=== PATIENT | female | born 1990 | race Caucasian/White ===

== ENCOUNTER 2016-03-26 23:42 | Outpatient (CLI) | payer BC, OTHER ==
--- NOTE | 2016-03-27 02:27 | US ---
EXAMINATION TYPE: US OB >= 14 wk fetus DATE OF EXAM: 03/27/2016 2:04 AM COMPARISON: Multiple in PACS CLINICAL HISTORY: Pt state light bright red bleeding x few hours TECHNIQUE: Transabdominal (TA) GESTATIONAL AGE / DATING Physician Established: (28 weeks/6 days) EDC: 06/13/2016 Dates by First Scan: (28 weeks/4 days) EDC: 06/15/2016 Dates by Current Scan: (29 weeks/0 days) EDC: 06/12/2016 SURVEY IUP: Single PLACENTA: Fundal PREVIA: No Previa [place]: 12.9 cm Normal CERVICAL LENGTH (transabdominal: norm > 3.0cm): 4.5 cm BIOMETRY PRESENTATION: Vertex BPD: 7.6 cm 30 weeks / 5 days HC: 27.8 cm 30 weeks / 3 days AC: 24.1 cm 28 weeks / 3 days FL: 5.4 cm 28 weeks / 4 days ESTIMATED WEIGHT IN GRAMS: 1278 grams ESTIMATED WEIGHT IN LBS/OZS: 2 lbs. 13 oz. WEIGHT PERCENTAGE BASED ON ESTABLISHED DATES: 32.9% HC/AC: 1.15 Normal FL/AC: 22 Normal HEART RATE: 135 bpm RHYTHM: Normal TECHNOLOGIST IMPRESSION: Single, viable IUP/ No abnormality seen at this time to account for pt's sy mptoms/ Possible placental benavides visualized= 3.7 cm Results given to L&D at time of exam IMPRESSION: There is cephalic presentation. There is no evidence of placenta previa or placental abruption. An ex tra fluid is normal in volume.
== END 2016-03-27 02:11 | disposition home or self-care (01) ==
LOC: FBPOP 23:42
PROVIDERS: ATTEND Obstetrics & Gynecology
DX: O26.853 Spotting complicating pregnancy, third trimester (principal); Z3A.28 28 weeks gestation of pregnancy
CPT/HCPCS: 59025; 76805; G0463; 99213

== ENCOUNTER 2016-04-15 23:45 | Observation (INO) | payer BC, OTHER ==
--- NOTE | 2016-04-16 01:26 | US ---
EXAMINATION TYPE: US OB >= 14 wk fetus DATE OF EXAM: 04/16/2016 1:12 AM COMPARISON: 03/27/2016 CLINICAL HISTORY: vaginal bleedingBleeding x few hours, 5, para 2, miscarriage 2 TECHNIQUE: Transabdominal (TA) GESTATIONAL AGE / DATING Physician Established: (31 weeks/5 days) EDC: 06/13/2016 Dates by First Scan: (31 weeks/3 days) EDC: 06/15/2016 Dates by Current Scan: (32 weeks/0 days) EDC: 06/11/2016 SURVEY IUP: Single PLACENTA: Fundal PREVIA: No Previa [place]: 15.8 cm Normal CERVICAL LENGTH (transabdominal: norm > 3.0cm): 4.0 cm BIOMETRY PRESENTATION: Vertex BPD: 8.1 cm 32 weeks / 3 days HC: 29.5 cm 32 weeks / 5 days AC: 28.1 cm 32 weeks / 1 days FL: 6.2 cm 32 weeks / 0 days ESTIMATED WEIGHT IN GRAMS: 1919 grams ESTIMATED WEIGHT IN LBS/OZS: 4 lbs. 4 oz. WEIGHT PERCENTAGE BASED ON ESTABLISHED DATES: 54% HC/AC: 1.05 Normal FL/AC: 22.00 Normal HEART RATE: 146 bpm RHYTHM: Normal TECHNOLOGIST IMPRESSION: Viable single IUP measuring 32 weeks 0 days with a heart rate of 146bpm and an estimated delivery date of 06/11/2016, 4.2cm hypoechoic area within placenta seen on previous ult rasound - possible placental benavides IMPRESSION: 1. Single live intrauterine with heart rate of 1 46 bpm with current ultrasound age of 32 w eeks and 0 days and CHRIS of 06/11/2016. 2. Hypoechoic area measuring approximately 4.2 cm is again noted in the placenta most likely represen ting benign placental benavides. No definite placental abruption is suggested.
[2016-04-16] MEDS ORDERED: LACTATED RINGERS 1,000 ML IV SCH (03:00)
[2016-04-16] MEDS ORDERED: BETAMET ACET-BETAMETH SOD PHOS 6 MG/ML VIAL IM SCH (03:00)
[2016-04-16 03:50] VITALS: BP 114/56; PULSE 80; RESP 16; TEMP 97.9; BMI 36.3
--- NOTE | 2016-04-16 08:11 | P.HPOB ---
History of Present Illness H&P Date: 04/16/16 Chief Complaint: IUP 31 weeks vaginal bleeding Elena is a 25-year-old 5 para 2 at 31 weeks gestation who arrives complaining of vaginal bleeding. She notes that vaginal bleeding began earlier this evening she states she was really not do anything but got use the restroom noticed blood in the stool as well as a few small clots. She medially came to labor and delivery. She denies sexual intercourse. It is noted that she previously had an abruption with her last that ended with a miscarriage at 20 weeks. It is something that we have been following closely with [facility] due to her history. She voices no other problems or complaints she denies contractions. She denies initially leaking of fluid although after admission she does report that she may have had a leak of fluid about 10 AM yesterday but we did do an ultrasound and her [place] was normal at 15.8 her cervical length was 4.0 heart rate was 146 on ultrasound there was no proteinuria with a fundal placenta. There was also a 4.2 cm placental late but that is something that is been there previously. She had a similar episode of bleeding about 2 weeks ago but that remained stable, bleeding subsided, and she was therefore discharged home following a thorough evaluation. On physical exam today her vital signs are currently stable and she is afebrile. Her heart is regular and her lungs are clear. Abdomen is soft there traction as noted and no palpable tenderness. A speculum exam is done with thin bloody fluid in the cul-de-sac does not appear to be amniotic fluid and amnisure was obtained and was positive but unfortunately there was greater than 50% blood in the sample limiting its effectiveness. We've admitted her for observational care at this time and to evaluate and see the stability of her bleeding. My goal is to verify stability tonight and speak with the high risk physicians in the morning and see whether or not they would like for her to be transferred there for further evaluation and repeat ultrasound to rule out other changes or whether to continue monitoring her here and potentially have her see them at the beginning of the week. Either way at this time due to the bleeding we are going to have her under close observational care. heart tones are in the 140s and have been reactive again there are no contractions noted on the monitor. Assessment interim at 31 weeks with vaginal bleeding. History of vaginal bleeding during this as well as an abruption with demise at 20 weeks with her last Plan close observational care and discuss with maternal medicine later today. Past Medical History Past Medical History: Asthma Additional Past Medical History / Comment(s): glasses, hx of kidney and bladder infectins, permanent upper retainer present History of Any Multi-Drug Resistant Organisms: None Reported Past Surgical History: Appendectomy, Orthopedic Surgery Additional Past Surgical History / Comment(s): eye surgery x 5, right knee ( foreign body removal) Past Anesthesia/Blood Transfusion Reactions: No Reported Reaction Past Psychological History: Depression Smoking Status: Never smoker Past Alcohol Use History: None Reported Past Drug Use History: None Reported - Past Family History Father Family Medical History: Hypertension Additional Family Medical History / Comment(s): anxiety Mother Family Medical History: Hypertension Medications and Allergies Home Medications Medication Instructions Recorded Confirmed Type Multivitamin [Multivitamins Adult 2 tab PO DAILY 11/16/15 04/16/16 History Gummies] Citalopram Hydrobromide [CeleXA] 40 mg PO DAILY 01/29/16 04/16/16 History Albuterol Inhaler [Ventolin Hfa 2 puff INHALATION RT-Q6H PRN 03/10/16 04/16/16 History Inhaler] Allergies Allergy/AdvReac Type Severity Reaction Status Date / Time diphenhydramine HCl Allergy Itching Verified 04/03/16 18:01 [From Benadryl] latex Allergy Rash/Hives Verified 04/03/16 18:01 hydrocodone bitartrate AdvReac MIGRAINE Verified 04/03/16 18:01 [From Vicodin] Exam Osteopathic Statement: *. No significant issues noted on an osteopathic structural exam other than those noted in the History and Physical/Consult. - Vital Signs Vital signs: Vital Signs Temp Pulse Resp BP Pulse Ox 04/16/16 02:43 97.9 F 80 16 114/56 98 Intake and Output 04/15/16 04/16/16 04/16/16 22:59 06:59 14:59 Other: # Voids 1 Weight 96.162 kg
--- NOTE | 2016-04-16 09:16 | P.DS ---
Providers Date of admission: 04/16/16 02:39 Expected date of discharge: 04/16/16 Attending physician: Earl Madrigal Primary care physician: Earl Madrigal [facility] Course: Elena is seen and evaluated again this morning. She continues to have light bleeding and some discharge. I did speak with the maternal- medicine specialist to [facility]' Dr. Tyler and she agrees that more monitoring will be needed and her recommendation is that we transfer her to there so they can do monitoring for both rupture of membranes as well as potential abruption due to her history. Risks and benefits of transfer discussed with the patient and her and all questions are answered for her prior to her being discharged she is stable for transfer at this time heart tones are in the 140s to 150s and have been reactive. She is not ajit and she is stabilized to the best of my ability at this time. Patient Condition at Discharge: Good Plan - Discharge Summary Discharge Medication List Multivitamin [Multivitamins Adult Gummies] 2 tab PO DAILY 11/16/15 [History] Citalopram Hydrobromide [CeleXA] 40 mg PO DAILY 01/29/16 [History] Albuterol Inhaler [Ventolin Hfa Inhaler] 2 puff INHALATION RT-Q6H PRN 03/10/16 [ History]
== END 2016-04-16 09:35 | disposition short-term general hospital (02) ==
LOC: FBPOP 23:45 → 4FBP 04-16 02:39
PROVIDERS: ADMIT Obstetrics & Gynecology; ATTEND Obstetrics & Gynecology
DX: O46.93 Antepartum hemorrhage, unspecified, third trimester (principal); O99.513 Diseases of the respiratory system complicating pregnancy, third trimester; O99.343 Other mental disorders complicating pregnancy, third trimester; O09.293 Supervision of pregnancy with other poor reproductive or obstetric history, third trimester; F32.9 Major depressive disorder, single episode, unspecified; Z3A.31 31 weeks gestation of pregnancy; J45.909 Unspecified asthma, uncomplicated; Z88.5 Allergy status to narcotic agent; Z88.8 Allergy status to other drugs, medicaments and biological substances; Z91.040 Latex allergy status; Z79.899 Other long term (current) drug therapy
CPT/HCPCS: 59025; 84112; 76805; G0378; G0463; J0702; 96372; 99213

== ENCOUNTER 2016-05-09 10:41 | Outpatient (CLI) | payer BC, OTHER | END 2016-05-09 11:38 | disposition home or self-care (01) | LOC: FBPOP 10:41 | PROVIDERS: ATTEND Obstetrics & Gynecology | DX: O09.893 Supervision of other high risk pregnancies, third trimester (principal); R10.9 Unspecified abdominal pain; Z3A.35 35 weeks gestation of pregnancy; Z87.898 Personal history of other specified conditions | CPT/HCPCS: 59025; G0463; 99213 ==

== ENCOUNTER 2016-05-09 21:20 | Outpatient (CLI) | payer BC, OTHER | END 2016-05-09 22:05 | disposition home or self-care (01) | LOC: FBPOP 21:20 | PROVIDERS: ATTEND Obstetrics & Gynecology | DX: Z53.9 Procedure and treatment not carried out, unspecified reason (principal) | CPT/HCPCS: 59025; 99213 ==

== ENCOUNTER 2016-05-23 06:00 | Inpatient (IN) | payer BC, OTHER ==
[2016-05-23] MEDS ORDERED: METHYLERGONOVINE 0.2 MG/ML 1 ML AMP IM PRN (06:49)
[2016-05-23] MEDS ORDERED: TERBUTALINE 1 MG/ML VIAL SQ PRN (06:49)
[2016-05-23] MEDS ORDERED: CARBOPROST TROMETHAMINE 250 MCG/ML 1 ML AMP IM PRN (06:49)
[2016-05-23] MEDS ORDERED: OXYTOCIN 10 UNIT/ML 1 ML VIAL IM PRN (06:49)
[2016-05-23] MEDS ORDERED: LIDOCAINE 1% (PF) 10 MG/ML (30 ML SDV) SQ PRN (06:49)
[2016-05-23] MEDS: LACTATED RINGERS 1,000 ML IV SCH ×3 (06:55→14:27)
[2016-05-23] MEDS ORDERED: OXYTOCIN 30 UNITS/500 ML NS 30 UNIT in SALINE 1 500ML.BAG IV SCH ×2 (07:00→17:30)
[2016-05-23 07:08] LABS: Basophils % (A) 0 %; CH 30.4; CHCM 34.2; Eosinophils # (A) 0.1 k/uL (0-0.7); Eosinophils % (A) 1 %; HCT 36.5 % (34.0-46.0); HGB 11.9 gm/dL (11.4-16.0); Luc # (Auto) 0.37; Luc % (Auto) 4; Lymphocytes # (A) 2.6 k/uL (1.0-4.8); Lymphocytes % (A) 26 %; MCH 29.2 pg (25.0-35.0); MCHC 32.6 g/dL (31.0-37.0); MCV 89.5 fL (80.0-100.0); Mean Platelet Volume 8.8; Monocytes # (A) 0.5 k/uL (0-1.0); Monocytes % (A) 5 %; Neutrophils # (A) 6.4 k/uL (1.3-7.7); Neutrophils % (A) 65 %; RBC 4.08 m/uL (3.80-5.40); RDW 13.6 % (11.5-15.5); WBC 9.9 k/uL (3.8-10.6); WBC (Perox) 10.16
[2016-05-23] MEDS: BUTORPHANOL 1 MG/ML 1 ML VIAL IV PRN ×2 (09:54→12:17)
[2016-05-23] MEDS ORDERED: fentaNYL (PF) 50 MCG/ML 5 ML AMP ONE (13:51)
[2016-05-23] MEDS ORDERED: BUPIVACAINE (PF) 0.25% 30 ML VIAL ONE (13:51)
[2016-05-23] MEDS ORDERED: SODIUM CHLORIDE 0.9% 100 ML BAG ONE (13:51)
--- NOTE | 2016-05-23 17:13 | P.HPOB ---
History of Present Illness H&P Date: 05/23/16 Chief Complaint: IUP term: chronic abruption Case a 25-year-old at 37 weeks gestation arise for induction of labor due to chronic abruption. She has been seeing myself and high risk entirety of the . She's had a chronic abruption for which she has been on pelvic rest and bedrest over the last several months. The point where she is at term and due to rectum exudations from high risk we' ll plan to induce today. She has had no bleeding or last several days. course otherwise is noted to be unremarkable. She was admitted to high risk for approximately 2-3 days earlier in the as well. On physical exam vital signs are stable and afebrile. Heart regular, lungs clear, extremities without pain. Uterus is noted to be gravid. heart tones 130s 140s and are reactive area patient's pertinent labs include O+ blood type Rh antibody negative rubella not listed, hepatitis B surface antigen was negative, groupie strep was negative. She feels her 1 hour Glucola screen however she did pass her 3 hour Glucola screen. Past Medical History Past Medical History: Asthma Additional Past Medical History / Comment(s): glasses, hx of kidney and bladder infectins, permanent upper retainer present History of Any Multi-Drug Resistant Organisms: None Reported Past Surgical History: Appendectomy, Orthopedic Surgery Additional Past Surgical History / Comment(s): eye surgery x 5, right knee ( foreign body removal) Past Anesthesia/Blood Transfusion Reactions: No Reported Reaction Past Psychological History: Depression Additional Psychological History / Comment(s): stopped celexa 2-3 weeks ago Smoking Status: Former smoker Past Alcohol Use History: None Reported Past Drug Use History: None Reported - Past Family History Father Family Medical History: Hypertension Additional Family Medical History / Comment(s): anxiety Mother Family Medical History: Hypertension Medications and Allergies Home Medications Medication Instructions Recorded Confirmed Type Multivitamin [Multivitamins Adult 2 tab PO DAILY 11/16/15 05/23/16 History Gummies] Albuterol Inhaler [Ventolin Hfa 1 - 2 puff INHALATION Q6HR PRN 05/23/16 History Inhaler] Allergies Allergy/AdvReac Type Severity Reaction Status Date / Time diphenhydramine HCl Allergy Itching Verified 05/23/16 06:48 [From Benadryl] latex Allergy Rash/Hives Verified 05/23/16 06:48 hydrocodone bitartrate AdvReac MIGRAINE Verified 05/23/16 06:48 [From Vicodin] Exam Osteopathic Statement: *. No significant issues noted on an osteopathic structural exam other than those noted in the History and Physical/Consult. - Vital Signs Vital signs: Vital Signs Temp Pulse Resp BP 05/23/16 06:51 96.0 F L 97 16 131/72 Intake and Output 05/23/16 05/23/16 05/23/16 06:59 14:59 22:59 Other: # Voids 1 Weight 97.522 kg - OBG Physical Exam Breast: both: normal (no masses) Abdomen: bowel sounds normal, no diffuse tenderness, no bruit present, no guarding noted, no hepatomegaly, no splenomegaly, no mass Vulva: both: normal Vagina: normal moisture, no discharge Cervix: no lesion, no discharge Uterus: normal size, normal contour Adnexa: both: normal Anus/Rectum: normal perianal skin, no rectal mass, no hemorrhoids, heme negative Results Result Diagrams: 05/23/16 06:48
--- NOTE | 2016-05-23 17:14 | P.PROBDLV ---
Vaginal Delivery Note - . Vaginal Delivery Note: Elena progressed complete and pushing with spontaneous vaginal delivery of a viable male over an intact perineum. Falling deliver the head anterior and posterior shoulders were delivered with gentle downward upper traction. A nuchal cord 1 was noted but the baby was delivered through the nuchal cord. Once this was accomplished mouth nares were bulb suctioned and baby was placed on mother's belly where the umbilical cord was allowed to pulsate for 30 seconds prior to clamping and cutting. Once this was accomplished baby was given off to awaiting nursery personnel with spontaneous cry noted. Placenta was then delivered intact and Pitocin was added to the IV. scores were pending but weight was 6 lbs. 14 oz. Both mother and baby are currently stable following delivery.
[2016-05-23] MEDS ORDERED: ZOLPIDEM 5 MG TAB PO PRN (17:18)
[2016-05-23] MEDS ORDERED: diphenhydrAMINE 25 MG CAP PO PRN (17:18)
[2016-05-23] MEDS ORDERED: BENZOCAINE/MENTHOL SPRAY 1 GM/SPRAY AEROSOL TOPICAL PRN (17:18)
[2016-05-23] MEDS ORDERED: HYDROCORTISONE 2.5% RECTAL CREAM 30 GM TUBE RECTAL PRN (17:18)
[2016-05-23] MEDS ORDERED: diphenhydrAMINE 50 MG CAP PO PRN (17:18)
[2016-05-23] MEDS ORDERED: SIMETHICONE 80 MG CHEWABLE PO PRN (17:18)
[2016-05-23] MEDS ORDERED: WITCH HAZEL 1 EACH MED..PAD TOPICAL PRN (17:18)
[2016-05-23] MEDS ORDERED: LANOLIN CREAM 5 GM TUBE TOPICAL PRN (17:18)
[2016-05-23] MEDS ORDERED: Acetaminophen-Codeine 300-30mg TAB PO PRN (17:18)
[2016-05-23] MEDS ORDERED: diphenhydrAMINE 50 MG/ML 1 ML VIAL IVP PRN ×2 (17:18)
[2016-05-23] MEDS ORDERED: ACETAMINOPHEN TAB 325 MG TAB PO PRN (17:18)
[2016-05-23] MEDS ORDERED: MEASLES-MUMPS-RUBELLA VACC/PF 12,500 UNIT/0.5 ML VIAL SQ ONE (17:18)
[2016-05-23] MEDS: SENNOSIDES-DOCUSATE SODIUM 1 EACH TAB PO SCH (21:44)
[2016-05-23] MEDS: Acetaminophen-Codeine 300-30mg TAB PO PRN (22:09)
[2016-05-24] MEDS: IBUPROFEN 600 MG TAB PO PRN ×2 (02:06→14:53)
[2016-05-24] MEDS: Acetaminophen-Codeine 300-30mg TAB PO PRN ×2 (07:46→19:57)
[2016-05-24] MEDS: SENNOSIDES-DOCUSATE SODIUM 1 EACH TAB PO SCH ×2 (08:51→21:59)
--- NOTE | 2016-05-24 09:57 | P.PNOBGVD ---
Subjective - Subjective Principal diagnosis: day 1 Interval history: Overall doing very well. Involuting, voiding, and she is tolerating her diet. She voices no complaints. Vital signs are stable and afebrile. Patient reports: Reports appetite normal, Reports voiding normally, Reports pain well controlled, Reports ambulating normally Benoit: doing well Objective - Latest Vital Signs Latest vital signs: Vital Signs Temp Pulse Resp BP Pulse Ox 05/24/16 08:00 98.4 F 80 20 92/55 97 05/24/16 03:56 97 F L 84 16 125/66 05/24/16 00:00 97.5 F L 79 16 99/48 05/23/16 20:00 97.1 F L 95 16 112/64 05/23/16 19:00 98.1 F 97 16 113/56 05/23/16 18:25 93 115/63 05/23/16 17:55 98.1 F 90 16 121/64 05/23/16 17:25 98.1 F 86 16 108/58 05/23/16 17:10 89 16 115/65 05/23/16 16:55 98.2 F 94 132/66 05/23/16 16:40 86 106/64 05/23/16 16:25 98.1 F 78 18 102/55 Intake and Output 05/23/16 05/24/16 05/24/16 22:59 06:59 14:59 Intake Total 9.383 Output Total 200 Balance -190.617 Intake: Intake, IV Titration 9.383 Amount Oxytocin 30 Units/500 ml 9.383 Ns 30 unit In Saline 1 500ml.bag @ 1 MILLIUNIT/ MIN 1 mls/hr IV .Q24H AVI Rx#:[id number] Output: Estimated Blood Loss 200 Other: # Voids 1 1 - Exam Lungs: bilateral: normal Chest: Normal S1, Normal S2 Extremities: Present: normal Abdomen: Present: normal appearance, soft Uterus: Present: normal, firm
[2016-05-25] MEDS: IBUPROFEN 600 MG TAB PO PRN ×2 (04:48→12:20)
[2016-05-25 08:33] VITALS: BP 110/66; PULSE 68; RESP 18; TEMP 98.2
--- NOTE | 2016-05-25 08:40 | P.DS ---
Providers Date of admission: 05/23/16 06:32 Expected date of discharge: 05/25/16 Attending physician: Earl Madrigal Primary care physician: Stated None Hospital Course: Elena is doing very well day 2. She is ambulating, voiding, and she is tolerating her diet. She voices no complaints. Vital signs stable and afebrile. Heart regular, lungs clear, extremities without pain. Abdomen is soft uterus is firm below the umbilicus and lochia is reported light. Assessment day 2. Plan discharged home follow me in 6 weeks. Prescription for towel 3 and Motrin been provided discharge instructions thoroughly reviewed. All questions are answered for the patient prior discharge and she is again stable for discharge at this time. Patient Condition at Discharge: Good Plan - Discharge Summary New Discharge Prescriptions: Acetaminophen-Codeine 300-30mg [Tylenol #3] 1 tab PO Q4H PRN #30 tablet PRN Reason: Pain Ibuprofen [Motrin] 600 mg PO Q6HR PRN #30 tab PRN Reason: Pain Discharge Medication List Multivitamin [Multivitamins Adult Gummies] 2 tab PO DAILY 11/16/15 [History] Albuterol Inhaler [Ventolin Hfa Inhaler] 1 - 2 puff INHALATION Q6HR PRN [History] Acetaminophen-Codeine 300-30mg [Tylenol #3] 1 tab PO Q4H PRN #30 tablet [Rx] Ibuprofen [Motrin] 600 mg PO Q6HR PRN #30 tab 05/25/16 [Rx] Follow up Appointment(s)/Referral(s): Earl Madrigal DO [Doctor of Osteopathic Medicine] - 6 Weeks Activity/Diet/Wound Care/Special Instructions: Thorough status post vaginal delivery instructions reviewed Discharge Disposition: HOME SELF-CARE
[2016-05-25] MEDS: SENNOSIDES-DOCUSATE SODIUM 1 EACH TAB PO SCH (12:21)
== END 2016-05-25 14:17 | disposition home or self-care (01) | DRG 774 ==
LOC: 4FBP 06:32
PROVIDERS: ADMIT Obstetrics & Gynecology; ATTEND Obstetrics & Gynecology
PROC: 3E0R3CZ (ICD-10-PCS; principal; 2016-05-23)
PROC: 10E0XZZ Delivery of Products of Conception, External Approach (ICD-10-PCS; principal; 2016-05-23)
PROC: 3E033VJ Introduction of Other Hormone into Peripheral Vein, Percutaneous Approach (ICD-10-PCS; principal; 2016-05-23)
PROC: 00HU33Z Insertion of Infusion Device into Spinal Canal, Percutaneous Approach (ICD-10-PCS; principal; 2016-05-23)
PROC: 10907ZC Drainage of Amniotic Fluid, Therapeutic from Products of Conception, Via Natural or Artificial Opening (ICD-10-PCS; principal; 2016-05-23)
DX: O45.93 Premature separation of placenta, unspecified, third trimester (principal); J45.909 Unspecified asthma, uncomplicated; Z37.0 Single live birth; O69.81X0 Labor and delivery complicated by cord around neck, without compression, not applicable or unspecified; Z3A.37 37 weeks gestation of pregnancy; Z87.891 Personal history of nicotine dependence; O99.52 Diseases of the respiratory system complicating childbirth; Z91.040 Latex allergy status
CPT/HCPCS: 85025; 86762; 88307

== ENCOUNTER 2016-07-21 16:08 | Emergency (ER) | payer BC, OTHER ==
[2016-07-21 16:21] VITALS: BP 135/81; PULSE 83; RESP 20; TEMP 97.8
--- NOTE | 2016-07-21 16:44 | ED ---
General Adult HPI - General Chief complaint: Wound/Laceration Stated complaint: Hand Laceration Time Seen by Provider: 07/21/16 16:26 Source: patient, RN notes reviewed Mode of arrival: ambulatory Limitations: no limitations - History of Present Illness Initial comments: Patient 26-year-old female who presents emergency room today with chief complaint of a puncture wound in the webspace between the first and second digit of the left hand. She does not that she was trying to cut a piece of hard plastic with a paring knife when it slipped causing this puncture wound. Patient states her tetanus is up-to-date. She does admit that she did clean it up at home. She denies any other complaints or symptoms. States she has full range of motion of the left hand. Patient denies any recent fever, chills, shortness of breath, chest pain, back pain, abdominal pain, nausea or vomiting, numbness or tingling, dysuria or hematuria, constipation or diarrhea, headaches or visual changes, or any other complaints. - Related Data Home Medications Medication Instructions Recorded Confirmed Multivitamin [Multivitamins Adult 2 tab PO DAILY 11/16/15 05/23/16 Gummies] Albuterol Inhaler [Ventolin Hfa 1 - 2 puff INHALATION Q6HR PRN 05/23/16 05/23/16 Inhaler] Previous Rx's Medication Instructions Recorded Acetaminophen-Codeine 300-30mg 1 tab PO Q4H PRN #30 tablet 05/25/16 [Tylenol #3] Ibuprofen [Motrin] 600 mg PO Q6HR PRN #30 tab 05/25/16 Amoxicillin/Potassium Clav 1 each PO Q12HR #20 tab 07/21/16 [Augmentin 875-125 Tablet] Allergies Allergy/AdvReac Type Severity Reaction Status Date / Time diphenhydramine HCl Allergy Itching Verified 07/21/16 16:22 [From Benadryl] latex Allergy Rash/Hives Verified 07/21/16 16:22 hydrocodone bitartrate AdvReac MIGRAINE Verified 07/21/16 16:22 [From Vicodin] Review of Systems ROS Statement: Those systems with pertinent positive or pertinent negative responses have been documented in the HPI. ROS Other: All systems not noted in ROS Statement are negative. Past Medical History Past Medical History: Asthma Additional Past Medical History / Comment(s): glasses, hx of kidney and bladder infectins, permanent upper retainer present History of Any Multi-Drug Resistant Organisms: None Reported Past Surgical History: Appendectomy, Orthopedic Surgery Additional Past Surgical History / Comment(s): eye surgery x 5, right knee ( foreign body removal) Past Anesthesia/Blood Transfusion Reactions: No Reported Reaction Past Psychological History: Depression Additional Psychological History / Comment(s): stopped celexa 2-3 weeks ago Smoking Status: Former smoker Past Alcohol Use History: None Reported Past Drug Use History: None Reported - Past Family History Father Family Medical History: Hypertension Additional Family Medical History / Comment(s): anxiety Mother Family Medical History: Hypertension General Exam - General Exam Comments Initial Comments: General: The patient is awake and alert, in no distress, and does not appear acutely ill. Eye: Pupils are equal, round and reactive to light, extra-ocular movements are intact. No nystagmus. There is normal conjunctiva bilaterally. No signs of icterus. Neck: The neck is supple, there is no tenderness or JVD. Cardiovascular: There is a regular rate and rhythm. No murmur, rub or gallop is appreciated. Respiratory: Lungs are clear to auscultation, respirations are non-labored, breath sounds are equal. No wheezes, stridor, rales, or rhonchi. Musculoskeletal: Normal ROM, no tenderness. Strength 5/5. Sensation intact. Pulses equal bilaterally 2+. Neurological: A&O x 3. CN II-XII intact, There are no obvious motor or sensory deficits. Coordination appears grossly intact. Speech is normal. Skin: small puncture wound to the web spacing between the first and second digit of the left hand. No active bleeding. Measuring less than 0.5 cm. Psychiatric: Cooperative, appropriate mood & affect, normal judgment. Limitations: no limitations Course Vital Signs 07/21/16 16:20 Temperature 97.8 F Pulse Rate 83 Respiratory 20 Rate Blood Pressure 135/81 O2 Sat by Pulse 99 Oximetry Medical Decision Making - Medical Decision Making patient advised due to puncture wound that we should leave wound open and not try to close to allow for any drainage if there is bacteria in it. Advised patient that we should place her on antibiotic. Be started on Augmentin for puncture wound. Advised to watch for any signs of infection return for any other concerns. Patient states understanding. Disposition Clinical Impression: Puncture wound Disposition: HOME SELF-CARE Condition: Good Instructions: Puncture Wound (ED) Additional Instructions: Please use antibiotic as prescribed amoxicillin and watch for any signs infection which may include increased pain, swelling, redness, fever or chills. Please return to emergency room for any signs of infection or any other concerns. Prescriptions: Amoxicillin/Potassium Clav [Augmentin 875-125 Tablet] 1 each PO Q12HR #20 tab Time of Disposition: 16:39
== END 2016-07-21 16:50 | disposition home or self-care (01) ==
LOC: EC 16:08
DX: S61.432A Puncture wound without foreign body of left hand, initial encounter (principal); Z87.891 Personal history of nicotine dependence; Z79.899 Other long term (current) drug therapy; Z88.5 Allergy status to narcotic agent; Z88.8 Allergy status to other drugs, medicaments and biological substances; Z91.040 Latex allergy status; W26.0XXA Contact with knife, initial encounter
CPT/HCPCS: 99282

== ENCOUNTER → 2016-09-02 | Outpatient (CLI) | payer BC, OTHER ==
--- NOTE | 2016-09-02 16:22 | US ---
EXAMINATION TYPE: US extremity nonvasc mass LT DATE OF EXAM: 09/02/2016 COMPARISON: NONE CLINICAL HISTORY: R22.32 localized swelling, mass, and lump. Lump left wrist that is increasing in si ze Low-level internal echoes, well-circumscribed area left wrist within the area of patient's clinical a bnormality = 1.5 x 1.1 x 1.5cm. NO vascularity noted at this area IMPRESSION: Findings may be indicative of ganglion cyst but are indeterminate and nonspecific. Consi ronal MRI for better evaluation
--- NOTE | 2016-09-02 16:24 | CT ---
EXAMINATION TYPE: CT wrist LT wo con DATE OF EXAM: 09/02/2016 COMPARISON: Ultrasound same day HISTORY: Swelling at the base of the thumb that has grown in size over the past [address] DLP: 100.1 mGycm Automated exposure control for dose reduction was used. FINDINGS: At the level of the patient's symptomatology volar aspect of the wrist there is a isodense focus feliberto esponding to the ultrasound abnormality within the subcutaneous fat measuring approximately 16 mm x 2 cm x 10 mm. Bones show normal mineralization, alignment. IMPRESSION: BODIES COULD POSSIBLY REPRESENT A FIBROMA, GANGLION CYST, FOREIGN BODY GRANULOMA.
== END | disposition home or self-care (01) ==
LOC: RADUSWWP 14:45
PROVIDERS: ATTEND Orthopaedic Surgery
DX: M25.532 Pain in left wrist (principal)

== ENCOUNTER → 2016-09-02 | Outpatient (CLI) | payer BC, OTHER ==
--- NOTE | 2016-09-02 16:17 | US ---
EXAMINATION TYPE: US gallbladder DATE OF EXAM: 09/02/2016 COMPARISON: NONE CLINICAL HISTORY: R10.84 Generalized Abdominal Pain. RUQ pain, nausea EXAM MEASUREMENTS: Liver Length: 13.2 cm Gallbladder Wall: 0.2 cm CBD: 0.4 cm Right Kidney: 11.7 x 4.4 x 6.0 cm Pancreas: visualized portions appear wnl Liver: appears to show coarse echotexture Gallbladder: stone near neck = 0.6cm Evidence for sonographic Tyler's sign: Yes CBD: wnl Right Kidney: stone mid = 1.0 x 1.2cm , suggestion of some mild pelvic caliectasis There is no ascites. IMPRESSION: Nephrolithiasis on the right, there may be some mild caliectasis. Gallstone near the neck of the gallbladder. Correlate for possible fatty infiltration of the liver.
== END | disposition home or self-care (01) ==
LOC: RADUSWWP 14:43
PROVIDERS: ATTEND Internal Medicine
DX: N20.0 Calculus of kidney (principal); K80.20 Calculus of gallbladder without cholecystitis without obstruction
CPT/HCPCS: 76705

== ENCOUNTER → 2016-09-20 | Outpatient (CLI) | payer BC, OTHER ==
--- NOTE | 2016-09-20 15:25 | NM ---
EXAMINATION TYPE: NM hepatobiliary w EF DATE OF EXAM: 09/20/2016 COMPARISON: Ultrasound gallbladder 09/02/2016 HISTORY: Right upper quadrant pain, R10.11, abnormal gallbladder ultrasound, R 93.2 TECHNIQUE: After the intravenous administration of 5 mCi Tc 99m Mebrofenin hepatobiliary scintigraphy is performed. Immediate images post injection. FINDINGS: There is satisfactory initial accumulation of tracer by the liver. The gallbladder is visualized wit hin 44 minutes. The small bowel activity is noted within 8 minutes. At one hour 8 ounces of oral en sure plus is given to mimic CCK and gallbladder ejection fraction is calculated at 73 %, in the genet l range. Therefore there is no scintigraphic evidence of cystic or common bile duct obstruction to s uggest acute cholecystitis or gallbladder dyskinesia. IMPRESSION: Exam is within normal limits.
== END | disposition home or self-care (01) ==
LOC: RADNMMAIN 12:58
PROVIDERS: ATTEND Internal Medicine
DX: R10.11 Right upper quadrant pain (principal)
CPT/HCPCS: 78226; A9537

== ENCOUNTER 2016-09-29 21:54 | Emergency (ER) | payer BC, OTHER ==
[2016-09-29 22:02] VITALS: BP 113/60; PULSE 85; RESP 18; TEMP 98.3
--- NOTE | 2016-09-29 22:12 | ED ---
General Adult HPI - General Chief complaint: Extremity Injury, Lower Stated complaint: toe injury Time Seen by Provider: 09/29/16 22:00 Source: patient, RN notes reviewed Mode of arrival: ambulatory Limitations: no limitations - History of Present Illness Initial comments: This is a 26-year-old female presents emergency Department complaining of pain in her second and third right toe. Patient states she dropped a drill onto her toe. There is no cut or laceration there is no abrasion. Patient states his bleeding. Patient states it does not hurt at the nail it hurts at the PIP joint mostly. Patient denies any foot pain. Patient denies any other toe pain patient denies any other injury. - Related Data Home Medications Medication Instructions Recorded Confirmed Multivitamin [Multivitamins Adult 2 tab PO DAILY 11/16/15 05/23/16 Gummies] Albuterol Inhaler [Ventolin Hfa 1 - 2 puff INHALATION Q6HR PRN 05/23/16 05/23/16 Inhaler] Previous Rx's Medication Instructions Recorded Acetaminophen-Codeine 300-30mg 1 tab PO Q4H PRN #30 tablet 05/25/16 [Tylenol #3] Ibuprofen [Motrin] 600 mg PO Q6HR PRN #30 tab 05/25/16 Amoxicillin/Potassium Clav 1 each PO Q12HR #20 tab 07/21/16 [Augmentin 875-125 Tablet] Allergies Allergy/AdvReac Type Severity Reaction Status Date / Time diphenhydramine HCl Allergy Itching Verified 09/29/16 22:01 [From Benadryl] latex Allergy Rash/Hives Verified 09/29/16 22:01 hydrocodone bitartrate AdvReac MIGRAINE Verified 09/29/16 22:01 [From Vicodin] Review of Systems ROS Statement: Those systems with pertinent positive or pertinent negative responses have been documented in the HPI. ROS Other: All systems not noted in ROS Statement are negative. Past Medical History Past Medical History: Asthma Additional Past Medical History / Comment(s): glasses, hx of kidney and bladder infectins, permanent upper retainer present History of Any Multi-Drug Resistant Organisms: None Reported Past Surgical History: Appendectomy, Orthopedic Surgery Additional Past Surgical History / Comment(s): eye surgery x 5, right knee ( foreign body removal) Past Anesthesia/Blood Transfusion Reactions: No Reported Reaction Past Psychological History: Depression Smoking Status: Former smoker Past Alcohol Use History: None Reported Past Drug Use History: None Reported - Past Family History Father Family Medical History: Hypertension Additional Family Medical History / Comment(s): anxiety Mother Family Medical History: Hypertension General Exam - General Exam Comments Initial Comments: GENERAL Patient is well-developed and well-nourished. Patient is in mild distress. EYES Patient's pupils are equal and round. Extraocular motion is intact SKIN Unremarkable NEURO The patient is alert and oriented 3 PYSCH Patient has normal interpersonal interactions. MUSCULOSKELETAL Patient's second third or tender to touch at the PIP joint there is no swelling there is no redness is no deformity. Limitations: no limitations Course Vital Signs 09/29/16 21:59 Temperature 98.3 F Pulse Rate 85 Respiratory 18 Rate Blood Pressure 113/60 O2 Sat by Pulse 97 Oximetry Medical Decision Making - Medical Decision Making X-ray of the foot shows no fractures. Disposition Clinical Impression: Contusion, toes Disposition: HOME SELF-CARE Condition: Good Instructions: Contusion in Adults (ED) Referrals: Irma Mina MD [Primary Care Provider] - 1-2 days Time of Disposition: 22:29
--- NOTE | 2016-09-29 22:54 | XR ---
EXAM: XR Right Toe(s), 2 or More Views CLINICAL HISTORY: Reason: right 2nd and 3rd digit pain TECHNIQUE: Frontal, lateral and oblique views of toe(s) of the right foot. COMPARISON: None FINDINGS: Bones/joints: No acute fracture or dislocation identified. No bony lesion. No significant arthropathy. Soft tissues: Normal. IMPRESSION: No acute abnormality identified.
== END 2016-09-29 22:35 | disposition home or self-care (01) ==
LOC: EC 21:54
DX: S90.121A Contusion of right lesser toe(s) without damage to nail, initial encounter (principal); Z87.891 Personal history of nicotine dependence; Z79.899 Other long term (current) drug therapy; Z88.5 Allergy status to narcotic agent; Z88.8 Allergy status to other drugs, medicaments and biological substances; Z91.040 Latex allergy status; W31.1XXA Contact with metalworking machines, initial encounter
CPT/HCPCS: 99283

== ENCOUNTER 2016-10-21 03:07 | Emergency (ER) | payer BC, OTHER ==
[2016-10-21] MEDS ORDERED: ORPHENADRINE 30 MG/ML 2 ML VIAL IVP STA (03:13)
[2016-10-21] MEDS ORDERED: KETOROLAC 30 MG/ML 1 ML VIAL IVP STA (03:13)
[2016-10-21 03:15] VITALS: RESP 18
--- NOTE | 2016-10-21 03:16 | ED ---
General Adult HPI - General Stated complaint: back injury Time Seen by Provider: 10/21/16 03:09 Source: RN notes reviewed - History of Present Illness Initial comments: 26-year-old female presents to the emergency Department chief complaint of back pain. Patient states that she was moving a couch today and she felt a snap in her lower back. Patient states then tonight when she woke up she is just having terrible pain terrible tightness stabbing type pain across her lower back. Patient does admit to a history of back pain but states that this is worse. Patient states there is no falls. Patient states lifting the couch seems to be the injury. Patient denies any loss by bladder function or any saddle anesthesia. Patient denies any recent fever, chills, shortness of breath , chest pain, abdominal pain, nausea vomiting, numbness or tingling, dysuria or hematuria, constipation or diarrhea, headaches or visual changes, or any other current symptoms. - Related Data Home Medications Medication Instructions Recorded Confirmed Cholecalciferol [Vitamin D3] 400 unit PO HS 09/29/16 09/29/16 Citalopram Hydrobromide [CeleXA] 40 mg PO HS 09/29/16 09/29/16 Previous Rx's Medication Instructions Recorded Orphenadrine [Norflex] 100 mg PO Q12H #10 tablet.er 10/21/16 Allergies Allergy/AdvReac Type Severity Reaction Status Date / Time diphenhydramine HCl Allergy Itching Verified 09/29/16 22:30 [From Benadryl] latex Allergy Rash/Hives Verified 09/29/16 22:30 hydrocodone bitartrate AdvReac MIGRAINE Verified 09/29/16 22:30 [From Vicodin] Review of Systems ROS Statement: Those systems with pertinent positive or pertinent negative responses have been documented in the HPI. ROS Other: All systems not noted in ROS Statement are negative. Past Medical History Past Medical History: Asthma Additional Past Medical History / Comment(s): glasses, hx of kidney and bladder infectins, permanent upper retainer present History of Any Multi-Drug Resistant Organisms: None Reported Past Surgical History: Appendectomy, Orthopedic Surgery Additional Past Surgical History / Comment(s): eye surgery x 5, right knee ( foreign body removal) Past Anesthesia/Blood Transfusion Reactions: No Reported Reaction Past Psychological History: Depression Smoking Status: Former smoker Past Alcohol Use History: None Reported Past Drug Use History: None Reported - Past Family History Father Family Medical History: Hypertension Additional Family Medical History / Comment(s): anxiety Mother Family Medical History: Hypertension General Exam - General Exam Comments Initial Comments: General: The patient is awake and alert, in no distress, and does not appear acutely ill. Eye: Pupils are equal, round. Ears, nose, mouth and throat: There are moist mucous membranes. Neck: The neck is supple, there is no tenderness. Cardiovascular: There is a regular rate and rhythm. No murmur, rub or gallop is appreciated. Respiratory: Lungs are clear to auscultation, respirations are non-labored, breath sounds are equal. No wheezes, stridor, rales, or rhonchi. Gastrointestinal: Soft, non-distended, non-tender abdomen without masses or organomegaly noted. There is no rebound or guarding present. No CVA tenderness. Bowel sounds are unremarkable. Back: There is no tenderness to palpation in the midline. There is no obvious deformity. No rashes noted. Minimal tenderness across the lower back. Musculoskeletal: Normal ROM, no tenderness, There is no pedal edema. There is no calf tenderness or swelling. Sensation intact. Pulses equal bilaterally 2+. Neurological: CN II-XII intact, There are no obvious motor or sensory deficits. Coordination appears grossly intact. Speech is normal. Skin: Skin is warm and dry and no rashes or lesions are noted. Psychiatric: Cooperative, appropriate mood & affect, normal judgment. Course Vital Signs 10/21/16 10/21/16 03:11 04:29 Temperature 97.9 F 97.0 F L Pulse Rate 102 H 99 Respiratory 18 18 Rate Blood Pressure 128/68 130/88 O2 Sat by Pulse 99 98 Oximetry Medical Decision Making - Medical Decision Making 26-year-old female presents emergency Department chief complaint of low back pain after lifting a couch. This time patient's x-ray which is negative. We did give the patient muscle axes for home. We did give her Toradol and Norflex here. She is having some mild improvement. We discussed care of back pain. We discussed return parameters discussed follow-up and all her questions. She stated that she understood and she is here with plan. She will be discharged. - Radiology Data Radiology results: report reviewed, image reviewed Disposition Clinical Impression: Lumbar strain Disposition: HOME SELF-CARE Condition: Stable Instructions: Low Back Strain (ED), Lower Back Exercises (ED) Additional Instructions: Please use medication as discussed. Please follow up with family doctor if symptoms have not improved over the next two days. Please return to the emergency room if your symptoms increase or worsen or for any other concerns. Prescriptions: Orphenadrine [Norflex] 100 mg PO Q12H #10 tablet.er Referrals: Irma Mina MD [Primary Care Provider] - 1-2 days
--- NOTE | 2016-10-21 04:11 | XR ---
EXAM: XR Lumbar Spine, 2 or 3 Views CLINICAL HISTORY: Reason: Pain TECHNIQUE: Frontal and lateral views of the lumbar spine. COMPARISON: No relevant prior studies available. FINDINGS: Vertebrae: No acute fracture. No subluxation. Disc spaces: No acute findings. Soft tissues: Surgical clips are noted. A 13 mm ovoid opacity in the right upper quadrant. IMPRESSION: No acute fracture.
[2016-10-21 04:30] VITALS: BP 130/88; PULSE 99; TEMP 97
== END 2016-10-21 04:31 | disposition home or self-care (01) ==
LOC: EC 03:07
DX: S39.012A Strain of muscle, fascia and tendon of lower back, initial encounter (principal); F32.9 Major depressive disorder, single episode, unspecified; Z87.891 Personal history of nicotine dependence; Z88.8 Allergy status to other drugs, medicaments and biological substances; Z91.040 Latex allergy status; Z88.5 Allergy status to narcotic agent; Z79.899 Other long term (current) drug therapy; X50.0XXA Overexertion from strenuous movement or load, initial encounter; Y93.89 Activity, other specified
CPT/HCPCS: 72100; 99284; 96374; 96375; J2360; J1885

== ENCOUNTER 2016-11-21 20:21 | Emergency (ER) | payer BC ==
[2016-11-21] MEDS ORDERED: SODIUM CHLORIDE 0.9% 1,000 ML IV STA (21:35)
[2016-11-21] MEDS ORDERED: KETOROLAC 30 MG/ML 1 ML VIAL IVP STA (21:38)
[2016-11-21 21:56] LABS: Basophils # (A) 0.1 k/uL (0-0.2); Basophils % (A) 1 %; CH 30.1; CHCM 35.9; Eosinophils # (A) 0.3 k/uL (0-0.7); Eosinophils % (A) 2 %; HCT 39.4 % (34.0-46.0); HDW 2.82; HGB 13.9 gm/dL (11.4-16.0); Luc # (Auto) 0.25; Luc % (Auto) 2; Lymphocytes # (A) 3.2 k/uL (1.0-4.8); Lymphocytes % (A) 26 %; MCH 29.7 pg (25.0-35.0); MCHC 35.3 g/dL (31.0-37.0); MCV 84.1 fL (80.0-100.0); Mean Platelet Volume 8.2; Monocytes # (A) 0.6 k/uL (0-1.0); Monocytes % (A) 5 %; Neutrophils # (A) 7.8 k/uL (1.3-7.7); Neutrophils % (A) 65 %; RBC 4.68 m/uL (3.80-5.40); RDW 14.5 % (11.5-15.5); WBC 12.2 k/uL (3.8-10.6); WBC (Perox) 12.19
[2016-11-21 22:05] LABS: ALT 29 U/L (9-52); AST 19 U/L (14-36); Alkaline Phosphatase 127 U/L (38-126); Anion Gap 12 mmol/L; Blood Urea Nitrogen 18 mg/dL (7-17); Calcium 9.9 mg/dL (8.4-10.2); Carbon Dioxide 22 mmol/L (22-30); Chloride 106 mmol/L (98-107); Glucose 108 mg/dL (74-99); Magnesium 1.8 mg/dL (1.6-2.3); Non-African American GFR(MDRD) >60 (>60 ml/min/1.73 sqM); Potassium 3.9 mmol/L (3.5-5.1); Sodium 140 mmol/L (137-145); Total Bilirubin 0.3 mg/dL (0.2-1.3); Total Protein 7.6 g/dL (6.3-8.2)
--- NOTE | 2016-11-21 22:09 | ED ---
Extremity Problem HPI - General Chief complaint: Extremity Problem,Nontraumatic Stated complaint: neck arm snd back pain Time Seen by Provider: 11/21/16 21:29 Source: patient, RN notes reviewed, old records reviewed Mode of arrival: ambulatory Limitations: no limitations - History of Present Illness Initial comments: This is a 26-year-old female presents emergency Department chief complaint of 1 day of right-sided neck and back pain and increased pain whenever she takes a deep breath in her ribs and chest. Patient states the pain mainly stays on her right lower side. He states any swelling of her legs and shortness of breath. She states that she has no specific chest pain only the pain when taking a deep breath. She states the pain seems different than typical musculoskeletal. She reports that she can move her arms and neck without pain. Patient states that this occurred when she started this MORNING. Denies sleeping wrong. Denies any numbness or tingling in her arms. Patient reports she's had Motrin with little relief of the pain. Denies any previous episodes similar to this. Patient denies any cough, hemoptysis, nausea or vomiting or abdominal pain. Denies any headache or vision changes. - Related Data Home Medications Medication Instructions Recorded Confirmed Cholecalciferol [Vitamin D3] 400 unit PO HS 09/29/16 11/21/16 Citalopram Hydrobromide [CeleXA] 40 mg PO HS 09/29/16 11/21/16 Albuterol Inhaler [Ventolin Hfa 1 - 2 puff INHALATION RT-Q6H PRN 11/21/16 Inhaler] Dermazene Cream 1 applic TOPICAL DAILY 11/21/16 11/21/16 Hydrocortisone Oint 1 applic TOPICAL HS 11/21/16 11/21/16 [Hydrocortisone 2.5% Oint] Previous Rx's Medication Instructions Recorded Cyclobenzaprine [Flexeril] 10 mg PO TID #15 tab 11/21/16 Allergies Allergy/AdvReac Type Severity Reaction Status Date / Time diphenhydramine HCl Allergy Throat Verified 11/21/16 22:14 [From Benadryl] Itches (with name brand Benadryl only) latex Allergy Rash/Hives Verified 11/21/16 22:14 hydrocodone bitartrate AdvReac Migraine Verified 11/21/16 22:14 [From Vicodin] Review of Systems ROS Statement: Those systems with pertinent positive or pertinent negative responses have been documented in the HPI. ROS Other: All systems not noted in ROS Statement are negative. Past Medical History Past Medical History: Asthma Additional Past Medical History / Comment(s): glasses, hx of kidney and bladder infectins, permanent upper retainer present History of Any Multi-Drug Resistant Organisms: None Reported Past Surgical History: Appendectomy, Orthopedic Surgery Additional Past Surgical History / Comment(s): eye surgery x 5, right knee ( foreign body removal) Past Anesthesia/Blood Transfusion Reactions: No Reported Reaction Past Psychological History: Depression Smoking Status: Former smoker Past Alcohol Use History: None Reported Past Drug Use History: None Reported - Past Family History Father Family Medical History: Hypertension Additional Family Medical History / Comment(s): anxiety Mother Family Medical History: Hypertension General Exam - General Exam Comments Initial Comments: This is a 26-year-old female. Patient does not appear to be in any acute distress. Limitations: no limitations General appearance: alert, in no apparent distress Head exam: Present: atraumatic, normocephalic, normal inspection Eye exam: Present: normal appearance, PERRL, EOMI. Absent: scleral icterus, conjunctival injection, periorbital swelling ENT exam: Present: normal exam, normal oropharynx, mucous membranes moist Neck exam: Present: normal inspection, full ROM, other (No meningeal signs. Patient states that she is mildly tender over the sides of her neck, but does have full range of motion.). Absent: tenderness, meningismus, lymphadenopathy Respiratory exam: Present: normal lung sounds bilaterally, other (Patient reports pain on the right lower lips when she takes deep breath. It is nontender to palpation. Patient has full range of motion of her neck.). Absent : respiratory distress, wheezes, rales, rhonchi, stridor Cardiovascular Exam: Present: regular rate, normal rhythm, normal heart sounds. Absent: systolic murmur, diastolic murmur, rubs, gallop, clicks GI/Abdominal exam: Present: soft, normal bowel sounds. Absent: distended, tenderness, guarding, rebound, rigid Extremities exam: Present: normal inspection, full ROM, normal capillary refill. Absent: tenderness, pedal edema, joint swelling, calf tenderness Back exam: Present: normal inspection Neurological exam: Present: alert, oriented X3, CN II-XII intact Psychiatric exam: Present: normal affect, normal mood Skin exam: Present: warm, dry, intact, normal color. Absent: rash Course Vital Signs 11/21/16 11/21/16 11/21/16 20:36 21:08 22:17 Temperature 98.4 F 98.2 F Pulse Rate 89 82 Respiratory 16 18 20 Rate Blood Pressure 127/81 127/77 O2 Sat by Pulse 99 98 Oximetry Medical Decision Making - Medical Decision Making This is a 26-year-old female presents emergency Department chief complaint of 1 day of right-sided neck and back pain and increased pain whenever she takes a deep breath in her ribs and chest. Patient states the pain mainly stays on her right lower side. He states any swelling of her legs and shortness of breath. She states that she has no specific chest pain only the pain when taking a deep breath. She states the pain seems different than typical musculoskeletal. Patient's physical exam findings are benign. She is nontender to touch over her neck or back. She does contain a right-sided the number she takes a deep breath she spilled some discomfort in her right lower ribs. No leg swelling. Patient is given IV fluids, Toradol, and lab work obtained. EKG was within normal limits. Negative troponins. Negative d-dimer. Discussed that all the concerning findings have not shown anything abnormal in her lab work or EKGs or chest x-ray. Patient chest x-ray was within normal limits. Neck x-ray also showed no abnormalities. Patient will be discharged this time with close follow -up with her primary care provider. Discussed that I'll put the patient on some muscle relaxers and Z-Tod and help with her discomfort. Patient agrees. Plan will comply. Return parameters were discussed. - Lab Data Result diagrams: 11/21/16 21:47 11/21/16 21:47 Lab Results 11/21/16 11/21/16 11/21/16 Range/Units 21:47 21:47 21:47 WBC 12.2 H (3.8-10.6) k/uL RBC 4.68 (3.80-5.40) m/uL Hgb 13.9 (11.4-16.0) gm/dL Hct 39.4 (34.0-46.0) % MCV 84.1 (80.0-100.0) fL MCH 29.7 (25.0-35.0) pg MCHC 35.3 (31.0-37.0) g/dL RDW 14.5 (11.5-15.5) % Plt Count 281 (150-450) k/uL Neutrophils % 65 % Lymphocytes % 26 % Monocytes % 5 % Eosinophils % 2 % Basophils % 1 % Neutrophils # 7.8 H (1.3-7.7) k/uL Lymphocytes # 3.2 (1.0-4.8) k/uL Monocytes # 0.6 (0-1.0) k/uL Eosinophils # 0.3 (0-0.7) k/uL Basophils # 0.1 (0-0.2) k/uL PT (9.0-12.0) sec INR (<1.2) APTT (22.0-30.0) sec D-Dimer (<0.60) mg/L FEU Sodium 140 (137-145) mmol/L Potassium 3.9 (3.5-5.1) mmol/L Chloride 106 (98-107) mmol/L Carbon Dioxide 22 (22-30) mmol/L Anion Gap 12 mmol/L BUN 18 H (7-17) mg/dL Creatinine 0.59 (0.52-1.04) mg/dL Est GFR (MDRD) Af Amer >60 (>60 ml/min/1.73 sqM) Est GFR (MDRD) Non-Af >60 (>60 ml/min/1.73 sqM) Glucose 108 H (74-99) mg/dL Calcium 9.9 (8.4-10.2) mg/dL Magnesium 1.8 (1.6-2.3) mg/dL Total Bilirubin 0.3 (0.2-1.3) mg/dL AST 19 (14-36) U/L ALT 29 (9-52) U/L Alkaline Phosphatase 127 H (38-126) U/L Total Creatine Kinase 53 (30-135) U/L CK-MB (CK-2) <0.2 (0.0-2.4) ng/mL CK-MB (CK-2) Rel Index Troponin I <0.012 (0.000-0.034) ng/mL Total Protein 7.6 (6.3-8.2) g/dL Albumin 4.7 (3.5-5.0) g/dL 11/21/16 Range/Units 21:47 WBC (3.8-10.6) k/uL RBC (3.80-5.40) m/uL Hgb (11.4-16.0) gm/dL Hct (34.0-46.0) % MCV (80.0-100.0) fL MCH (25.0-35.0) pg MCHC (31.0-37.0) g/dL RDW (11.5-15.5) % Plt Count (150-450) k/uL Neutrophils % % Lymphocytes % % Monocytes % % Eosinophils % % Basophils % % Neutrophils # (1.3-7.7) k/uL Lymphocytes # (1.0-4.8) k/uL Monocytes # (0-1.0) k/uL Eosinophils # (0-0.7) k/uL Basophils # (0-0.2) k/uL PT 9.6 (9.0-12.0) sec INR 0.9 (<1.2) APTT 26.0 (22.0-30.0) sec D-Dimer 0.24 (<0.60) mg/L FEU Sodium (137-145) mmol/L Potassium (3.5-5.1) mmol/L Chloride (98-107) mmol/L Carbon Dioxide (22-30) mmol/L Anion Gap mmol/L BUN (7-17) mg/dL Creatinine (0.52-1.04) mg/dL Est GFR (MDRD) Af Amer (>60 ml/min/1.73 sqM) Est GFR (MDRD) Non-Af (>60 ml/min/1.73 sqM) Glucose (74-99) mg/dL Calcium (8.4-10.2) mg/dL Magnesium (1.6-2.3) mg/dL Total Bilirubin (0.2-1.3) mg/dL AST (14-36) U/L ALT (9-52) U/L Alkaline Phosphatase (38-126) U/L Total Creatine Kinase (30-135) U/L CK-MB (CK-2) (0.0-2.4) ng/mL CK-MB (CK-2) Rel Index Troponin I (0.000-0.034) ng/mL Total Protein (6.3-8.2) g/dL Albumin (3.5-5.0) g/dL 11/21/16 22:11 Normal sinus rhythm, T-wave abnormality noted, questionable anterolateral ischemia. Rate 84 bpm. Verbal 1:30 milliseconds. QRS ration 80 ms. QT QTc 350/4. No evidence of ST elevation. Disposition Clinical Impression: Neck pain, Chest wall pain Disposition: HOME SELF-CARE Condition: Good Instructions: Costochondritis (ED) Additional Instructions: Patient advised to use a antiinflammatory medication such as Motrin Tylenol. Patient can also use muscle relaxer prescription. He recommended close follow- up with her primary care provider. Return to emergency department if any alarming signs or symptoms occur. Prescriptions: Cyclobenzaprine [Flexeril] 10 mg PO TID #15 tab Referrals: Irma Mina MD [Primary Care Provider] - 1-2 days Time of Disposition: 23:04
[2016-11-21 22:11] LABS: INR 0.9 (<1.2); Prothrombin Time 9.6 sec (9.0-12.0)
[2016-11-21 22:18] VITALS: TEMP 98.2
--- NOTE | 2016-11-21 22:28 | XR ---
EXAM: XR Chest, 2 Views CLINICAL HISTORY: Reason: Chest Pain TECHNIQUE: Frontal and lateral views of the chest. COMPARISON: No relevant prior studies available. FINDINGS: Lungs: Lungs are clear Pleural space: No evidence of pleural effusion or pneumothorax Heart: Heart size is within normal limits. Mediastinum: Unremarkable. Bones/joints: Imaged bony thorax is unremarkable IMPRESSION: No evidence of active chest disease.
--- NOTE | 2016-11-21 22:31 | XR ---
EXAM: XR Soft Tissue Neck CLINICAL HISTORY: Reason: Pain TECHNIQUE: Frontal and lateral views of the soft tissues of the neck. COMPARISON: No relevant prior studies available. FINDINGS: Airway: Imaged airways appear patent. No definite epiglottic enlargement although epiglottis is obscured by base of tongue likely related to incomplete hypopharyngeal distention. Aryepiglottic folds appear unremarkable. Soft tissues: Small metallic density projects to region of left orbit. Prevertebral soft tissues are within normal limits. IMPRESSION: No prevertebral soft tissue thickening. Imaged airways appear patent. Left orbital metallic foreign body.
[2016-11-21 22:45] LABS: Creatine Kinase 53 U/L (30-135)
[2016-11-21 22:58] LABS: Creatine Kinase MB <0.2 ng/mL (0.0-2.4); Troponin I <0.012 ng/mL (0.000-0.034)
[2016-11-21] MEDS ORDERED: CYCLOBENZAPRINE 10MG STARTER 3 TAB BTL PO STA (23:06)
[2016-11-21 23:21] VITALS: BP 120/70; PULSE 80; RESP 16
== END 2016-11-21 23:21 | disposition home or self-care (01) ==
LOC: EC 20:21
DX: M54.2 Cervicalgia (principal); R07.89 Other chest pain; R07.81 Pleurodynia; R94.31 Abnormal electrocardiogram [ECG] [EKG]; M54.9 Dorsalgia, unspecified; F32.9 Major depressive disorder, single episode, unspecified; Z87.891 Personal history of nicotine dependence; Z79.52 Long term (current) use of systemic steroids; Z79.899 Other long term (current) drug therapy; Z88.5 Allergy status to narcotic agent; Z88.8 Allergy status to other drugs, medicaments and biological substances; Z91.040 Latex allergy status
CPT/HCPCS: 36415; 93005; 85379; 80053; 82550; 82553; 83735; 84484; 85025; 85610; 85730; 70360; 71020; 99284; 96374; 96361; J1885

== ENCOUNTER 2017-06-21 07:28 | Emergency (ER) | payer BC ==
[2017-06-21 07:36] VITALS: TEMP 102.2
[2017-06-21] MEDS ORDERED: ACETAMINOPHEN TAB 500 MG TAB PO STA (07:52)
[2017-06-21] MEDS ORDERED: SODIUM CHLORIDE 0.9% 1,000 ML IV STA (07:52)
[2017-06-21] MEDS ORDERED: IBUPROFEN 600 MG TAB PO STA (07:53)
--- NOTE | 2017-06-21 07:57 | ED ---
General Adult HPI - General Chief complaint: Abdominal Pain Stated complaint: flank pain Time Seen by Provider: 06/21/17 07:30 Source: patient, RN notes reviewed Mode of arrival: ambulatory Limitations: no limitations - History of Present Illness Initial comments: This is a 27-year-old female who presents to the emergency department right CVA tenderness and chest. Patient states her abdomen is a little bit sore in the right upper quadrant area and epigastric area. Patient states it feels like a urinary tract infection that she's had before. Patient denies having dysuria or urinary frequency however. Patient states she thinks she had a fever since chest. Patient denies any vomiting but states she is nauseated. Patient denies diarrhea. Patient denies any chest pain difficulty breathing shortness of breath. Patient denies headache patient denies numbness weakness. - Related Data Home Medications Medication Instructions Recorded Confirmed Citalopram Hydrobromide [CeleXA] 40 mg PO HS 09/29/16 06/21/17 Previous Rx's Medication Instructions Recorded Ciprofloxacin HCl [Cipro] 500 mg PO Q12HR #20 tablet 06/21/17 Allergies Allergy/AdvReac Type Severity Reaction Status Date / Time diphenhydramine HCl Allergy Throat Verified 06/21/17 08:41 [From Benadryl] Itches (with name brand Benadryl only) latex Allergy Rash/Hives Verified 06/21/17 08:41 hydrocodone bitartrate AdvReac Migraine Verified 06/21/17 08:41 [From Vicodin] Review of Systems ROS Statement: Those systems with pertinent positive or pertinent negative responses have been documented in the HPI. ROS Other: All systems not noted in ROS Statement are negative. Past Medical History Past Medical History: Asthma Additional Past Medical History / Comment(s): glasses, hx of kidney and bladder infections, permanent upper retainer present History of Any Multi-Drug Resistant Organisms: None Reported Past Surgical History: Appendectomy, Orthopedic Surgery Additional Past Surgical History / Comment(s): eye surgery x 5, right knee ( foreign body removal) Past Anesthesia/Blood Transfusion Reactions: No Reported Reaction Past Psychological History: Anxiety, Depression Smoking Status: Former smoker Past Alcohol Use History: None Reported Past Drug Use History: None Reported - Past Family History Father Family Medical History: Hypertension Additional Family Medical History / Comment(s): anxiety Mother Family Medical History: Hypertension General Exam - General Exam Comments Initial Comments: GENERAL: Patient is well-developed and well-nourished. Patient is nontoxic and well- hydrated and is in mild distress. ENT: Neck is soft and supple. No significant lymphadenopathy is noted. Oropharynx is clear. Moist mucous membranes. EYES: The sclera were anicteric and conjunctiva were pink and moist. Extraocular movements were intact and pupils were equal round and reactive to light. Eyelids were unremarkable. PULMONARY: Unlabored respirations. Good breath sounds bilaterally. No audible rales rhonchi or wheezing was noted. CARDIOVASCULAR: There is a regular rate and rhythm without any murmurs gallops or rubs. ABDOMEN: Patient has slight epigastric abdominal pain. SKIN: Skin is clear with no lesions or rashes and otherwise unremarkable. NEUROLOGIC: Patient is alert and oriented x3. Cranial nerves II through XII are grossly intact. Motor and sensory are also intact. Normal speech, volume and content. Symmetrical smile. MUSCULOSKELETAL: Normal extremities with adequate strength and full range of motion. Patient has some mild right CVA tenderness LYMPHATICS: No significant lymphadenopathy is noted PSYCHIATRIC: Normal psychiatric evaluation. Normal interpersonal interactions appears functionally intact in deals appropriately with others. No signs of depression. No signs of anxiety. Limitations: no limitations Course Vital Signs 06/21/17 07:33 Temperature 102.2 F H Pulse Rate 128 H Respiratory 18 Rate Blood Pressure 124/65 O2 Sat by Pulse 97 Oximetry Medical Decision Making - Medical Decision Making I went back into the room to reevaluate the patient she was sleeping when I woke her up she stated she felt considerably better - Lab Data Result diagrams: 06/21/17 07:54 06/21/17 07:54 Lab Results 06/21/17 06/21/17 06/21/17 Range/Units 07:54 07:54 07:54 WBC 13.8 H (3.8-10.6) k/uL RBC 4.49 (3.80-5.40) m/uL Hgb 13.4 (11.4-16.0) gm/dL Hct 37.9 (34.0-46.0) % MCV 84.5 (80.0-100.0) fL MCH 29.9 (25.0-35.0) pg MCHC 35.4 (31.0-37.0) g/dL RDW 12.5 (11.5-15.5) % Plt Count 221 (150-450) k/uL Neutrophils % 88 % Lymphocytes % 6 % Monocytes % 5 % Eosinophils % 1 % Basophils % 0 % Neutrophils # 12.1 H (1.3-7.7) k/uL Lymphocytes # 0.9 L (1.0-4.8) k/uL Monocytes # 0.6 (0-1.0) k/uL Eosinophils # 0.1 (0-0.7) k/uL Basophils # 0.0 (0-0.2) k/uL Sodium 139 (137-145) mmol/L Potassium 4.0 (3.5-5.1) mmol/L Chloride 105 (98-107) mmol/L Carbon Dioxide 19 L (22-30) mmol/L Anion Gap 15 mmol/L BUN 14 (7-17) mg/dL Creatinine 0.57 (0.52-1.04) mg/dL Est GFR (CKD-EPI)AfAm >90 (>60 ml/min/1.73 sqM) Est GFR (CKD-EPI)NonAf >90 (>60 ml/min/1.73 sqM) Glucose 124 H (74-99) mg/dL Plasma Lactic Acid Jemal 1.7 (0.7-2.0) mmol/L Calcium 9.3 (8.4-10.2) mg/dL Total Bilirubin 0.5 (0.2-1.3) mg/dL AST 20 (14-36) U/L ALT 26 (9-52) U/L Alkaline Phosphatase 134 H (38-126) U/L Total Protein 7.1 (6.3-8.2) g/dL Albumin 4.2 (3.5-5.0) g/dL Amylase 40 (30-110) U/L Lipase 55 (23-300) U/L Urine Color Urine Appearance (Clear) Urine pH (5.0-8.0) Ur Specific [place] (1.001-1.035) Urine Protein (Negative) Urine Glucose (UA) (Negative) Urine Ketones (Negative) Urine Blood (Negative) Urine Nitrite (Negative) Urine Bilirubin (Negative) Urine Urobilinogen (<2.0) mg/dL Ur Leukocyte Esterase (Negative) Urine RBC (0-5) /hpf Urine WBC (0-5) /hpf Ur Squamous Epith Cells (0-4) /hpf Urine Bacteria (None) /hpf Urine Mucus (None) /hpf Influenza Type A RNA (Not Detectd) Influenza Type B (PCR) (Not Detectd) 06/21/17 06/21/17 Range/Units 07:54 08:00 WBC (3.8-10.6) k/uL RBC (3.80-5.40) m/uL Hgb (11.4-16.0) gm/dL Hct (34.0-46.0) % MCV (80.0-100.0) fL MCH (25.0-35.0) pg MCHC (31.0-37.0) g/dL RDW (11.5-15.5) % Plt Count (150-450) k/uL Neutrophils % % Lymphocytes % % Monocytes % % Eosinophils % % Basophils % % Neutrophils # (1.3-7.7) k/uL Lymphocytes # (1.0-4.8) k/uL Monocytes # (0-1.0) k/uL Eosinophils # (0-0.7) k/uL Basophils # (0-0.2) k/uL Sodium (137-145) mmol/L Potassium (3.5-5.1) mmol/L Chloride (98-107) mmol/L Carbon Dioxide (22-30) mmol/L Anion Gap mmol/L BUN (7-17) mg/dL Creatinine (0.52-1.04) mg/dL Est GFR (CKD-EPI)AfAm (>60 ml/min/1.73 sqM) Est GFR (CKD-EPI)NonAf (>60 ml/min/1.73 sqM) Glucose (74-99) mg/dL Plasma Lactic Acid Jemal (0.7-2.0) mmol/L Calcium (8.4-10.2) mg/dL Total Bilirubin (0.2-1.3) mg/dL AST (14-36) U/L ALT (9-52) U/L Alkaline Phosphatase (38-126) U/L Total Protein (6.3-8.2) g/dL Albumin (3.5-5.0) g/dL Amylase (30-110) U/L Lipase (23-300) U/L Urine Color Yellow Urine Appearance Cloudy H (Clear) Urine pH 6.0 (5.0-8.0) Ur Specific [place] 1.020 (1.001-1.035) Urine Protein 1+ H (Negative) Urine Glucose (UA) Negative (Negative) Urine Ketones Negative (Negative) Urine Blood Moderate H (Negative) Urine Nitrite Negative (Negative) Urine Bilirubin Negative (Negative) Urine Urobilinogen <2.0 (<2.0) mg/dL Ur Leukocyte Esterase Large H (Negative) Urine RBC 93 H (0-5) /hpf Urine WBC 135 H (0-5) /hpf Ur Squamous Epith Cells 7 H (0-4) /hpf Urine Bacteria Occasional H (None) /hpf Urine Mucus Many H (None) /hpf Influenza Type A RNA Not Detected (Not Detectd) Influenza Type B (PCR) Not Detected (Not Detectd) Disposition Clinical Impression: Pyelonephritis Disposition: HOME SELF-CARE Condition: Good Instructions: Kidney Infection (ED) Additional Instructions: Patient should take Motrin and Tylenol for the fever patient to return if there is worsening symptoms or there are any new symptoms. Prescriptions: Ciprofloxacin HCl [Cipro] 500 mg PO Q12HR #20 tablet Referrals: Irma Mina MD [Primary Care Provider] - 1-2 days Time of Disposition: 11:14
[2017-06-21 08:13] LABS: Basophils % (A) 0 %; Eosinophils # (A) 0.1 k/uL (0-0.7); Eosinophils % (A) 1 %; HCT 37.9 % (34.0-46.0); HGB 13.4 gm/dL (11.4-16.0); Lymphocytes # (A) 0.9 k/uL (1.0-4.8); Lymphocytes % (A) 6 %; MCH 29.9 pg (25.0-35.0); MCHC 35.4 g/dL (31.0-37.0); MCV 84.5 fL (80.0-100.0); Mean Platelet Volume 7.9; Monocytes # (A) 0.6 k/uL (0-1.0); Monocytes % (A) 5 %; Neutrophils # (A) 12.1 k/uL (1.3-7.7); Neutrophils % (A) 88 %; Platelet Count 221 k/uL (150-450); RBC 4.49 m/uL (3.80-5.40); RDW 12.5 % (11.5-15.5); WBC 13.8 k/uL (3.8-10.6)
[2017-06-21 08:21] LABS: Appearance,Urine Cloudy (Clear); Bacteria,Urine Occasional /hpf; Bilirubin,Urine Negative (Negative); Blood,Urine Moderate (Negative); Color,Urine Yellow; Glucose,Urine (UA) Negative (Negative); Ketones,Urine Negative (Negative); Leukocyte Esterase,Urine Large (Negative); Mucus,Urine Many /hpf; Nitrite,Urine Negative (Negative); Protein,Urine 1+ (Negative); RBC,Urine 93 /hpf (0-5); Squamous Epithelial Cell,Urine 7 /hpf (0-4); Urobilinogen,Urine <2.0 mg/dL (<2.0); WBC,Urine 135 /hpf (0-5)
[2017-06-21 08:23] LABS: ALT 26 U/L (9-52); AST 20 U/L (14-36); Albumin 4.2 g/dL (3.5-5.0); Alkaline Phosphatase 134 U/L (38-126); Amylase 40 U/L (30-110); Anion Gap 15 mmol/L; Blood Urea Nitrogen 14 mg/dL (7-17); Calcium 9.3 mg/dL (8.4-10.2); Carbon Dioxide 19 mmol/L (22-30); Chloride 105 mmol/L (98-107); Glucose 124 mg/dL (74-99); Lipase 55 U/L (23-300); Sodium 139 mmol/L (137-145); Total Bilirubin 0.5 mg/dL (0.2-1.3); Total Protein 7.1 g/dL (6.3-8.2)
[2017-06-21] MEDS ORDERED: cefTRIAXone IN SWFI 2,000 MG/20 ML SYRINGE IVP SCH (10:00)
[2017-06-21 11:37] VITALS: BP 99/62; PULSE 95; RESP 16
== END 2017-06-21 11:39 | disposition home or self-care (01) ==
LOC: EC 07:28
DX: N12 Tubulo-interstitial nephritis, not specified as acute or chronic (principal); F32.9 Major depressive disorder, single episode, unspecified; F41.9 Anxiety disorder, unspecified; Z87.891 Personal history of nicotine dependence; Z79.899 Other long term (current) drug therapy; Z88.6 Allergy status to analgesic agent; Z88.8 Allergy status to other drugs, medicaments and biological substances; Z91.040 Latex allergy status; Z90.49 Acquired absence of other specified parts of digestive tract
CPT/HCPCS: 36415; 80053; 82150; 83605; 83690; 85025; 81001; 87040; 87502; 99284; 96374; 96361; J0696

== ENCOUNTER 2017-06-22 11:53 | Inpatient (IN) | payer BC ==
[2017-06-22] MEDS ORDERED: SODIUM CHLORIDE 0.9% 1,000 ML IV STA (12:16)
[2017-06-22] MEDS ORDERED: KETOROLAC 30 MG/ML 1 ML VIAL IVP STA (12:16)
[2017-06-22] MEDS ORDERED: ONDANSETRON 4 MG/2 ML VIAL IVP STA (12:16)
[2017-06-22] MEDS ORDERED: cefTRIAXone IN SWFI 1,000 MG/10 ML SYRINGE IVP STA (12:18)
[2017-06-22] MEDS: SODIUM CHLORIDE 0.9% 1,000 ML IV STA ×2 (12:27→15:02)
[2017-06-22 12:40] LABS: Basophils % (A) 0 %; Eosinophils % (A) 0 %; HCT 37.1 % (34.0-46.0); HGB 12.4 gm/dL (11.4-16.0); Lymphocytes # (A) 0.8 k/uL (1.0-4.8); Lymphocytes % (A) 9 %; MCH 28.8 pg (25.0-35.0); MCHC 33.3 g/dL (31.0-37.0); MCV 86.6 fL (80.0-100.0); Mean Platelet Volume 8.5; Monocytes # (A) 0.3 k/uL (0-1.0); Monocytes % (A) 3 %; Neutrophils % (A) 87 %; Platelet Count 163 k/uL (150-450); RBC 4.28 m/uL (3.80-5.40); RDW 12.9 % (11.5-15.5); WBC 9.3 k/uL (3.8-10.6)
[2017-06-22 12:44] LABS: Appearance,Urine Cloudy (Clear); Bacteria,Urine Rare /hpf; Bilirubin,Urine 1+ (Negative); Blood,Urine Moderate (Negative); Color,Urine Dark Brown; Glucose,Urine (UA) Negative (Negative); Ketones,Urine 2+ (Negative); Leukocyte Esterase,Urine Small (Negative); Mucus,Urine Many /hpf; Nitrite,Urine Negative (Negative); PH, Urine 6.5 (5.0-8.0); Protein,Urine 3+ (Negative); RBC,Urine >182 /hpf (0-5); Squamous Epithelial Cell,Urine 23 /hpf (0-4); WBC,Urine 41 /hpf (0-5)
[2017-06-22 12:52] LABS: ALT 26 U/L (9-52); AST 19 U/L (14-36); Albumin 3.5 g/dL (3.5-5.0); Alkaline Phosphatase 118 U/L (38-126); Anion Gap 13 mmol/L; Blood Urea Nitrogen 14 mg/dL (7-17); Calcium 8.9 mg/dL (8.4-10.2); Carbon Dioxide 21 mmol/L (22-30); Chloride 107 mmol/L (98-107); Glucose 154 mg/dL (74-99); Potassium 3.7 mmol/L (3.5-5.1); Sodium 141 mmol/L (137-145); Total Bilirubin 0.7 mg/dL (0.2-1.3); Total Protein 6.3 g/dL (6.3-8.2)
[2017-06-22 13:04] LABS: Specific Gravity,Urine 1.048 (1.001-1.035)
--- NOTE | 2017-06-22 13:27 | ED ---
Abdominal Pain HPI - General Chief Complaint: Abdominal Pain Stated Complaint: Kidney infection Time Seen by Provider: 06/22/17 12:09 Source: patient Mode of arrival: ambulatory Limitations: no limitations - History of Present Illness Initial Comments: This 27-year-old white female presents with a complaint of some right flank pain. This has been present for approximately 2 days. She states that it is fairly severe in nature. She's had fevers of 102 which does seem to improve with Tylenol but comes right back after the Tylenol wears off. She denies any frequency urgency or dysuria but has had dark colored urine. She has only minimal anterior abdominal tenderness. She was seen in the emergency department yesterday and was diagnosed with pyelonephritis and placed on ciprofloxacin. She was told to come back if her symptoms do worsen. She states that her symptoms are worse at this time. The pain in her back is worse and now she is having some nausea. She would like to be admitted to the hospital for further treatment. She apparently has had pyelonephritis multiple times in the past and this is very similar. She's never had any kidney stones. She denies any possibility of . No other complaints or modifying factors. - Related Data Home Medications Medication Instructions Recorded Confirmed Citalopram Hydrobromide [CeleXA] 40 mg PO HS 09/29/16 06/22/17 Previous Rx's Medication Instructions Recorded Ciprofloxacin HCl [Cipro] 500 mg PO Q12HR #20 tablet 06/21/17 Allergies Allergy/AdvReac Type Severity Reaction Status Date / Time diphenhydramine HCl Allergy Throat Verified 06/22/17 12:24 [From Benadryl] Itches (with name brand Benadryl only) latex Allergy Rash/Hives Verified 06/22/17 12:24 hydrocodone bitartrate AdvReac Migraine Verified 06/22/17 12:24 [From Vicodin] Review of Systems ROS Statement: Those systems with pertinent positive or pertinent negative responses have been documented in the HPI. ROS Other: All systems not noted in ROS Statement are negative. Past Medical History Past Medical History: Asthma Additional Past Medical History / Comment(s): glasses, hx of kidney and bladder infections, permanent upper retainer present History of Any Multi-Drug Resistant Organisms: None Reported Past Surgical History: Appendectomy, Orthopedic Surgery Additional Past Surgical History / Comment(s): eye surgery x 5, right knee ( foreign body removal) Past Anesthesia/Blood Transfusion Reactions: No Reported Reaction Past Psychological History: Anxiety, Depression Smoking Status: Former smoker Past Alcohol Use History: None Reported Past Drug Use History: None Reported - Past Family History Father Family Medical History: Hypertension Additional Family Medical History / Comment(s): anxiety Mother Family Medical History: Hypertension General Exam - General Exam Comments Initial Comments: GENERAL: The patient is well nourished and well hydrated. VITAL SIGNS: Heart rate, blood pressure, respiratory rate reviewed as recorded in nurse's notes. EYES: Pupils are round and reactive. Extraocular movements are intact. No conjunctival / lid redness or swelling. ENT: No external evidence of injury, swelling, or ecchymosis. Airway is patent. Throat is clear. NECK: Nontender. No swelling or evidence of injury. No subcutaneous emphysema. Trachea is midline. No thyroid mass. HEART: Regular rate and rhythm. Good peripheral pulses. LUNGS/CHEST: Breath sounds clear and equal bilaterally. No rales, rhonchi, or wheezes. No ecchymosis, subcutaneous emphysema, or tenderness. ABDOMEN: Tenderness is noted to the right flank. No anterior abdominal tenderness noted. No palpable masses or organomegaly. No peritoneal signs. No abdominal wall swelling or ecchymosis. EXTREMITIES: No extremity tenderness. Normal muscle tone and function. No thoracolumbar tenderness. NEUROLOGIC: Sensation is grossly intact. Cranial nerve exam reveals face is symmetrical, tongue is midline, speech is clear. SKIN: No abrasions or ecchymosis is noted. No induration or masses noted. PSYCHIATRIC: Alert and oriented. Appropriate behavior and judgment. Limitations: no limitations Course Vital Signs 06/22/17 11:54 Temperature 98.0 F Pulse Rate 102 H Respiratory 20 Rate Blood Pressure 108/64 O2 Sat by Pulse 98 Oximetry Medical Decision Making - Medical Decision Making The patient was seen and examined. All diagnostics were reviewed. The patient did have a IV established receives ample fluid hydration. She also receives some Toradol and Rocephin and Zofran intravenously. The laboratory comes back without any overt significant abnormalities. She does have a significantly infected urinalysis with evidence of some hematuria. It is felt as though she likely does have pyelonephritis and is treated for this. It appears that she has failed outpatient treatment. The ultrasound does show a 1.3 cm lower pole right nephrolithiasis. There is no evidence of ureterolithiasis or hydronephrosis. The patient is feeling improved on recheck but it is still felt as though she will require admission to the hospital. She is agreeable. Case is discussed with Dr. Vital and he is agreeable with admission and would like Dr. Coles from urology to consult. - Lab Data Result diagrams: 06/22/17 12:30 06/22/17 12:30 Lab Results 06/22/17 06/22/17 06/22/17 Range/Units 12:30 12:30 12:30 WBC 9.3 (3.8-10.6) k/uL RBC 4.28 (3.80-5.40) m/uL Hgb 12.4 (11.4-16.0) gm/dL Hct 37.1 (34.0-46.0) % MCV 86.6 (80.0-100.0) fL MCH 28.8 (25.0-35.0) pg MCHC 33.3 (31.0-37.0) g/dL RDW 12.9 (11.5-15.5) % Plt Count 163 (150-450) k/uL Neutrophils % 87 % Lymphocytes % 9 % Monocytes % 3 % Eosinophils % 0 % Basophils % 0 % Neutrophils # 8.0 H (1.3-7.7) k/uL Lymphocytes # 0.8 L (1.0-4.8) k/uL Monocytes # 0.3 (0-1.0) k/uL Eosinophils # 0.0 (0-0.7) k/uL Basophils # 0.0 (0-0.2) k/uL Sodium 141 (137-145) mmol/L Potassium 3.7 (3.5-5.1) mmol/L Chloride 107 (98-107) mmol/L Carbon Dioxide 21 L (22-30) mmol/L Anion Gap 13 mmol/L BUN 14 (7-17) mg/dL Creatinine 0.56 (0.52-1.04) mg/dL Est GFR (CKD-EPI)AfAm >90 (>60 ml/min/1.73 sqM) Est GFR (CKD-EPI)NonAf >90 (>60 ml/min/1.73 sqM) Glucose 154 H (74-99) mg/dL Calcium 8.9 (8.4-10.2) mg/dL Total Bilirubin 0.7 (0.2-1.3) mg/dL AST 19 (14-36) U/L ALT 26 (9-52) U/L Alkaline Phosphatase 118 (38-126) U/L Total Protein 6.3 (6.3-8.2) g/dL Albumin 3.5 (3.5-5.0) g/dL Urine Color Dark Brown Urine Appearance Cloudy H (Clear) Urine pH 6.5 (5.0-8.0) Ur Specific [place] 1.048 H (1.001-1.035) Urine Protein 3+ H (Negative) Urine Glucose (UA) Negative (Negative) Urine Ketones 2+ H (Negative) Urine Blood Moderate H (Negative) Urine Nitrite Negative (Negative) Urine Bilirubin 1+ H (Negative) Urine Urobilinogen 3.0 (<2.0) mg/dL Ur Leukocyte Esterase Small H (Negative) Urine RBC >182 H (0-5) /hpf Urine WBC 41 H (0-5) /hpf Ur Squamous Epith Cells 23 H (0-4) /hpf Urine Bacteria Rare H (None) /hpf Urine Mucus Many H (None) /hpf Urine HCG, Qual (Not Detectd) 06/22/17 Range/Units 12:30 WBC (3.8-10.6) k/uL RBC (3.80-5.40) m/uL Hgb (11.4-16.0) gm/dL Hct (34.0-46.0) % MCV (80.0-100.0) fL MCH (25.0-35.0) pg MCHC (31.0-37.0) g/dL RDW (11.5-15.5) % Plt Count (150-450) k/uL Neutrophils % % Lymphocytes % % Monocytes % % Eosinophils % % Basophils % % Neutrophils # (1.3-7.7) k/uL Lymphocytes # (1.0-4.8) k/uL Monocytes # (0-1.0) k/uL Eosinophils # (0-0.7) k/uL Basophils # (0-0.2) k/uL Sodium (137-145) mmol/L Potassium (3.5-5.1) mmol/L Chloride (98-107) mmol/L Carbon Dioxide (22-30) mmol/L Anion Gap mmol/L BUN (7-17) mg/dL Creatinine (0.52-1.04) mg/dL Est GFR (CKD-EPI)AfAm (>60 ml/min/1.73 sqM) Est GFR (CKD-EPI)NonAf (>60 ml/min/1.73 sqM) Glucose (74-99) mg/dL Calcium (8.4-10.2) mg/dL Total Bilirubin (0.2-1.3) mg/dL AST (14-36) U/L ALT (9-52) U/L Alkaline Phosphatase (38-126) U/L Total Protein (6.3-8.2) g/dL Albumin (3.5-5.0) g/dL Urine Color Urine Appearance (Clear) Urine pH (5.0-8.0) Ur Specific [place] (1.001-1.035) Urine Protein (Negative) Urine Glucose (UA) (Negative) Urine Ketones (Negative) Urine Blood (Negative) Urine Nitrite (Negative) Urine Bilirubin (Negative) Urine Urobilinogen (<2.0) mg/dL Ur Leukocyte Esterase (Negative) Urine RBC (0-5) /hpf Urine WBC (0-5) /hpf Ur Squamous Epith Cells (0-4) /hpf Urine Bacteria (None) /hpf Urine Mucus (None) /hpf Urine HCG, Qual Not Detected (Not Detectd) Disposition Clinical Impression: Pyelonephritis, Failure of outpatient treatment, Hematuria, Right flank pain, Nephrolithiasis Disposition: ADMITTED IP TO THIS [facility] Condition: Good Time of Disposition: 13:42 Decision Date: 06/22/17 Decision Time: 13:42
--- NOTE | 2017-06-22 13:32 | US ---
EXAMINATION TYPE: US renals and bladder DATE OF EXAM: 06/22/2017 COMPARISON: NONE CLINICAL HISTORY: Pain. rt flank pain with dark urine, h/o UTI's EXAM MEASUREMENTS: Right Kidney: 12.2 x 6.1 x 6.6 cm Left Kidney: 12.7 x 5.4 x 6.1 cm Right Kidney: 1.3cm mid/inf pole stone seen with shadowing, no twinkle artifact noted Left Kidney: No hydronephrosis, nephrolithiasis or masses seen Bladder: not distended. Due to lack of distention bladder is limited. IMPRESSION: Nonobstructing right renal calculus.
[2017-06-22] MEDS ORDERED: NALOXONE 0.4 MG/ML 1 ML VIAL IV PRN (13:45)
[2017-06-22] MEDS ORDERED: MORPHINE SULFATE 4 MG/ML SYRINGE IV PRN (13:45)
[2017-06-22] MEDS: MORPHINE ORAL SOLN 10 MG/5 ML CUP PO PRN ×3 (15:01→23:36)
[2017-06-22] MEDS: ONDANSETRON 4 MG/2 ML VIAL IVP PRN ×2 (15:54→19:42)
[2017-06-22] MEDS: traMADol 50 MG TAB PO PRN (17:04)
--- NOTE | 2017-06-22 19:22 | CT ---
EXAMINATION TYPE: CT abdomen pelvis wo con DATE OF EXAM: 06/22/2017 COMPARISON: 12/10/2009 HISTORY: Hematuria and right flank pain. CT DLP: 1068 mGycm Automated exposure control for dose reduction was used. TECHNIQUE: Helical acquisition of images was performed from the lung bases through the pelvis. FINDINGS: Lung bases are clear of consolidation. There is minimal pleural thickening at the left posterior lung base. Heart size is normal. Liver appears normal. Bile ducts are not dilated. Gallbladder appears normal. There is no pancreatic mass. Spleen is large and measures 15 cm. There is no adrenal mass. Kidneys have normal contour. Right kidney is slightly larger than the left. There is minimal stranding around the right kidney. There is a 1.3 cm calcification in the interpola r right kidney. Ureters are not dilated. There are multiple surgical clips in the right mid abdomen. There is no retroperitoneal adenopathy. There is no ascites. Bladder distends smoothly. There is a sm all amount of free fluid in the cul-de-sac. I see no intestinal wall thickening. There are no dilated loops. Uterus is anteverted. I see no bony destructive process. IMPRESSION: CONCLUSION: There is enlargement of the right kidney compared to the left with calcification. There is minimal fa t stranding on the right side. This could relate to acute pyelonephritis. The right ureter is not dil ated. I see no right-sided hydronephrosis. Minimal free fluid could be physiologic. Right renal abnor mality is a change compared to old exam.
[2017-06-22] MEDS: ACETAMINOPHEN TAB 325 MG TAB PO PRN (19:50)
[2017-06-22] MEDS: CITALOPRAM HYDROBROMIDE 20 MG TAB PO SCH (20:25)
[2017-06-23] MEDS: traMADol 50 MG TAB PO PRN ×4 (02:16→20:47)
[2017-06-23] MEDS: MORPHINE ORAL SOLN 10 MG/5 ML CUP PO PRN ×4 (07:01→22:04)
--- NOTE | 2017-06-23 07:50 | P.PN ---
Progress Note - Text Progress Note Date: 06/23/17 Ms. Marquez continues to report flank pain and nausea. Grag=[phone]. CT shows a 13 mm non-obstructing right renal calculus. I would suggest she continue to receive IV Rocephin, pending the urine culture result.
[2017-06-23] MEDS ORDERED: PANTOPRAZOLE 40 MG/10 ML VIAL IV SCH (09:00)
[2017-06-23] MEDS: ENOXAPARIN 40 MG/0.4 ML SYRINGE SQ SCH (09:17)
[2017-06-23] MEDS: cefTRIAXone IN SWFI 1,000 MG/10 ML SYRINGE IVP SCH (09:17)
[2017-06-23] MEDS: SODIUM CHLORIDE 0.9% 1,000 ML IV SCH ×2 (12:10→16:19)
--- NOTE | 2017-06-23 12:26 | P.HPIM ---
History of Present Illness H&P Date: 06/23/17 Chief Complaint: Right flank pain This is a 27-year-old female who presented to the emergency room with right flank pain and was found to have evidence of UTI so was prescribed antibiotic and discharged home. Patient return to the emergency room again stating that her pain is under tolerable. She underwent further evaluation with an ultrasound and computed tomography scan that showed evidence of a 1.3 nonobstructing kidney stone on the right with also evidence of pyelonephritis. Patient was started on IV ceftriaxone and IV fluid and was admitted to the hospital for further evaluation. She remained hemodynamically stable. She still complaining of a lot of pain in her right side. She denies nausea or vomiting. She denies any significant dysuria. No documented high-grade fever. Review of Systems Review of system: 14 points review of systems were obtained and were negative except to what were mentioned in the HPI. Past Medical History Past Medical History: Asthma Additional Past Medical History / Comment(s): glasses, hx of kidney and bladder infections, permanent upper retainer present History of Any Multi-Drug Resistant Organisms: None Reported Past Surgical History: Appendectomy, Orthopedic Surgery Additional Past Surgical History / Comment(s): eye surgery x 5, right knee ( foreign body removal), lt hand benign tumor removed Past Anesthesia/Blood Transfusion Reactions: No Reported Reaction Smoking Status: Current some day smoker - Past Family History Father Family Medical History: Hypertension Additional Family Medical History / Comment(s): anxiety Mother Family Medical History: Hypertension Medications and Allergies Home Medications Medication Instructions Recorded Confirmed Type Citalopram Hydrobromide [CeleXA] 40 mg PO HS 09/29/16 06/22/17 History Ciprofloxacin HCl [Cipro] 500 mg PO Q12HR #20 tablet 06/21/17 06/22/17 Rx Allergies Allergy/AdvReac Type Severity Reaction Status Date / Time diphenhydramine HCl Allergy Throat Verified 06/22/17 12:24 [From Benadryl] Itches (with name brand Benadryl only) latex Allergy Rash/Hives Verified 06/22/17 12:24 hydrocodone bitartrate AdvReac Migraine Verified 06/22/17 12:24 [From Vicodin] Physical Exam Vitals: Vital Signs Temp Pulse Pulse Resp BP BP Pulse Ox 06/23/17 07:00 99.0 F 103 H 20 103/65 95 04/13/18 01:13 99.0 F 74 16 93/52 96 06/22/17 20:00 100.5 F H 108 H 16 109/59 06/22/17 14:54 98.6 F 101 H 18 110/72 99 06/22/17 14:12 98 F 96 18 93/50 100 Intake and Output 06/22/17 06/23/17 06/23/17 22:59 06:59 14:59 Intake Total 900 800 Balance 900 800 Intake: Intake, IV Titration 800 800 Amount Sodium Chloride 0.9% 1, 800 800 000 ml @ 100 mls/hr IV . Q10H STA Rx#:[id number] Oral 100 Other: Voiding Method Toilet Toilet # Voids 3 3 1 General: The patient is awake and alert, in no distress Eye: there is normal conjunctiva bilaterally. Neck: The neck is supple, there is no JVD. Cardiovascular: Normal S1-S2, no S3-S4, no murmurs. Respiratory: Lungs clear to auscultation bilaterally Gastrointestinal: Abdomen is soft, nontender Musculoskeletal: There is no pedal edema. There is significant CVA tenderness on the right. Neurological:. Speech is normal. Skin: Skin is warm and dry Results CBC & Chem 7: 06/22/17 12:30 06/22/17 12:30 Labs: Abnormal Lab Results - Last 24 Hours (Table) 06/22/17 06/22/17 06/22/17 Range/Units 12:30 12:30 12:30 Neutrophils # 8.0 H (1.3-7.7) k/uL Lymphocytes # 0.8 L (1.0-4.8) k/uL Carbon Dioxide 21 L (22-30) mmol/L Glucose 154 H (74-99) mg/dL Urine Appearance Cloudy H (Clear) Ur Specific [place] 1.048 H (1.001-1.035) Urine Protein 3+ H (Negative) Urine Ketones 2+ H (Negative) Urine Blood Moderate H (Negative) Urine Bilirubin 1+ H (Negative) Ur Leukocyte Esterase Small H (Negative) Urine RBC >182 H (0-5) /hpf Urine WBC 41 H (0-5) /hpf Ur Squamous Epith Cells 23 H (0-4) /hpf Urine Bacteria Rare H (None) /hpf Urine Mucus Many H (None) /hpf Microbiology - Last 24 Hours (Table) 06/22/17 12:30 Urine Culture - Preliminary Urine,Voided Thrombosis Risk Factor Assmnt - Choose All That Apply Any of the Below Risk Factors Present?: Yes Each Factor Represents 1 point: Obesity (BMI >25) Other Risk Factors: No Other congenital or acquired thrombophilia - If yes, enter type in comment: No Thrombosis Risk Factor Assessment Total Risk Factor Score: 1 Thrombosis Risk Factor Assessment Level: Low Risk Assessment and Plan Assessment: 1. Acute pyelonephritis involving the right kidney 2. Nonobstructing 1.3 cm kidney stone 4. Major depressive disorder 5. DVT prophylaxis with subcu heparin Today, I reviewed her medication list and lab work results. We will continue IV ceftriaxone and IV fluids. Blood culture negative to date. Urine culture pending. Patient was seen and evaluated by urology. I will start her on Flomax 0.4 mg daily even though I'm doubting the benefit given the location of the stone. We will continue to follow on patient closely.
[2017-06-23] MEDS: TAMSULOSIN 0.4 MG CAP.ER.24H PO SCH (12:46)
[2017-06-23] MEDS ORDERED: METOCLOPRAMIDE 5 MG/ML 2 ML VIAL IVP PRN (13:26)
--- NOTE | 2017-06-23 18:20 | P.GSCN ---
History of Present Illness Consult date: 06/22/17 Reason for Consult: Kidney stone Requesting physician: Irma Mina History of present illness: The patient is a 27 year old female with a known right renal calculus. She had an utrasound of the gallbladder due to gallstones, and it showed a 1.2 cm right renal calculus. She is now admitted with right flank pain and fever. She states she gets these symptoms when she has a "kidney infection". Review of Systems - Constitutional Reports fever - Cardiovascular Reports lightheadedness - Gastrointestinal Reports nausea, Denies vomiting - Genitourinary Genitourinary: Reports flank pain, Reports hematuria, Denies dysuria Past Medical History Past Medical History: Asthma Additional Past Medical History / Comment(s): glasses, hx of kidney and bladder infections, permanent upper retainer present History of Any Multi-Drug Resistant Organisms: None Reported Past Surgical History: Appendectomy, Orthopedic Surgery Additional Past Surgical History / Comment(s): eye surgery x 5, right knee ( foreign body removal), lt hand benign tumor removed Past Anesthesia/Blood Transfusion Reactions: No Reported Reaction Smoking Status: Current some day smoker - Past Family History Father Family Medical History: Hypertension Additional Family Medical History / Comment(s): anxiety Mother Family Medical History: Hypertension Medications and Allergies Home Medications Medication Instructions Recorded Confirmed Type Citalopram Hydrobromide [CeleXA] 40 mg PO HS 09/29/16 06/22/17 History Ciprofloxacin HCl [Cipro] 500 mg PO Q12HR #20 tablet 06/21/17 06/22/17 Rx Allergies Allergy/AdvReac Type Severity Reaction Status Date / Time diphenhydramine HCl Allergy Throat Verified 06/22/17 12:24 [From Benadryl] Itches (with name brand Benadryl only) latex Allergy Rash/Hives Verified 06/22/17 12:24 hydrocodone bitartrate AdvReac Migraine Verified 06/22/17 12:24 [From Vicodin] Surgical - Exam Vital Signs Temp Pulse Resp BP Pulse Ox 98.0 F 102 H 20 108/64 98 06/22/17 11:54 06/22/17 11:54 06/22/17 11:54 06/22/17 11:54 06/22/17 11:54 - General well developed, well nourished, moderate distress - Respiratory normal respiratory effort - Abdomen Abdomen: soft, tender (right-sided tenderness), no guarding, no rigid, no rebound, no distended - Neurologic normal coordination - Psychiatric oriented to time, oriented to person, oriented to place, speech is normal, memory intact Results - Labs 06/22/17 12:30 06/22/17 12:30 Abnormal Lab Results - Last 24 Hours (Table) 06/22/17 06/22/17 06/22/17 Range/Units 12:30 12:30 12:30 Neutrophils # 8.0 H (1.3-7.7) k/uL Lymphocytes # 0.8 L (1.0-4.8) k/uL Carbon Dioxide 21 L (22-30) mmol/L Glucose 154 H (74-99) mg/dL Urine Appearance Cloudy H (Clear) Ur Specific [place] 1.048 H (1.001-1.035) Urine Protein 3+ H (Negative) Urine Ketones 2+ H (Negative) Urine Blood Moderate H (Negative) Urine Bilirubin 1+ H (Negative) Ur Leukocyte Esterase Small H (Negative) Urine RBC >182 H (0-5) /hpf Urine WBC 41 H (0-5) /hpf Ur Squamous Epith Cells 23 H (0-4) /hpf Urine Bacteria Rare H (None) /hpf Urine Mucus Many H (None) /hpf Diabetes panel 06/22/17 Range/Units 12:30 Sodium 141 (137-145) mmol/L Potassium 3.7 (3.5-5.1) mmol/L Chloride 107 (98-107) mmol/L Carbon Dioxide 21 L (22-30) mmol/L BUN 14 (7-17) mg/dL Creatinine 0.56 (0.52-1.04) mg/dL Glucose 154 H (74-99) mg/dL Calcium 8.9 (8.4-10.2) mg/dL AST 19 (14-36) U/L ALT 26 (9-52) U/L Alkaline Phosphatase 118 (38-126) U/L Total Protein 6.3 (6.3-8.2) g/dL Albumin 3.5 (3.5-5.0) g/dL Calcium panel 06/22/17 Range/Units 12:30 Calcium 8.9 (8.4-10.2) mg/dL Albumin 3.5 (3.5-5.0) g/dL Pituitary panel 06/22/17 Range/Units 12:30 Sodium 141 (137-145) mmol/L Potassium 3.7 (3.5-5.1) mmol/L Chloride 107 (98-107) mmol/L Carbon Dioxide 21 L (22-30) mmol/L BUN 14 (7-17) mg/dL Creatinine 0.56 (0.52-1.04) mg/dL Glucose 154 H (74-99) mg/dL Calcium 8.9 (8.4-10.2) mg/dL Adrenal panel 06/22/17 Range/Units 12:30 Sodium 141 (137-145) mmol/L Potassium 3.7 (3.5-5.1) mmol/L Chloride 107 (98-107) mmol/L Carbon Dioxide 21 L (22-30) mmol/L BUN 14 (7-17) mg/dL Creatinine 0.56 (0.52-1.04) mg/dL Glucose 154 H (74-99) mg/dL Calcium 8.9 (8.4-10.2) mg/dL Total Bilirubin 0.7 (0.2-1.3) mg/dL AST 19 (14-36) U/L ALT 26 (9-52) U/L Alkaline Phosphatase 118 (38-126) U/L Total Protein 6.3 (6.3-8.2) g/dL Albumin 3.5 (3.5-5.0) g/dL - Imaging US - abdomen: report reviewed Assessment and Plan (1) Pyelonephritis Current Visit: Yes Status: Acute Code(s): N12 - TUBULO-INTERSTITIAL NEPHRITIS, NOT SPCF ACUTE OR CHRONIC SNOMED Code(s): 29587048 Plan: The patient is receiving IV antibiotics. A urine culture is pending. A renal ultrasound suggests the presence of a non-obstructing right renal calculus. A CT scan will be obtained for further evaluation. Time with Patient: Greater than 30
[2017-06-23] MEDS: CITALOPRAM HYDROBROMIDE 20 MG TAB PO SCH (20:47)
[2017-06-24 01:35] VITALS: RESP 16
[2017-06-24] MEDS: traMADol 50 MG TAB PO PRN ×3 (01:56→18:24)
[2017-06-24] MEDS: MORPHINE ORAL SOLN 10 MG/5 ML CUP PO PRN ×4 (02:58→17:20)
[2017-06-24] MEDS: SODIUM CHLORIDE 0.9% 1,000 ML IV SCH ×2 (03:00→16:37)
[2017-06-24] MEDS ORDERED: PANTOPRAZOLE 40 MG TABLET PO SCH (07:30)
[2017-06-24] MEDS: ENOXAPARIN 40 MG/0.4 ML SYRINGE SQ SCH (08:33)
[2017-06-24] MEDS: TAMSULOSIN 0.4 MG CAP.ER.24H PO SCH (08:33)
[2017-06-24] MEDS: cefTRIAXone IN SWFI 1,000 MG/10 ML SYRINGE IVP SCH (08:33)
[2017-06-24] MEDS: ACETAMINOPHEN TAB 325 MG TAB PO PRN ×2 (08:39→15:00)
--- NOTE | 2017-06-24 10:34 | P.PN ---
Subjective Progress Note Date: 06/24/17 Principal diagnosis: Acute right pyelonephritis Ms. Marquez continues to experience severe right flank pain. Objective - Vital Signs Vital signs: Vital Signs Temp 99.4 F 06/24/17 08:05 Pulse 72 06/24/17 08:05 Resp 16 06/24/17 08:05 BP 109/69 06/24/17 08:05 Pulse Ox 98 06/24/17 08:05 Intake & Output 06/23/17 06/24/17 06/24/17 18:59 06:59 18:59 Intake Total 120 900 Output Total 750 Balance 120 150 Intake: Intake, IV Titration 900 Amount Sodium Chloride 0.9% 1, 900 000 ml @ 100 mls/hr IV . Q10H AVI Rx#:[id number] Oral 120 Output: Urine 750 Other: Voiding Method Toilet Toilet # Voids 1 1 - Constitutional General appearance: Present: cooperative, mild distress - Gastrointestinal General gastrointestinal: Present: soft, tenderness (Right-sided tenderness to palpation). Absent: distended - Psychiatric Psychiatric: Present: A&O x's 3, appropriate affect - Labs CBC & Chem 7: 06/22/17 12:30 06/22/17 12:30 Labs: Microbiology - Last 24 Hours (Table) 06/22/17 12:30 Urine Culture - Preliminary Urine,Voided Yeast species 06/22/17 12:30 Blood Culture - Preliminary Blood No Growth after 24 hours Assessment and Plan (1) Pyelonephritis Current Visit: Yes Status: Acute Code(s): N12 - TUBULO-INTERSTITIAL NEPHRITIS, NOT SPCF ACUTE OR CHRONIC SNOMED Code(s): 08387813 Plan: The patient is receiving IV antibiotics. A urine culture shows 50,000 100,000 yeast species, the significance of which is unclear. Consider treatment with Diflucan. A KUB x-ray will be obtained to determine whether or not the calculus is radiopaque, as I believe she would benefit from removal of the calculus (ESWL vs ureteroscopy with laser lithotripsy), though this would be performed electively when there is no concern of infection.
--- NOTE | 2017-06-24 11:15 | XR ---
EXAMINATION TYPE: XR KUB , 2 VIEWS DATE OF EXAM ORDERED: 06/24/2017 HISTORY: Hematuria. COMPARISON: Previous study dated 12/04/2011. FINDINGS: Surgical clips project over the right lower quadrant. The lung bases are clear. Within the abdomen, the abdominal gas pattern is normal. There is no evidence of obstruction or free air. There is a somewhat irregular 1.5 cm calculus overlying the mid polar region of the right kidney . Left kidney appears normal. There are phleboliths within the pelvis. IMPRESSION: 1. PROBABLE RIGHT RENAL CALCULUS. 2. POSTSURGICAL CHANGE.
[2017-06-24] MEDS ORDERED: FLUCONAZOLE 150 MG TAB PO STA (11:19)
--- NOTE | 2017-06-24 12:50 | P.DS ---
Providers Date of admission: 06/22/17 13:45 Expected date of discharge: 06/24/17 Attending physician: Irma Mina Consults: 06/22/17 13:46 Consult Physician Urgent Consulting Provider: Cliff Coles Consult Reason/Comments: pyelonephritis, nephrolithiasis Do you want consulting provider notified?: Yes Primary care physician: [facility] Course: 1. Acute pyelonephritis involving the right kidney: Urine culture showed yeast species. Initial urinalysis was grossly contaminated. We'll obtain a repeat UA prior to discharge. Plan to finish antibiotic course with Cipro for 7 days. 2. Nonobstructing 1.3 cm kidney stone: Seen and evaluated by urology. Plan for removal of calculus and possible ureteroscopically with laser lithotripsy as an outpatient. 4. Major depressive disorder Patient will be discharged home in a stable condition. Patient Condition at Discharge: Good Plan - Discharge Summary Discharge Rx Participant: Yes New Discharge Prescriptions: New Ciprofloxacin HCl [Cipro] 500 mg PO Q12HR #14 tablet RX: traMADol HCl [Ultram] 50 mg PO Q6H PRN #20 tab PRN Reason: Moderate Pain No Action Citalopram Hydrobromide [CeleXA] 40 mg PO HS Ciprofloxacin HCl [Cipro] 500 mg PO Q12HR #20 tablet Discharge Medication List Citalopram Hydrobromide [CeleXA] 40 mg PO HS 09/29/16 [History] Ciprofloxacin HCl [Cipro] 500 mg PO Q12HR #20 tablet 06/21/17 [Rx] Ciprofloxacin HCl [Cipro] 500 mg PO Q12HR #14 tablet 06/24/17 [Rx] RX: traMADol HCl [Ultram] 50 mg PO Q6H PRN #20 tab 06/24/17 [Rx] Follow up Appointment(s)/Referral(s): Nestor Heaton MD [STAFF PHYSICIAN] - 1 Week Discharge Disposition: HOME SELF-CARE
[2017-06-24 13:08] LABS: Appearance,Urine Clear (Clear); Bilirubin,Urine Negative (Negative); Blood,Urine Moderate (Negative); Color,Urine Light Yellow; Glucose,Urine (UA) Negative (Negative); Ketones,Urine Negative (Negative); Leukocyte Esterase,Urine Moderate (Negative); Nitrite,Urine Negative (Negative); Protein,Urine Negative (Negative); RBC,Urine 4 /hpf (0-5); Specific Gravity,Urine 1.006 (1.001-1.035); Squamous Epithelial Cell,Urine 2 /hpf (0-4); Urobilinogen,Urine <2.0 mg/dL (<2.0); WBC,Urine 3 /hpf (0-5)
[2017-06-24 15:01] VITALS: BP 95/59; PULSE 62; TEMP 98.6
== END 2017-06-24 18:35 | disposition home or self-care (01) | DRG 694 ==
LOC: EC 11:53 → 3SUR 13:45
PROVIDERS: ADMIT Internal Medicine; ATTEND Internal Medicine
DX: N20.0 Calculus of kidney (principal); F17.200 Nicotine dependence, unspecified, uncomplicated; F32.9 Major depressive disorder, single episode, unspecified; J45.909 Unspecified asthma, uncomplicated; K80.20 Calculus of gallbladder without cholecystitis without obstruction; Z79.899 Other long term (current) drug therapy; Z82.49 Family history of ischemic heart disease and other diseases of the circulatory system; Z98.890 Other specified postprocedural states; Z88.5 Allergy status to narcotic agent; Z88.8 Allergy status to other drugs, medicaments and biological substances; Z91.040 Latex allergy status
CPT/HCPCS: 36415; 74018; 74176; 76770; 80053; 81001; 81025; 82150; 83605; 83690; 85025; 87040; 87086; 87502; 96361; 96374; 96375; 99284; 99285

== ENCOUNTER → 2017-08-14 | Outpatient (CLI) | payer BC ==
--- NOTE | 2017-08-14 14:37 | US ---
EXAMINATION TYPE: US kidneys/renal and bladder DATE OF EXAM: 08/14/2017 COMPARISON: CT & US 2018 CLINICAL HISTORY: N20.0 calculus of kidney. Right flank pain following surgery to remove right kidne y stone 1 month ago EXAM MEASUREMENTS: Right Kidney: 11.8 x 7.2 x 7.2 cm Left Kidney: 12.2 x 6.0 x 6.7 cm Right Kidney: multiple echogenic shadowing foci mid pole with largest measuring 0.6cm, 7.7 x 3.3 x 5. 4cm complex area mid pole Left Kidney: no hydronephrosis or renal masses seen Bladder: wnl Bilateral Jets seen: yes There is no evidence for hydronephrosis at this point in time. The urinary bladder is anechoic. Sushant ateral ureteral jets are seen. IMPRESSION: 1. Masslike area subcapsular mid pole right kidney. Contrast-enhanced study is recommended. Subcapsul ar mass or collection not excluded. 2. Right-sided nephrolithiasis.
--- NOTE | 2017-08-14 15:39 | XR ---
Abdomen HISTORY: Renal calculus Frontal view of the abdomen submitted on 2 images and correlated to prior abdomen 06/24/2017, CT abdom en pelvis 06/22/2017 Multiple calcifications are seen within the pelvis as on previous exam representing phleboliths. Surg ical clips are present in the right hemiabdomen. The calcifications seen overlying the right kidney o n prior exam is not seen today's exam. There is a calcification present in the right lower quadrant m easuring approximately 3 mm. Questionable right hemipelvis calcification measuring approximately 5 mm . Lung bases are clear. Right sided renal calculi may be obscured. IMPRESSION: Interval lithotripsy. Difficult to exclude right ureteral calculus.
== END | disposition home or self-care (01) ==
LOC: RADUSWWP 13:46
PROVIDERS: ATTEND Urology
DX: N20.0 Calculus of kidney (principal); Z98.890 Other specified postprocedural states
CPT/HCPCS: 74018; 76770

== ENCOUNTER → 2017-08-18 | Outpatient (CLI) | payer BC ==
--- NOTE | 2017-08-18 17:10 | CT ---
EXAMINATION TYPE: CT abdomen w con DATE OF EXAM: 08/18/2017 COMPARISON: Ultrasound 08/14/2017, CT abdomen 06/22/2017 INDICATION: Enlarged right kidney, history of surgery for stone removal 1 month prior DLP: 1302 mGycm, Automated exposure control for dose reduction was used. CONTRAST: 100 mL of Isovue 300. Study performed with Oral Contrast TECHNIQUE: Axial images were obtained from above the diaphragm to the pubic rami in the axial plane a t 5 mm thick sections. Reconstructed images are reviewed on the computer in the coronal plane. FINDINGS: Limited CT sections are obtained the lung bases. The lung bases are clear. CT ABDOMEN: Liver: Normal Spleen: Normal Pancreas: Normal Adrenal glands: The adrenal glands are normal. Gallbladder: Normal Kidneys: On the right kidney is a 3.8 x 3.8 x 7.4 cm hypodense area deforming the superior renal sriram ex. This lies along the anterior superior margin and has a thick surrounding rim laterally. Inflammat ory changes are within the perinephric fat. There is thickening of Gerota facia. Previous large calc ification within the right kidney is not identified. There appears to be renal stone fragments within the mid right kidney cortex. Findings could suggest postsurgical changes from surgical retrieval of the calcification. This may be a postsurgical hematoma or seroma. Abscess should be considered. No hydronephrosis is evident. Hydroureter is not evident. Aorta: Normal Inferior vena cava: Normal. Loops of bowel within the abdomen and pelvis are normal. There are loops of bowel which are incom pletely distended or lack oral contrast limiting their evaluation. IMPRESSIONS: 1. Hypodense collection deforming the renal cortex suspicious for cortical hematoma or seroma of the right kidney. Abscess should be considered.
== END | disposition home or self-care (01) ==
LOC: RADCTMAIN 11:54
PROVIDERS: ATTEND Urology
DX: R93.41 Abnormal radiologic findings on diagnostic imaging of renal pelvis, ureter, or bladder (principal)
CPT/HCPCS: 74160; Q9967

== ENCOUNTER → 2017-08-21 | Outpatient (CLI) | payer BC ==
--- NOTE | 2017-08-21 09:35 | NM ---
Nuclear medicine hepatobiliary scan. HISTORY: Pain. DOSAGE: The patient received 8 ounces of ensure plus and 4.8 mCi of Technetium 99m Choletec. FINDINGS: There is normal hepatic extraction. The gallbladder is seen by 90 minutes. There is bilia ry to bowel clearance by 20 minutes. Ejection fraction is 7%. IMPRESSION: 1. Delayed filling of the gallbladder with reduced ejection fraction suggestive of cholecystitis.
== END | disposition home or self-care (01) ==
LOC: RADNMMAIN 06:59
PROVIDERS: ATTEND Surgery
DX: K80.10 Calculus of gallbladder with chronic cholecystitis without obstruction (principal); K21.9 Gastro-esophageal reflux disease without esophagitis
CPT/HCPCS: 78227; A9537; J2805

== ENCOUNTER 2017-08-24 07:34 | Day surgery (SDC) | payer BC ==
[2017-08-23 08:26] VITALS: BMI 35.2
[~2017-08-24 07:34] MED LIST: LACTATED RINGERS 1,000 ML IV SCH
[2017-08-24 08:01] VITALS: RESP 16; TEMP 97.4
[2017-08-24] MEDS ORDERED: LIDOCAINE 1% 20 ML VIAL (10MG/ML) FOR IV START INTRADERMA ONE (08:17)
[2017-08-24] MEDS ORDERED: GLYCOPYRROLATE 0.2 MG/ML 2 ML VIAL ONE (08:40)
[2017-08-24] MEDS ORDERED: NEOMYCIN-POLYMYXIN-DEXAMETH (3.5-10,000-0.1) DROPS 5 ML BTL ONE (08:40)
[2017-08-24] MEDS ORDERED: LIDOCAINE 1% INJ 10MG/ML (20 ML MDV) ONE (08:40)
[2017-08-24] MEDS ORDERED: PROPOFOL 10 MG/ML 20 ML VIAL IV ONE (08:40)
[2017-08-24] MEDS ORDERED: MIDAZOLAM 2 MG/2 ML VIAL ONE (08:40)
--- NOTE | 2017-08-24 09:00 | P.GSHP ---
History of Present Illness H&P Date: 08/24/17 Chief Complaint: Epigastric pain This a 27-year-old female who was admitted with epigastric pain. Patient also has had GERD symptoms. She presents today for EGD for epigastric pain and GERD. Past Medical History Past Medical History: Asthma Additional Past Medical History / Comment(s): Hx of kidney and bladder infections, permanent upper retainer present. History of Any Multi-Drug Resistant Organisms: None Reported Past Surgical History: Appendectomy, Orthopedic Surgery Additional Past Surgical History / Comment(s): Eye surgery x 5, right knee ( foreign body removal), left hand benign tumor removed. Past Anesthesia/Blood Transfusion Reactions: No Reported Reaction Past Psychological History: Anxiety, Depression Smoking Status: Current some day smoker Past Alcohol Use History: Occasional Additional Past Alcohol Use History / Comment(s): Started smoking at age 18, 5 cigarettes per day. Past Drug Use History: None Reported - Past Family History Father Family Medical History: Hypertension Additional Family Medical History / Comment(s): anxiety Mother Family Medical History: Hypertension Medications and Allergies Home Medications Medication Instructions Recorded Confirmed Type Citalopram Hydrobromide [CeleXA] 40 mg PO HS 09/29/16 08/23/17 History Allergies Allergy/AdvReac Type Severity Reaction Status Date / Time diphenhydramine HCl Allergy Throat Verified 08/24/17 07:50 [From Benadryl] Itches (with name brand Benadryl only) latex Allergy Rash/Hives Verified 08/24/17 07:50 hydrocodone bitartrate AdvReac Migraine Verified 08/24/17 07:50 [From Vicodin] Surgical - Exam Vital Signs Temp Pulse Resp BP Pulse Ox 97.4 F L 86 16 132/80 98 08/24/17 08:00 08/24/17 08:00 08/24/17 08:00 08/24/17 08:00 08/24/17 08:00 - General well developed, no distress - Eyes PERRL, normal ocular movement - ENT normal pinna - Neck no masses - Respiratory normal expansion - Cardiovascular Rhythm: regular - Abdomen Abdomen: soft, non tender Assessment and Plan Assessment: GERD, epigastric pain. We'll perform EGD.
[2017-08-24 10:10] VITALS: BP 120/80; PULSE 61
--- NOTE | 2017-10-16 15:33 | P.OP ---
Date of Procedure: 08/24/17 Preoperative Diagnosis: GERD Postoperative Diagnosis: Antral gastritis Procedure(s) Performed: EGD Anesthesia: MAC Surgeon: Polo Billy Pathology: other (Antrum) Condition: stable Disposition: PACU Description of Procedure: Patient's placed on the endoscopy table lateral position. She received IV sedation. The gastroscope placed oropharynx passed into the esophagus into the stomach. The scope was then placed through the pylorus. The first and second portion of the duodenum appeared normal. Scope summer back the antrum and this was mildly inflamed. A biopsies performed. Scope was unretroflexed and the remainder of the stomach appeared normal. The GE junction was at 40 cm. The distal esophagus and proximal esophagus appeared normal. Scope was withdrawn for patient.
== END 2017-08-24 11:06 | disposition home or self-care (01) ==
LOC: ORWHC2ENDO 07:34
PROVIDERS: ATTEND Surgery
DX: K29.50 Unspecified chronic gastritis without bleeding (principal); R12 Heartburn; J45.909 Unspecified asthma, uncomplicated; F41.9 Anxiety disorder, unspecified; F32.9 Major depressive disorder, single episode, unspecified; F17.210 Nicotine dependence, cigarettes, uncomplicated; Z79.899 Other long term (current) drug therapy; Z88.8 Allergy status to other drugs, medicaments and biological substances; Z91.040 Latex allergy status; Z88.5 Allergy status to narcotic agent
CPT/HCPCS: 81025; 88305; 43239; J2250; J2001; J2704

== ENCOUNTER 2017-09-08 06:52 | Day surgery (SDC) | payer BC ==
[2017-09-04 15:18] VITALS: BMI 35.2
[~2017-09-08 06:52] MED LIST changes: +DEXAMETHASONE SOD PHOSPHATE 10 MG/ML 1 ML VIAL IV ONE; +HEPARIN SODIUM,PORCINE 5,000 UNIT/ML 1 ML VIAL SQ ONE; +ONDANSETRON 4 MG/2 ML VIAL IVP ONE; +ceFAZolin IN SWFI 2 GM/20 ML SYRINGE IVP ONE
[2017-09-08] MEDS ORDERED: LIDOCAINE 1% 20 ML VIAL (10MG/ML) FOR IV START INTRADERMA ONE (07:14)
--- NOTE | 2017-09-08 07:47 | P.GSHP ---
History of Present Illness H&P Date: 09/08/17 Chief Complaint: Right upper quadrant pain This is a 27-year-old female who presents today for laparoscopic ostectomy. Patient's had complaints of abdominal pain. Her recent HIDA scan shows a diminished ejection fraction 7% consistent with chronic cholecystitis and biliary dyskinesia. Past Medical History Past Medical History: Asthma Additional Past Medical History / Comment(s): "Fluid around right kidney, Dr Heaton waiting 2 months to see if goes down. Dr Hammer aware. Hx of kidney and bladder infections, permanent upper retainer present. History of Any Multi-Drug Resistant Organisms: None Reported Past Surgical History: Appendectomy, Orthopedic Surgery Additional Past Surgical History / Comment(s): Eye surgery x 5, right knee ( foreign body removal), left hand benign tumor removed, EGD. Past Anesthesia/Blood Transfusion Reactions: No Reported Reaction Past Psychological History: Anxiety, Depression Smoking Status: Current some day smoker Past Alcohol Use History: Occasional Additional Past Alcohol Use History / Comment(s): Started smoking age 18 a pack will last 1 week. Past Drug Use History: None Reported - Past Family History Father Family Medical History: Hypertension Additional Family Medical History / Comment(s): anxiety Mother Family Medical History: Hypertension Medications and Allergies Home Medications Medication Instructions Recorded Confirmed Type Citalopram Hydrobromide [CeleXA] 40 mg PO HS 09/29/16 09/08/17 History HYDROcodone/APAP 5-325MG [[place] 1 tab PO BID PRN 09/04/17 09/08/17 History 5-325] Ibuprofen [Motrin Ib] 400 mg PO DAILY PRN 09/04/17 09/08/17 History Allergies Allergy/AdvReac Type Severity Reaction Status Date / Time diphenhydramine HCl Allergy Throat Verified 09/04/17 15:04 [From Benadryl] Itches (with name brand Benadryl only) latex Allergy Rash/Hives Verified 09/04/17 15:04 hydrocodone bitartrate AdvReac Migraine Verified 09/04/17 15:04 [From Vicodin] Surgical - Exam Vital Signs Temp Pulse Resp BP Pulse Ox 97.2 F L 83 16 130/90 99 09/08/17 07:05 09/08/17 07:05 09/08/17 07:05 09/08/17 07:05 09/08/17 07:05 - General well developed, no distress - Eyes PERRL - ENT normal pinna - Neck no masses - Cardiovascular Rhythm: regular - Abdomen Abdomen: soft, non tender Assessment and Plan Assessment: Right upper quadrant pain Chronic cholecystitis We'll perform laparoscopic cholecystectomy.
[2017-09-08] MEDS ORDERED: ROCURONIUM BROMIDE 10 MG/ML 10 ML VIAL IV ONE (07:48)
[2017-09-08] MEDS ORDERED: LIDOCAINE 1% INJ 10MG/ML (20 ML MDV) ONE (07:48)
[2017-09-08] MEDS ORDERED: ONDANSETRON 4 MG/2 ML VIAL ONE (07:48)
[2017-09-08] MEDS ORDERED: NEOSTIGMINE 1 MG/ML 10 ML VIAL ONE (07:48)
[2017-09-08] MEDS ORDERED: PROPOFOL 10 MG/ML 20 ML VIAL IV ONE (07:48)
[2017-09-08] MEDS ORDERED: KETOROLAC 30 MG/ML 1 ML VIAL ONE (07:48)
[2017-09-08] MEDS ORDERED: fentaNYL (PF) 50 MCG/ML 2 ML AMP ONE (07:48)
[2017-09-08] MEDS ORDERED: SUCCINYLCHOLINE CHLORIDE 100 MG/5 ML SYR IV ONE (07:48)
[2017-09-08] MEDS ORDERED: GLYCOPYRROLATE 0.2 MG/ML 2 ML VIAL ONE (07:48)
[2017-09-08] MEDS ORDERED: MIDAZOLAM 2 MG/2 ML VIAL ONE (07:48)
[2017-09-08] MEDS ORDERED: BUPIVACAINE (PF) 0.5% 30 ML VIAL SQ ONE (08:11)
[2017-09-08 08:47] VITALS: TEMP 97.1
[2017-09-08] MEDS: HYDROmorphone 0.5 MG/0.5 ML SYRINGE IVP PRN ×2 (08:59→09:06)
[2017-09-08] MEDS: MEPERIDINE 50 MG/ML SYRINGE IVP ONE ×2 (09:21→09:29)
[2017-09-08 09:48] VITALS: RESP 18
[2017-09-08 10:33] VITALS: BP 121/78; PULSE 62
--- NOTE | 2017-09-08 12:20 | P.OP ---
Date of Procedure: 09/08/17 Preoperative Diagnosis: Cholecystitis Postoperative Diagnosis: Cholecystitis Procedure(s) Performed: Laparoscopic cholecystectomy Anesthesia: MAC Surgeon: Polo Billy Estimated Blood Loss (ml): 5 Pathology: other (Gallbladder) Condition: stable Disposition: PACU Description of Procedure: The patient was placed on the operating table. The patient received a general endotracheal tube anesthesia. The patients abdomen was prepped and draped in the usual sterile fashion. Through an infraumbilical stab incision, the fascia of the anterior abdominal wall was grasped with a pair of Kochers and then the Veress needle was placed in the peritoneal cavity. Position of the Veress needle was confirmed with positive drop test. The abdomen was then insufflated. After adequate insufflation, the 10 mm trocar was placed in the peritoneal cavity. Following this the laparoscope was placed in the peritoneal cavity. The patient was placed in the head-up, right side up position and then a 5 mm trocar was placed in the right lateral and right subcostal position under direct visualization. A 8 mm trocar was placed in the epigastric position. The gallbladder was grasped in the fundus and infundibulum. Traction on the gallbladder was placed in the lateral and the cephalad positions. The triangle of Calot was visualized.. The cystic duct was bluntly dissected until the union of the cystic duct and common bile duct was seen. The cystic duct was then divided and sealed with the Harmonic scissors. A PDS Endoloop was then placed throughout the cystic duct stump. The cystic artery divided and sealed with the Harmonic scissors. The gallbladder was then removed from the liver bed using Harmonic scissors. The gallbladder was then extracted through the epigastric port site. Operative field was checked for any bleeding spots and Harmonic scissors was used to coagulate the liver bed. The abdomen was irrigated. The trocars were removed. The skin was closed using interrupted 3-0 Vicryl suture. Dermabond dressing were applied. The patient tolerated the procedure well.
== END 2017-09-08 10:53 | disposition home or self-care (01) ==
LOC: OR 06:52
PROVIDERS: ATTEND Surgery
DX: K81.1 Chronic cholecystitis (principal); J45.909 Unspecified asthma, uncomplicated; F41.9 Anxiety disorder, unspecified; F32.9 Major depressive disorder, single episode, unspecified; F39 Unspecified mood [affective] disorder; F17.210 Nicotine dependence, cigarettes, uncomplicated; Z91.040 Latex allergy status; Z88.5 Allergy status to narcotic agent; Z88.8 Allergy status to other drugs, medicaments and biological substances; Z79.899 Other long term (current) drug therapy; Z82.49 Family history of ischemic heart disease and other diseases of the circulatory system
CPT/HCPCS: 47562; 81025; 88304; J2250; J1644; J1100; J2710; J2175; J2405; J2001; J3010; J1885; J0330; J2704; J1170; J0690

== ENCOUNTER 2017-09-08 18:01 | Emergency (ER) | payer BC ==
[2017-09-08 18:21] VITALS: RESP 18; TEMP 98.2
[2017-09-08] MEDS ORDERED: SODIUM CHLORIDE 0.9% 1,000 ML IV STA (19:33)
[2017-09-08] MEDS ORDERED: MORPHINE SULFATE 2 MG/ML SYRINGE IVP STA (19:33)
[2017-09-08] MEDS ORDERED: ONDANSETRON 4 MG/2 ML VIAL IVP STA (19:33)
[2017-09-08 19:44] LABS: Basophils % (A) 0 %; Eosinophils % (A) 0 %; HCT 33.9 % (34.0-46.0); HGB 11.1 gm/dL (11.4-16.0); Hypochromasia Slight; Lymphocytes # (A) 1.1 k/uL (1.0-4.8); Lymphocytes % (A) 15 %; MCH 26.1 pg (25.0-35.0); MCHC 32.7 g/dL (31.0-37.0); MCV 79.9 fL (80.0-100.0); Mean Platelet Volume 6.9; Monocytes # (A) 0.2 k/uL (0-1.0); Monocytes % (A) 3 %; Neutrophils # (A) 5.7 k/uL (1.3-7.7); Neutrophils % (A) 80 %; Platelet Count 362 k/uL (150-450); Poikilocytosis Slight; RBC 4.24 m/uL (3.80-5.40); RDW 15.8 % (11.5-15.5); WBC 7.1 k/uL (3.8-10.6)
[2017-09-08 19:54] LABS: ALT 29 U/L (9-52); AST 27 U/L (14-36); Albumin 4.4 g/dL (3.5-5.0); Alkaline Phosphatase 113 U/L (38-126); Anion Gap 14 mmol/L; Blood Urea Nitrogen 9 mg/dL (7-17); Calcium 9.4 mg/dL (8.4-10.2); Carbon Dioxide 21 mmol/L (22-30); Chloride 105 mmol/L (98-107); Glucose 117 mg/dL (74-99); Potassium 4.4 mmol/L (3.5-5.1); Sodium 140 mmol/L (137-145); Total Bilirubin 0.4 mg/dL (0.2-1.3); Total Protein 7.6 g/dL (6.3-8.2)
--- NOTE | 2017-09-08 20:41 | XR ---
EXAMINATION TYPE: XR KUB DATE OF EXAM: 09/08/2017 COMPARISON: 08/14/2017 HISTORY: Abdominal swelling TECHNIQUE: 2 views FINDINGS: There is no sign of intestinal obstruction or pneumoperitoneum. Fecal pattern is normal. Th ere is no evidence of a mass. There are surgical clips in the right mid abdomen. Lung bases are clear . There are no pathologic calcifications over the kidneys. IMPRESSION: Nonacute abdomen.
[2017-09-08] MEDS ORDERED: BUTORPHANOL 1 MG/ML 1 ML VIAL IV STA (20:52)
--- NOTE | 2017-09-08 20:56 | ED ---
General Adult HPI - General Chief complaint: Nausea/Vomiting/Diarrhea Stated complaint: Post Op Incision Problems Time Seen by Provider: 09/08/17 19:25 Source: patient, RN notes reviewed Mode of arrival: wheelchair Limitations: no limitations - History of Present Illness Initial comments: Patient 27-year-old female status post laparoscopic cholecystectomy earlier today, presenting for abdominal pain. Patient states she feels bloated experiencing pain. She does admit that she's had a bowel movement since surgery. States that she is passing gas. She denies any vomiting. States she just has pain throughout the abdomen and feels swollen. Patient denies any other complaints or symptoms. Patient denies any recent fever, chills, shortness of breath, chest pain, back pain, vomiting, numbness or tingling, dysuria or hematuria, constipation or diarrhea, headaches or visual changes, or any other complaints. - Related Data Home Medications Medication Instructions Recorded Confirmed Citalopram Hydrobromide [CeleXA] 40 mg PO HS 09/29/16 09/08/17 Previous Rx's Medication Instructions Recorded Docusate [Colace] 100 mg PO BID #20 capsule 09/08/17 HYDROcodone/APAP 7.5-325MG [[place] 1 tab PO Q4H PRN 3 Days #18 tab 09/08/17 7.5-325] Allergies Allergy/AdvReac Type Severity Reaction Status Date / Time diphenhydramine HCl Allergy Throat Verified 09/08/17 19:15 [From Benadryl] Itches (with name brand Benadryl only) latex Allergy Rash/Hives Verified 09/08/17 19:15 hydrocodone bitartrate AdvReac Migraine Verified 09/08/17 19:15 [From Vicodin] Review of Systems ROS Statement: Those systems with pertinent positive or pertinent negative responses have been documented in the HPI. ROS Other: All systems not noted in ROS Statement are negative. Past Medical History Past Medical History: No Reported History Additional Past Medical History / Comment(s): Hx of kidney and bladder infections, permanent upper retainer present. History of Any Multi-Drug Resistant Organisms: None Reported Past Surgical History: Cholecystectomy Additional Past Surgical History / Comment(s): Eye surgery x 5, right knee ( foreign body removal), left hand benign tumor removed. Past Anesthesia/Blood Transfusion Reactions: No Reported Reaction Past Psychological History: Anxiety, Depression Smoking Status: Current every day smoker Past Alcohol Use History: Occasional Past Drug Use History: None Reported - Past Family History Father Family Medical History: Hypertension Additional Family Medical History / Comment(s): anxiety Mother Family Medical History: Hypertension General Exam - General Exam Comments Initial Comments: General: The patient is awake and alert, in no distress, and does not appear acutely ill. Eye: Pupils are equal, round and reactive to light, extra-ocular movements are intact. No nystagmus. There is normal conjunctiva bilaterally. No signs of icterus. Ears, nose, mouth and throat: There are moist mucous membranes and no oral lesions. Neck: The neck is supple, there is no tenderness or JVD. Cardiovascular: There is a regular rate and rhythm. No murmur, rub or gallop is appreciated. Respiratory: Lungs are clear to auscultation, respirations are non-labored, breath sounds are equal. No wheezes, stridor, rales, or rhonchi. Gastrointestinal: Incision sites are closed no active bleeding. No redness or erythema. Abdomen is soft on palpation. No specific tenderness. Bowel sounds normal. No rebound, guarding or CVA tenderness. Musculoskeletal: Normal ROM, no tenderness. Strength 5/5. Sensation intact. Pulses equal bilaterally 2+. Neurological: A&O x 3. CN II-XII intact, There are no obvious motor or sensory deficits. Coordination appears grossly intact. Speech is normal. Skin: Skin is warm and dry and no rashes or lesions are noted. Psychiatric: Cooperative, appropriate mood & affect, normal judgment. Limitations: no limitations Course Vital Signs 09/08/17 18:19 Temperature 98.2 F Pulse Rate 68 Respiratory 18 Rate Blood Pressure 134/85 O2 Sat by Pulse 99 Oximetry Medical Decision Making - Medical Decision Making X-ray shows no acute abnormality. Patient's surgery was earlier this morning. She states feels somewhat swollen. Discussed this to be normal after recent surgery. Labs are unremarkable. White count. No fever. Case discussed with attending physician Dr. Joseph. At this time patient will be discharged home and she is feeling better here in the emergency room and advised follow-up to her surgeon tomorrow. - Lab Data Result diagrams: 09/08/17 19:25 09/08/17 19:25 Lab Results 06/29/18 06/29/18 Range/Units 19:25 19:25 WBC 7.1 (3.8-10.6) k/uL RBC 4.24 (3.80-5.40) m/uL Hgb 11.1 L (11.4-16.0) gm/dL Hct 33.9 L (34.0-46.0) % MCV 79.9 L (80.0-100.0) fL MCH 26.1 (25.0-35.0) pg MCHC 32.7 (31.0-37.0) g/dL RDW 15.8 H (11.5-15.5) % Plt Count 362 (150-450) k/uL Neutrophils % 80 % Lymphocytes % 15 % Monocytes % 3 % Eosinophils % 0 % Basophils % 0 % Neutrophils # 5.7 (1.3-7.7) k/uL Lymphocytes # 1.1 (1.0-4.8) k/uL Monocytes # 0.2 (0-1.0) k/uL Eosinophils # 0.0 (0-0.7) k/uL Basophils # 0.0 (0-0.2) k/uL Hypochromasia Slight Poikilocytosis Slight Sodium 140 (137-145) mmol/L Potassium 4.4 (3.5-5.1) mmol/L Chloride 105 (98-107) mmol/L Carbon Dioxide 21 L (22-30) mmol/L Anion Gap 14 mmol/L BUN 9 (7-17) mg/dL Creatinine 0.51 L (0.52-1.04) mg/dL Est GFR (CKD-EPI)AfAm >90 (>60 ml/min/1.73 sqM) Est GFR (CKD-EPI)NonAf >90 (>60 ml/min/1.73 sqM) Glucose 117 H (74-99) mg/dL Calcium 9.4 (8.4-10.2) mg/dL Total Bilirubin 0.4 (0.2-1.3) mg/dL AST 27 (14-36) U/L ALT 29 (9-52) U/L Alkaline Phosphatase 113 (38-126) U/L Total Protein 7.6 (6.3-8.2) g/dL Albumin 4.4 (3.5-5.0) g/dL Disposition Clinical Impression: Postoperative abdominal pain Disposition: HOME SELF-CARE Condition: Good Instructions: Abdominal Pain (ED) Additional Instructions: Please follow-up surgeon tomorrow as discussed. Please return to emergency room if symptoms increase or worsen or fail concerns. Is patient prescribed a controlled substance at d/c from ED?: No Referrals: Irma Mina MD [Primary Care Provider] - 1-2 days Polo Billy MD [STAFF PHYSICIAN] - 1-2 days Time of Disposition: 20:56
[2017-09-08 21:24] VITALS: BP 125/67; PULSE 67
== END 2017-09-08 21:25 | disposition home or self-care (01) ==
LOC: EC 18:01
DX: G89.18 Other acute postprocedural pain (principal); R10.9 Unspecified abdominal pain; F32.9 Major depressive disorder, single episode, unspecified; F17.200 Nicotine dependence, unspecified, uncomplicated; Z79.899 Other long term (current) drug therapy; Z88.5 Allergy status to narcotic agent; Z88.8 Allergy status to other drugs, medicaments and biological substances; Z91.040 Latex allergy status; Z90.49 Acquired absence of other specified parts of digestive tract
CPT/HCPCS: 36415; 80053; 85025; 74018; 99284; 96374; 96375 ×2; 96361 ×2; J0595; J2405; J2270

== ENCOUNTER 2017-09-15 04:06 | Emergency (ER) | payer BC ==
[2017-09-15 04:10] VITALS: TEMP 98.6
[2017-09-15] MEDS ORDERED: predniSONE 20 MG TAB PO STA (04:17)
[2017-09-15] MEDS ORDERED: FAMOTIDINE 20 MG TAB PO STA (04:17)
[2017-09-15] MEDS: diphenhydrAMINE 50 MG CAP PO STA ×2 (04:21→04:25)
[2017-09-15] MEDS ORDERED: EPINEPHrine 1 MG/ML 1 ML AMP IM STA (05:18)
--- NOTE | 2017-09-15 06:05 | ED ---
Allergic Reaction HPI - General Chief complaint: Allergic Reaction Stated complaint: Allergic reaction Time Seen by Provider: 09/15/17 04:11 Source: patient Mode of arrival: ambulatory Limitations: no limitations - History of Present Illness MD Complaint: hives -: minutes(s) Exposure: unknown Symptoms: rash, itching Severity: moderate Treatment Prior to Arrival: benadryl Previous Allergy History: prior ED visit(s) - Related Data Home Medications Medication Instructions Recorded Confirmed Citalopram Hydrobromide [CeleXA] 40 mg PO HS 09/29/16 09/08/17 Previous Rx's Medication Instructions Recorded Docusate [Colace] 100 mg PO BID #20 capsule 09/08/17 HYDROcodone/APAP 7.5-325MG [[place] 1 tab PO Q4H PRN 3 Days #18 tab 09/08/17 7.5-325] predniSONE 60 mg PO DAILY #30 tab 09/15/17 Allergies Allergy/AdvReac Type Severity Reaction Status Date / Time diphenhydramine HCl Allergy Throat Verified 09/15/17 04:10 [From Benadryl] Itches (with name brand Benadryl only) latex Allergy Rash/Hives Verified 09/15/17 04:10 hydrocodone bitartrate AdvReac Migraine Verified 09/15/17 04:10 [From Vicodin] Review of Systems ROS Statement: Those systems with pertinent positive or pertinent negative responses have been documented in the HPI. ROS Other: All systems not noted in ROS Statement are negative. Constitutional: Denies: fever, chills Respiratory: Denies: cough, dyspnea, wheezes Cardiovascular: Denies: chest pain Gastrointestinal: Denies: abdominal pain, nausea, vomiting Skin: Reports: rash, pruritus Neurological: Denies: headache Past Medical History Past Medical History: No Reported History Additional Past Medical History / Comment(s): Hx of kidney and bladder infections, permanent upper retainer present. History of Any Multi-Drug Resistant Organisms: None Reported Past Surgical History: Cholecystectomy Additional Past Surgical History / Comment(s): Eye surgery x 5, right knee ( foreign body removal), left hand benign tumor removed. Past Anesthesia/Blood Transfusion Reactions: No Reported Reaction Past Psychological History: Anxiety, Depression Smoking Status: Current every day smoker Past Alcohol Use History: Occasional Past Drug Use History: None Reported - Past Family History Father Family Medical History: Hypertension Additional Family Medical History / Comment(s): anxiety Mother Family Medical History: Hypertension General Exam Limitations: no limitations General appearance: alert, in no apparent distress Head exam: Present: atraumatic, normocephalic Eye exam: Present: normal appearance. Absent: scleral icterus, conjunctival injection ENT exam: Present: normal oropharynx, mucous membranes moist Neck exam: Present: normal inspection Respiratory exam: Present: normal lung sounds bilaterally. Absent: respiratory distress, wheezes, rales, rhonchi, stridor Cardiovascular Exam: Present: regular rate, normal rhythm, normal heart sounds. Absent: systolic murmur, diastolic murmur, rubs, gallop GI/Abdominal exam: Present: soft. Absent: distended, tenderness, guarding, rebound Neurological exam: Present: alert Skin exam: Present: warm, dry, intact, normal color, urticaria. Absent: rash Course Vital Signs 09/15/17 09/15/17 09/15/17 04:07 04:10 05:10 Temperature 98.6 F Pulse Rate 110 H 93 Respiratory 18 16 Rate Blood Pressure 166/100 136/82 O2 Sat by Pulse 99 99 100 Oximetry 09/15/17 05:26 Temperature Pulse Rate 82 Respiratory 16 Rate Blood Pressure 138/87 O2 Sat by Pulse 99 Oximetry Disposition Clinical Impression: Allergic reaction, Urticaria Disposition: HOME SELF-CARE Condition: Good Instructions: Urticaria (ED) Prescriptions: predniSONE 60 mg PO DAILY #30 tab Is patient prescribed a controlled substance at d/c from ED?: No Referrals: Chase Cintron MD [Primary Care Provider] - 1-2 days
[2017-09-15 06:17] VITALS: BP 134/74; PULSE 89; RESP 19
== END 2017-09-15 06:18 | disposition home or self-care (01) ==
LOC: EC 04:06
DX: L50.0 Allergic urticaria (principal); F32.9 Major depressive disorder, single episode, unspecified; F41.9 Anxiety disorder, unspecified; F17.200 Nicotine dependence, unspecified, uncomplicated; Z79.899 Other long term (current) drug therapy; Z88.5 Allergy status to narcotic agent; Z88.8 Allergy status to other drugs, medicaments and biological substances; Z91.040 Latex allergy status
CPT/HCPCS: 99283; 96372; J0171; J7512

== ENCOUNTER 2017-09-16 13:55 | Emergency (ER) | payer BC ==
[2017-09-16 14:03] VITALS: TEMP 98
[2017-09-16] MEDS ORDERED: DEXAMETHASONE SOD PHOSPHATE 10 MG/ML 1 ML VIAL IV STA (14:12)
[2017-09-16] MEDS ORDERED: FAMOTIDINE 20 MG/2 ML VIAL IV STA (14:12)
[2017-09-16] MEDS ORDERED: IPRATROPIUM-ALBUTEROL 3 ML NEB INHALATION STA (14:12)
--- NOTE | 2017-09-16 14:24 | ED ---
General Adult HPI - General Chief complaint: Allergic Reaction Stated complaint: SATHYA, allergic reaction Time Seen by Provider: 09/16/17 14:05 Source: patient, RN notes reviewed Mode of arrival: wheelchair Limitations: no limitations - History of Present Illness Initial comments: Patient is a 27-year-old female presents emergency room today with a chief complaint of possible ALLERGIC reaction. Patient does not that she was seen 3 days ago for an ALLERGIC reaction which she thought was steel water balloon at the time. She was given medications here in emergency room discharged home continuing steroids and Benadryl at home. She states that when she wakes up in the morning seems to be worse. She states worse this morning when she woke up. She does admit to a history of asthma. States feels like her throat was closing on her. She denies any other complaints or symptoms at this time. - Related Data Home Medications Medication Instructions Recorded Confirmed Citalopram Hydrobromide [CeleXA] 40 mg PO HS 09/29/16 09/16/17 Previous Rx's Medication Instructions Recorded HYDROcodone/APAP 7.5-325MG [[place] 1 tab PO Q4H PRN 3 Days #18 tab 09/08/17 7.5-325] predniSONE 60 mg PO DAILY #30 tab 09/15/17 Albuterol Inhaler [Ventolin Hfa 1 - 2 puff INHALATION Q4-6H PRN #1 09/16/17 Inhaler] inhaler Allergies Allergy/AdvReac Type Severity Reaction Status Date / Time diphenhydramine HCl Allergy Throat Verified 09/16/17 14:03 [From Benadryl] Itches (with name brand Benadryl only) latex Allergy Rash/Hives Verified 09/16/17 14:03 hydrocodone bitartrate AdvReac Migraine Verified 09/16/17 14:03 [From Vicodin] Review of Systems ROS Statement: Those systems with pertinent positive or pertinent negative responses have been documented in the HPI. ROS Other: All systems not noted in ROS Statement are negative. Past Medical History Past Medical History: No Reported History Additional Past Medical History / Comment(s): Hx of kidney and bladder infections, permanent upper retainer present. History of Any Multi-Drug Resistant Organisms: None Reported Past Surgical History: Cholecystectomy Additional Past Surgical History / Comment(s): Eye surgery x 5, right knee ( foreign body removal), left hand benign tumor removed. Past Anesthesia/Blood Transfusion Reactions: No Reported Reaction Past Psychological History: Anxiety, Depression Smoking Status: Current every day smoker Past Alcohol Use History: Occasional Past Drug Use History: None Reported - Past Family History Father Family Medical History: Hypertension Additional Family Medical History / Comment(s): anxiety Mother Family Medical History: Hypertension General Exam - General Exam Comments Initial Comments: General: The patient is awake and alert, in no distress, and does not appear acutely ill. Eye: Pupils are equal, round and reactive to light, extra-ocular movements are intact. No nystagmus. There is normal conjunctiva bilaterally. No signs of icterus. Ears, nose, mouth and throat: There are moist mucous membranes and no oral lesions. No angioedema. No tongue swelling. Tolerating oral secretions. Neck: The neck is supple, there is no tenderness or JVD. Cardiovascular: There is a regular rate and rhythm. No murmur, rub or gallop is appreciated. Respiratory: Mild wheezing bilaterally. respirations are non-labored, breath sounds are equal. No stridor, rales, or rhonchi. Musculoskeletal: Normal ROM, no tenderness. Strength 5/5. Sensation intact. Pulses equal bilaterally 2+. Neurological: A&O x 3. CN II-XII intact, There are no obvious motor or sensory deficits. Coordination appears grossly intact. Speech is normal. Skin: Redness to the arms and upper chest Psychiatric: Cooperative, appropriate mood & affect, normal judgment. Limitations: no limitations Course Vital Signs 09/16/17 09/16/17 09/16/17 14:00 14:17 14:28 Temperature 98 F Pulse Rate 117 H 104 H 106 H Respiratory 24 Rate Blood Pressure 145/105 O2 Sat by Pulse 95 Oximetry 09/16/17 15:10 Temperature Pulse Rate 96 Respiratory 18 Rate Blood Pressure 134/87 O2 Sat by Pulse 97 Oximetry Medical Decision Making - Medical Decision Making Patient reexamined at this time shows no signs of distress. Patient was seen with attending physician Dr. Lozada. The side patient doing well. Will be continued on steroids of her previous to prescribed given prescription for inhaler advised his Pepcid and Benadryl that she can take at home. Patient advised return for any other concerns she states her stated and is in agreement. - Lab Data Result diagrams: 09/16/17 14:25 09/16/17 14:25 Lab Results 09/16/17 09/16/17 Range/Units 14:25 14:25 WBC 9.1 (3.8-10.6) k/uL RBC 4.77 (3.80-5.40) m/uL Hgb 12.7 (11.4-16.0) gm/dL Hct 38.1 (34.0-46.0) % MCV 80.0 (80.0-100.0) fL MCH 26.7 (25.0-35.0) pg MCHC 33.3 (31.0-37.0) g/dL RDW 16.5 H (11.5-15.5) % Plt Count 312 (150-450) k/uL Neutrophils % 44 % Lymphocytes % 49 % Monocytes % 5 % Eosinophils % 1 % Basophils % 0 % Neutrophils # 4.0 (1.3-7.7) k/uL Lymphocytes # 4.4 (1.0-4.8) k/uL Monocytes # 0.4 (0-1.0) k/uL Eosinophils # 0.1 (0-0.7) k/uL Basophils # 0.0 (0-0.2) k/uL Anisocytosis Slight Sodium 141 (137-145) mmol/L Potassium 3.7 (3.5-5.1) mmol/L Chloride 110 H (98-107) mmol/L Carbon Dioxide 18 L (22-30) mmol/L Anion Gap 13 mmol/L BUN 18 H (7-17) mg/dL Creatinine 0.60 (0.52-1.04) mg/dL Est GFR (CKD-EPI)AfAm >90 (>60 ml/min/1.73 sqM) Est GFR (CKD-EPI)NonAf >90 (>60 ml/min/1.73 sqM) Glucose 102 H (74-99) mg/dL Calcium 9.4 (8.4-10.2) mg/dL Total Bilirubin 0.3 (0.2-1.3) mg/dL AST 21 (14-36) U/L ALT 31 (9-52) U/L Alkaline Phosphatase 105 (38-126) U/L Total Protein 7.3 (6.3-8.2) g/dL Albumin 4.2 (3.5-5.0) g/dL Disposition Clinical Impression: Allergic reaction Disposition: HOME SELF-CARE Condition: Good Instructions: Anaphylaxis (ED) Additional Instructions: Please continue Benadryl, Pepcid, steroids at home along with inhaler. Please follow family doctor return here to the emergency room for any symptoms increase or worsen. Prescriptions: Albuterol Inhaler [Ventolin Hfa Inhaler] 1 - 2 puff INHALATION Q4-6H PRN #1 inhaler PRN Reason: Cough Is patient prescribed a controlled substance at d/c from ED?: No Referrals: Chase Cintron MD [Primary Care Provider] - 1-2 days Time of Disposition: 15:51
[2017-09-16 14:40] LABS: ALT 31 U/L (9-52); AST 21 U/L (14-36); Albumin 4.2 g/dL (3.5-5.0); Alkaline Phosphatase 105 U/L (38-126); Anion Gap 13 mmol/L; Anisocytosis Slight; Basophils % (A) 0 %; Blood Urea Nitrogen 18 mg/dL (7-17); Calcium 9.4 mg/dL (8.4-10.2); Carbon Dioxide 18 mmol/L (22-30); Chloride 110 mmol/L (98-107); Eosinophils # (A) 0.1 k/uL (0-0.7); Eosinophils % (A) 1 %; Glucose 102 mg/dL (74-99); HCT 38.1 % (34.0-46.0); HGB 12.7 gm/dL (11.4-16.0); Lymphocytes # (A) 4.4 k/uL (1.0-4.8); Lymphocytes % (A) 49 %; MCH 26.7 pg (25.0-35.0); MCHC 33.3 g/dL (31.0-37.0); Mean Platelet Volume 7.9; Monocytes # (A) 0.4 k/uL (0-1.0); Monocytes % (A) 5 %; Neutrophils % (A) 44 %; Platelet Count 312 k/uL (150-450); Potassium 3.7 mmol/L (3.5-5.1); RBC 4.77 m/uL (3.80-5.40); RDW 16.5 % (11.5-15.5); Sodium 141 mmol/L (137-145); Total Bilirubin 0.3 mg/dL (0.2-1.3); Total Protein 7.3 g/dL (6.3-8.2); WBC 9.1 k/uL (3.8-10.6)
[2017-09-16 15:11] VITALS: BP 134/87; PULSE 96; RESP 18
== END 2017-09-16 15:56 | disposition home or self-care (01) ==
LOC: EC 13:55
DX: T78.40XA Allergy, unspecified, initial encounter (principal); R06.00 Dyspnea, unspecified; J45.909 Unspecified asthma, uncomplicated; F41.9 Anxiety disorder, unspecified; F32.9 Major depressive disorder, single episode, unspecified; F17.200 Nicotine dependence, unspecified, uncomplicated; Z79.899 Other long term (current) drug therapy; Z88.8 Allergy status to other drugs, medicaments and biological substances; Z91.040 Latex allergy status; Z88.5 Allergy status to narcotic agent
CPT/HCPCS: 36415; 94640; 80053; 85025; 99283; 96374; 96375; J1100

== ENCOUNTER 2017-09-16 19:55 | Emergency (ER) | payer BC ==
--- NOTE | 2017-09-16 20:52 | ED ---
Skin/Abscess/FB HPI - General Chief complaint: Skin/Abscess/Foreign Body Stated complaint: Allergic reaction Time Seen by Provider: 09/16/17 20:32 Source: patient, RN notes reviewed Mode of arrival: ambulatory Limitations: no limitations - History of Present Illness Initial comments: This is a 27-year-old female who presents to the emergency department with chief complaint of ALLERGIC reaction. Patient states that she was seen here 3 days ago for a rash. She was also seen earlier today by another provider and was given steroids. She was also given discharge prescriptions of Benadryl, Pepcid and steroids. Patient states that she has taken one dose of Benadryl since being discharged from the emergency department earlier today. Patient states that her rash is getting worse. She states that she has been scratching excessively. She denies any difficulty breathing or tingling. Denies any swelling of the throat. Denies fevers or chills, chest pain shortness of breath , abdominal pain, nausea or vomiting. - Related Data Home Medications Medication Instructions Recorded Confirmed Citalopram Hydrobromide [CeleXA] 40 mg PO HS 09/29/16 09/16/17 Previous Rx's Medication Instructions Recorded HYDROcodone/APAP 7.5-325MG [[place] 1 tab PO Q4H PRN 3 Days #18 tab 09/08/17 7.5-325] predniSONE 60 mg PO DAILY #30 tab 09/15/17 Albuterol Inhaler [Ventolin Hfa 1 - 2 puff INHALATION Q4-6H PRN #1 09/16/17 Inhaler] inhaler hydrOXYzine HCL [Atarax] 25 mg PO TID PRN #30 tab 09/16/17 Allergies Allergy/AdvReac Type Severity Reaction Status Date / Time diphenhydramine HCl Allergy Throat Verified 09/16/17 20:18 [From Benadryl] Itches (with name brand Benadryl only) latex Allergy Rash/Hives Verified 09/16/17 20:18 hydrocodone bitartrate AdvReac Migraine Verified 09/16/17 20:18 [From Vicodin] Review of Systems ROS Statement: Those systems with pertinent positive or pertinent negative responses have been documented in the HPI. ROS Other: All systems not noted in ROS Statement are negative. Past Medical History Past Medical History: No Reported History Additional Past Medical History / Comment(s): Hx of kidney and bladder infections, permanent upper retainer present. History of Any Multi-Drug Resistant Organisms: None Reported Past Surgical History: Cholecystectomy Additional Past Surgical History / Comment(s): Eye surgery x 5, right knee ( foreign body removal), left hand benign tumor removed. Past Anesthesia/Blood Transfusion Reactions: No Reported Reaction Past Psychological History: Anxiety, Depression Smoking Status: Current every day smoker Past Alcohol Use History: Occasional Past Drug Use History: None Reported - Past Family History Father Family Medical History: Hypertension Additional Family Medical History / Comment(s): anxiety Mother Family Medical History: Hypertension General Exam - General Exam Comments Initial Comments: General: Awake and alert, well-developed; in no apparent distress. HEENT: Head atraumatic, normocephalic. Pupils are equal, round and reactive to light. Extraocular movements intact. Oropharynx moist without erythema or exudate. Neck: Supple. Normal ROM. Cardiovascular: Regular rate and rhythm. No murmurs, rubs or gallops. Chest symmetrical. Respiratory: Lungs clear to auscultation bilaterally. No wheezes, rales or rhonchi. Normal respiratory effort with no use of accessory muscles. Musculoskeletal: Normal ROM, no tenderness bilateral upper and lower extremities. Ambulating normally. Skin: [place], warm and dry with erythematous excoriations noted to bilateral upper and lower extremities. No active rash noted. Neurological: Alert and oriented x3. CN II-XII grossly intact. Speech is fluent and answers are appropriate. No focal neuro deficits. Psychiatric: Patient appears anxious. Limitations: no limitations Course Vital Signs 09/16/17 20:15 Temperature 98.3 F Pulse Rate 91 Respiratory 16 Rate Blood Pressure 137/92 O2 Sat by Pulse 97 Oximetry Medical Decision Making - Medical Decision Making This is a 27-year-old female who presents to the emergency department with chief complaint of ALLERGIC reaction. Patient was already treated with a dose of steroids and discharged home today with steroids, Benadryl and Pepcid. Patient states that her rash is worsening. On physical examination, no active rash is noted. There are multiple excoriations to the bilateral upper and lower extremities. I spoke with patient in length about refraining from scratching as this will make the itching worse. Laboratory studies were obtained earlier today. Patient's CBC and CMP were are within normal limits. Recommended cool showers. This case was discussed with attending physician, Dr. Rangel. Patient will be started on Atarax. Vital signs are stable and she is in no acute distress. She will be discharged home at this time. All questions answered. Disposition Clinical Impression: Itching Disposition: HOME SELF-CARE Condition: Good Instructions: Itchy Skin (ED) Additional Instructions: Please take medications as prescribed. Please follow up with primary care provider within 1-2 days. Return to emergency department if symptoms should worsen or any concerns arise. Prescriptions: hydrOXYzine HCL [Atarax] 25 mg PO TID PRN #30 tab PRN Reason: Itching Is patient prescribed a controlled substance at d/c from ED?: No Referrals: Chase Cintron MD [Primary Care Provider] - 1-2 days Time of Disposition: 21:42
[2017-09-16] MEDS ORDERED: hydrOXYzine HCL 25 MG TAB PO STA (21:26)
[2017-09-16 21:57] VITALS: BP 146/96; PULSE 99; RESP 19; TEMP 98.9
== END 2017-09-16 21:55 | disposition home or self-care (01) ==
LOC: EC 19:55
DX: L29.9 Pruritus, unspecified (principal); R21 Rash and other nonspecific skin eruption; F32.9 Major depressive disorder, single episode, unspecified; F41.9 Anxiety disorder, unspecified; F17.200 Nicotine dependence, unspecified, uncomplicated; Z79.899 Other long term (current) drug therapy; Z88.5 Allergy status to narcotic agent; Z88.8 Allergy status to other drugs, medicaments and biological substances; Z91.040 Latex allergy status
CPT/HCPCS: 99283

== ENCOUNTER → 2017-10-27 | Outpatient (CLI) | payer BC ==
[2017-10-27 17:12] LABS: T4, Free (Free Thyroxine) 0.69 ng/dL (0.78-2.19)
[2017-10-28 01:25] LABS: Gliadin AB IgA, Unit 4.5 U/mL
[2017-10-28 01:30] LABS: Thyroid Peroxidase Antibodies 111.8 U/mL (0.0-60.0)
[2017-10-28 02:20] LABS: Soybean IgE <0.10 kU/L; Walnut IgE (Food) <0.10 kU/L
[2017-10-28 02:47] LABS: Peanut IgE <0.10 kU/L
[2017-10-28 02:52] LABS: Cat Epith & Dander IgE <0.10 kU/L; Dermato. farinae IgE <0.10 kU/L; Dog Dander IgE 0.14 kU/L; Egg White IgE <0.10 kU/L
[2017-10-30 16:17] LABS: Almond IgE <0.35 kU/L (<0.35); Almond IgE Class CLASS 0; Cashew IgE <0.35 kU/L (<0.35); Green Bean IgE <0.35 kU/L (<0.35); Green Bean IgE Class CLASS 0; Latex IgE Class CLASS 0; Pecan IgE <0.35 kU/L (<0.35); Pecan IgE Class CLASS 0; Tuna IgE <0.35 kU/L (<0.35); Tuna IgE Class CLASS 0
[2017-10-30 17:00] LABS: T4, Total 4.4 ug/dL (4.5 - 10.9)
== END | disposition home or self-care (01) ==
LOC: LABWHC1 15:58
PROVIDERS: ATTEND Allergy & Immunology
DX: T78.2XXA Anaphylactic shock, unspecified, initial encounter (principal); K21.9 Gastro-esophageal reflux disease without esophagitis; L50.9 Urticaria, unspecified
CPT/HCPCS: 36415; 82784; 83516; 83520; 84436; 84439; 84443; 86003; 86376; 86800

== ENCOUNTER → 2017-11-07 | Outpatient (CLI) | payer BC ==
--- NOTE | 2017-11-07 17:47 | US ---
EXAMINATION TYPE: US renals and bladder DATE OF EXAM: 11/07/2017 COMPARISON: NONE CLINICAL HISTORY: R31.0 Gross hematuria, R39.15 Urinary urgency, history of stones, surgical removal of stone, possible hematoma EXAM MEASUREMENTS: Right Kidney: 11.1 x 6.0 x 6.1 cm Left Kidney: 10.8 x 5.7 x 5.5 cm Right Kidney: slightly irregular contour, hyperechoic foci seen in transverse that appears more linea r in sagittal plane. Left Kidney: wnl Bladder: wnl Bilateral Jets seen: Yes IMPRESSION: No evidence of renal mass or obstruction. Normal urinary bladder. 6 mm echogenic focus in the interpo lar right kidney could be nonobstructing calculus.
== END | disposition home or self-care (01) ==
LOC: RADUSMAIN 16:14
PROVIDERS: ATTEND Urology
DX: R93.421 Abnormal radiologic findings on diagnostic imaging of right kidney (principal)
CPT/HCPCS: 76770

== ENCOUNTER → 2017-11-07 | Outpatient (CLI) | payer BC ==
--- NOTE | 2017-11-08 08:31 | US ---
EXAMINATION TYPE: US thyroid st tissue head/neck DATE OF EXAM: 11/07/2017 COMPARISON: NONE CLINICAL HISTORY: E06.3 Chronic lymphocytic thyroiditis....., patient states recently diagnosed with Ben's. GLAND SIZE: Right Lobe: 5.2 x 2.1 x 2.3 cm Overall Parenchyma: mildly heterogeneous Left Lobe: 4.4 x 1.7 x 1.7 cm Overall Parenchyma: mildly heterogeneous Isthmus Thickness: 0.4 cm NODULES RIGHT: # of nodules measured on right: 0 LEFT: # of nodules measured on left: 0 ISTHMUS: # of nodules measured in the isthmus: 0 Bilateral neck scanned, no evidence of lymphadenopathy. IMPRESSION: No discrete ultrasound abnormality within the thyroid.
== END | disposition home or self-care (01) ==
LOC: RADUSMAIN 16:05
PROVIDERS: ATTEND Allergy & Immunology
DX: E06.3 Autoimmune thyroiditis (principal); R13.10 Dysphagia, unspecified
CPT/HCPCS: 76536

== ENCOUNTER → 2018-01-09 | Outpatient (CLI) | payer BC ==
[2018-01-09 15:09] LABS: Appearance,Urine Clear (Clear); Bilirubin,Urine Negative (Negative); Blood,Urine Negative (Negative); Color,Urine Colorless; Glucose,Urine (UA) Negative (Negative); Ketones,Urine Negative (Negative); Leukocyte Esterase,Urine Negative (Negative); Nitrite,Urine Negative (Negative); PH, Urine 6.5 (5.0-8.0); Protein,Urine Negative (Negative); Specific Gravity,Urine 1.003 (1.001-1.035); Urobilinogen,Urine <2.0 mg/dL (<2.0)
[2018-01-09 15:10] LABS: Basophils # (A) 0.1 k/uL (0-0.2); Basophils % (A) 0 %; Eosinophils # (A) 0.1 k/uL (0-0.7); Eosinophils % (A) 0 %; HCT 41.5 % (34.0-46.0); HGB 13.1 gm/dL (11.4-16.0); Lymphocytes # (A) 1.9 k/uL (1.0-4.8); Lymphocytes % (A) 12 %; MCH 27.9 pg (25.0-35.0); MCHC 31.6 g/dL (31.0-37.0); MCV 88.2 fL (80.0-100.0); Mean Platelet Volume 7.2; Monocytes # (A) 0.4 k/uL (0-1.0); Monocytes % (A) 2 %; Neutrophils # (A) 13.8 k/uL (1.3-7.7); Neutrophils % (A) 85 %; Platelet Count 322 k/uL (150-450); RDW 13.7 % (11.5-15.5); WBC 16.3 k/uL (3.8-10.6)
[2018-01-09 16:26] LABS: Erythrocyte Sedimentation Rate 38 mm/hr (0-20)
[2018-01-09 19:32] LABS: Albumin 4.5 g/dL (3.80-4.90); Albumin/Globulin Ratio 1.96 (1.20-2.10); Anion Gap 11.9 mmol/L (4.00-12.00); Calcium 9.4 mg/dL (8.7-10.3); Carbon Dioxide 22.1 mmol/L (21.6-31.8); Globulin 2.3 g/dL (2.1-3.7); Potassium 4.3 mmol/L (3.5-5.5); Total Bilirubin 0.3 mg/dL (0.2-1.2); Total Protein 6.8 g/dL (6.2-8.2)
== END ==
LOC: LABWHC1 14:33
PROVIDERS: ATTEND Allergy & Immunology
DX: L50.9 Urticaria, unspecified (principal); T78.2XXD Anaphylactic shock, unspecified, subsequent encounter
CPT/HCPCS: 36415; 80053; 81003; 83520; 85025; 85652; 86038; 86160; 88184; 88185

== ENCOUNTER → 2018-08-08 | Outpatient (CLI) | payer OTHER ==
--- NOTE | 2018-08-08 11:19 | US ---
EXAMINATION TYPE: Transabdominal DATE OF EXAM: 08/08/2018 10:52 AM COMPARISON: NONE CLINICAL HISTORY: Z36 Confirm Dates. Confirm dates. Hx ovarian cysts. Pt states she had spotting Mond ay. Previous smoker. Hx 1 miscarriage, 1 stillbirth. . EXAM PERFORMED: Transabdominal (TA) EXAM MEASUREMENTS: GESTATIONAL AGE / DATING Physician Established: Not yet established Dates by LMP: (9 weeks/6 days) EDC: 03/07/2019 Dates by First Scan: This is first scan (9 weeks/4 days) EDC: 03/09/2019 Dates by Current Scan for: (9 weeks/4 days) EDC: 03/09/2019 MATERNAL ANATOMY Uterus: 12.3 x 7.7 x 6.1 cm Right Ovary: 4.3 x 2.3 x 2.0 cm Left Ovary: 3.5 x 2.6 x 2.7 cm Post CDS / Adnexa: appears wnl Presence of free fluid: none seen Presence of corpus luteal cyst: none seen Presence of subchorionic bleed: two hypoechoic areas seen lateral to gestational sac; Right measuring : 1.4 x 0.9 x 0.9 cm. Left measurin.8 x 0.8 x 1.0 cm. GESTATION / SURVEY CRL: 2.8 cm (9 weeks/4 days) Yolk Sac (normal less than 6mm): 3 mm Heart Rate: 171 bpm Rhythm: Normal IUP: Viable IUP Date of LMP: 05/31/2018 IMPRESSION: Single viable intrauterine . Subchorionic hemorrhage suspected.
== END | disposition home or self-care (01) ==
LOC: RADUSWWP 10:16
PROVIDERS: ATTEND Obstetrics & Gynecology
DX: Z36.9 Encounter for antenatal screening, unspecified (principal)
CPT/HCPCS: 76801

== ENCOUNTER 2018-09-18 08:04 | Emergency (ER) | payer OTHER ==
[2018-09-18] MEDS ORDERED: SODIUM CHLORIDE 0.9% 1,000 ML IV ONE (08:12)
--- NOTE | 2018-09-18 08:29 | ED ---
Female Urogenital HPI - General Chief complaint: Vaginal Bleeding Stated complaint: 16 wks /bleeding Time Seen by Provider: 09/18/18 08:11 Source: patient, RN notes reviewed, old records reviewed Mode of arrival: ambulatory Limitations: no limitations - History of Present Illness Initial comments: Patient is a 28-year-old female presents emergency Department today with complaints of vaginal bleeding onset this morning. She has a history of lazo bchorionic bleed. She is a G 6 P2 Patient. She is approximately 14 weeks . Patient reports that she follows with Dr. Walker. Patient states that she's had no significant fevers or chills, or significant abdominal pain. Last Menstrual Period: 05/31/18 - Related Data Home Medications Medication Instructions Recorded Confirmed DULoxetine HCL [Cymbalta] 60 mg PO DAILY 09/18/18 09/18/18 Folic Acid 0.4 mg PO DAILY 09/18/18 09/18/18 Levothyroxine Sodium [Synthroid] 25 mcg PO DAILY 09/18/18 09/18/18 Multivitamins, Thera [Multivitamin 1 tab PO DAILY 09/18/18 09/18/18 (formulary)] Previous Rx's Medication Instructions Recorded Cephalexin [Keflex] 500 mg PO Q6HR 3 Days #12 cap 09/18/18 Allergies Allergy/AdvReac Type Severity Reaction Status Date / Time diphenhydramine HCl Allergy Throat Verified 09/18/18 09:27 [From Benadryl] Itches (with name brand Benadryl only) latex Allergy Rash/Hives Verified 09/18/18 09:27 hydrocodone bitartrate AdvReac Migraine Verified 09/18/18 09:27 [From Vicodin] Review of Systems ROS Statement: Those systems with pertinent positive or pertinent negative responses have been documented in the HPI. ROS Other: All systems not noted in ROS Statement are negative. Past Medical History Past Medical History: Thyroid Disorder Additional Past Medical History / Comment(s): Hx of kidney and bladder infections, permanent upper retainer present. History of Any Multi-Drug Resistant Organisms: None Reported Past Surgical History: Appendectomy, Cholecystectomy Additional Past Surgical History / Comment(s): Eye surgery x 5, right knee (foreign body removal), left hand benign tumor removed. Past Anesthesia/Blood Transfusion Reactions: No Reported Reaction Past Psychological History: Anxiety, Depression Smoking Status: Current every day smoker Past Alcohol Use History: Occasional Past Drug Use History: None Reported - Past Family History Father Family Medical History: Hypertension Additional Family Medical History / Comment(s): anxiety Mother Family Medical History: Hypertension General Exam - General Exam Comments Initial Comments: 28 year old female. Alert and oriented. No significant distress. Limitations: no limitations General appearance: alert, in no apparent distress Head exam: Present: atraumatic, normocephalic, normal inspection Eye exam: Present: normal appearance, PERRL, EOMI. Absent: scleral icterus, conjunctival injection, periorbital swelling ENT exam: Present: normal exam, mucous membranes moist Neck exam: Present: normal inspection. Absent: tenderness, meningismus, lymphadenopathy Respiratory exam: Present: normal lung sounds bilaterally. Absent: respiratory distress, wheezes, rales, rhonchi, stridor Cardiovascular Exam: Present: regular rate, normal rhythm, normal heart sounds. Absent: systolic murmur, diastolic murmur, rubs, gallop, clicks GI/Abdominal exam: Present: soft, normal bowel sounds. Absent: distended, tenderness, guarding, rebound, rigid External exam: Present: normal external exam Speculum exam: Present: vaginal discharge, vaginal bleeding. Absent: normal speculum exam By manual exam: Present: normal by manual exam. Absent: cervical motion tenderness, adnexal tenderness Extremities exam: Present: normal inspection, full ROM, normal capillary refill. Absent: tenderness, pedal edema, joint swelling, calf tenderness Back exam: Present: normal inspection Neurological exam: Present: alert, oriented X3, CN II-XII intact Psychiatric exam: Present: normal affect, normal mood Skin exam: Present: warm, dry, intact, normal color. Absent: rash Course Vital Signs 09/18/18 09/18/18 09/18/18 08:06 09:20 10:41 Temperature 98.6 F 98.0 F 97.9 F Pulse Rate 105 H 82 92 Respiratory 20 18 18 Rate Blood Pressure 130/84 116/67 120/68 O2 Sat by Pulse 98 95 99 Oximetry Medical Decision Making - Medical Decision Making 28-year-old female presents emergency department today for evaluation for vaginal bleeding or fluid loss. She is grahams with 16 weeks . She is a female followed with Dr. Walker. This time she had some minimal bleeding and dried brown blood on the vaginal vault exam. He had no significant clotting. Patient's laboratory was reviewed and unremarkable. Ultrasound shows a viable intrauterine measuring 15 weeks and 5 days. There is some evidence of amniotic fluid loss. Patient's case was discussed with Dr. Light who discussed the case with Dr. Lloyd. Recommended Patient follow-up with Dr. Walker tomorrow. Patient's urinalysis is completed as well. UA is positive for bacteria. Will start patient on keflex. Patient called and Rx is escribed. - Lab Data Result diagrams: 09/18/18 08:30 09/18/18 08:30 Lab Results 09/18/18 09/18/18 09/18/18 Range/Units 08:30 08:30 08:30 WBC 10.1 (3.8-10.6) k/uL RBC 4.04 (3.80-5.40) m/uL Hgb 11.7 (11.4-16.0) gm/dL Hct 34.0 (34.0-46.0) % MCV 84.3 (80.0-100.0) fL MCH 29.0 (25.0-35.0) pg MCHC 34.4 (31.0-37.0) g/dL RDW 14.3 (11.5-15.5) % Plt Count 232 (150-450) k/uL Neutrophils % 64 % Lymphocytes % 28 % Monocytes % 4 % Eosinophils % 2 % Basophils % 0 % Neutrophils # 6.5 (1.3-7.7) k/uL Lymphocytes # 2.8 (1.0-4.8) k/uL Monocytes # 0.4 (0-1.0) k/uL Eosinophils # 0.2 (0-0.7) k/uL Basophils # 0.0 (0-0.2) k/uL PT (9.0-12.0) sec INR (<1.2) APTT (22.0-30.0) sec Sodium 136 L (137-145) mmol/L Potassium 3.9 (3.5-5.1) mmol/L Chloride 107 (98-107) mmol/L Carbon Dioxide 20 L (22-30) mmol/L Anion Gap 9 mmol/L BUN 7 (7-17) mg/dL Creatinine 0.33 L (0.52-1.04) mg/dL Est GFR (CKD-EPI)AfAm >90 (>60 ml/min/1.73 sqM) Est GFR (CKD-EPI)NonAf >90 (>60 ml/min/1.73 sqM) Glucose 86 (74-99) mg/dL Calcium 9.2 (8.4-10.2) mg/dL Total Bilirubin 0.3 (0.2-1.3) mg/dL AST 15 (14-36) U/L ALT 18 (9-52) U/L Alkaline Phosphatase 88 (38-126) U/L Total Protein 6.5 (6.3-8.2) g/dL Albumin 3.7 (3.5-5.0) g/dL Urine Color Urine Appearance (Clear) Urine pH (5.0-8.0) Ur Specific [place] (1.001-1.035) Urine Protein (Negative) Urine Glucose (UA) (Negative) Urine Ketones (Negative) Urine Blood (Negative) Urine Nitrite (Negative) Urine Bilirubin (Negative) Urine Urobilinogen (<2.0) mg/dL Ur Leukocyte Esterase (Negative) Urine RBC (0-5) /hpf Urine WBC (0-5) /hpf Ur Squamous Epith Cells (0-4) /hpf Urine Bacteria (None) /hpf Hyaline Casts (0-2) /lpf Urine Mucus (None) /hpf Blood Type O Positive Blood Type Recheck No 09/18/18 09/18/18 Range/Units 08:30 10:18 WBC (3.8-10.6) k/uL RBC (3.80-5.40) m/uL Hgb (11.4-16.0) gm/dL Hct (34.0-46.0) % MCV (80.0-100.0) fL MCH (25.0-35.0) pg MCHC (31.0-37.0) g/dL RDW (11.5-15.5) % Plt Count (150-450) k/uL Neutrophils % % Lymphocytes % % Monocytes % % Eosinophils % % Basophils % % Neutrophils # (1.3-7.7) k/uL Lymphocytes # (1.0-4.8) k/uL Monocytes # (0-1.0) k/uL Eosinophils # (0-0.7) k/uL Basophils # (0-0.2) k/uL PT 9.3 (9.0-12.0) sec INR 0.8 (<1.2) APTT 25.1 (22.0-30.0) sec Sodium (137-145) mmol/L Potassium (3.5-5.1) mmol/L Chloride (98-107) mmol/L Carbon Dioxide (22-30) mmol/L Anion Gap mmol/L BUN (7-17) mg/dL Creatinine (0.52-1.04) mg/dL Est GFR (CKD-EPI)AfAm (>60 ml/min/1.73 sqM) Est GFR (CKD-EPI)NonAf (>60 ml/min/1.73 sqM) Glucose (74-99) mg/dL Calcium (8.4-10.2) mg/dL Total Bilirubin (0.2-1.3) mg/dL AST (14-36) U/L ALT (9-52) U/L Alkaline Phosphatase (38-126) U/L Total Protein (6.3-8.2) g/dL Albumin (3.5-5.0) g/dL Urine Color Yellow Urine Appearance Clear (Clear) Urine pH 6.0 (5.0-8.0) Ur Specific [place] 1.015 (1.001-1.035) Urine Protein Negative (Negative) Urine Glucose (UA) Negative (Negative) Urine Ketones Negative (Negative) Urine Blood Small H (Negative) Urine Nitrite Negative (Negative) Urine Bilirubin Negative (Negative) Urine Urobilinogen <2.0 (<2.0) mg/dL Ur Leukocyte Esterase Negative (Negative) Urine RBC <1 (0-5) /hpf Urine WBC 1 (0-5) /hpf Ur Squamous Epith Cells 1 (0-4) /hpf Urine Bacteria Rare H (None) /hpf Hyaline Casts 1 (0-2) /lpf Urine Mucus Few H (None) /hpf Blood Type Blood Type Recheck - Radiology Data Radiology results: report reviewed Single IUP with sonographic age of 15 weeks and 5 days according menstrual age. Amniotic fluid next index is borderline at this time surveillance was recomme nded. Disposition Clinical Impression: Threatened miscarriage Disposition: HOME SELF-CARE Condition: Good Instructions (If sedation given, give patient instructions): Threatened Mis carriage (ED) Additional Instructions: Patient advised to follow-up with Dr. Walker tomorrow morning. Return to the emergency department if any alarming signs or symptoms occur. Patient at pelvic rest. No heavy lifting. Prescriptions: Cephalexin [Keflex] 500 mg PO Q6HR 3 Days #12 cap Is patient prescribed a controlled substance at d/c from ED?: No Referrals: Chase Cintron MD [Primary Care Provider] - 1-2 days Earl Madrigal DO [Doctor of Osteopathic Medicine] - 1-2 days Time of Disposition: 10:33
[2018-09-18 08:53] LABS: INR 0.8 (<1.2); Partial Thromboplastin Time 25.1 sec (22.0-30.0); Prothrombin Time 9.3 sec (9.0-12.0)
[2018-09-18 08:55] LABS: ALT 18 U/L (9-52); AST 15 U/L (14-36); African American GFR (CKD) >90 (>60 ml/min/1.73 sqM); Albumin 3.7 g/dL (3.5-5.0); Alkaline Phosphatase 88 U/L (38-126); Anion Gap 9 mmol/L; Blood Urea Nitrogen 7 mg/dL (7-17); Calcium 9.2 mg/dL (8.4-10.2); Carbon Dioxide 20 mmol/L (22-30); Chloride 107 mmol/L (98-107); Glucose 86 mg/dL (74-99); Potassium 3.9 mmol/L (3.5-5.1); Sodium 136 mmol/L (137-145); Total Bilirubin 0.3 mg/dL (0.2-1.3); Total Protein 6.5 g/dL (6.3-8.2)
[2018-09-18 09:04] LABS: Basophils % (A) 0 %; Eosinophils # (A) 0.2 k/uL (0-0.7); Eosinophils % (A) 2 %; HGB 11.7 gm/dL (11.4-16.0); Lymphocytes # (A) 2.8 k/uL (1.0-4.8); Lymphocytes % (A) 28 %; MCHC 34.4 g/dL (31.0-37.0); MCV 84.3 fL (80.0-100.0); Mean Platelet Volume 8.3; Monocytes # (A) 0.4 k/uL (0-1.0); Monocytes % (A) 4 %; Neutrophils # (A) 6.5 k/uL (1.3-7.7); Neutrophils % (A) 64 %; Platelet Count 232 k/uL (150-450); RBC 4.04 m/uL (3.80-5.40); RDW 14.3 % (11.5-15.5); WBC 10.1 k/uL (3.8-10.6)
[2018-09-18 09:21] VITALS: RESP 18
--- NOTE | 2018-09-18 09:43 | US ---
EXAMINATION TYPE: US OB >= 14 wk fetus DATE OF EXAM: 09/18/2018 COMPARISON: None CLINICAL HISTORY: Painbleeding TECHNIQUE: Transabdominal (TA) GESTATIONAL AGE / DATING Physician Established: (15 weeks/3 days) EDC: 03/09/2019 Dates by LMP: (15 weeks/3 days) EDC: 03/09/2019 Dates by First Scan: (9 weeks/4 days) EDC: 03/09/2019 Dates by Current Scan: (15 weeks/5 days) EDC: 03/07/2019 Beta HCG (if available): Not available at this time SURVEY IUP: Single PLACENTA: Anterior with small placental lakes. PREVIA: No Previa [place]: 9 cm Looks slightly low perhaps due to gestational age. CERVICAL LENGTH (transabdominal: norm > 3.0cm): 4.0 cm BIOMETRY PRESENTATION: Variable BPD: 3.0 cm 15 weeks / 4 days HC: 10.85 cm 15 weeks / 1 days AC: 9.73 cm 15 weeks / 6 days FL: 1.88 cm 15 weeks / 4 days ESTIMATED WEIGHT IN GRAMS: 130.56 grams ESTIMATED WEIGHT IN LBS/OZ: 0 lbs. 5 oz. WEIGHT PERCENTAGE BASED ON ESTABLISHED DATES: 54.5% HC/AC: 1.12 cm Normal FL/AC: 19.31 Normal HEART RATE: 162 bpm RHYTHM: Normal IMPRESSION: Single live intrauterine with a current sonographic age of 15 weeks and 5 days, concordant with menstrual age. Amniotic fluid index is borderline at this time and surveillance is recommended.
[2018-09-18 10:33] LABS: Appearance,Urine Clear (Clear); Bacteria,Urine Rare /hpf; Bilirubin,Urine Negative (Negative); Blood,Urine Small (Negative); Color,Urine Yellow; Glucose,Urine (UA) Negative (Negative); Hyaline Casts,Urine 1 /lpf (0-2); Ketones,Urine Negative (Negative); Leukocyte Esterase,Urine Negative (Negative); Mucus,Urine Few /hpf; Nitrite,Urine Negative (Negative); Protein,Urine Negative (Negative); RBC,Urine <1 /hpf (0-5); Specific Gravity,Urine 1.015 (1.001-1.035); Squamous Epithelial Cell,Urine 1 /hpf (0-4); Urobilinogen,Urine <2.0 mg/dL (<2.0); WBC,Urine 1 /hpf (0-5)
[2018-09-18 10:42] VITALS: BP 120/68; PULSE 92; TEMP 97.9
== END 2018-09-18 10:40 | disposition home or self-care (01) ==
LOC: EC 08:04
DX: O20.0 Threatened abortion (principal); O99.89 Other specified diseases and conditions complicating pregnancy, childbirth and the puerperium; R82.71 Bacteriuria; O99.282 Endocrine, nutritional and metabolic diseases complicating pregnancy, second trimester; E07.9 Disorder of thyroid, unspecified; O99.342 Other mental disorders complicating pregnancy, second trimester; F41.9 Anxiety disorder, unspecified; F32.9 Major depressive disorder, single episode, unspecified; O99.332 Smoking (tobacco) complicating pregnancy, second trimester; F17.200 Nicotine dependence, unspecified, uncomplicated; Z79.890 Hormone replacement therapy; Z79.899 Other long term (current) drug therapy; Z88.8 Allergy status to other drugs, medicaments and biological substances; Z91.040 Latex allergy status; Z88.5 Allergy status to narcotic agent; Z3A.15 15 weeks gestation of pregnancy
CPT/HCPCS: 36415; 76805; 80053; 81001; 85025; 85610; 85730; 86900; 86901; 87070; 87086; 87205; 96360; 99284

== ENCOUNTER 2018-12-02 20:30 | Outpatient (CLI) | payer OTHER ==
[2018-12-02 20:49] VITALS: BP 124/67; PULSE 99; RESP 16; TEMP 98.5
[2018-12-02] MEDS ORDERED: LACTATED RINGERS 1,000 ML IV SCH (21:00)
[2018-12-02 21:21] LABS: Appearance,Urine Clear (Clear); Bacteria,Urine Rare /hpf; Bilirubin,Urine Negative (Negative); Blood,Urine Small (Negative); Color,Urine Yellow; Glucose,Urine (UA) Negative (Negative); Ketones,Urine 3+ (Negative); Leukocyte Esterase,Urine Trace (Negative); Mucus,Urine Many /hpf; Nitrite,Urine Negative (Negative); Protein,Urine Trace (Negative); RBC,Urine 7 /hpf (0-5); Specific Gravity,Urine 1.022 (1.001-1.035); Squamous Epithelial Cell,Urine 1 /hpf (0-4); Urobilinogen,Urine <2.0 mg/dL (<2.0); WBC,Urine 6 /hpf (0-5)
--- NOTE | 2019-01-08 23:59 | P.MSEPDOC ---
Presenting Problems - Arrival Data Date of Arrival on Unit: 12/02/18 Time of Arrival on Unit: 20:30 Mode of Transport: Ambulatory - Complaint Comment: Patient presents with contractions that started around 1500 this afternoon, states they are "inconsistent" and she has been "unable to time them" Rating her pain 2-3/10, denies leaking of fluid or vaginal bleeding. States she did have intercourse last night. Medical History - Information : 6 Para: 3 Term: 3 : 0 Abortions: Spontaneous or Elective: 2 Number of Living Children: 3 - Gestational Age Gestational Age by CHRIS (wks/days): 26 Weeks and 3 Days - History Complications: Smoker Comment: Thryoid disorder. Patient states she had a "partial placenta abrubtion" this around 19-20 weeks Review of Systems - Review of Systems Constitutional: No problems Breast: No problems ENT: No problems Cardiovascular: No problems Respiratory: No problems Gastrointestinal: No problems Genitourinary: No problems Musculoskeletal: No problems Neurological: No problems Skin: No problems Vital Signs - Temperature Temperature: 98.5 F Temperature Source: Oral - Pulse Pulse Oximetery Pulse Rate: 99 Pulse Assessment Method: Pulse Oximetry - Respirations Respiratory Rate: 16 - Blood Pressure Sitting Blood Pressure: 124/67 Blood Pressure Mean: 86 Blood Pressure Source: Automatic Cuff Medical Screen Scoring (Pre) - Cervical Exam Dilation: 0 cm = 0 Effacement: Exam Deferred Membranes: Intact - Uterine Contractions Frequency: N/A Duration: N/A Intensity: N/A - Maternal Vital Signs Maternal Temperature: N/A Signs of Preeclampsia: N/A Maternal Respirations: N/A - Maternal Trauma Maternal Trauma: N/A - Assessment - Baby A Baseline FHR: 155 Heart Rate - NICHD Category: Category I (Normal) = 0 Position: N/A - Total Score - Baby A Total Score - Baby A: 0 - Total Score - Baby B Total Score - Baby B: 0 - Total Score - Baby C Total Score - Baby C: 0 - Level of Risk - Baby A Level of Risk - Baby A: Low (0-5) - Level of Risk - Baby B Level of Risk - Baby B: Low (0-5) - Level of Risk - Baby C Level of Risk - Baby C: Low (0-5) Physician Notification (Pre) - Physician Notified Physician Notified Date: 12/02/18 Physician/Practitioner Notifed:: Spoke With: [id number] - Notification Comment Comment: Dr. Leon orders to initiate iv and give a 1000 ml bolus of LR, send UA and check cervix call physician with ua results. [id number], Ua results given, okay to discharge patient home, patient to follow up thursday 12/[address] Madrigal with her regularly scheduled appointment. Disposition - Disposition OB Disposition: Discharge to home, Written follow up instructions reviewed Discharge Date: 12/02/18 Discharge Time: 21:35 I agree with the RN Medical Screening Exam: No Physician's MSE Comment: The patient's cervix was examined and closed/thick. She was not ajit on the monitor after her IV bolus. She was then discharged home. Risk & Benefit of care provided described in d/c instruction: Yes Diagnosis: FALSE LABOR BEFORE 37 COMPLETED WEEKS OF GEST, SECOND TRI
== END 2018-12-02 21:35 | disposition home or self-care (01) ==
LOC: FBPOP 20:30
PROVIDERS: ATTEND Obstetrics & Gynecology
DX: O47.03 False labor before 37 completed weeks of gestation, third trimester (principal); Z3A.26 26 weeks gestation of pregnancy
CPT/HCPCS: 96365; 81001; G0463; 99214

== ENCOUNTER 2019-01-28 20:20 | Outpatient (CLI) | payer OTHER ==
[2019-01-28 21:13] VITALS: BP 135/83; PULSE 100; RESP 16; TEMP 96.9
[2019-01-28 21:41] LABS: Appearance,Urine Clear (Clear); Bilirubin,Urine Negative (Negative); Blood,Urine Trace (Negative); Color,Urine Yellow; Glucose,Urine (UA) Negative (Negative); Ketones,Urine Trace (Negative); Leukocyte Esterase,Urine Negative (Negative); Mucus,Urine Few /hpf; Nitrite,Urine Negative (Negative); PH, Urine 6.5 (5.0-8.0); Protein,Urine 1+ (Negative); RBC,Urine 9 /hpf (0-5); Specific Gravity,Urine 1.033 (1.001-1.035); Squamous Epithelial Cell,Urine 1 /hpf (0-4); WBC,Urine 1 /hpf (0-5)
--- NOTE | 2019-01-29 01:17 | P.MSEPDOC ---
Presenting Problems - Arrival Data Date of Arrival on Unit: 01/28/19 Time of Arrival on Unit: 20:20 Mode of Transport: Ambulatory - Complaint OB-Reason for Admission/Chief Complaint: Pain Comment: Pain in the vagina that is worse with ambulation and with movement of the baby. Increased vaginal discharge. Medical History - Information : 6 Para: 3 Term: 3 : 0 Abortions: Spontaneous or Elective: 2 Number of Living Children: 3 - Gestational Age Gestational Age by CHRIS (wks/days): 34 Weeks and 4 Days - History Complications: Smoker Review of Systems - Review of Systems Constitutional: No problems Breast: No problems ENT: No problems Cardiovascular: No problems Respiratory: No problems Gastrointestinal: No problems Genitourinary: No problems Musculoskeletal: No problems Neurological: No problems Skin: No problems Vital Signs - Temperature Temperature: 96.9 F Temperature Source: Temporal Artery Scan - Pulse Pulse Oximetery Pulse Rate: 100 Pulse Assessment Method: Pulse Oximetry - Respirations Respiratory Rate: 16 Oxygen Delivery Method: Room Air - Blood Pressure Sitting Blood Pressure: 135/83 Blood Pressure Mean: 100 Blood Pressure Source: Automatic Cuff Medical Screen Scoring (Pre) - Cervical Exam Dilation: 1-3 cm = 1 Membranes: Intact - Uterine Contractions Frequency: N/A Duration: N/A Intensity: N/A - Maternal Vital Signs Maternal Temperature: N/A Maternal Blood Pressure: N/A Signs of Preeclampsia: N/A Maternal Respirations: N/A - Maternal Trauma Maternal Trauma: N/A - Assessment - Baby A Baseline FHR: 130 Heart Rate - NICHD Category: Category I (Normal) = 0 NST: Reactive Position: N/A Station: N/A - Total Score - Baby A Total Score - Baby A: 1 - Total Score - Baby B Total Score - Baby B: 1 - Total Score - Baby C Total Score - Baby C: 1 - Level of Risk - Baby A Level of Risk - Baby A: Low (0-5) - Level of Risk - Baby B Level of Risk - Baby B: Low (0-5) - Level of Risk - Baby C Level of Risk - Baby C: Low (0-5) Physician Notification (Pre) - Physician Notified Physician Notified Date: 01/28/19 Physician Notified Time: 21:02 New Order Received: Yes - Notification Comment Comment: Send UA, discharge patient with instructions patient to follow up with Dr. Madrigal in the office this week . Disposition - Disposition OB Disposition: Discharge to home, Written follow up instructions reviewed Discharge Date: 01/28/19 Discharge Time: 21:09 I agree with the RN Medical Screening Exam: Yes Risk & Benefit of care provided described in d/c instruction: Yes Diagnosis: RELATED CONDITIONS, UNSPECIFIED, THIRD TRIMESTER
== END 2019-01-28 21:09 | disposition home or self-care (01) ==
LOC: FBPOP 20:20
PROVIDERS: ATTEND Obstetrics & Gynecology
DX: O26.93 Pregnancy related conditions, unspecified, third trimester (principal); Z3A.34 34 weeks gestation of pregnancy
CPT/HCPCS: 59025; 81001; G0463; 99213

== ENCOUNTER 2019-02-14 06:15 | Inpatient (IN) | payer OTHER ==
[2019-02-14] MEDS ORDERED: LIDOCAINE 0.5% (PF) 5 MG/ML (50 ML SDV) SQ PRN (06:37)
[2019-02-14] MEDS ORDERED: TERBUTALINE 1 MG/ML VIAL SQ PRN (06:37)
[2019-02-14] MEDS ORDERED: OXYTOCIN 10 UNIT/ML 1 ML VIAL IM PRN (06:37)
[2019-02-14] MEDS ORDERED: METHYLERGONOVINE 0.2 MG/ML 1 ML AMP IM PRN (06:37)
[2019-02-14] MEDS ORDERED: CARBOPROST TROMETHAMINE 250 MCG/ML 1 ML AMP IM PRN (06:37)
[2019-02-14] MEDS: LACTATED RINGERS 1,000 ML IV SCH ×2 (06:57→13:17)
[2019-02-14] MEDS: OXYTOCIN 30 UNITS/500 ML NS 30 UNIT in SALINE 1 500ML.BAG IV SCH (07:09)
[2019-02-14 07:16] LABS: Basophils % (A) 0 %; Eosinophils # (A) 0.2 k/uL (0-0.7); Eosinophils % (A) 2 %; HCT 32.9 % (34.0-46.0); HGB 11.4 gm/dL (11.4-16.0); Lymphocytes # (A) 2.5 k/uL (1.0-4.8); Lymphocytes % (A) 24 %; MCH 29.6 pg (25.0-35.0); MCHC 34.6 g/dL (31.0-37.0); MCV 85.5 fL (80.0-100.0); Mean Platelet Volume 7.6; Monocytes # (A) 0.5 k/uL (0-1.0); Monocytes % (A) 5 %; Neutrophils # (A) 6.9 k/uL (1.3-7.7); Neutrophils % (A) 67 %; Platelet Count 200 k/uL (150-450); RBC 3.84 m/uL (3.80-5.40); WBC 10.3 k/uL (3.8-10.6)
--- NOTE | 2019-02-14 08:40 | P.HPOB ---
History of Present Illness H&P Date: 02/14/19 Chief Complaint: Intrauterine at 37 weeks: History of demise 2 Elena is a 28-year-old who presents to labor and delivery for induction of labor for history of demise 2. This was recommended from maternal- medicine. She is also hypothyroid and is taking levothyroxin. Initially her dose of levothyroxine increased due to during the but was reduced back 25 g as she was not tolerating the 50 g. She did also have bleeding at approximately 15-16 weeks stabilized over the next couple of weeks and remained stable through the remainder of the . She did have large abruption miscarriage with her prior and there is been some concern clearly about that recurrence and that is why we are inducing at 37 weeks. Risks and benefits of this were discussed with the patient in detail and all questions were answered for her prior to induction. Pertinent labs O+ blood type Rh antibody was negative, rubella immune, hepatitis B surface antigen and RPR were both negative as was HIV. Group B strep is negative a category 1 tracing is noted she is having some irregular contractions currently with Pitocin augmentation of labor initiated. Artificial rupture membranes was performed and clear fluid is noted. She was dilated to 1 cm 60% effaced and -3 station. She and I have had a discussion on risks of induction with an unripened cervix but as such with her risk for demise or abruption recurrence we're moving forward with an induction Past Medical History Past Medical History: Asthma, Thyroid Disorder Additional Past Medical History / Comment(s): Hx of kidney and bladder infections, permanent upper retainer present. History of Any Multi-Drug Resistant Organisms: None Reported Past Surgical History: Appendectomy, Cholecystectomy Additional Past Surgical History / Comment(s): Eye surgery x 5, right knee (foreign body removal), left hand benign tumor removed. Past Anesthesia/Blood Transfusion Reactions: No Reported Reaction Past Psychological History: Anxiety, Depression Additional Psychological History / Comment(s): pt stated feels well maintained on meds Smoking Status: Current every day smoker Past Alcohol Use History: None Reported, Occasional Additional Past Alcohol Use History / Comment(s): Started smoking at age 18, 5 cigarettes per day. Past Drug Use History: None Reported - Past Family History Father Family Medical History: Hypertension Additional Family Medical History / Comment(s): anxiety Mother Family Medical History: Hypertension Additional Family Medical History / Comment(s): pt's mother and father high BP Medications and Allergies Home Medications Medication Instructions Recorded Confirmed Type DULoxetine HCL [Cymbalta] 60 mg PO DAILY 09/18/18 02/14/19 History Levothyroxine Sodium [Synthroid] 25 mcg PO DAILY 09/18/18 02/14/19 History Multivitamins, Thera [Multivitamin 1 tab PO DAILY 09/18/18 02/14/19 History (formulary)] Allergies Allergy/AdvReac Type Severity Reaction Status Date / Time diphenhydramine HCl Allergy Throat Verified 02/14/19 06:35 [From Benadryl] Itches (with name brand Benadryl only) latex Allergy Rash/Hives Verified 02/14/19 06:35 hydrocodone bitartrate AdvReac Migraine Verified 02/14/19 06:35 [From Vicodin] Exam Osteopathic Statement: *. No significant issues noted on an osteopathic structural exam other than those noted in the History and Physical/Consult. Vital Signs Temp Pulse Resp BP 02/14/19 06:34 97.1 F L 104 H 18 134/78 Intake and Output 02/13/19 02/14/19 02/14/19 22:59 06:59 14:59 Other: Weight 102.058 kg - OBG Physical Exam Breast: both: normal (no masses) Abdomen: bowel sounds normal, no diffuse tenderness, no bruit present, no guarding noted, no hepatomegaly, no splenomegaly, no mass Vulva: both: normal Vagina: normal moisture, no discharge Cervix: no lesion, no discharge Uterus: normal size, normal contour Adnexa: both: normal Anus/Rectum: normal perianal skin, no rectal mass, no hemorrhoids, heme negative Results Result Diagrams: 02/14/19 06:50 Abnormal Lab Results - Last 24 Hours (Table) 02/14/19 Range/Units 06:50 Hct 32.9 L (34.0-46.0) %
[2019-02-14] MEDS: BUTORPHANOL 1 MG/ML 1 ML VIAL IV PRN ×3 (09:35→14:17)
[2019-02-14] MEDS ORDERED: ROPIVACAINE 5MG/ML 20ML VIAL ONE (15:20)
[2019-02-14] MEDS ORDERED: fentaNYL (PF) 50 MCG/ML 5 ML AMP ONE (15:20)
[2019-02-14] MEDS ORDERED: SODIUM CHLORIDE 0.9% 100 ML BAG ONE (15:20)
[2019-02-14] MEDS ORDERED: WITCH HAZEL 1 EACH MED..PAD TOPICAL PRN (19:12)
[2019-02-14] MEDS ORDERED: BENZOCAINE/MENTHOL SPRAY 1 GM/SPRAY AEROSOL TOPICAL PRN (19:12)
[2019-02-14] MEDS ORDERED: diphenhydrAMINE 50 MG CAP PO PRN (19:12)
[2019-02-14] MEDS ORDERED: HYDROCORTISONE 2.5% RECTAL CREAM 30 GM TUBE RECTAL PRN (19:12)
[2019-02-14] MEDS ORDERED: SIMETHICONE 80 MG CHEWABLE PO PRN (19:12)
[2019-02-14] MEDS ORDERED: diphenhydrAMINE 50 MG/ML 1 ML VIAL IVP PRN ×2 (19:12)
[2019-02-14] MEDS ORDERED: LANOLIN CREAM 5 GM TUBE TOPICAL PRN (19:12)
[2019-02-14] MEDS ORDERED: ZOLPIDEM 5 MG TAB PO PRN (19:12)
[2019-02-14] MEDS ORDERED: diphenhydrAMINE 25 MG CAP PO PRN (19:12)
[2019-02-14] MEDS ORDERED: OXYTOCIN 20 UNITS/1000 ML NS 1,000 ML IV SCH (19:15)
--- NOTE | 2019-02-14 19:16 | P.PROBDLV ---
Vaginal Delivery Note - . Vaginal Delivery Note: Elena progressed to complete and pushing with spontaneous vaginal delivery of a viable female over an intact perineum. Falling deliver the head from left occiput anterior position gentle downward and upper traction was then used to deliver the remainder the baby. Mouth nares were then bulb suctioned and baby was placed on mother's abdomen where the umbilical cord was clamped cut usual fashion. Nursery personnel was present and assumed care. Placenta was t hen delivered intact and Pitocin was added to the IV. scores were 7 and 9 at one and 5 minutes respectively and the weight was 6 lbs. 4 oz. Both mother and baby are stable following delivery.
[2019-02-14] MEDS: ACETAMINOPHEN TAB 325 MG TAB PO PRN (22:53)
[2019-02-15] MEDS: IBUPROFEN 600 MG TAB PO PRN ×3 (04:22→16:26)
[2019-02-15] MEDS: ACETAMINOPHEN TAB 325 MG TAB PO PRN ×3 (06:35→21:03)
[2019-02-15 08:57] VITALS: RESP 16
--- NOTE | 2019-02-15 09:01 | P.PNOBGVD ---
Subjective - Subjective Principal diagnosis: day 1 Interval history: Overall Elena is doing well. However, she does complain of back pain near her epidural site we discussed starting Sherwood, she is not interested in starting [place]wood. She feels like spasmodic pain but Flexeril another antispasmodic would likely make her very tired and has a due crust placenta to some degree the baby would also get very tired. She is not interested in this. We also discussed the, #3 is not considered safe with breast-feeding at this time. Therefore, she will watch her through the day and we can adjust as needed. Otherwise she is ambulating, voiding and she is tolerating her diet. Patient reports: Reports appetite normal, Reports voiding normally, Reports pain well controlled, Reports ambulating normally : doing well Objective - Latest Vital Signs Latest vital signs: Vital Signs Temp Pulse Resp BP 02/15/19 08:00 98.0 F 86 16 125/75 02/15/19 04:00 98.2 F 82 18 116/78 02/15/19 00:00 98.1 F 90 16 129/65 02/14/19 22:28 98.5 F 88 16 133/65 02/14/19 21:58 97.9 F 87 16 131/68 02/14/19 21:28 103 H 16 124/62 02/14/19 21:13 98.2 F 93 16 117/64 02/14/19 20:58 104 H 16 120/68 02/14/19 20:43 99 16 116/55 02/14/19 20:28 98.5 F 93 16 120/68 Intake and Output 02/14/19 02/15/19 02/15/19 22:59 06:59 14:59 Intake Total 250 Balance 250 Intake: Oral 250 - Exam Lungs: bilateral: normal Chest: Normal S1, Normal S2 Extremities: Present: normal Abdomen: Present: normal appearance, soft Uterus: Present: normal, firm
[2019-02-15] MEDS: LACTATED RINGERS 1,000 ML IV SCH ×2 (20:48→20:49)
[2019-02-15] MEDS: SENNOSIDES-DOCUSATE SODIUM 1 EACH TAB PO SCH (20:48)
[2019-02-15] MEDS: OXYTOCIN 30 UNITS/500 ML NS 30 UNIT in SALINE 1 500ML.BAG IV SCH (20:49)
[2019-02-15] MEDS ORDERED: INFLUENZA VACCINE (6 MOS+) 60 MCG/0.5 ML SYRINGE IM ONE (21:49)
[2019-02-16 00:05] VITALS: TEMP 97.9
--- NOTE | 2019-02-16 06:44 | P.PNOBGVD ---
Subjective - Subjective Patient reports: Reports appetite normal, Reports voiding normally, Reports pain well controlled, Reports ambulating normally : doing well Objective - Latest Vital Signs Latest vital signs: Vital Signs Temp Pulse Resp BP Pulse Ox 02/16/19 00:00 97.9 F 87 16 120/74 97 02/15/19 20:00 98.0 F 90 16 126/71 97 02/15/19 16:32 98.8 F 94 16 93/52 02/15/19 08:00 98.0 F 86 16 125/75 - Exam Lungs: bilateral: normal Chest: Normal S1, Normal S2 Extremities: Present: normal Abdomen: Present: normal appearance, soft Uterus: Present: normal, firm Assessment and Plan Assessment: day #2. Patient is resting without new complaints. Vital signs are stable she is afebrile. Uterus is firm nontender and she is having normal lochia. My impression is a normal course. Plan is to continue routine care discharge home later today. (1) Vaginal delivery Current Visit: Yes Status: Acute Code(s): O80 - ENCOUNTER FOR FULL-TERM UNCOMPLICATED DELIVERY SNOMED Code(s): 192094826
--- NOTE | 2019-02-16 06:47 | P.DS ---
Providers Date of admission: 02/14/19 06:20 Expected date of discharge: 02/16/19 Attending physician: Earl Madrigal Primary care physician: Stated None - Discharge Diagnosis(es) (1) Vaginal delivery Current Visit: Yes Status: Acute Hospital Course: Please see dictated H&P per Dr. Madrigal and this patient's admission. Brief summary is a pleasant 28-year-old 6 para 3 female 37 weeks gestation admitted to labor and delivery for induction of labor. Patient was on have a vaginal delivery viable female . day #2 patient's felt be s table for discharge home follow up with Dr. Madrigal in 6 weeks. Procedures: Induction of labor and normal vaginal delivery Patient Condition at Discharge: Good Plan - Discharge Summary New Discharge Prescriptions: New Ibuprofen [Motrin] 600 mg PO Q6HR PRN #30 tab PRN Reason: Pain No Action Multivitamins, Thera [Multivitamin (formulary)] 1 tab PO DAILY Levothyroxine Sodium [Synthroid] 25 mcg PO DAILY DULoxetine HCL [Cymbalta] 60 mg PO DAILY Discharge Medication List DULoxetine HCL [Cymbalta] 60 mg PO DAILY 09/18/18 [History] Levothyroxine Sodium [Synthroid] 25 mcg PO DAILY 09/18/18 [History] Multivitamins, Thera [Multivitamin (formulary)] 1 tab PO DAILY 09/18/18 [History] Ibuprofen [Motrin] 600 mg PO Q6HR PRN #30 tab 02/15/19 [Rx] Follow up Appointment(s)/Referral(s): Earl Madrigal DO [Doctor of Osteopathic Medicine] - 03/29/19 11:15 am Activity/Diet/Wound Care/Special Instructions: No heavy lifting, limit stairs and driving, and pelvic rest. If any high temperatures, heavy bleeding, or severe pain call the office Discharge Disposition: HOME SELF-CARE
[2019-02-16 08:00] VITALS: BP 128/73; PULSE 84
[2019-02-16] MEDS: SENNOSIDES-DOCUSATE SODIUM 1 EACH TAB PO SCH (08:00)
[2019-02-16] MEDS: ACETAMINOPHEN TAB 325 MG TAB PO PRN (11:12)
== END 2019-02-16 14:04 | disposition home or self-care (01) | DRG 807 ==
LOC: 4FBP 06:20
PROVIDERS: ADMIT Obstetrics & Gynecology; ATTEND Obstetrics & Gynecology
PROC: 3E033VJ Introduction of Other Hormone into Peripheral Vein, Percutaneous Approach (ICD-10-PCS; principal; 2019-02-14)
PROC: 00HU33Z Insertion of Infusion Device into Spinal Canal, Percutaneous Approach (ICD-10-PCS; principal; 2019-02-14)
PROC: 10907ZC Drainage of Amniotic Fluid, Therapeutic from Products of Conception, Via Natural or Artificial Opening (ICD-10-PCS; principal; 2019-02-14)
PROC: 10E0XZZ Delivery of Products of Conception, External Approach (ICD-10-PCS; principal; 2019-02-14)
PROC: 3E0R3NZ Introduction of Analgesics, Hypnotics, Sedatives into Spinal Canal, Percutaneous Approach (ICD-10-PCS; principal; 2019-02-14)
DX: O75.89 Other specified complications of labor and delivery (principal); Z37.0 Single live birth; O99.284 Endocrine, nutritional and metabolic diseases complicating childbirth; O99.334 Smoking (tobacco) complicating childbirth; E03.9 Hypothyroidism, unspecified; F17.200 Nicotine dependence, unspecified, uncomplicated; O99.52 Diseases of the respiratory system complicating childbirth; Z3A.37 37 weeks gestation of pregnancy; Z79.890 Hormone replacement therapy; F32.9 Major depressive disorder, single episode, unspecified; F41.9 Anxiety disorder, unspecified; O99.344 Other mental disorders complicating childbirth; Z79.899 Other long term (current) drug therapy; Z82.49 Family history of ischemic heart disease and other diseases of the circulatory system; Z88.8 Allergy status to other drugs, medicaments and biological substances; Z91.040 Latex allergy status; J45.909 Unspecified asthma, uncomplicated
CPT/HCPCS: 85025; 86850; 86900; 86901; 90686

== ENCOUNTER → 2019-04-23 | Outpatient (CLI) | payer OTHER ==
[2019-04-23 14:26] LABS: Basophils # (A) 0.1 k/uL (0-0.2); Basophils % (A) 1 %; Eosinophils # (A) 0.2 k/uL (0-0.7); Eosinophils % (A) 2 %; HCT 38.1 % (34.0-46.0); HGB 12.6 gm/dL (11.4-16.0); Lymphocytes # (A) 2.9 k/uL (1.0-4.8); Lymphocytes % (A) 34 %; MCH 29.2 pg (25.0-35.0); MCHC 33.1 g/dL (31.0-37.0); MCV 88.2 fL (80.0-100.0); Mean Platelet Volume 8.6; Monocytes # (A) 0.4 k/uL (0-1.0); Monocytes % (A) 4 %; Neutrophils # (A) 4.6 k/uL (1.3-7.7); Neutrophils % (A) 56 %; Platelet Count 252 k/uL (150-450); RBC 4.31 m/uL (3.80-5.40); RDW 13.4 % (11.5-15.5); WBC 8.4 k/uL (3.8-10.6)
== END | disposition home or self-care (01) ==
LOC: LABPAT 13:05
PROVIDERS: ATTEND Obstetrics & Gynecology
DX: Z01.812 Encounter for preprocedural laboratory examination (principal)
CPT/HCPCS: 36415; 85025

== ENCOUNTER 2019-04-25 08:47 | Day surgery (SDC) | payer OTHER ==
[2019-04-24 10:52] VITALS: BMI 37.8
--- NOTE | 2019-04-24 13:20 | P.HPOB ---
History of Present Illness H&P Date: 04/24/19 Chief Complaint: Family planning Elena is a 28-year-old female who is completed her family planning and desires permanent sterilization. Risks/benefits/alternatives to this procedure were discussed with the patient in detail and did include but were not limited to bleeding, infection, damage to bladder or bowel, vascular injuries, nerve injuries, ureteral injuries and potential need for further surgery. All questions were answered for her prior to proceeding to the operative room. She is scheduled for a left scopic tubal occlusion with Filshie clips. Past Medical History Past Medical History: Asthma, Fibromyalgia, Thyroid Disorder Additional Past Medical History / Comment(s): Hx of kidney and bladder infections. History of Any Multi-Drug Resistant Organisms: None Reported Past Surgical History: Appendectomy, Cholecystectomy Additional Past Surgical History / Comment(s): Eye surgery x 5, right knee (foreign body removal), left hand benign tumor removed. Past Anesthesia/Blood Transfusion Reactions: No Reported Reaction Past Psychological History: Anxiety, Depression Smoking Status: Former smoker Past Alcohol Use History: Rare Additional Past Alcohol Use History / Comment(s): Started smoking at age 18, 5 cigarettes per day. Quit smoking 11 weeks ago. Past Drug Use History: None Reported - Past Family History Father Family Medical History: Hypertension Additional Family Medical History / Comment(s): Anxiety. Mother Family Medical History: Hypertension Additional Family Medical History / Comment(s): pt's mother and father high BP Medications and Allergies Home Medications Medication Instructions Recorded Confirmed Type Levothyroxine Sodium [Synthroid] 25 mcg PO HS 09/18/18 04/24/19 History Acetaminophen [Tylenol] 1,000 mg PO Q4-6H PRN 04/24/19 04/24/19 History Allergies Allergy/AdvReac Type Severity Reaction Status Date / Time diphenhydramine HCl Allergy Throat Verified 04/24/19 10:54 [From Benadryl] Itches (with name brand Benadryl only) latex Allergy Rash/Hives Verified 04/24/19 10:54 hydrocodone bitartrate AdvReac Migraine Verified 04/24/19 10:54 [From Vicodin] Exam Osteopathic Statement: *. No significant issues noted on an osteopathic structural exam other than those noted in the History and Physical/Consult. Intake and Output 04/23/19 04/24/19 04/24/19 22:59 06:59 14:59 Other: Weight 99.79 kg - OBG Physical Exam Breast: both: normal (no masses) Abdomen: bowel sounds normal, no diffuse tenderness, no bruit present, no guarding noted, no hepatomegaly, no splenomegaly, no mass Vulva: both: normal Vagina: normal moisture, no discharge Cervix: no lesion, no discharge Uterus: normal size, normal contour Adnexa: both: normal Anus/Rectum: normal perianal skin, no rectal mass, no hemorrhoids, heme negative
[~2019-04-25 08:47] MED LIST changes: -HEPARIN SODIUM,PORCINE 5,000 UNIT/ML 1 ML VIAL SQ ONE; -LACTATED RINGERS 1,000 ML IV SCH; +LIDOCAINE 1% 20 ML VIAL (10MG/ML) FOR IV START INTRADERMA PRN; +MIDAZOLAM 2 MG/2 ML VIAL IV PRN; +Pre Op ABX Message 1 EACH MISC MISCELLANE ONE; -ceFAZolin IN SWFI 2 GM/20 ML SYRINGE IVP ONE; +fentaNYL (PF) 50 MCG/ML 2 ML AMP IV PRN
[2019-04-25] MEDS: LACTATED RINGERS 1,000 ML IV SCH ×2 (09:16→09:40)
[2019-04-25] MEDS ORDERED: SCOPOLAMINE 1.5MG/72HR PATCH TRANSDERM ONE (09:20)
[2019-04-25] MEDS ORDERED: MIDAZOLAM 2 MG/2 ML VIAL ONE (09:39)
[2019-04-25] MEDS ORDERED: LIDOCAINE 1% INJ 10MG/ML (20 ML MDV) ONE (09:39)
[2019-04-25] MEDS ORDERED: PROPOFOL 10 MG/ML 20 ML VIAL IV ONE (09:39)
[2019-04-25] MEDS ORDERED: NEOSTIGMINE 1 MG/ML 10 ML VIAL ONE (09:39)
[2019-04-25] MEDS ORDERED: HYDROmorphone (PF) 1 MG/ML ONE (09:39)
[2019-04-25] MEDS ORDERED: KETOROLAC 30 MG/ML 1 ML VIAL ONE (09:39)
[2019-04-25] MEDS ORDERED: GLYCOPYRROLATE 0.2 MG/ML 2 ML VIAL ONE (09:39)
[2019-04-25] MEDS ORDERED: fentaNYL (PF) 50 MCG/ML 2 ML AMP ONE (09:39)
[2019-04-25] MEDS ORDERED: ROCURONIUM BROMIDE 10 MG/ML 5 ML VIAL IV ONE (09:39)
[2019-04-25] MEDS ORDERED: SUCCINYLCHOLINE CHLORIDE 100 MG/5 ML SYR IV ONE (09:39)
[2019-04-25] MEDS ORDERED: BUPIVACAINE (PF) 0.25% 30 ML VIAL SQ ONE (10:02)
--- NOTE | 2019-04-25 10:19 | P.OP ---
Date of Procedure: 04/25/19 Preoperative Diagnosis: Family planning Postoperative Diagnosis: Same Procedure(s) Performed: Laparoscopic tubal ligation with Filshie clips Anesthesia: ARPAN Surgeon: Earl Madrigal Estimated Blood Loss (ml): 5 IV fluids (ml): 300 Urine output (ml): 50 Pathology: none sent Condition: stable Disposition: same day Operative Findings: Normal female pelvic anatomy Description of Procedure: Patient was taken to the operating suite where a general anesthetic was found be adequate. She was prepped and draped in the normal sterile fashion and placed in dorsal lithotomy position. Initially a speculum was inserted into the vagina and the anterior lip of cervix was identified and grasped with Allis clamp. Uterus was then sounded to 9 cm and a manipulator was inserted without difficulty. Other instruments were then removed and a latex free catheter was used to drain the bladder of urine. This was then removed and gloves were changed. Attention was then turned to the abdominal portion procedure where 2 mL of quarter percent Marcaine was injected periumbilically. Through this injected anesthetic a 5 mm skin incision was made and through this incision under direct visualization with an optical trocar and sleeve the camera was inserted. Once peritoneal placement was assured gas was left fully insufflate the abdomen and patient's placement steep Trendelenburg position. Second 8 mm skin incision was then made in the midline 3 cm above the pubic symphysis. Through this incision an 8 mm trocar and sleeve were inserted under direct visualization. Once this was accomplished observations pelvis were noted. Then using physical Care that this cup was applied approximately 2-3 cm from uterine cornu on the right side than the left side. No bleeding is noted in the mesosalpinx and there is no other gross findings. Instruments are then removed and gas allowed to expel from the abdomen. 5 deep breaths were provided during this process. 4-0 Vicryl was then used to close the incision subcuticularly and the remaining 8 mL of quarter percent Marcaine was injected around these incisions. Incidents was then removed from the vagina. Sponge, lap, needle counts were all correct 2. Patient was then taken to the recovery room in stable and satisfactory condition. [place] In discussing postop pain with the patient she relates that she would like to [place]. She is tolerating it in the past. She states that her ALLERGIES strictly with Vicodin the name to product and it causes headaches. She is breast-feeding and therefore Tylenol 3 cannot be provided. Again she has explained that she can tolerate [place] without difficulty. Plan - Discharge Summary Discharge Rx Participant: Yes New Discharge Prescriptions: New Ibuprofen [Motrin] 600 mg PO Q6HR PRN #30 tab PRN Reason: Pain HYDROcodone/APAP 5-325MG [[place] 5-325] 1 tab PO Q4HR PRN #30 tab PRN Reason: Pain No Action Levothyroxine Sodium [Synthroid] 25 mcg PO HS Acetaminophen [Tylenol] 1,000 mg PO Q4-6H PRN PRN Reason: Pain Discharge Medication List Levothyroxine Sodium [Synthroid] 25 mcg PO HS 09/18/18 [History] Acetaminophen [Tylenol] 1,000 mg PO Q4-6H PRN 04/24/19 [History] HYDROcodone/APAP 5-325MG [[place] 5-325] 1 tab PO Q4HR PRN #30 tab 04/25/19 [Rx] Ibuprofen [Motrin] 600 mg PO Q6HR PRN #30 tab 04/25/19 [Rx] Follow up Appointment(s)/Referral(s): Earl Madrigal DO [Doctor of Osteopathic Medicine] - 2 Weeks Activity/Diet/Wound Care/Special Instructions: No heavy lifting, limit stairs and driving, and pelvic rest. If any high temperatures, heavy bleeding, or severe pain call my office Discharge Disposition: HOME SELF-CARE
[2019-04-25 10:40] VITALS: TEMP 97.2
[2019-04-25] MEDS: HYDROmorphone 0.5 MG/0.5 ML SYRINGE IVP PRN ×4 (10:41→11:08)
[2019-04-25 11:03] VITALS: RESP 16
[2019-04-25] MEDS ORDERED: HYDROcodone/APAP 5-325MG 1 EACH TAB PO ONE (12:14)
[2019-04-25 13:02] VITALS: BP 111/79; PULSE 79
== END 2019-04-25 13:11 | disposition home or self-care (01) ==
LOC: OR 08:47
PROVIDERS: ATTEND Obstetrics & Gynecology
DX: Z30.2 Encounter for sterilization (principal); J45.909 Unspecified asthma, uncomplicated; M79.7 Fibromyalgia; E07.9 Disorder of thyroid, unspecified; Z90.49 Acquired absence of other specified parts of digestive tract; F41.9 Anxiety disorder, unspecified; F32.9 Major depressive disorder, single episode, unspecified; G89.29 Other chronic pain; Z87.891 Personal history of nicotine dependence; Z82.49 Family history of ischemic heart disease and other diseases of the circulatory system; Z79.890 Hormone replacement therapy; Z88.5 Allergy status to narcotic agent; Z88.8 Allergy status to other drugs, medicaments and biological substances; Z91.040 Latex allergy status
CPT/HCPCS: 81025; 58671; J2250; J1100; J2710; J2405; J2001; J3010; J1885; J1170 ×2; J0330; J2704

== ENCOUNTER 2019-06-04 13:06 | Emergency (ER) | payer OTHER ==
[2019-06-04 13:17] VITALS: BP 127/84; PULSE 85; TEMP 98.5
[2019-06-04 13:23] VITALS: RESP 18
--- NOTE | 2019-06-04 14:00 | ED ---
URI HPI - General Chief Complaint: Upper Respiratory Infection Stated Complaint: in quicker/possible upper resp inf Time Seen by Provider: 06/04/19 13:19 Source: patient Mode of arrival: ambulatory Limitations: no limitations - History of Present Illness Initial Comments: 29-year-old female history of hypothyroidism presenting to the emergency department today for chief complaint of cough congestion. Patient states it feels like her typical seasonal ALLERGIES. She states that she was told by her employer that she must be cleared for return to work. Patient states she has been off work for the past 4 days. Patient denies any fevers. Denies any recent travel. Patient states she does not have concern for exposure to Covid- 19. patient admits to sore throat. Denies ear pain, chest pain or SOB. Patient sates that the cough is very mild. Patient has no other complaints and states she feels fine. Patient upon arrival is afebrile well appearing no signs of acute distress. - Related Data Home Medications Medication Instructions Recorded Confirmed Levothyroxine Sodium [Synthroid] 25 mcg PO HS 09/18/18 04/25/19 Acetaminophen [Tylenol] 1,000 mg PO Q4-6H PRN 04/24/19 04/25/19 Previous Rx's Medication Instructions Recorded HYDROcodone/APAP 5-325MG [[place] 1 tab PO Q4HR PRN #30 tab 04/25/19 5-325] Ibuprofen [Motrin] 600 mg PO Q6HR PRN #30 tab 04/25/19 Allergies Allergy/AdvReac Type Severity Reaction Status Date / Time diphenhydramine HCl Allergy Throat Verified 06/04/19 13:17 [From Benadryl] Itches (with name brand Benadryl only) latex Allergy Rash/Hives Verified 06/04/19 13:17 hydrocodone bitartrate AdvReac Migraine Verified 06/04/19 13:17 [From Vicodin] Review of Systems ROS Statement: Those systems with pertinent positive or pertinent negative responses have been documented in the HPI. ROS Other: All systems not noted in ROS Statement are negative. Past Medical History Past Medical History: Asthma, Thyroid Disorder Additional Past Medical History / Comment(s): Hx of kidney and bladder infections, permanent upper retainer present. History of Any Multi-Drug Resistant Organisms: None Reported Past Surgical History: Appendectomy, Cholecystectomy, Tubal Ligation Additional Past Surgical History / Comment(s): Eye surgery x 5, right knee (foreign body removal), left hand benign tumor removed. Past Anesthesia/Blood Transfusion Reactions: No Reported Reaction Past Psychological History: Anxiety, Depression Smoking Status: Current every day smoker Past Alcohol Use History: None Reported, Occasional - Past Family History Father Family Medical History: Hypertension Additional Family Medical History / Comment(s): Anxiety. Mother Family Medical History: Hypertension Additional Family Medical History / Comment(s): pt's mother and father high BP General Exam - General Exam Comments Initial Comments: General: The patient is awake and alert, in no distress, and does not appear acutely ill. Eye: +3 mm pupils are equal, round and reactive to light, extra-ocular movements are intact. No nystagmus. There is normal conjunctiva bilaterally. No signs of icterus. No photophobia Ears, nose, mouth and throat: There are moist mucous membranes and no oral lesions. Oropharynx was not erythematous there is no tonsillar enlargement exudates or lesions. Uvula midline. Tympanic membranes are not erythematous or is no effusions bulging or retraction. No tenderness to palpation of the mastoid. No anterior cervical lymphadenopathy. Rhinorrhea, clear and bilateral nares. No tripoding, no drooling. Neck: The neck is supple, there is no tenderness or JVD. No nuchal rigidity ne gative Brudzinski Cardiovascular: There is a regular rate and rhythm. No murmur, rub or gallop is appreciated. Respiratory: Lungs are clear to auscultation, respirations are non-labored, breath sounds are equal. No wheezes, stridor, rales, or rhonchi. No retractions or abdominal breathing. Gastrointestinal: Soft, non-distended, non-tender abdomen without masses or organomegaly noted. There is no rebound or guarding present. Bowel sounds are unremarkable. Musculoskeletal: Normal ROM, no tenderness. Strength 5/5. Sensation intact. Radial pulses equal bilaterally 2+. Neurological: A&O x 3. CN II-XII intact grossly, There are no obvious motor or sensory deficits. Coordination appears grossly intact. Speech appears normal, no muffling. Skin: Skin is warm and dry and no rashes or lesions are noted. No extremity edema Psychiatric: Cooperative Limitations: no limitations Course Vital Signs 06/04/19 06/04/19 13:12 13:19 Temperature 98.5 F Pulse Rate 85 Respiratory 20 18 Rate Blood Pressure 127/84 O2 Sat by Pulse 97 Oximetry Medical Decision Making - Medical Decision Making 29-year-old female presenting for work clearance. Patient has had upper respiratory symptoms. Patient has been off work for 4 days. Given patient is symptomatic with current spread of COVID 19 within the community I recommend that patient go home, and Quarantine self for additional 12 days. She is not to return to work, take temperature twice daily and monitor for shortness of breath. Patient is agreeable to this care plan and discharge at this time. Disposition Clinical Impression: Cough, Sore throat Disposition: HOME SELF-CARE Condition: Good Instructions (If sedation given, give patient instructions): Upper Respiratory Infection (ED) Additional Instructions: Please use medication as discussed. Please follow-up with family doctor in the next 2 days, YOU ARE NOT TO RETURN TO WORK FOR ANOTHER 10 DAYS, record temperature twice daily for the next 10 days, you must be afebrile for 48 hours without tylenol and ibuprofen to return to work--please return to the emergency department if he developed shortness of breath. Please return to emergency room if the symptoms increase or worsen or for any other concerns. Is patient prescribed a controlled substance at d/c from ED?: No Referrals: Chase Cintron MD [Primary Care Provider] - 1-2 days Time of Disposition: 13:59
== END 2019-06-04 14:13 | disposition home or self-care (01) ==
LOC: EC 13:06
DX: J02.9 Acute pharyngitis, unspecified (principal); E03.9 Hypothyroidism, unspecified; F17.200 Nicotine dependence, unspecified, uncomplicated; Z79.890 Hormone replacement therapy; Z88.8 Allergy status to other drugs, medicaments and biological substances; Z88.5 Allergy status to narcotic agent; Z88.6 Allergy status to analgesic agent; Z91.040 Latex allergy status
CPT/HCPCS: 99283

== ENCOUNTER 2019-07-20 14:12 | Emergency (ER) | payer OTHER ==
[2019-07-20 14:25] VITALS: RESP 18; TEMP 98.5
[2019-07-20] MEDS ORDERED: diphenhydrAMINE 50 MG/ML 1 ML VIAL IVP STA (15:19)
[2019-07-20] MEDS ORDERED: methylPREDNISolone SOD SUCCI 125 MG/2 ML VIAL IV STA (15:19)
[2019-07-20] MEDS ORDERED: FAMOTIDINE 20 MG/2 ML VIAL IV STA (15:19)
[2019-07-20] MEDS ORDERED: SODIUM CHLORIDE 0.9% 500 ML 500 ML IV ONE (15:19)
[2019-07-20] MEDS ORDERED: LORazepam 2 MG/ML INJ IV STA (16:05)
--- NOTE | 2019-07-20 16:16 | ED ---
Skin/Abscess/FB HPI - General Chief complaint: Skin/Abscess/Foreign Body Stated complaint: Allergic Reaction Time Seen by Provider: 07/20/19 14:52 Source: patient Mode of arrival: ambulatory Limitations: no limitations - History of Present Illness Initial comments: 29-year-old female patient presents to the emergency department today for evaluation of generalized rash. Patient states symptoms started on Monday. States that the rash is burning and itchy. States that one spot to her ear and when her hand was a blister and did open. States that on Monday she did take some steroids and hydroxyzine without relief. States she has not taken anything else to relieve her symptoms. She denies any fever or chills. Denies any sore throat. Denies any wheezing or trouble breathing. Denies any abdominal pain or vomiting. She denies any new exposures including soaps, lotions, medications, detergents, or foods. She is unsure what the rash could be from. Denies any recent travel or sick contacts. Patient denies any recent cough, shortness of breath, chest pain, diarrhea, constipation, back pain, numbness, tingling, dizziness, weakness, hematuria, dysuria, urinary urgency, urinary frequency, headache, visual changes, or any other complaints. - Related Data Home Medications Medication Instructions Recorded Confirmed DULoxetine HCL [Cymbalta] 60 mg PO DAILY 07/20/19 07/20/19 Levothyroxine Sodium [Synthroid] 50 mcg PO DAILY 07/20/19 07/20/19 Multivitamins, Thera [Multivitamin 2 tab PO DAILY 07/20/19 07/20/19 (formulary)] Previous Rx's Medication Instructions Recorded Famotidine [Pepcid] 20 mg PO DAILY #5 tablet 07/20/19 predniSONE 50 mg PO DAILY #5 tablet 07/20/19 Allergies Allergy/AdvReac Type Severity Reaction Status Date / Time diphenhydramine HCl Allergy Throat Verified 07/20/19 16:33 [From Benadryl] Itches (with name brand Benadryl only) latex Allergy Rash/Hives Verified 07/20/19 16:33 hydrocodone bitartrate AdvReac Migraine Verified 07/20/19 16:33 [From Vicodin] Review of Systems ROS Statement: Those systems with pertinent positive or pertinent negative responses have been documented in the HPI. ROS Other: All systems not noted in ROS Statement are negative. Past Medical History Past Medical History: Asthma, Thyroid Disorder Additional Past Medical History / Comment(s): Hx of kidney and bladder infections, permanent upper retainer present. History of Any Multi-Drug Resistant Organisms: None Reported Past Surgical History: Appendectomy, Cholecystectomy, Tubal Ligation Additional Past Surgical History / Comment(s): Eye surgery x 5, right knee (foreign body removal), left hand wrist benign tumor removed. Past Anesthesia/Blood Transfusion Reactions: No Reported Reaction Past Psychological History: Anxiety, Depression Smoking Status: Current every day smoker Past Alcohol Use History: Occasional Past Drug Use History: None Reported - Past Family History Father Family Medical History: Hypertension Additional Family Medical History / Comment(s): Anxiety. Mother Family Medical History: Hypertension Additional Family Medical History / Comment(s): pt's mother and father high BP General Exam Limitations: no limitations General appearance: alert, in no apparent distress, other (This is a well- developed, well-nourished adult female patient in no acute distress. Vital signs upon presentation are temperature 98.5F, pulse 1:15, respirations 18, blood pressure 144/98, pulse ox 97% on room air.) Eye exam: Present: normal appearance, PERRL, EOMI. Absent: scleral icterus, conjunctival injection, periorbital swelling ENT exam: Present: normal exam, normal oropharynx, mucous membranes moist Respiratory exam: Present: normal lung sounds bilaterally. Absent: respiratory distress, wheezes, rales, rhonchi, stridor Cardiovascular Exam: Present: regular rate, normal rhythm, normal heart sounds. Absent: systolic murmur, diastolic murmur, rubs, gallop, clicks GI/Abdominal exam: Present: soft, normal bowel sounds. Absent: distended, tenderness, guarding, rebound, rigid Neurological exam: Present: alert, oriented X3, CN II-XII intact Psychiatric exam: Present: normal affect, normal mood Skin exam: Present: warm, dry, intact, normal color, rash (There is generalized erythematous rash. Lesions are discrete with no surrounding erythema. These are non-petechial, nonvesicular. There is a scabbed lesion to the dorsal aspect of the left hand into the left ear which patient reports were blisters. No current drainage.) Course Vital Signs 07/20/19 07/20/19 14:22 15:50 Temperature 98.5 F Pulse Rate 115 H 99 Respiratory 18 18 Rate Blood Pressure 144/98 152/94 O2 Sat by Pulse 97 99 Oximetry Medical Decision Making - Medical Decision Making 29-year-old female patient presents to the emergency department today for evaluation of generalized rash. Physical examination did reveal an erythematous rash with lesions over her trunk, arms, legs, feet and hands. She did have 2 scabbed lesions 1 over the dorsal aspect of the hand and one the left ear lobe which she reports started as blisters. She denies any exposure to new substances. Denies any recent fever or upper respiratory symptoms. Lungs are clear to auscultation. Abdomen soft and nontender. Patient did have an IV started we did give Pepcid, Benadryl, Solu-Medrol. Upon reevaluation she states that she is now fidgety and her symptoms are not improved at all. We gave a dose of Ativan injury labs which were unremarkable. She is given IV fluids. Upon reevaluation she still reports significant itching to the rash. I ordered hydrocortisone cream to be applied here. She'll be discharged with prescription for prednisone and Pepcid. She is instructed take Benadryl every 6 hours as needed. 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 Return parameters were discussed in detail. She verbalizes understanding and agrees with this plan. - Lab Data Result diagrams: 07/20/19 16:20 07/20/19 16:20 Lab Results 07/20/19 07/20/19 Range/Units 16:20 16:20 WBC 9.8 (3.8-10.6) k/uL RBC 4.86 (3.80-5.40) m/uL Hgb 13.8 (11.4-16.0) gm/dL Hct 42.0 (34.0-46.0) % MCV 86.3 (80.0-100.0) fL MCH 28.3 (25.0-35.0) pg MCHC 32.8 (31.0-37.0) g/dL RDW 12.1 (11.5-15.5) % Plt Count 246 (150-450) k/uL Neutrophils % 63 % Lymphocytes % 24 % Monocytes % 4 % Eosinophils % 5 % Basophils % 1 % Neutrophils # 6.1 (1.3-7.7) k/uL Lymphocytes # 2.4 (1.0-4.8) k/uL Monocytes # 0.4 (0-1.0) k/uL Eosinophils # 0.5 (0-0.7) k/uL Basophils # 0.1 (0-0.2) k/uL Sodium 137 (137-145) mmol/L Potassium 4.3 (3.5-5.1) mmol/L Chloride 103 (98-107) mmol/L Carbon Dioxide 23 (22-30) mmol/L Anion Gap 11 mmol/L BUN 15 (7-17) mg/dL Creatinine 0.40 L (0.52-1.04) mg/dL Est GFR (CKD-EPI)AfAm >90 (>60 ml/min/1.73 sqM) Est GFR (CKD-EPI)NonAf >90 (>60 ml/min/1.73 sqM) Glucose 96 (74-99) mg/dL Calcium 9.9 (8.4-10.2) mg/dL Total Bilirubin 0.3 (0.2-1.3) mg/dL AST 32 (14-36) U/L ALT 44 H (4-34) U/L Alkaline Phosphatase 148 H (38-126) U/L Total Protein 7.8 (6.3-8.2) g/dL Albumin 4.5 (3.5-5.0) g/dL Disposition Clinical Impression: Rash Disposition: HOME SELF-CARE Condition: Good Instructions (If sedation given, give patient instructions): Acute Rash (ED) Additional Instructions: Take cool showers, consider oatmeal bath if possible. Use hydrocortisone cream three times daily, do not apply to face or genitalia. Use eucerin cream in between doses of hydrocortisone. Take benadryl only 50mg every 6 hours as needed. Follow up with dermatology if rash doesn't clear with steroids and pepcid. Return to the emergency department for development of blisters or soften ing of skin. Return for fever or chills. Return for any other new, worsening, or concerning symptoms. Prescriptions: Famotidine [Pepcid] 20 mg PO DAILY #5 tablet predniSONE 50 mg PO DAILY #5 tablet Is patient prescribed a controlled substance at d/c from ED?: No Referrals: Chase Cintron MD [Primary Care Provider] - 1-2 days Anthony Roberts MD [STAFF PHYSICIAN] - 1-2 days Time of Disposition: 17:33
[2019-07-20 16:29] LABS: Basophils # (A) 0.1 k/uL (0-0.2); Basophils % (A) 1 %; Eosinophils # (A) 0.5 k/uL (0-0.7); Eosinophils % (A) 5 %; HGB 13.8 gm/dL (11.4-16.0); Lymphocytes # (A) 2.4 k/uL (1.0-4.8); Lymphocytes % (A) 24 %; MCH 28.3 pg (25.0-35.0); MCHC 32.8 g/dL (31.0-37.0); MCV 86.3 fL (80.0-100.0); Mean Platelet Volume 8.6; Monocytes # (A) 0.4 k/uL (0-1.0); Monocytes % (A) 4 %; Neutrophils # (A) 6.1 k/uL (1.3-7.7); Neutrophils % (A) 63 %; Platelet Count 246 k/uL (150-450); RBC 4.86 m/uL (3.80-5.40); RDW 12.1 % (11.5-15.5); WBC 9.8 k/uL (3.8-10.6)
[2019-07-20 16:38] LABS: ALT 44 U/L (4-34); AST 32 U/L (14-36); African American GFR (CKD) >90 (>60 ml/min/1.73 sqM); Albumin 4.5 g/dL (3.5-5.0); Alkaline Phosphatase 148 U/L (38-126); Anion Gap 11 mmol/L; Blood Urea Nitrogen 15 mg/dL (7-17); Calcium 9.9 mg/dL (8.4-10.2); Carbon Dioxide 23 mmol/L (22-30); Chloride 103 mmol/L (98-107); Glucose 96 mg/dL (74-99); Non-African American GFR(CKD) >90 (>60 ml/min/1.73 sqM); Potassium 4.3 mmol/L (3.5-5.1); Sodium 137 mmol/L (137-145); Total Bilirubin 0.3 mg/dL (0.2-1.3); Total Protein 7.8 g/dL (6.3-8.2)
[2019-07-20] MEDS ORDERED: HYDROCORTISONE 1% CREAM 30 GM TUBE TOPICAL STA (17:31)
[2019-07-20 18:06] VITALS: BP 148/92; PULSE 94
== END 2019-07-20 18:06 | disposition home or self-care (01) ==
LOC: EC 14:12
DX: R21 Rash and other nonspecific skin eruption (principal); L98.9 Disorder of the skin and subcutaneous tissue, unspecified; F41.8 Other specified anxiety disorders; E07.9 Disorder of thyroid, unspecified; F17.200 Nicotine dependence, unspecified, uncomplicated; Z79.899 Other long term (current) drug therapy; Z79.890 Hormone replacement therapy; Z91.040 Latex allergy status; Z88.6 Allergy status to analgesic agent; Z88.5 Allergy status to narcotic agent; Z88.8 Allergy status to other drugs, medicaments and biological substances
CPT/HCPCS: 96374 ×2; 96375 ×4; 96361 ×3; 99283 ×2; 36415; 80053; 85025; J2060; J1200; J2930

== ENCOUNTER → 2019-08-21 | Outpatient (CLI) | payer OTHER ==
--- NOTE | 2019-08-21 11:10 | CT ---
EXAMINATION TYPE: CT abdomen pelvis wo con DATE OF EXAM: 08/21/2019 COMPARISON: 08/18/2017 INDICATION: right flank pain DLP: 1056 mGycm, Automated exposure control for dose reduction was used. CONTRAST: 0 mL of Isovue 300. Study performed without Oral Contrast TECHNIQUE: Axial images were obtained from above the diaphragm to the pubic rami in the axial plane a t 5 mm thick sections. Reconstructed images are reviewed on the computer in the coronal plane. FINDINGS: Limited CT sections are obtained the lung bases. The lung bases are clear. CT ABDOMEN: Liver: Normal Spleen: Normal Pancreas: Normal Adrenal glands: The adrenal glands are normal. Gallbladder: Normal Kidneys: No masses are evident. No hydronephrosis is present. There is a 2.8 cm cyst measuring -1 H [place] units. This has some wall calcification. Findings are suggestive for residual from a suspec tanvir hematoma or seroma of the right kidney. No suspicious renal collecting renal stones are evident. Aorta: Normal Inferior vena cava: Normal. CT PELVIS: Few small phleboliths are within the pelvis. Loops of bowel within the abdomen and pelvis are normal. There are loops of bowel which are incom pletely distended or lack oral contrast limiting their evaluation. Appendix: There appears to been a prior appendectomy. Correlate with surgical history. No suspicious dilated tubular structures or inflammatory changes are evident. Urinary bladder: Decompressed with limited evaluation Genitourinary structures: Uterus and adnexal regions are normal. Osseous structures: No suspicious lytic or sclerotic lesions. IMPRESSIONS: 1. Post hematoma cyst within the right kidney. 2. No renal or ureteral stones evident
== END | disposition home or self-care (01) ==
LOC: RADCTMAIN 10:29
PROVIDERS: ATTEND Urology
DX: N28.1 Cyst of kidney, acquired (principal)
CPT/HCPCS: 74176

== ENCOUNTER → 2019-08-29 | Outpatient (CLI) | payer OTHER ==
[2019-08-29 15:02] LABS: Basophils # (A) 0.1 k/uL (0-0.2); Basophils % (A) 1 %; Eosinophils # (A) 0.4 k/uL (0-0.7); Eosinophils % (A) 4 %; HCT 38.8 % (34.0-46.0); HGB 13.1 gm/dL (11.4-16.0); Lymphocytes # (A) 2.7 k/uL (1.0-4.8); Lymphocytes % (A) 28 %; MCH 29.7 pg (25.0-35.0); MCHC 33.8 g/dL (31.0-37.0); MCV 87.8 fL (80.0-100.0); Mean Platelet Volume 8.7; Monocytes # (A) 0.5 k/uL (0-1.0); Monocytes % (A) 5 %; Neutrophils # (A) 5.9 k/uL (1.3-7.7); Neutrophils % (A) 61 %; Platelet Count 276 k/uL (150-450); RBC 4.42 m/uL (3.80-5.40); RDW 13.5 % (11.5-15.5); WBC 9.7 k/uL (3.8-10.6)
[2019-08-30 00:48] LABS: African American GFR (CKD) 153.7 (60.0-200.0); Anion Gap 8.6 mmol/L (4.00-12.00); Calcium 9.3 mg/dL (8.7-10.3); Carbon Dioxide 24.4 mmol/L (21.6-31.8); Non-African American GFR(CKD) 132.6 (60.0-200.0); Potassium 3.9 mmol/L (3.5-5.5)
== END | disposition home or self-care (01) ==
LOC: LABWHC1 14:03
PROVIDERS: ATTEND Urology
DX: N28.89 Other specified disorders of kidney and ureter (principal)
CPT/HCPCS: 36415; 80048; 85025

== ENCOUNTER 2019-09-26 13:35 | Emergency (ER) | payer OTHER ==
[2019-09-26] MEDS ORDERED: ACETAMINOPHEN TAB 500 MG TAB PO STA (14:10)
[2019-09-26] MEDS ORDERED: MORPHINE SULFATE 4 MG/ML SYRINGE IV STA (14:11)
[2019-09-26] MEDS ORDERED: SODIUM CHLORIDE 0.9% 1,000 ML IV SCH (14:15)
--- NOTE | 2019-09-26 14:15 | ED ---
General Adult HPI - General Chief complaint: Fever Stated complaint: r back Pain/Fever Time Seen by Provider: 09/26/19 14:00 Source: patient Mode of arrival: ambulatory Limitations: no limitations - History of Present Illness Initial comments: Patient is a pleasant 29-year-old female presenting to the emergency Department with back pain and fever. Patient states she had kidney cyst removed around [address] Arnold. Patient states she also had stent placement. Patient states yesterday her discomfort started to increase and started getting fevers. Patient has had fatigue. No Tylenol since yesterday. Patient is having some mild dysuria. No abdominal pain. No cough or dyspnea. - Related Data Home Medications Medication Instructions Recorded Confirmed DULoxetine HCL [Cymbalta] 60 mg PO DAILY 07/20/19 07/20/19 Levothyroxine Sodium [Synthroid] 50 mcg PO DAILY 07/20/19 07/20/19 Multivitamins, Thera [Multivitamin 2 tab PO DAILY 07/20/19 07/20/19 (formulary)] Previous Rx's Medication Instructions Recorded Famotidine [Pepcid] 20 mg PO DAILY #5 tablet 07/20/19 predniSONE 50 mg PO DAILY #5 tablet 07/20/19 Sulfamethox-Tmp 800-160Mg [Bactrim 1 each PO Q12HR #20 tab 09/26/19 DS 800-160 mg] Allergies Allergy/AdvReac Type Severity Reaction Status Date / Time diphenhydramine HCl Allergy Throat Verified 09/26/19 13:49 [From Benadryl] Itches (with name brand Benadryl only) latex Allergy Rash/Hives Verified 09/26/19 13:49 hydrocodone bitartrate AdvReac Migraine Verified 09/26/19 13:49 [From Vicodin] Review of Systems ROS Statement: Those systems with pertinent positive or pertinent negative responses have been documented in the HPI. ROS Other: All systems not noted in ROS Statement are negative. Constitutional: Reports: fever, chills Eyes: Denies: eye pain ENT: Denies: ear pain Respiratory: Denies: cough, dyspnea Cardiovascular: Denies: chest pain Endocrine: Reports: fatigue Gastrointestinal: Denies: abdominal pain Genitourinary: Reports: dysuria Musculoskeletal: Reports: as per HPI Skin: Denies: rash Neurological: Denies: weakness Past Medical History Past Medical History: Asthma, Thyroid Disorder Additional Past Medical History / Comment(s): Hx of kidney and bladder infections, permanent upper retainer present. History of Any Multi-Drug Resistant Organisms: None Reported Past Surgical History: Appendectomy, Cholecystectomy, Tubal Ligation Additional Past Surgical History / Comment(s): Eye surgery x 5, right knee (foreign body removal), left hand wrist benign tumor removed. Past Anesthesia/Blood Transfusion Reactions: No Reported Reaction Past Psychological History: Anxiety, Depression Past Alcohol Use History: Occasional Past Drug Use History: None Reported - Past Family History Father Family Medical History: Hypertension Additional Family Medical History / Comment(s): Anxiety. Mother Family Medical History: Hypertension Additional Family Medical History / Comment(s): pt's mother and father high BP General Exam Limitations: no limitations General appearance: alert, in no apparent distress Head exam: Present: normocephalic Eye exam: Present: normal appearance Neck exam: Present: normal inspection Respiratory exam: Present: normal lung sounds bilaterally Cardiovascular Exam: Present: regular rate, normal rhythm Expanded Peripheral pulses: 2+: Dorsalis Pedis (R), Dorsalis Pedis (L) GI/Abdominal exam: Present: soft. Absent: tenderness Extremities exam: Present: normal inspection. Absent: pedal edema, calf tenderness Back exam: Present: CVA tenderness (R) Neurological exam: Present: alert Psychiatric exam: Present: normal affect, normal mood Skin exam: Present: normal color Course Vital Signs 09/26/19 09/26/19 13:47 15:48 Temperature 100.2 F H 99.3 F Pulse Rate 107 H 94 Respiratory 16 18 Rate Blood Pressure 126/83 126/84 O2 Sat by Pulse 98 98 Oximetry Medical Decision Making - Medical Decision Making Patient reevaluated and improved. Patient states discomfort is mild to moderate. Patient updated on results. Case discussed with Dr. Coles who recommends a dose of Rocephin and Bactrim for discharge, call Dr. Arnold tomorrow. Patient updated and agreeable. - Lab Data Result diagrams: 09/26/19 14:40 09/26/19 14:40 Lab Results 09/26/19 09/26/19 09/26/19 Range/Units 14:40 14:40 14:40 WBC 8.5 (3.8-10.6) k/uL RBC 4.21 (3.80-5.40) m/uL Hgb 12.6 (11.4-16.0) gm/dL Hct 36.9 (34.0-46.0) % MCV 87.7 (80.0-100.0) fL MCH 29.9 (25.0-35.0) pg MCHC 34.1 (31.0-37.0) g/dL RDW 13.2 (11.5-15.5) % Plt Count 268 (150-450) k/uL Neutrophils % 75 % Lymphocytes % 17 % Monocytes % 5 % Eosinophils % 2 % Basophils % 0 % Neutrophils # 6.4 (1.3-7.7) k/uL Lymphocytes # 1.4 (1.0-4.8) k/uL Monocytes # 0.5 (0-1.0) k/uL Eosinophils # 0.1 (0-0.7) k/uL Basophils # 0.0 (0-0.2) k/uL PT 9.9 (9.0-12.0) sec INR 0.9 (<1.2) APTT 26.5 (22.0-30.0) sec Sodium 136 L (137-145) mmol/L Potassium 4.3 (3.5-5.1) mmol/L Chloride 105 (98-107) mmol/L Carbon Dioxide 25 (22-30) mmol/L Anion Gap 6 mmol/L BUN 9 (7-17) mg/dL Creatinine 0.53 (0.52-1.04) mg/dL Est GFR (CKD-EPI)AfAm >90 (>60 ml/min/1.73 sqM) Est GFR (CKD-EPI)NonAf >90 (>60 ml/min/1.73 sqM) Glucose 96 (74-99) mg/dL Plasma Lactic Acid Jemal (0.7-2.0) mmol/L Calcium 8.9 (8.4-10.2) mg/dL Total Bilirubin 0.7 (0.2-1.3) mg/dL AST 25 (14-36) U/L ALT 28 (4-34) U/L Alkaline Phosphatase 105 (38-126) U/L Total Protein 7.0 (6.3-8.2) g/dL Albumin 4.1 (3.5-5.0) g/dL Urine Color Urine Appearance (Clear) Urine pH (5.0-8.0) Ur Specific [place] (1.001-1.035) Urine Protein (Negative) Urine Glucose (UA) (Negative) Urine Ketones (Negative) Urine Blood (Negative) Urine Nitrite (Negative) Urine Bilirubin (Negative) Urine Urobilinogen (<2.0) mg/dL Ur Leukocyte Esterase (Negative) Urine RBC (0-5) /hpf Urine WBC (0-5) /hpf Urine WBC Clumps (None) /hpf Ur Squamous Epith Cells (0-4) /hpf Urine Bacteria (None) /hpf Urine Mucus (None) /hpf Urine HCG, Qual (Not Detectd) 09/26/19 09/26/19 09/26/19 Range/Units 14:40 14:59 14:59 WBC (3.8-10.6) k/uL RBC (3.80-5.40) m/uL Hgb (11.4-16.0) gm/dL Hct (34.0-46.0) % MCV (80.0-100.0) fL MCH (25.0-35.0) pg MCHC (31.0-37.0) g/dL RDW (11.5-15.5) % Plt Count (150-450) k/uL Neutrophils % % Lymphocytes % % Monocytes % % Eosinophils % % Basophils % % Neutrophils # (1.3-7.7) k/uL Lymphocytes # (1.0-4.8) k/uL Monocytes # (0-1.0) k/uL Eosinophils # (0-0.7) k/uL Basophils # (0-0.2) k/uL PT (9.0-12.0) sec INR (<1.2) APTT (22.0-30.0) sec Sodium (137-145) mmol/L Potassium (3.5-5.1) mmol/L Chloride (98-107) mmol/L Carbon Dioxide (22-30) mmol/L Anion Gap mmol/L BUN (7-17) mg/dL Creatinine (0.52-1.04) mg/dL Est GFR (CKD-EPI)AfAm (>60 ml/min/1.73 sqM) Est GFR (CKD-EPI)NonAf (>60 ml/min/1.73 sqM) Glucose (74-99) mg/dL Plasma Lactic Acid Jemal 0.7 (0.7-2.0) mmol/L Calcium (8.4-10.2) mg/dL Total Bilirubin (0.2-1.3) mg/dL AST (14-36) U/L ALT (4-34) U/L Alkaline Phosphatase (38-126) U/L Total Protein (6.3-8.2) g/dL Albumin (3.5-5.0) g/dL Urine Color Yellow Urine Appearance Turbid H (Clear) Urine pH 6.0 (5.0-8.0) Ur Specific [place] 1.015 (1.001-1.035) Urine Protein Trace H (Negative) Urine Glucose (UA) Negative (Negative) Urine Ketones Negative (Negative) Urine Blood Moderate H (Negative) Urine Nitrite Negative (Negative) Urine Bilirubin Negative (Negative) Urine Urobilinogen <2.0 (<2.0) mg/dL Ur Leukocyte Esterase Large H (Negative) Urine RBC 34 H (0-5) /hpf Urine WBC >182 H (0-5) /hpf Urine WBC Clumps Many H (None) /hpf Ur Squamous Epith Cells 2 (0-4) /hpf Urine Bacteria Rare H (None) /hpf Urine Mucus Many H (None) /hpf Urine HCG, Qual Not Detected (Not Detectd) - Radiology Data Radiology results: image reviewed (KUB shows stent placed. Chest x-ray shows no acute process.) Disposition Clinical Impression: UTI (urinary tract infection) Disposition: HOME SELF-CARE Condition: Stable Instructions (If sedation given, give patient instructions): Fever in Adults (ED), Urinary Tract Infection in Women (ED) Additional Instructions: Please call Dr. Heaton tomorrow for close follow-up. Continue [id number] Tylenol or Motrin as needed. Return for increased fevers, pain, persistent vomiting, worsening symptoms or other concerns. Prescription sent to [facility] Prescriptions: Sulfamethox-Tmp 800-160Mg [Bactrim DS 800-160 mg] 1 each PO Q12HR #20 tab Is patient prescribed a controlled substance at d/c from ED?: No Referrals: Chase Cintron MD [Primary Care Provider] - 1-2 days Nestor Heaton MD [STAFF PHYSICIAN] - 1-2 days Time of Disposition: 16:35
[2019-09-26 14:58] LABS: Basophils % (A) 0 %; Eosinophils # (A) 0.1 k/uL (0-0.7); Eosinophils % (A) 2 %; HCT 36.9 % (34.0-46.0); HGB 12.6 gm/dL (11.4-16.0); Lymphocytes # (A) 1.4 k/uL (1.0-4.8); Lymphocytes % (A) 17 %; MCH 29.9 pg (25.0-35.0); MCHC 34.1 g/dL (31.0-37.0); MCV 87.7 fL (80.0-100.0); Monocytes # (A) 0.5 k/uL (0-1.0); Monocytes % (A) 5 %; Neutrophils # (A) 6.4 k/uL (1.3-7.7); Neutrophils % (A) 75 %; Platelet Count 268 k/uL (150-450); RBC 4.21 m/uL (3.80-5.40); RDW 13.2 % (11.5-15.5); WBC 8.5 k/uL (3.8-10.6)
[2019-09-26 15:06] LABS: INR 0.9 (<1.2); Partial Thromboplastin Time 26.5 sec (22.0-30.0); Prothrombin Time 9.9 sec (9.0-12.0)
[2019-09-26 15:09] LABS: ALT 28 U/L (4-34); AST 25 U/L (14-36); African American GFR (CKD) >90 (>60 ml/min/1.73 sqM); Albumin 4.1 g/dL (3.5-5.0); Alkaline Phosphatase 105 U/L (38-126); Anion Gap 6 mmol/L; Blood Urea Nitrogen 9 mg/dL (7-17); Calcium 8.9 mg/dL (8.4-10.2); Carbon Dioxide 25 mmol/L (22-30); Chloride 105 mmol/L (98-107); Glucose 96 mg/dL (74-99); Non-African American GFR(CKD) >90 (>60 ml/min/1.73 sqM); Potassium 4.3 mmol/L (3.5-5.1); Sodium 136 mmol/L (137-145); Total Bilirubin 0.7 mg/dL (0.2-1.3)
[2019-09-26 15:13] LABS: Appearance,Urine Turbid (Clear); Bacteria,Urine Rare /hpf; Bilirubin,Urine Negative (Negative); Blood,Urine Moderate (Negative); Color,Urine Yellow; Glucose,Urine (UA) Negative (Negative); Ketones,Urine Negative (Negative); Leukocyte Esterase,Urine Large (Negative); Mucus,Urine Many /hpf; Nitrite,Urine Negative (Negative); Protein,Urine Trace (Negative); RBC,Urine 34 /hpf (0-5); Specific Gravity,Urine 1.015 (1.001-1.035); Squamous Epithelial Cell,Urine 2 /hpf (0-4); Urobilinogen,Urine <2.0 mg/dL (<2.0); WBC,Urine >182 /hpf (0-5)
--- NOTE | 2019-09-26 15:47 | XR ---
EXAMINATION TYPE: XR chest 2V DATE OF EXAM: 09/26/2019 COMPARISON: Chest radiograph 11/21/2016 HISTORY: Fever TECHNIQUE: Frontal and lateral views of the chest are obtained. FINDINGS: There is no focal air space opacity, pleural effusion, or pneumothorax seen. The cardiac silhouette size is within normal limits. The osseous structures are intact. IMPRESSION: No acute cardiopulmonary process.
[2019-09-26 15:48] VITALS: RESP 18; TEMP 99.3
--- NOTE | 2019-09-26 15:53 | XR ---
EXAMINATION TYPE: XR abdomen 1V DATE OF EXAM: 09/26/2019 3:28 PM CLINICAL HISTORY: Right-sided flank pain. Status post right renal cyst removal and ureteral stent pl acement approximately 3 weeks ago. TECHNIQUE: 2 upright images of the abdomen and pelvis were obtained. COMPARISON: Abdominal radiograph 09/08/2017 FINDINGS: Right-sided ureteral stent with proximal loop coiled over the right renal shadow and distal loop coiled over the expected location of the urinary bladder. Right lower quadrant surgical clips. Tubal ligation clips overlying the pelvis. Pelvic phleboliths. Scattered gas is seen in non-distended small bowel loops. Gas and fecal material is seen in non-distended colon. There is no visceromegaly, pneumoperitoneum, or abnormal calcification appreciated. The lung bases are clear and the osseous st ructures are intact. IMPRESSION: 1. Expected radiographic appearance of right-sided ureteral stent. 2. Nonobstructive bowel gas pattern. 3. No pneumoperitoneum.
[2019-09-26] MEDS ORDERED: cefTRIAXone IN SWFI 1,000 MG/10 ML SYRINGE IVP STA (16:31)
[2019-09-26] MEDS ORDERED: ACET/COD 300 MG/30 MG STARTER PACK 6 TAB BTL PO STA (16:36)
[2019-09-26 17:08] VITALS: BP 128/87; PULSE 89
[2019-09-26] MEDS ORDERED: KETOROLAC 30 MG/ML 1 ML VIAL IVP STA (17:18)
== END 2019-09-26 17:26 | disposition home or self-care (01) ==
LOC: EC 13:35
DX: N39.0 Urinary tract infection, site not specified (principal); F41.9 Anxiety disorder, unspecified; F32.9 Major depressive disorder, single episode, unspecified; E07.9 Disorder of thyroid, unspecified; Z79.899 Other long term (current) drug therapy; Z79.890 Hormone replacement therapy; Z88.5 Allergy status to narcotic agent; Z88.8 Allergy status to other drugs, medicaments and biological substances; Z91.040 Latex allergy status
CPT/HCPCS: 36415; 80053; 83605; 85025; 85610; 85730; 81001; 81025; 87040; 87086; 71046; 74018; 99284; 96374; 96375 ×2; 96361 ×3; J2270; J0696; J1885; 87077; 87186

== ENCOUNTER → 2019-11-04 | Outpatient (CLI) | payer OTHER ==
[2019-11-04 14:36] LABS: African American GFR (CKD) >90 (>60 ml/min/1.73 sqM); Blood Urea Nitrogen 15 mg/dL (7-17); Non-African American GFR(CKD) >90 (>60 ml/min/1.73 sqM)
--- NOTE | 2019-11-04 16:13 | CT ---
EXAMINATION TYPE: CT abdomen w con DATE OF EXAM: 11/04/2019 COMPARISON: 08/21/2019 INDICATION: right flank pain DLP: 1343.6 mGycm, Automated exposure control for dose reduction was used. CONTRAST: 100 mL of Isovue 300. Study performed without Oral Contrast TECHNIQUE: Axial images were obtained from above the diaphragm to the pubic rami in the axial plane a t 5 mm thick sections. Reconstructed images are reviewed on the computer in the coronal plane. FINDINGS: Limited CT sections are obtained the lung bases. The lung bases are clear. CT ABDOMEN: Liver: Normal Spleen: Normal Pancreas: Normal Adrenal glands: The adrenal glands are normal. Gallbladder: Surgically absent Kidneys: No masses are evident. Right renal cortical calcification is present. Some mild malrotation of the right kidney appears to be present. No hydronephrosis is present. Previous right renal cyst is not identified. Delayed images were obtained through the kidneys. Aorta: Vascular calcification is within the aorta. Inferior vena cava: Normal. Lymphadenopathy: Note is made of some right lower quadrant and right flank mesenteric lymphadenopathy . Correlate for mesenteric adenitis. Largest lymph node has a transverse dimension 1.3 cm. IMPRESSIONS: 1. Previous right renal cyst not identified. Some calcification within the right renal cortex remain s present. 2. Correlation recommended for mesenteric adenitis within the right midabdomen.
== END | disposition home or self-care (01) ==
LOC: RADCTMAIN 14:00
PROVIDERS: ATTEND Urology
DX: N28.89 Other specified disorders of kidney and ureter (principal); Z91.041 Radiographic dye allergy status; Z88.8 Allergy status to other drugs, medicaments and biological substances; Z88.5 Allergy status to narcotic agent
CPT/HCPCS: 82565; 84520; 74160; 36415; Q9967

== ENCOUNTER → 2019-12-03 | Outpatient (CLI) | payer OTHER | END | disposition home or self-care (01) | LOC: LABWHC1 09:27 | PROVIDERS: ATTEND Family Medicine | DX: R06.02 Shortness of breath (principal) | CPT/HCPCS: U0003; C9803 ==

== ENCOUNTER → 2020-01-28 | Outpatient (CLI) | payer OTHER | END | disposition home or self-care (01) | LOC: LABWHC1 09:57 | PROVIDERS: ATTEND Family Medicine | DX: R09.81 Nasal congestion (principal); R51.9 Headache, unspecified; J06.9 Acute upper respiratory infection, unspecified | CPT/HCPCS: U0003; C9803 ==

== ENCOUNTER → 2020-11-11 | Outpatient (CLI) | payer OTHER ==
--- NOTE | 2020-11-11 15:19 | XR ---
Lumbar spine HISTORY: M 56.5 Frontal and lateral views of the lumbar spine on 3 images Correlation to prior exam 10/21/2016 Lumbar vertebral bodies show stable height, alignment, and bone mineralization. Disc spaces are uncha nged. Postop changes are noted in the pelvis and right hemiabdomen. There is a mild spinal curvature. IMPRESSION: Stable exam, no fracture or subluxation. Consider MRI for better evaluation.
== END | disposition home or self-care (01) ==
LOC: RADXRMAIN 10:23
PROVIDERS: ATTEND Family Medicine
DX: M54.5 Low back pain (principal)
CPT/HCPCS: 72100

== ENCOUNTER → 2020-11-20 | Outpatient (CLI) | payer OTHER ==
--- NOTE | 2020-11-20 14:04 | CT ---
EXAMINATION TYPE: CT brain w con DATE OF EXAM: 11/20/2020 COMPARISON: none HISTORY: Memory loss, Migraines, Neurologic disorder CT DLP: 1135 mGycm Automated exposure control for dose reduction was used. CONTRAST: CT scan of the head is performed with IV Contrast, patient injected with 100 mL of Isovue 300. FINDINGS: There is no abnormal enhancing mass or midline shift identified. The ventricles and sulci are within normal limits in size. The globes are intact and the visualized sinuses are clear. IMPRESSION: Negative contrast enhanced head CT exam.
== END | disposition home or self-care (01) ==
LOC: RADCTMAIN 12:50
PROVIDERS: ATTEND Family Medicine
DX: R41.3 Other amnesia (principal); G43.909 Migraine, unspecified, not intractable, without status migrainosus; R29.818 Other symptoms and signs involving the nervous system
CPT/HCPCS: 70460; Q9967

== ENCOUNTER → 2020-12-24 | Outpatient (CLI) | payer OTHER ==
--- NOTE | 2020-12-24 10:11 | CT ---
EXAMINATION TYPE: CT abdomen pelvis wo con DATE OF EXAM: 12/24/2020 HISTORY: kidney pain, history of stones and renal cysts CT DLP: 1176.9 mGycm. Automated Exposure Control for Dose Reduction was Utilized. TECHNIQUE: CT scan of the abdomen and pelvis is performed without oral or IV contrast. COMPARISON: CT abdomen November 04, 2019 and older CTs FINDINGS: Within the limitations of a non-contrast study, the following observations are made. LUNG BASES: Mild bibasilar linear scarring and/or atelectasis. There is 8 x 5 mm subpleural nodule or nodular atelectasis left lung base axial image 20. In this patient under 30 years age, latter is str ongly favored. LIVER/GB: Cholecystectomy clips are redemonstrated. PANCREAS: No significant abnormality is seen. SPLEEN: No significant abnormality is seen. ADRENALS: No significant abnormality is seen. KIDNEYS: No left-sided renal calculi. Right kidney shows peripheral calcifications with nonvisualized prior oval low dense lesion laterally mid pole level. Some deeper punctate calcifications or calculi are redemonstrated up to 5 mm in size, approximately 3-4 calcifications or calculi are felt present. No right-sided hydronephrosis. BOWEL: Surgical changes from appendectomy at base of cecum are redemonstrated.. GENITAL ORGANS: Anteverted uterus. Tubal ligation clips along the periphery are redemonstrated. LYMPH NODES: No greater than 1cm abdominal or pelvic lymph nodes are appreciated. OSSEOUS STRUCTURES: No significant abnormality is seen. OTHER: No significant additional abnormality is seen. IMPRESSION: Suspected spontaneous rupture of cystic lesion or calyceal diverticulum if there has been no percutaneous or surgical intervention between August and October. Some central and peripheral calcif ications remain present at midpole level right kidney. No hydronephrosis or new suspicious lesions on noncontrast CT.
== END | disposition home or self-care (01) ==
LOC: RADCTMAIN 09:26
PROVIDERS: ATTEND Urology
DX: N28.89 Other specified disorders of kidney and ureter (principal)
CPT/HCPCS: 74176

== ENCOUNTER 2020-12-27 03:51 | Emergency (ER) | payer OTHER ==
[2020-12-27 04:02] VITALS: BP 134/80; PULSE 110; RESP 18; TEMP 98.5
[2020-12-27] MEDS ORDERED: IBUPROFEN 400 MG TAB PO STA (04:46)
--- NOTE | 2020-12-27 04:54 | XR ---
EXAMINATION TYPE: XR ankle complete bilateral DATE OF EXAM: 12/27/2020 COMPARISON: NONE HISTORY: Trauma. Pain. TECHNIQUE: 3 views each ankle FINDINGS: There is no evidence of fracture nor dislocation. Joint spaces are normal. There is no path ologic calcification. Left and right ankle mortise appear intact. IMPRESSION: Negative bilateral ankle exam. No fracture.
--- NOTE | 2020-12-27 04:56 | XR ---
EXAMINATION TYPE: XR foot complete bilateral DATE OF EXAM: 12/27/2020 COMPARISON: NONE HISTORY: Jumped out of a car. Pain. TECHNIQUE: 3 views each foot FINDINGS: I see no fracture nor dislocation. Joint spaces are normal. Metatarsals are intact. Soft ti ssues appear normal. IMPRESSION: Negative bilateral foot exam. No fracture.
[2020-12-27] MEDS ORDERED: traMADol 50 MG STARTER PACK 3 TAB BTL PO STA (05:12)
--- NOTE | 2021-02-23 16:30 | ED ---
Lower Extremity Injury HPI - General Chief Complaint: Extremity Injury, Lower Stated Complaint: Injured Both Feet Time Seen by Provider: 12/27/20 04:00 Source: patient Mode of arrival: wheelchair - History of Present Illness Initial Comments: Patient is 30-year-old woman who presents for possible injury to the ankle and feet. She had jumped on for a platform and then began experiencing pain. She is able to bear some weight. MD Complaint: ankle injury, foot injury -: hour(s) Injury: Ankle: Right, Left, Foot: Right, Left Type of Injury: blunt Place: other Severity: moderate Improves With: nothing Worsens With: weight bearing Context: jumping - Related Data Home Medications Medication Instructions Recorded Confirmed Levothyroxine Sodium [Synthroid] 50 mcg PO QAM 07/20/19 02/16/21 Venlafaxine HCl [Effexor XR] 75 mg PO QAM 12/28/20 02/16/21 Cyclobenzaprine [Flexeril] 5 mg PO BID PRN 01/29/21 02/16/21 Ergocalciferol [Vitamin D2 (1250 1,250 mcg PO MO 01/29/21 02/16/21 Mcg = 62468 Iu)] hydrOXYzine HCL 25 mg PO DAILY PRN 02/16/21 02/16/21 Previous Rx's Medication Instructions Recorded Ketorolac [Toradol] 10 mg PO Q6HR PRN #12 tab 02/05/21 Allergies Allergy/AdvReac Type Severity Reaction Status Date / Time diphenhydramine HCl Allergy Throat Verified 02/18/21 09:17 [From Benadryl] Itches (with name brand Benadryl only) latex Allergy Rash/Hives Verified 02/18/21 09:17 hydrocodone bitartrate AdvReac Migraine Verified 02/18/21 09:17 [From Vicodin] Review of Systems ROS Statement: Those systems with pertinent positive or pertinent negative responses have been documented in the HPI. ROS Other: All systems not noted in ROS Statement are negative. Constitutional: Denies: weakness Cardiovascular: Denies: chest pain Gastrointestinal: Denies: abdominal pain Musculoskeletal: Reports: as per HPI, arthralgia. Denies: back pain Skin: Denies: rash Past Medical History Past Medical History: Asthma, Thyroid Disorder Additional Past Medical History / Comment(s): Hx of kidney and bladder infections, permanent upper retainer present. History of Any Multi-Drug Resistant Organisms: ESBL Date of last positivie culture/infection: 05/06/20 MDRO Source:: ESBL URINE Past Surgical History: Appendectomy, Cholecystectomy, Tubal Ligation Additional Past Surgical History / Comment(s): Eye surgery x 5, right knee (foreign body removal), left hand wrist benign tumor removed. Past Anesthesia/Blood Transfusion Reactions: No Reported Reaction Past Psychological History: Anxiety, Depression Smoking Status: Never smoker Past Alcohol Use History: Occasional Past Drug Use History: None Reported - Past Family History Father Family Medical History: Hypertension Additional Family Medical History / Comment(s): Anxiety. Mother Family Medical History: Hypertension Additional Family Medical History / Comment(s): pt's mother and father high BP General Exam General appearance: alert, in no apparent distress Cardiovascular Exam: Present: other (Normal capillary refill and dorsalis pedis pulses.) Extremities exam: Present: normal inspection, full ROM, tenderness, normal capillary refill. Absent: pedal edema, calf tenderness Neurological exam: Present: alert. Absent: motor sensory deficit Skin exam: Present: warm, dry, intact, normal color. Absent: rash Course Vital Signs 12/27/20 03:59 Temperature 98.5 F Pulse Rate 110 H Respiratory 18 Rate Blood Pressure 134/80 O2 Sat by Pulse 98 Oximetry Disposition Clinical Impression: Foot sprain Disposition: HOME SELF-CARE Condition: Good Is patient prescribed a controlled substance at d/c from ED?: No Referrals: Salas Hernandez [Primary Care Provider] - 1-2 days
== END 2020-12-27 05:28 | disposition home or self-care (01) ==
LOC: EC 03:51
DX: S93.602A Unspecified sprain of left foot, initial encounter (principal); S93.601A Unspecified sprain of right foot, initial encounter; J45.909 Unspecified asthma, uncomplicated; F32.A Depression, unspecified; F41.9 Anxiety disorder, unspecified; Z79.890 Hormone replacement therapy; Z79.899 Other long term (current) drug therapy; X58.XXXA Exposure to other specified factors, initial encounter
CPT/HCPCS: 99283

== ENCOUNTER → 2020-12-28 | Outpatient (CLI) | payer OTHER ==
[2020-12-28 14:20] VITALS: BP 141/78; PULSE 76; RESP 16; TEMP 98.4; BMI 39.4
[2020-12-28 15:24] LABS: HCT 34.2 % (34.0-46.0); HGB 11.9 gm/dL (11.4-16.0); MCH 31.2 pg (25.0-35.0); MCHC 34.8 g/dL (31.0-37.0); MCV 89.7 fL (80.0-100.0); Mean Platelet Volume 8.6; Platelet Count 260 k/uL (150-450); RBC 3.81 m/uL (3.80-5.40); RDW 13.5 % (11.5-15.5); WBC 9.3 k/uL (3.8-10.6)
[2020-12-28 21:23] LABS: African American GFR (CKD) 150.7 (60.0-200.0); Albumin 4.3 g/dL (3.8-4.9); Albumin/Globulin Ratio 1.72 (1.60-3.17); Anion Gap 10.7 mmol/L (4.00-12.00); BUN/Creat Ratio 17.92 Ratio (12.00-20.00); Blood Urea Nitrogen 9.3 mg/dL (9.0-27.0); Calcium 9.1 mg/dL (8.7-10.3); Carbon Dioxide 24.8 mmol/L (21.6-31.8); Folate, Serum 10.2 ng/mL (4.40-31.00); Globulin 2.5 g/dL (1.6-3.3); Potassium 4.1 mmol/L (3.5-5.5); Total Bilirubin 0.2 mg/dL (0.30-1.20); Total Protein 6.9 g/dL (6.2-8.2)
--- NOTE | 2021-01-21 19:12 | P.HPBAR ---
Bariatric H&P - History & Physicial H&P Date: 12/28/20 History & Physicial: Visit/CC: initial visit Patient initial contact: Initial weight: 107.7 kg Initial weight in pounds: 237.44 Height: 5 ft 5 in Initial BMI: 39.4 Last weight: Current weight: 107.7 kg Current weight in pounds: 237.44 Current BMI: 39.4 Olivia body weight (based on NIH guidelines): 56.699 kg Excess body weight loss: 0.0% The patient is a 30 year-old F who presents for Bariatric Assessment. Patient presents today for initial consultation. She is interested in sleeve gastrectomy. She's had lifetime problems obesity. Her BMI is 40. Past Medical History Past Medical History: Asthma, Thyroid Disorder Additional Past Medical History / Comment(s): Hx of kidney and bladder infections, permanent upper retainer present. History of Any Multi-Drug Resistant Organisms: ESBL Year Discovered:: 05/06/20 MDRO Source:: ESBL URINE Past Surgical History: Appendectomy, Cholecystectomy, Tubal Ligation Additional Past Surgical History / Comment(s): Eye surgery x 5, right knee (foreign body removal), left hand wrist benign tumor removed. Past Anesthesia/Blood Transfusion Reactions: No Reported Reaction Smoking Status: Never smoker - Past Family History Father Family Medical History: Hypertension Additional Family Medical History / Comment(s): Anxiety. Mother Family Medical History: Hypertension Additional Family Medical History / Comment(s): pt's mother and father high BP Surgical - Exam Vital Signs Temp Pulse Resp BP 98.4 F 76 16 141/78 12/28/20 14:16 12/28/20 14:16 12/28/20 14:16 12/28/20 14:16 - General well developed, well nourished, no distress - Eyes PERRL - ENT normal pinna - Neck no masses - Respiratory normal expansion - Cardiovascular Rhythm: regular - Abdomen Abdomen: soft, non tender Results - Labs 12/28/20 14:24 12/28/20 14:24 Bariatric Assessment & Plan Plan: Morbid obesity. Patient will be scheduled for EGD. She will follow-up after was performed. Bariatric Checklist Checklist: Plan: Checklist: EGD: 1. Hiatal hernia: 2. H. Pylori: HgbA1c: Vitamin D: Smoking: Current every day smoker Primary care physician referral: Psychiatry clearance: Cardiology clearance: Sleep study: Diet journal: VTE risk score: VTE risk level: Rehab needs at discharge:
== END ==
LOC: BARWHC3 13:31
PROVIDERS: ATTEND Surgery
DX: E66.01 Morbid (severe) obesity due to excess calories (principal); J45.909 Unspecified asthma, uncomplicated; F17.200 Nicotine dependence, unspecified, uncomplicated; Z68.39 Body mass index [BMI] 39.0-39.9, adult; Z91.040 Latex allergy status; Z88.5 Allergy status to narcotic agent; Z88.8 Allergy status to other drugs, medicaments and biological substances
CPT/HCPCS: 84425; 80053; 82607; 82746; 85027; 82306; 83036; 93005; 36415; G0463; 99203

== ENCOUNTER → 2021-02-01 | Outpatient (CLI) | payer OTHER ==
[2021-02-01 15:46] LABS: Basophils # (A) 0.1 k/uL (0-0.2); Basophils % (A) 1 %; Eosinophils # (A) 0.2 k/uL (0-0.7); Eosinophils % (A) 2 %; HCT 39.2 % (34.0-46.0); HGB 12.9 gm/dL (11.4-16.0); Lymphocytes # (A) 2.8 k/uL (1.0-4.8); Lymphocytes % (A) 26 %; MCH 29.4 pg (25.0-35.0); MCHC 32.9 g/dL (31.0-37.0); MCV 89.5 fL (80.0-100.0); Monocytes # (A) 0.5 k/uL (0-1.0); Monocytes % (A) 5 %; Neutrophils # (A) 6.9 k/uL (1.3-7.7); Neutrophils % (A) 64 %; Platelet Count 271 k/uL (150-450); RBC 4.38 m/uL (3.80-5.40); RDW 13.2 % (11.5-15.5); WBC 10.8 k/uL (3.8-10.6)
[2021-02-01 15:54] LABS: African American GFR (CKD) >90 (>60 ml/min/1.73 sqM); Anion Gap 10 mmol/L; Blood Urea Nitrogen 10 mg/dL (7-17); Calcium 9.2 mg/dL (8.4-10.2); Carbon Dioxide 22 mmol/L (22-30); Chloride 104 mmol/L (98-107); Glucose 81 mg/dL (74-99); Non-African American GFR(CKD) >90 (>60 ml/min/1.73 sqM); Potassium 4.4 mmol/L (3.5-5.1); Sodium 136 mmol/L (137-145)
== END | disposition home or self-care (01) ==
LOC: LABPAT 12:46
PROVIDERS: ATTEND Urology
DX: Z01.812 Encounter for preprocedural laboratory examination (principal); N20.0 Calculus of kidney
CPT/HCPCS: 36415; 80048; 85025

== ENCOUNTER 2021-02-05 09:05 | Day surgery (SDC) | payer OTHER ==
[2021-01-29 14:47] VITALS: BMI 41.1
--- NOTE | 2021-02-01 06:51 | P.GSHP ---
History of Present Illness H&P Date: 01/31/21 Chief Complaint: Right flank pain The patient is a 30-year-old white female who presented in 2016 with a 1.2 cm right renal calculus. At the time of ureteroscopy, it was determined that the calculus was located within a mid pole calyceal diverticulum. The narrowed infundibulum was incised with the Holmium laser and the calculus was fragmented. The majority of the calculus fragments were removed via stone basketing. She presented back with right flank pain in August 2019. 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 She underwent cystoscopy, right ureteroscopy with laser infundibulotomy, and fulguration of the calyceal diverticulum. She recently presented back with right flank pain. Computed tomography scan currently shows that the calyceal diverticulum is essentially gone, but there are 2 small calcifications remaining within it. Small right renal peripheral calcifications are also seen, the significance of which is unclear. - Constitutional Constitutional: Denies chills, Denies fever - Genitourinary (Female) Genitourinary: Reports flank pain, Reports hematuria, Denies dysuria Past Medical History Past Medical History: Asthma, Eye Disorder, Thyroid Disorder Additional Past Medical History / Comment(s): Hx of kidney and bladder infections, permanent upper retainer present. 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 Past Anesthesia/Blood Transfusion Reactions: No Reported Reaction Smoking Status: Current every day smoker - Past Family History Father Family Medical History: Hypertension Additional Family Medical History / Comment(s): Anxiety. Mother Family Medical History: Hypertension Additional Family Medical History / Comment(s): pt's mother and father high BP Medications and Allergies Home Medications Medication Instructions Recorded Confirmed Type Levothyroxine Sodium [Synthroid] 50 mcg PO DAILY 07/20/19 01/29/21 History Multivitamins, Thera [Multivitamin 2 tab PO DAILY 07/20/19 01/29/21 History (formulary)] Venlafaxine HCl [Effexor XR] 75 mg PO BID 12/28/20 01/29/21 History Albuterol Sulfate [Proair Hfa] 1 - 2 puff INHALATION Q6HR PRN 01/29/21 01/29/21 History Cyclobenzaprine [Flexeril] 10 mg PO TID PRN 01/29/21 01/29/21 History Ergocalciferol [Vitamin D2 (1250 1,250 mcg PO MO 01/29/21 01/29/21 History Mcg = 17073 Iu)] SUMAtriptan succinate [Imitrex] 25 mg PO ONCE PRN 01/29/21 01/29/21 History Allergies Allergy/AdvReac Type Severity Reaction Status Date / Time diphenhydramine HCl Allergy Throat Verified 01/29/21 14:34 [From Benadryl] Itches (with name brand Benadryl only) latex Allergy Rash/Hives Verified 01/29/21 14:34 hydrocodone bitartrate AdvReac Migraine Verified 01/29/21 14:34 [From Vicodin] Surgical - Exam - General well developed, well nourished, no distress - Respiratory normal respiratory effort - Abdomen Abdomen: soft, tender (Right CVA tenderness), no guarding, no rigid, no rebound - Psychiatric oriented to time, oriented to person, oriented to place, speech is normal, memory intact Results - Imaging CT scan - abdomen: report reviewed, image reviewed Assessment and Plan (1) Nephrolithiasis Status: Acute Code(s): N20.0 - CALCULUS OF KIDNEY SNOMED Code(s): 99587810 Plan: Cystoscopy, right ureteroscopy with Holmium laser lithotripsy and stone basketing, right ureteral stent insertion. The gallbladder be to remove the 2 small calculus fragments intact, hopefully leaving no residual fragments behind. However, the patient is aware of the possibility that due to scarring these calculus fragments may not be located. She is also aware that her pain may persist despite successful removal of these calculi. She understands potential risks to include anesthesia, bleeding, infection, ureteral injury, and urinary leak.
[~2021-02-05 09:05] MED LIST changes: -DEXAMETHASONE SOD PHOSPHATE 10 MG/ML 1 ML VIAL IV ONE; +LACTATED RINGERS 1,000 ML IV SCH; +LIDOCAINE 1% (10MG/ML) FOR IV START INTRADERMA PRN; -LIDOCAINE 1% 20 ML VIAL (10MG/ML) FOR IV START INTRADERMA PRN; -MIDAZOLAM 2 MG/2 ML VIAL IV PRN; -ONDANSETRON 4 MG/2 ML VIAL IVP ONE; -Pre Op ABX Message 1 EACH MISC MISCELLANE ONE; -fentaNYL (PF) 50 MCG/ML 2 ML AMP IV PRN
--- NOTE | 2021-02-05 09:21 | XR ---
EXAMINATION TYPE: XR KUB DATE OF EXAM: 02/05/2021 Comparison: 09/08/2017 Clinical History: 30-year-old female presurgical for right-sided KIDNEY STONES Findings: Multiple surgical clips in the right side of the abdomen. Bilateral tubal ligation clips. Small pelvi c phleboliths. Possible small 3 mm calcification right mid abdomen. Nonobstructive bowel gas pattern. Mild stool burden. Impression: Subtle 3 mm right renal calculus. Surgical clips at the right lower quadrant.
[2021-02-05] MEDS ORDERED: ONDANSETRON 4 MG/2 ML VIAL ONE (09:39)
[2021-02-05] MEDS ORDERED: DEXAMETHASONE SOD PHOSPHATE 4 MG/ML 1 ML VIAL IVP ONE (09:45)
[2021-02-05] MEDS ORDERED: SCOPOLAMINE 1.5MG/72HR PATCH TRANSDERM ONE (09:50)
[2021-02-05] MEDS ORDERED: PHENYLEPHRINE-0.9% NACL SYG 1,000 MCG/10 ML SYRINGE ONE (10:49)
[2021-02-05] MEDS ORDERED: LIDOCAINE 1% INJ 10MG/ML (20 ML MDV) ONE (10:49)
[2021-02-05] MEDS ORDERED: PROPOFOL 10 MG/ML 20 ML VIAL IV ONE (10:49)
[2021-02-05] MEDS ORDERED: ROCURONIUM 10 MG/ML (5 ML VIAL) IV ONE (10:49)
[2021-02-05] MEDS ORDERED: fentaNYL (PF) 50 MCG/ML 2 ML AMP ONE (10:49)
[2021-02-05] MEDS ORDERED: SUCCINYLCHOLINE CHLORIDE 100 MG/5 ML SYR IV ONE (10:49)
[2021-02-05] MEDS ORDERED: GLYCOPYRROLATE 0.2 MG/ML 2 ML VIAL ONE (10:49)
[2021-02-05] MEDS ORDERED: NEOSTIGMINE 1 MG/ML 10 ML VIAL ONE (10:49)
[2021-02-05] MEDS ORDERED: MIDAZOLAM 2 MG/2 ML VIAL ONE (10:49)
[2021-02-05 12:22] VITALS: TEMP 97.1
[2021-02-05 13:04] VITALS: RESP 20
[2021-02-05] MEDS ORDERED: HYDROcodone/APAP 5-325MG 1 EACH TAB ONE (13:20)
[2021-02-05] MEDS ORDERED: HYDROcodone/APAP 5-325MG 1 EACH TAB PO ONE (13:25)
[2021-02-05 14:04] VITALS: BP 177/78; PULSE 98
--- NOTE | 2021-02-05 20:46 | P.OP ---
Date of Procedure: 02/05/21 Preoperative Diagnosis: Right infundibular stenosis, right renal calculi Postoperative Diagnosis: Same Procedure(s) Performed: Cystoscopy, right ureteroscopy with infundibulotomy, right ureteral stent insertion Anesthesia: ARPAN Surgeon: Nestor Heaton Estimated Blood Loss (ml): 30 IV fluids (ml): 400 Pathology: none sent Condition: stable Disposition: PACU Indications for Procedure: The patient is a 30-year-old white female who presented in 2016 with a 1.2 cm right renal calculus. At the time of ureteroscopy, it was determined that the calculus was located within a mid pole calyceal diverticulum. The narrowed infundibulum was incised with the Holmium laser and the calculus was fragmented. The majority of the calculus fragments were removed via stone basketing. She presented back with right flank pain in August 2019. 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 She underwent cystoscopy, right ureteroscopy with laser infundibulotomy, and fulguration of the calyceal diverticulum. She recently presented back with right flank pain. Computed tomography scan currently shows that the calyceal diverticulum is essentially gone, but there are 2 small calcifications remaining within it. Small right renal peripheral calcifications are also seen, the significance of which is unclear. Operative Findings: Infundibular stenosis, opened widely. No calculi seen. Description of Procedure: The patient was taken to the operating room and placed in the dorsolithotomy position, with legs supported in Al stirrups. The external genitalia was prepped and draped sterilely. The 30 lens was used to introduce the 21-Icelandic Vasquez cystoscopic sheath through the urethra and into the bladder under direct vision. The bladder was examined in its entirety. Both ureteral orifices were normal anatomic location and configuration, and clear urine effluxed from both. No tumors or foreign bodies were seen. A 0.038 inch Glidewire was passed through the cystoscope. The right ureteral orifice was cannulated, and the Glidewire was advanced up to the renal pelvis. The cystoscope was removed, and an 11/13-Icelandic ureteral access catheter was passed over the wire, up to the proximal ureter. The flexible ureteroscope was then passed through the ureteral access catheter sheath, up to the renal pelvis. Each calyx was examined. No calculi were seen. Scarring of a right mid pole infundibulum was noted. The 200 micron Holmium laser probe was passed through the ureteroscope, and an infundibulotomy was performed. The ureteroscope was advanced, exposing several calyces. However, no calculi were seen. Some oozing was noted, and it was felt that any additional infundibular incision risked further bleeding, and the procedure was terminated. The Glidewire was passed through the ureteral access catheter sheath, which was removed. A 24 cm, 6-Icelandic double-J ureteral stent was placed over the wire. Proper stent positioning was verified fluoroscopically and endoscopically. The bladder was emptied and the cystoscope removed. The patient tolerated the procedure well and was taken to the recovery room in stable condition.
== END 2021-02-05 14:13 | disposition home or self-care (01) ==
LOC: OR 09:05
PROVIDERS: ATTEND Urology
DX: N20.0 Calculus of kidney (principal); N28.89 Other specified disorders of kidney and ureter; J45.909 Unspecified asthma, uncomplicated; E07.9 Disorder of thyroid, unspecified; F41.9 Anxiety disorder, unspecified; F32.A Depression, unspecified; G43.909 Migraine, unspecified, not intractable, without status migrainosus; H54.40 Blindness, one eye, unspecified eye; F17.200 Nicotine dependence, unspecified, uncomplicated; Z86.19 Personal history of other infectious and parasitic diseases; Z90.49 Acquired absence of other specified parts of digestive tract; Z98.51 Tubal ligation status; Z98.890 Other specified postprocedural states; Z82.49 Family history of ischemic heart disease and other diseases of the circulatory system; Z81.8 Family history of other mental and behavioral disorders; Z81.0 Family history of intellectual disabilities; Z79.899 Other long term (current) drug therapy; Z88.5 Allergy status to narcotic agent; Z88.8 Allergy status to other drugs, medicaments and biological substances; Z91.040 Latex allergy status
CPT/HCPCS: 81025; 74018; 52345; C2625; C1769 ×2; J2250; J1100; J2710; J0690; J2405; J2001; J3010; J2370; J0330; J2704

== ENCOUNTER 2021-02-06 19:30 | Emergency (ER) | payer OTHER ==
[2021-02-06 19:37] VITALS: TEMP 97.9
[2021-02-06] MEDS ORDERED: HYDROmorphone 1 MG/ML 1 ML SYRINGE IVP STA (22:34)
[2021-02-06] MEDS ORDERED: SODIUM CHLORIDE 0.9% 1,000 ML IV STA (22:34)
[2021-02-06] MEDS ORDERED: ONDANSETRON 4 MG/2 ML VIAL IVP STA (22:34)
[2021-02-06 23:12] VITALS: RESP 18
[2021-02-06 23:18] LABS: Basophils % (A) 0 %; Eosinophils # (A) 0.1 k/uL (0-0.7); Eosinophils % (A) 1 %; HCT 36.2 % (34.0-46.0); HGB 12.4 gm/dL (11.4-16.0); Lymphocytes % (A) 39 %; MCH 29.5 pg (25.0-35.0); MCHC 34.4 g/dL (31.0-37.0); MCV 85.9 fL (80.0-100.0); Mean Platelet Volume 8.6; Monocytes # (A) 0.5 k/uL (0-1.0); Monocytes % (A) 5 %; Neutrophils # (A) 5.3 k/uL (1.3-7.7); Neutrophils % (A) 53 %; Platelet Count 262 k/uL (150-450); RBC 4.21 m/uL (3.80-5.40); RDW 13.3 % (11.5-15.5)
[2021-02-06 23:41] LABS: ALT 26 U/L (4-34); AST 27 U/L (14-36); African American GFR (CKD) >90 (>60 ml/min/1.73 sqM); Alkaline Phosphatase 79 U/L (38-126); Anion Gap 7 mmol/L; Blood Urea Nitrogen 11 mg/dL (7-17); Carbon Dioxide 23 mmol/L (22-30); Chloride 106 mmol/L (98-107); Glucose 91 mg/dL (74-99); Non-African American GFR(CKD) >90 (>60 ml/min/1.73 sqM); Potassium 3.9 mmol/L (3.5-5.1); Sodium 136 mmol/L (137-145); Total Bilirubin 0.4 mg/dL (0.2-1.3); Total Protein 7.1 g/dL (6.3-8.2)
--- NOTE | 2021-02-07 00:31 | ED ---
General Adult HPI - General Chief complaint: Urogenital Stated complaint: Post kidney surgery yesterday, pressure in bladder Time Seen by Provider: 02/06/21 22:06 Source: patient Mode of arrival: ambulatory Limitations: no limitations - History of Present Illness Initial comments: 30-year-old female presents to the emergency Department with complaints of right-sided flank pain. Patient states she had a renal stent placed yesterday and has experienced a sensation of fullness and decreased urine output. Patient states she has a prior history of renal stents and states this feels markedly different from previous experiences. States she took pain medicine prior to arrival with no improvement. Does have hematuria, but states this is normal for her post procedure. Also complains of nausea. States "I am taking in more than I am getting out." Patient denies fever, chills, chest pain, shortness of breath, loss of appetite, and vomiting. - Related Data Home Medications Medication Instructions Recorded Confirmed Levothyroxine Sodium [Synthroid] 50 mcg PO DAILY 07/20/19 01/29/21 Multivitamins, Thera [Multivitamin 2 tab PO DAILY 07/20/19 01/29/21 (formulary)] Venlafaxine HCl [Effexor XR] 75 mg PO BID 12/28/20 01/29/21 Albuterol Sulfate [Proair Hfa] 1 - 2 puff INHALATION Q6HR PRN 01/29/21 01/29/21 Cyclobenzaprine [Flexeril] 10 mg PO TID PRN 01/29/21 01/29/21 Ergocalciferol [Vitamin D2 (1250 1,250 mcg PO MO 01/29/21 01/29/21 Mcg = 83389 Iu)] SUMAtriptan succinate [Imitrex] 25 mg PO ONCE PRN 01/29/21 01/29/21 Previous Rx's Medication Instructions Recorded HYDROcodone/APAP 5-325MG [[place] 1 - 2 tab PO Q4HR PRN #10 tab 02/05/21 5-325] Ketorolac [Toradol] 10 mg PO Q6HR PRN #12 tab 02/05/21 Allergies Allergy/AdvReac Type Severity Reaction Status Date / Time diphenhydramine HCl Allergy Throat Verified 02/06/21 19:37 [From Benadryl] Itches (with name brand Benadryl only) latex Allergy Rash/Hives Verified 02/06/21 19:37 hydrocodone bitartrate AdvReac Migraine Verified 02/06/21 19:37 [From Vicodin] Review of Systems ROS Statement: Those systems with pertinent positive or pertinent negative responses have been documented in the HPI. ROS Other: All systems not noted in ROS Statement are negative. Past Medical History Past Medical History: Asthma, Eye Disorder, Thyroid Disorder Additional Past Medical History / Comment(s): Hx of kidney and bladder infections, permanent upper retainer present. 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 Past Anesthesia/Blood Transfusion Reactions: No Reported Reaction Past Psychological History: Anxiety, Depression Smoking Status: Current every day smoker Past Alcohol Use History: None Reported Past Drug Use History: None Reported - Past Family History Father Family Medical History: Hypertension Additional Family Medical History / Comment(s): Anxiety. Mother Family Medical History: Hypertension Additional Family Medical History / Comment(s): pt's mother and father high BP General Exam Limitations: no limitations General appearance: alert, in no apparent distress ENT exam: Present: normal exam, normal oropharynx, mucous membranes moist Respiratory exam: Present: normal lung sounds bilaterally. Absent: respiratory distress, wheezes, rales, rhonchi, stridor Cardiovascular Exam: Present: regular rate, normal rhythm, normal heart sounds. Absent: systolic murmur, diastolic murmur, rubs, gallop, clicks GI/Abdominal exam: Present: soft, tenderness (Right flank and lower abdominal tenderness), normal bowel sounds. Absent: distended Back exam: Present: CVA tenderness (R) Neurological exam: Present: alert, oriented X3, CN II-XII intact Psychiatric exam: Present: flat affect Skin exam: Present: warm, dry, intact, normal color. Absent: rash Course Vital Signs 02/06/21 02/06/21 19:34 23:08 Temperature 97.9 F Pulse Rate 101 H 99 Respiratory 20 18 Rate Blood Pressure 122/82 141/87 O2 Sat by Pulse 98 99 Oximetry - Reevaluation(s) Reevaluation #1: 02/06/21 23:30 Bladder scanned for 80ml 02/07/21 00:[address] Marrero regarding physical exam and laboratory findings. He explained that additional incisions were required during her procedure, which she was aware of, and that this discomfort is to be expected. No imaging recommended. Medical Decision Making - Medical Decision Making 30-year-old female was evaluated for right flank pain status post ureteral stent yesterday. Upon exam, patient appears mildly uncomfortable, but in no acute distress. Does have right CVA and flank tenderness upon palpation. Gross hematuria noted, though this would be expected post procedure. Patient was given IV fluids, pain medication, and anti-nausea medication with improvement in symptoms. Bladder scan reveals 80 mls of urine. Laboratory studies were unremarkable. Urinalysis does show +blood as expected. Spoke with urologist who explained that additional incisions were required during her procedure therefore felt this was not unexpected. Patient will be discharged home to follow-up as scheduled. Return parameters were discussed in detail. Patient verbalizes understanding and agrees with this plan. This patient's care was discussed with my attending Dr. Rangel. - Lab Data Result diagrams: 02/06/21 22:32 02/06/21 22:32 Lab Results 02/06/21 02/06/21 02/06/21 Range/Units 22:32 22:32 22:32 WBC 10.0 (3.8-10.6) k/uL RBC 4.21 (3.80-5.40) m/uL Hgb 12.4 (11.4-16.0) gm/dL Hct 36.2 (34.0-46.0) % MCV 85.9 (80.0-100.0) fL MCH 29.5 (25.0-35.0) pg MCHC 34.4 (31.0-37.0) g/dL RDW 13.3 (11.5-15.5) % Plt Count 262 (150-450) k/uL MPV 8.6 Neutrophils % 53 % Lymphocytes % 39 % Monocytes % 5 % Eosinophils % 1 % Basophils % 0 % Neutrophils # 5.3 (1.3-7.7) k/uL Lymphocytes # 4.0 (1.0-4.8) k/uL Monocytes # 0.5 (0-1.0) k/uL Eosinophils # 0.1 (0-0.7) k/uL Basophils # 0.0 (0-0.2) k/uL Sodium 136 L (137-145) mmol/L Potassium 3.9 (3.5-5.1) mmol/L Chloride 106 (98-107) mmol/L Carbon Dioxide 23 (22-30) mmol/L Anion Gap 7 mmol/L BUN 11 (7-17) mg/dL Creatinine 0.52 (0.52-1.04) mg/dL Est GFR (CKD-EPI)AfAm >90 (>60 ml/min/1.73 sqM) Est GFR (CKD-EPI)NonAf >90 (>60 ml/min/1.73 sqM) Glucose 91 (74-99) mg/dL Calcium 9.0 (8.4-10.2) mg/dL Total Bilirubin 0.4 (0.2-1.3) mg/dL AST 27 (14-36) U/L ALT 26 (4-34) U/L Alkaline Phosphatase 79 (38-126) U/L Total Protein 7.1 (6.3-8.2) g/dL Albumin 4.0 (3.5-5.0) g/dL Urine HCG, Qual Not Detected (Not Detectd) Disposition Clinical Impression: Flank pain, Hematuria Disposition: HOME SELF-CARE Condition: Stable Instructions (If sedation given, give patient instructions): Flank Pain (ED) Additional Instructions: Rest. Increase fluids. Follow-up with urology as scheduled. Take medications as prescribed. Return to the emergency department with any new, worsening, or concerning s ymptoms. Is patient prescribed a controlled substance at d/c from ED?: No Referrals: Salas Hernandez [Primary Care Provider] - 1-2 days Nestor Heaton MD [STAFF PHYSICIAN] - 1-2 days Time of Disposition: 01:07
[2021-02-07] MEDS ORDERED: HYDROmorphone 0.5 MG/0.5 ML SYRINGE IVP STA (01:36)
[2021-02-07 01:37] LABS: Appearance,Urine Cloudy (Clear); Bacteria,Urine Occasional /hpf; Bilirubin,Urine Negative (Negative); Blood,Urine Large (Negative); Color,Urine Light Red; Glucose,Urine (UA) Negative (Negative); Ketones,Urine Negative (Negative); Leukocyte Esterase,Urine Large (Negative); Mucus,Urine Many /hpf; Nitrite,Urine Negative (Negative); PH, Urine 6.5 (5.0-8.0); Protein,Urine 1+ (Negative); RBC,Urine >182 /hpf (0-5); Specific Gravity,Urine 1.019 (1.001-1.035); Squamous Epithelial Cell,Urine 2 /hpf (0-4); Urobilinogen,Urine <2.0 mg/dL (<2.0); WBC,Urine 148 /hpf (0-5)
[2021-02-07 01:47] VITALS: BP 117/76; PULSE 61
== END 2021-02-07 01:48 | disposition home or self-care (01) ==
LOC: EC 19:30
DX: R10.9 Unspecified abdominal pain (principal); R31.9 Hematuria, unspecified; J45.909 Unspecified asthma, uncomplicated; F41.9 Anxiety disorder, unspecified; F32.A Depression, unspecified; F17.200 Nicotine dependence, unspecified, uncomplicated; Z79.51 Long term (current) use of inhaled steroids
CPT/HCPCS: 51798; 36415; 80053; 85025; 81001; 81025; 87086; 99284; 96374; 96376; 96375; 96361; J2405; J1170 ×2

== ENCOUNTER 2021-02-18 08:45 | Day surgery (SDC) | payer OTHER ==
[2021-02-16 09:22] VITALS: BMI 40.8
[2021-02-18 09:27] VITALS: RESP 16; TEMP 97.2
[2021-02-18] MEDS ORDERED: LIDOCAINE 1% (10MG/ML) FOR IV START INTRADERMA ONE (09:33)
--- NOTE | 2021-02-18 10:05 | P.GSHP ---
History of Present Illness H&P Date: 02/18/21 Chief Complaint: GERD The 22-year-old female with GERD. Patient is undergoing workup for sleeve gastrectomy. She has history of GERD. Her BMI is 40 Past Medical History Past Medical History: Asthma, Thyroid Disorder Additional Past Medical History / Comment(s): Hx of kidney stones, kidney and bladder infections, permanent upper retainer present. History of Any Multi-Drug Resistant Organisms: ESBL Date of last positivie culture/infection: 05/06/20 MDRO Source:: ESBL URINE Past Surgical History: Appendectomy, Cholecystectomy, Tubal Ligation Additional Past Surgical History / Comment(s): Eye surgery X5, right knee (foreign body removal), left hand wrist benign tumor removed, lithotripsy. Past Anesthesia/Blood Transfusion Reactions: No Reported Reaction Past Psychological History: Anxiety, Depression Smoking Status: Current some day smoker Past Alcohol Use History: Occasional Additional Past Alcohol Use History / Comment(s): Started smoking at age 18, smokes some days, no more than 5 cigarettes on those days. Past Drug Use History: Marijuana Additional Drug Use History / Comment(s): Smokes Marijuana occasionally, aware no use 24 hrs prior to procedure. - Past Family History Father Family Medical History: Hypertension Additional Family Medical History / Comment(s): Anxiety. Mother Family Medical History: Hypertension Additional Family Medical History / Comment(s): pt's mother and father high BP Medications and Allergies Home Medications Medication Instructions Recorded Confirmed Type Levothyroxine Sodium [Synthroid] 50 mcg PO QAM 07/20/19 02/16/21 History Venlafaxine HCl [Effexor XR] 75 mg PO QAM 12/28/20 02/16/21 History Cyclobenzaprine [Flexeril] 5 mg PO BID PRN 01/29/21 02/16/21 History Ergocalciferol [Vitamin D2 (1250 1,250 mcg PO MO 01/29/21 02/16/21 History Mcg = 94437 Iu)] Ketorolac [Toradol] 10 mg PO Q6HR PRN #12 tab 02/05/21 02/16/21 Rx hydrOXYzine HCL 25 mg PO DAILY PRN 02/16/21 02/16/21 History Allergies Allergy/AdvReac Type Severity Reaction Status Date / Time diphenhydramine HCl Allergy Throat Verified 02/18/21 09:17 [From Benadryl] Itches (with name brand Benadryl only) latex Allergy Rash/Hives Verified 02/18/21 09:17 hydrocodone bitartrate AdvReac Migraine Verified 02/18/21 09:17 [From Vicodin] Surgical - Exam Vital Signs Temp Pulse Resp BP Pulse Ox 97.2 F L 56 L 16 111/62 97 02/18/21 09:26 02/18/21 09:26 02/18/21 09:26 02/18/21 09:26 02/18/21 09:26 - General well developed, well nourished, no distress - Eyes PERRL - ENT normal pinna - Neck no masses - Respiratory normal expansion - Cardiovascular Rhythm: regular - Abdomen Abdomen: soft, non tender Assessment and Plan Assessment: GERD, morbid obesity. We'll perform EGD
[2021-02-18] MEDS ORDERED: PROPOFOL 10 MG/ML 20 ML VIAL IV ONE (10:06)
[2021-02-18] MEDS ORDERED: LIDOCAINE 1% INJ 10MG/ML (20 ML MDV) ONE (10:06)
--- NOTE | 2021-02-18 10:18 | P.OP ---
Date of Procedure: 02/18/21 Preoperative Diagnosis: GERD Postoperative Diagnosis: Antral gastritis Procedure(s) Performed: EGD Anesthesia: MAC Surgeon: Polo Billy Pathology: other (Antrum) Condition: stable Disposition: PACU Description of Procedure: The patient's placed on the endoscopy table in the lateral position. She rece ived IV sedation. The gastroscope placed oropharynx passed in the esophagus and stomach. The scope was then placed through the pylorus. The first and second portion of the duodenum appeared normal. Scope was then brought back the antrum and this appeared mildly inflamed. A biopsy was performed. Scope was then retroflexed and the remainder of the stomach appeared normal. The GE junction was at 40 cm. The distal esophagus appeared normal. The proximal esophagus appeared normal. Scope withdrawn for patient.
[2021-02-18 10:45] VITALS: BP 104/70; PULSE 62
== END 2021-02-18 11:00 | disposition home or self-care (01) ==
LOC: ORWHC2ENDO 08:45
PROVIDERS: ATTEND Surgery
DX: K29.50 Unspecified chronic gastritis without bleeding (principal); J45.909 Unspecified asthma, uncomplicated; E07.9 Disorder of thyroid, unspecified; F41.9 Anxiety disorder, unspecified; F32.A Depression, unspecified; F17.210 Nicotine dependence, cigarettes, uncomplicated; Z87.442 Personal history of urinary calculi; Z86.19 Personal history of other infectious and parasitic diseases; Z90.49 Acquired absence of other specified parts of digestive tract; Z98.51 Tubal ligation status; Z98.890 Other specified postprocedural states; Z82.49 Family history of ischemic heart disease and other diseases of the circulatory system; Z81.8 Family history of other mental and behavioral disorders; Z79.890 Hormone replacement therapy; Z79.899 Other long term (current) drug therapy; Z88.5 Allergy status to narcotic agent; Z91.040 Latex allergy status; Z88.8 Allergy status to other drugs, medicaments and biological substances; E66.01 Morbid (severe) obesity due to excess calories; Z68.39 Body mass index [BMI] 39.0-39.9, adult
CPT/HCPCS: 81025; 88305; 43239; J2001; J2704

== ENCOUNTER → 2021-05-17 | Outpatient (CLI) | payer OTHER ==
[2021-05-17 14:53] VITALS: BP 126/84; PULSE 84; RESP 16; TEMP 97.6; BMI 38.4
--- NOTE | 2021-05-17 15:48 | P.HPBAR ---
Bariatric H&P - History & Physicial H&P Date: 05/17/21 History & Physicial: Visit/CC: pre-surg Patient initial contact: Initial weight: 107.7 kg Initial weight in pounds: 237.44 Height: 5 ft 5 in Initial BMI: 39.4 Last weight: Current weight: 104.78 kg Current weight in pounds: 231.00 Current BMI: 38.4 [place] body weight (based on NIH guidelines): 56.699 kg Excess body weight loss: 5.7% The patient is a 30 year-old F who presents for Bariatric Assessment. Patient presents today for presurgical consultation. Patient's morbid obesity. Her BMI is 38. Past Medical History Past Medical History: Asthma, Eye Disorder, Thyroid Disorder Additional Past Medical History / Comment(s): Hx of kidney and bladder infections, permanent upper retainer present. 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 Past Anesthesia/Blood Transfusion Reactions: No Reported Reaction Past Psychological History: Anxiety, Depression Additional Psychological History / Comment(s): pt stated feels well maintained on meds Smoking Status: Current every day smoker Past Alcohol Use History: None Reported Additional Past Alcohol Use History / Comment(s): Started smoking at age 18, 5 cigarettes per day. Past Drug Use History: None Reported Additional Drug Use History / Comment(s): USES MARIJUANA FOR PAIN-INSTRUCTED TO REFRAIN FROM USE FOR AT LEAST 24 HOURS PRIOR TO PROCEDURE - Past Family History Father Family Medical History: Hypertension Additional Family Medical History / Comment(s): Anxiety. Mother Family Medical History: Hypertension Additional Family Medical History / Comment(s): pt's mother and father high BP Surgical - Exam Vital Signs Temp Pulse Resp BP 97.6 F 84 16 126/84 05/17/21 14:51 05/17/21 14:51 05/17/21 14:51 05/17/21 14:51 - General well developed, well nourished, no distress - Eyes PERRL - ENT normal pinna - Neck no masses - Respiratory normal expansion - Cardiovascular Rhythm: regular - Abdomen Abdomen: soft, non tender Bariatric Assessment & Plan Plan: Morbid obesity BMI 38. Patient be scheduled for sleeve gastrectomy once her insurance authorization requirements have been met. Bariatric Checklist Checklist: Plan: Checklist: EGD: 1. Hiatal hernia: 2. H. Pylori: HgbA1c: Vitamin D: Smoking: Current every day smoker Primary care physician referral: Psychiatry clearance: Cardiology clearance: Sleep study: Diet journal: VTE risk score: VTE risk level: Rehab needs at discharge:
== END ==
LOC: BARWHC3 14:14
PROVIDERS: ATTEND Surgery
DX: E66.01 Morbid (severe) obesity due to excess calories (principal); Z68.38 Body mass index [BMI] 38.0-38.9, adult; J45.909 Unspecified asthma, uncomplicated; F41.9 Anxiety disorder, unspecified; F32.A Depression, unspecified; F17.200 Nicotine dependence, unspecified, uncomplicated; Z88.5 Allergy status to narcotic agent; Z88.8 Allergy status to other drugs, medicaments and biological substances; Z91.040 Latex allergy status
CPT/HCPCS: 99211

== ENCOUNTER → 2021-05-24 | Outpatient (CLI) | payer OTHER ==
[2021-05-24 11:28] VITALS: BMI 37.5
== END ==
LOC: BARWHC3 08:49
PROVIDERS: ATTEND Surgery
DX: E66.01 Morbid (severe) obesity due to excess calories (principal); Z71.51 Drug abuse counseling and surveillance of drug abuser; Z68.37 Body mass index [BMI] 37.0-37.9, adult; Z88.5 Allergy status to narcotic agent; Z88.8 Allergy status to other drugs, medicaments and biological substances; Z91.040 Latex allergy status; F17.200 Nicotine dependence, unspecified, uncomplicated
CPT/HCPCS: 97804; G0480; 80323

== ENCOUNTER 2021-07-26 07:45 | Inpatient (IN) | payer OTHER ==
[~2021-07-26 07:45] MED LIST changes: +DEXAMETHASONE SOD PHOSPHATE 4 MG/ML 1 ML VIAL IV ONE; +ENOXAPARIN 40 MG/0.4 ML SYRINGE SQ PRN; +GLYCOPYRROLATE 0.2 MG/ML 2 ML VIAL ONE; +KETAMINE 10 MG/ML 20 ML VIAL ONE; -LACTATED RINGERS 1,000 ML IV SCH; -LIDOCAINE 1% (10MG/ML) FOR IV START INTRADERMA PRN; +LIDOCAINE 2% INJ 20 MG/ML (2 ML VIAL) ONE; +METHYLENE BLUE 10 MG/ML (10 ML VIAL) ONE; +MIDAZOLAM 2 MG/2 ML VIAL IV PRN; +MIDAZOLAM 2 MG/2 ML VIAL ONE; +NEOSTIGMINE 1 MG/ML 10 ML VIAL ONE; +ONDANSETRON 4 MG/2 ML VIAL IVP ONE; +PROPOFOL 10 MG/ML 20 ML VIAL IV ONE; +ROCURONIUM 10 MG/ML (5 ML VIAL) IV ONE; +SCOPOLAMINE 1 MG/72 HR PATCH TRANSDERM ONE; +SUCCINYLCHOLINE CHLORIDE 100 MG/5 ML SYR IV ONE; +fentaNYL (PF) 50 MCG/ML 2 ML AMP ONE
[2021-07-26] MEDS: LACTATED RINGERS 1,000 ML IV SCH (09:03)
--- NOTE | 2021-07-26 10:32 | P.GSHP ---
History of Present Illness H&P Date: 07/26/21 Chief Complaint: Morbid obesity This is a 31-year-old female who presents today for laparoscopic sleeve gastrectomy. Patient has comorbidities with morbid obesity. Patient's aware the risks of surgery including gastric sleeve staple line disruption, bleeding and scarring. Past Medical History Past Medical History: Asthma, Eye Disorder, Thyroid Disorder Additional Past Medical History / Comment(s): Hx of kidney and bladder infections. Hx kidney stones. Migraines. 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 History of Any Multi-Drug Resistant Organisms: ESBL Date of last positivie culture/infection: 05/06/20 MDRO Source:: ESBL URINE Past Surgical History: Appendectomy, Cholecystectomy, Tubal Ligation Additional Past Surgical History / Comment(s): Eye surgery X5, right knee - foreign body removed, left hand/wrist ganglion cyst removed, EGD. Past Anesthesia/Blood Transfusion Reactions: No Reported Reaction, Motion Sickness Past Psychological History: ADD/ADHD, Anxiety, Depression Additional Psychological History / Comment(s): ADD. Smoking Status: Former smoker Past Alcohol Use History: Rare Additional Past Alcohol Use History / Comment(s): Quit smoking 04/03. Started smoking at age 18, 5 cigarettes per day. Past Drug Use History: Marijuana Additional Drug Use History / Comment(s): USED MARIJUANA FOR PAIN BEFORE KIDNEY SURGERY 01/31- NONE SINCE. - Past Family History Father Family Medical History: Hypertension Additional Family Medical History / Comment(s): Anxiety. Mother Family Medical History: Hypertension Additional Family Medical History / Comment(s): pt's mother and father high BP Medications and Allergies Home Medications Medication Instructions Recorded Confirmed Type Venlafaxine HCl [Effexor XR] 75 mg PO QAM 12/28/20 07/26/21 History Cyclobenzaprine [Flexeril] 10 mg PO QAM 01/29/21 07/26/21 History Ergocalciferol [Vitamin D2 (1250 1,250 mcg PO MO 01/29/21 07/26/21 History Mcg = 68309 Iu)] hydrOXYzine HCL 25 mg PO DAILY PRN 02/16/21 07/26/21 History Levothyroxine Sodium [Tirosint] 25 mcg PO QAM 05/19/21 07/26/21 History Propranolol HCl 80 mg PO QAM 07/22/21 07/26/21 History SUMAtriptan SUCCINATE [Imitrex] 50 mg PO DIRECTED PRN 07/22/21 07/26/21 History Allergies Allergy/AdvReac Type Severity Reaction Status Date / Time diphenhydramine HCl Allergy Throat Verified 07/26/21 09:06 [From Benadryl] Itches (with name brand Benadryl only) latex Allergy Rash/Hives Verified 07/26/21 09:06 hydrocodone bitartrate AdvReac Migraine Verified 07/26/21 09:06 [From Vicodin] Surgical - Exam Vital Signs Temp Pulse Resp BP Pulse Ox 97.2 F L 57 L 18 110/59 98 07/26/21 09:08 07/26/21 09:08 07/26/21 09:08 07/26/21 09:08 07/26/21 09:08 - General well developed, well nourished, no distress - Eyes PERRL, normal ocular movement - ENT normal pinna - Neck no masses - Respiratory normal expansion - Cardiovascular Rhythm: regular - Abdomen Abdomen: soft, non tender Assessment and Plan Assessment: Morbid obesity. We'll perform laparoscopic sleeve gastrectomy
[2021-07-26] MEDS ORDERED: BUPIVACAINE (PF) 0.25% 30 ML VIAL SQ ONE ×2 (10:40→11:04)
[2021-07-26] MEDS ORDERED: LACTATED RINGERS 1,000 ML IV ONE (11:33)
[2021-07-26] MEDS ORDERED: NALOXONE 0.4 MG/ML 1 ML VIAL IV PRN (11:36)
--- NOTE | 2021-07-26 11:36 | P.OP ---
Date of Procedure: 07/26/21 Preoperative Diagnosis: Morbid obesity, BMI 36 Postoperative Diagnosis: Morbid obesity, BMI 36 Procedure(s) Performed: Laparoscopic sleeve gastrectomy Anesthesia: ARPAN Surgeon: Polo Billy Estimated Blood Loss (ml): 10 Pathology: other (Stomach) Condition: stable Disposition: PACU Description of Procedure: The patient was placed on the operating room table in the supine position. She received general anesthesia and then was placed in dorsal lithotomy position. Her abdomen was prepped and draped in sterile fashion. The skin incision sites were anesthetized 1% local Xylocaine. And then the skin was incised with an 11 blade in the left lateral position. Using a blade less trocar under direct visualization the peritoneal cavity was entered. The abdomen was insufflated and then a 5 mm laparoscope was placed into the peritoneal cavity. A 5 mm trocar was placed in the right epigastric, and right lateral position. A 15 mm trocar was placed in the supra-umbilical position and another 5 mm trocar was placed in the left lateral position. The left lateral lobe of the liver was retracted. The stomach was visualized. The greater curvature of the stomach was then dissected using the Harmonic scissors. The dissection occurred approximately 5 cm from the pylorus to the level of the left jesus. There was no hiatal hernia seen. At this point a 40-Italian bougie dilator was placed the oropharynx and passed into the esophagus and into the stomach by the RIPSAWYER. The sleeve gastrectomy was performed by using the powered echelon stapler with a seam guard buttress material. Sequential firings of the stapler were performed. The gastric remnant was then brought out through the 15 mm trocar site. The dilator was withdrawn. And a orogastric tube was replaced into the stomach. The stomach was insufflated with 200 mL of methylene blue normal saline. There was no evidence of extravasation. The abdomen was irrigated there is no bleeding seen. The Yunier-Jennifer device was used to close the 15 mm trocar with 0 Vicryl. Skin was closed with interrupted 3-0 Monocryl sutures once the trochars withdrawn. Dermabond dressing was applied. Patient was sent to recovery in stable condition.
[2021-07-26] MEDS: fentaNYL (PF) 50 MCG/ML 2 ML AMP IV PRN ×2 (12:09→12:14)
[2021-07-26] MEDS ORDERED: ONDANSETRON 4 MG/2 ML VIAL IVP ONE (13:14)
[2021-07-26] MEDS: KETOROLAC 15 MG/ML 1 ML VIAL IVP SCH ×3 (13:24→23:55)
[2021-07-26] MEDS: diphenhydrAMINE 50 MG/ML 1 ML VIAL IVP PRN (14:37)
[2021-07-26] MEDS ORDERED: fentaNYL (PF) 50 MCG/ML 2 ML AMP IV ONE (14:38)
[2021-07-26] MEDS: ALBUTEROL NEBULIZED 2.5 MG/3 ML INHALATION SCH ×4 (15:57→20:04)
[2021-07-26] MEDS: ONDANSETRON 4 MG/2 ML VIAL IVP PRN (16:00)
[2021-07-26] MEDS: HYDROmorphone 1 MG/ML 1 ML SYRINGE IVP PRN ×3 (16:13→22:17)
[2021-07-26] MEDS: 0.9% NACL WITH KCL 20 MEQ/L 1,000 ML IV SCH ×2 (16:15→23:22)
[2021-07-26] MEDS ORDERED: hydrOXYzine HCL 25 MG TAB PO PRN (16:59)
[2021-07-26] MEDS ORDERED: SUMAtriptan succinate 50 MG TAB PO PRN (16:59)
[2021-07-26] MEDS ORDERED: ERGOCALCIFEROL 1,250 MCG (50,000 IU) CAPSULE PO SCH (17:00)
--- NOTE | 2021-07-26 17:04 | P.CONS ---
History of Present Illness - Reason for Consult Consult date: 07/26/21 - Chief Complaint Medical management - History of Present Illness 31-year-old woman with a history of migraines, mood disorder, morbid obesity presented for elective sleeve gastrectomy. Medicine was consulted for medical management. Patient is doing well following the procedure, only complaint is of a little bit of belly pain. She otherwise denies fevers, chills, nausea, vomiting, chest pain, palpitations, sick, presyncope, cough, dyspnea, abdominal pain, dysuria, dyschezia, constipation, diarrhea, numbness/weakness of extremities. Upon my evaluation, patient was afebrile, 127/65, heart rate 63, 96% on room air. All Systems reviewed and pertinent positives and negatives noted in HPI, all other symptoms are negative Gen: awake, alert HEENT: normocephalic, atraumatic, good hearing acuity, moist mucous membranes Resp: good air exchange, breathing comfortably with no accessory muscle use CVS: good distal perfusion x 4, GI: soft, NTTP, ND : no SPT, no CVAT, villa catheter not present MSK: no pitting edema, no clubbing Neuro: non-focal, moving all extremities Psych: cooperative, euthymic mood No labs or imaging to review Assessment/plan: Migraines Hypothyroidism Mood disorder Obesity, class I -Resume patient's home medications -Follow her blood pressure, vital signs -Pain control per surgery Patient is full code DVT PPx per surgery Past Medical History Past Medical History: Asthma, Eye Disorder, Thyroid Disorder Additional Past Medical History / Comment(s): Hx of kidney and bladder infections. Hx kidney stones. Migraines. 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 History of Any Multi-Drug Resistant Organisms: ESBL Year Discovered:: 05/06/20 MDRO Source:: ESBL URINE Past Surgical History: Appendectomy, Cholecystectomy, Tubal Ligation Additional Past Surgical History / Comment(s): Eye surgery X5, right knee - foreign body removed, left hand/wrist ganglion cyst removed, EGD. Past Anesthesia/Blood Transfusion Reactions: No Reported Reaction, Motion Sickness Past Psychological History: ADD/ADHD, Anxiety, Depression Additional Psychological History / Comment(s): ADD. Smoking Status: Former smoker Past Alcohol Use History: Rare Additional Past Alcohol Use History / Comment(s): Quit smoking 04/03. Started smoking at age 18, 5 cigarettes per day. Past Drug Use History: Marijuana Additional Drug Use History / Comment(s): USED MARIJUANA FOR PAIN BEFORE KIDNEY SURGERY 01/31- NONE SINCE. - Past Family History Father Family Medical History: Hypertension Additional Family Medical History / Comment(s): Anxiety. Mother Family Medical History: Hypertension Additional Family Medical History / Comment(s): pt's mother and father high BP Medications and Allergies Home Medications Medication Instructions Recorded Confirmed Type Venlafaxine HCl [Effexor XR] 75 mg PO QAM 12/28/20 07/26/21 History Cyclobenzaprine [Flexeril] 10 mg PO QAM 01/29/21 07/26/21 History Ergocalciferol [Vitamin D2 (1250 1,250 mcg PO MO 01/29/21 07/26/21 History Mcg = 03008 Iu)] hydrOXYzine HCL 25 mg PO DAILY PRN 02/16/21 07/26/21 History Levothyroxine Sodium [Tirosint] 25 mcg PO QAM 05/19/21 07/26/21 History Propranolol HCl 80 mg PO QAM 07/22/21 07/26/21 History SUMAtriptan SUCCINATE [Imitrex] 50 mg PO DIRECTED PRN 07/22/21 07/26/21 History Allergies Allergy/AdvReac Type Severity Reaction Status Date / Time diphenhydramine HCl Allergy Throat Verified 07/26/21 09:06 [From Benadryl] Itches (with name brand Benadryl only) latex Allergy Rash/Hives Verified 07/26/21 09:06 hydrocodone bitartrate AdvReac Migraine Verified 07/26/21 09:06 [From Vicodin] Physical Exam Osteopathic Statement: *. No significant issues noted on an osteopathic stru ctural exam other than those noted in the History and Physical/Consult. Vitals: Vital Signs Temp Pulse Pulse Pulse Resp BP BP 07/26/21 16:00 97.7 F 59 L 21 142/87 07/26/21 15:30 63 16 127/65 07/26/21 15:00 56 L 16 119/75 07/26/21 14:30 59 L 16 117/72 07/26/21 14:00 61 16 128/79 07/26/21 13:30 49 L 14 119/73 07/26/21 13:15 49 L 14 128/76 07/26/21 13:00 50 L 14 135/80 07/26/21 12:45 47 L 16 135/86 07/26/21 12:30 45 L 14 145/88 07/26/21 12:15 48 L 14 133/79 07/26/21 12:00 55 L 14 127/79 07/26/21 11:49 97.0 F L 79 12 134/79 07/26/21 09:08 97.2 F L 57 L 18 110/59 Pulse Ox 07/26/21 16:00 100 07/26/21 15:30 96 07/26/21 15:00 96 07/26/21 14:30 95 07/26/21 14:00 98 07/26/21 13:30 98 07/26/21 13:15 98 07/26/21 13:00 100 07/26/21 12:45 100 07/26/21 12:30 100 07/26/21 12:15 100 07/26/21 12:00 100 07/26/21 11:49 95 07/26/21 09:08 98 Intake and Output 07/26/21 07/26/21 07/26/21 06:59 14:59 22:59 Intake Total 1899 Output Total 5 Balance 1894 Intake: IV 1900 Output: Estimated Blood Loss 5 Other: Weight 94.2 kg 94.2 kg
[2021-07-26] MEDS: SIMETHICONE 40 MG/0.6 ML DROPS 2,000 MG/30 ML BOTTLE PO PRN ×2 (17:08→23:56)
[2021-07-26] MEDS: ENOXAPARIN 40 MG/0.4 ML SYRINGE SQ SCH (22:17)
[2021-07-27] MEDS: HYDROmorphone 1 MG/ML 1 ML SYRINGE IVP PRN ×4 (02:10→19:56)
[2021-07-27] MEDS: LEVOTHYROXINE 25 MCG TAB PO SCH (05:28)
[2021-07-27] MEDS: 0.9% NACL WITH KCL 20 MEQ/L 1,000 ML IV SCH (05:31)
[2021-07-27] MEDS: KETOROLAC 15 MG/ML 1 ML VIAL IVP SCH ×4 (06:01→23:41)
[2021-07-27] MEDS: ALBUTEROL NEBULIZED 2.5 MG/3 ML INHALATION SCH ×4 (07:51→22:02)
[2021-07-27] MEDS: LACTATED RINGERS 1,000 ML IV SCH (08:34)
[2021-07-27 09:21] LABS: Basophils # (A) 0.03 X 10*3/uL (0.00-0.10); Basophils % (A) 0.2 %; Eosinophils # (A) 0 X 10*3/uL (0.04-0.35); Eosinophils % (A) 0 %; HCT 36.8 % (37.2-46.3); HGB 12.1 g/dL (12.0-15.0); Lymphocytes # (A) 2.88 X 10*3/uL (0.90-5.00); MCH 28.5 pg (27.0-32.0); MCHC 32.9 g/dL (32.0-37.0); MCV 86.6 fL (80.0-97.0); Mean Platelet Volume 11.9 fL (9.5-12.2); Monocytes % (A) 6.4 %; NRBC Per 100 WBC 0 /100 WBCS (0.0-0.0); Neutrophils % (A) 69.4 %; Platelet Count 292 X 10*3/uL (140-440); RBC 4.25 X 10*6/uL (4.10-5.20); WBC 12.54 X 10*3/uL (4.50-10.00)
[2021-07-27] MEDS: PANTOPRAZOLE 40 MG/10 ML VIAL IV SCH (09:34)
[2021-07-27] MEDS: ONDANSETRON 4 MG/2 ML VIAL IVP PRN (09:34)
[2021-07-27] MEDS: ENOXAPARIN 40 MG/0.4 ML SYRINGE SQ SCH ×2 (09:35→19:39)
[2021-07-27 09:36] LABS: Magnesium 1.9 mg/dL (1.5-2.4)
[2021-07-27] MEDS: DEXAMETHASONE SOD PHOSPHATE 4 MG/ML 1 ML VIAL IVP SCH ×3 (09:36→23:41)
[2021-07-27] MEDS: CYCLOBENZAPRINE 10 MG TAB PO SCH (09:45)
[2021-07-27] MEDS: VENLAFAXINE HCL ER 75 MG CAP PO SCH (09:45)
[2021-07-27] MEDS: PROPRANOLOL LA 80 MG CAP.SA.24H PO SCH (09:45)
[2021-07-27 09:58] LABS: African American GFR (CKD) 135.7 (60.0-200.0); Anion Gap 13.6 mmol/L (10.00-18.00); Blood Urea Nitrogen 11.2 mg/dL (9.0-27.0); Calcium 8.8 mg/dL (8.7-10.3); Carbon Dioxide 18.4 mmol/L (20.0-27.5); Non-African American GFR(CKD) 117.1 (60.0-200.0); Phosphorus 2.9 mg/dL (2.4-5.1); Potassium 4.3 mmol/L (3.5-5.5)
[2021-07-27 12:17] VITALS: BMI 35.6
--- NOTE | 2021-07-27 14:17 | P.PN ---
Subjective Progress Note Date: 07/27/21 CHIEF COMPLAINT: Morbid obesity HISTORY OF PRESENT ILLNESS: Patient is status post laparoscopic sleeve ga strectomy. Postop day #1. Upper GI preliminary report had revealed moderate to severe obstruction likely due to postoperative swelling. Patient did have an episode of vomiting during the upper GI. She has been placed on IV Decadron. Patient also had been complaining of upper abdominal pain. She does report some flatus. She has been up and ambulating. Afebrile. WBC is 12.5 for hemoglobin 12.1 platelets 292 sodium is 137 potassium is 4.3 creatinine 0.7 magnesium 1.9 Patient seen and examined with Dr. montoya PHYSICAL EXAM: VITAL SIGNS: Reviewed. GENERAL: Well-developed in no acute distress. HEENT: No sclera icterus. Extraocular movements grossly intact. Moist buccal mucosa. Head is atraumatic, normocephalic. ABDOMEN: Soft. Nondistended. Incision sites clean dry and intact. NEUROLOGIC: Alert and oriented. Cranial nerves II through XII grossly intact. ASSESSMENT: 1. Morbid obesity status post laparoscopic sleeve gastrectomy 2. Upper GI with a moderate to severe obstruction likely due to postoperative swelling PLAN: -Follow up on upper GI results -Ordered IV Decadron 4 mg every 6 hours scheduled for postoperative swelling and vomiting -Start bariatric clear liquid diet. Encouraged patient to drink liquids slowly -Continue pain medication as needed -Continue simethicone drops -Continue antiemetics as needed -Encouraged patient to ambulate -Encouraged patient to use incentive spirometer -Abdominal binder ordered -Anticipate discharge home tomorrow -DVT prophylaxis Lovenox and GI prophylaxis Protonix Physician Embedded Processor note has been reviewed by physician. Signing provider agrees with the documented findings, assessment, and plan of care. Objective - Vital Signs Vital signs: Vital Signs Temp 98.5 F 07/27/21 08:00 Pulse 52 L 07/27/21 08:00 Resp 16 07/27/21 08:00 BP 97/60 07/27/21 08:00 Pulse Ox 97 07/27/21 08:00 Intake & Output 07/26/21 07/27/21 07/27/21 18:59 06:59 18:59 Intake Total 2200 1500 Output Total 5 Balance 2195 1500 Weight 94.2 kg 94.2 kg Intake: IV 1900 Intake, IV Titration 300 1500 Amount 0.9% NaCl with KCl 20 Meq 300 1500 /l 1,000 ml @ 150 mls/hr IV .Q6H40M [facility] Rx#: [id number] Output: Estimated Blood Loss 5 Other: # Voids 2 - Labs CBC & Chem 7: 07/27/21 04:33 07/27/21 04:33 Labs: Abnormal Lab Results - Last 24 Hours (Table) 07/27/21 07/27/21 Range/Units 04:33 04:33 WBC 12.54 H (4.50-10.00) X 10*3/uL Hct 36.8 L (37.2-46.3) % Immature Gran # 0.13 H (0.00-0.04) X 10*3/uL Neutrophils # 8.70 H (1.80-7.70) X 10*3/uL Eosinophils # 0 L (0.04-0.35) X 10*3/uL Carbon Dioxide 18.4 L (20.0-27.5) mmol/L
[2021-07-27] MEDS: diphenhydrAMINE 50 MG/ML 1 ML VIAL IVP PRN (15:24)
--- NOTE | 2021-07-27 16:52 | FL ---
SINGLE CONTRAST UPPER GI EXAMINATION: CLINICAL HISTORY: 31-year-old female postop bariatric surgery TECHNIQUE: Single contrast exam performed with 25 mL Isovue-370 contrast. Total fluoroscopy time: 2 minutes 16 seconds. Total images: 43. FINDINGS: The patient initially swallowed oral contrast without difficulty or delay. Part of the initial small bolus promptly passed into the stomach and along the gastric sleeve. However, subsequently swallows c ollected within the distal esophagus. Esophageal contractions promoted passage into the proximal stom ach but recurrent episodes of gastroesophageal reflux are demonstrated. We waited 5 minutes. At this time, a small amount of additional contrast has progressed into the small bowel but prominent residua l contrast remains in the proximal stomach, distal esophagus, and with recurrent episodes of gastroes ophageal reflux. No extravasation of contrast to suggest leak. Small amount of postsurgical free air below the right hemidiaphragm. IMPRESSION: 1. Moderate to severe obstruction at the proximal sleeve status post sleeve gastrectomy. This may be secondary to prominent postoperative edema and patient needs to be followed. 2. No evidence of leak. 3. Mild postoperative free air below the right hemidiaphragm.
--- NOTE | 2021-07-27 17:58 | P.PN ---
Subjective She was examined at bedside today not complaining of any new symptomatology. Still complains of some intractable pain especially at the incision sites. Denies any fever, chills, nausea vomiting today. Objective - Vital Signs Vital signs: Vital Signs Temp 98.5 F 07/27/21 08:00 Pulse 52 L 07/27/21 08:00 Resp 16 07/27/21 08:00 BP 97/60 07/27/21 08:00 Pulse Ox 97 07/27/21 08:00 Intake & Output 07/26/21 07/27/21 07/27/21 18:59 06:59 18:59 Intake Total 2200 1500 Output Total 5 Balance 2195 1500 Weight 94.2 kg 94.2 kg Intake: IV 1900 Intake, IV Titration 300 1500 Amount 0.9% NaCl with KCl 20 Meq 300 1500 /l 1,000 ml @ 150 mls/hr IV .Q6H40M [facility] Rx#: [id number] Output: Estimated Blood Loss 5 Other: # Voids 2 - Exam Gen: awake, alert HEENT: normocephalic, atraumatic, good hearing acuity, moist mucous membranes Resp: good air exchange, breathing comfortably with no accessory muscle use CVS: good distal perfusion x 4, GI: soft, NTTP, ND : no SPT, no CVAT, villa catheter not present MSK: no pitting edema, no clubbing Neuro: non-focal, moving all extremities Psych: cooperative, euthymic mood - Labs CBC & Chem 7: 07/27/21 04:33 07/27/21 04:33 Labs: Abnormal Lab Results - Last 24 Hours (Table) 07/27/21 07/27/21 Range/Units 04:33 04:33 WBC 12.54 H (4.50-10.00) X 10*3/uL Hct 36.8 L (37.2-46.3) % Immature Gran # 0.13 H (0.00-0.04) X 10*3/uL Neutrophils # 8.70 H (1.80-7.70) X 10*3/uL Eosinophils # 0 L (0.04-0.35) X 10*3/uL Carbon Dioxide 18.4 L (20.0-27.5) mmol/L Assessment and Plan Assessment: Assessment: #1 obesity class II #2 status post endoscopic sleeve gastrectomy #3 migraine #4 mood disorder #5 hyperthyroidism Plan: -Continue management as per primary -Advance diet as tolerated clear liquid -Vital signs stable -Pain control when necessary -DVT prophylaxis per surgery
[2021-07-28] MEDS: LEVOTHYROXINE 25 MCG TAB PO SCH (05:32)
[2021-07-28] MEDS: KETOROLAC 15 MG/ML 1 ML VIAL IVP SCH ×3 (06:21→23:48)
[2021-07-28] MEDS: DEXAMETHASONE SOD PHOSPHATE 4 MG/ML 1 ML VIAL IVP SCH ×4 (06:22→23:48)
[2021-07-28] MEDS: ALBUTEROL NEBULIZED 2.5 MG/3 ML INHALATION SCH ×4 (08:09→19:58)
[2021-07-28] MEDS: PANTOPRAZOLE 40 MG/10 ML VIAL IV SCH (10:02)
[2021-07-28] MEDS: VENLAFAXINE HCL ER 75 MG CAP PO SCH (10:03)
[2021-07-28] MEDS: CYCLOBENZAPRINE 10 MG TAB PO SCH (10:03)
[2021-07-28] MEDS: ENOXAPARIN 40 MG/0.4 ML SYRINGE SQ SCH ×2 (10:03→22:14)
[2021-07-28] MEDS: PROPRANOLOL LA 80 MG CAP.SA.24H PO SCH (10:04)
[2021-07-28] MEDS: traMADol 50 MG TAB PO PRN ×2 (10:11→17:42)
[2021-07-28] MEDS: HYDROmorphone 1 MG/ML 1 ML SYRINGE IVP PRN ×2 (13:47→21:16)
--- NOTE | 2021-07-28 14:24 | P.PN ---
Subjective Progress Note Date: 07/28/21 CHIEF COMPLAINT: Morbid obesity HISTORY OF PRESENT ILLNESS: Patient is status post laparoscopic sleeve ga strectomy. Postop day #2. Upper GI final report shows moderate to severe obstruction at the proximal sleeve status post sleeve gastrectomy. This may be secondary to prominent postoperative edema. No evidence of leak. Mild postoperative free air below the right hemidiaphragm. Patient remains on IV Decadron. She does report having fullness and pressure in the upper abdomen. She did have some nausea. Afebrile. Patient has had some mild bradycardia and hypotension has improved. Her Inderal was held this morning. She takes a medication for migraines. PHYSICAL EXAM: VITAL SIGNS: Reviewed. GENERAL: Well-developed in no acute distress. HEENT: No sclera icterus. Extraocular movements grossly intact. Moist buccal mucosa. Head is atraumatic, normocephalic. ABDOMEN: Soft. Nondistended. Incision sites clean dry and intact. NEUROLOGIC: Alert and oriented. Cranial nerves II through XII grossly intact. ASSESSMENT: 1. Morbid obesity status post laparoscopic sleeve gastrectomy 2. Upper GI with a moderate to severe obstruction likely due to postoperative PLAN: -Continue bariatric clear liquid diet -Continue IV Decadron 4 mg every 6 hours scheduled for postoperative edema -Continue pain medication as needed. Ultram added and Toradol continued -Continue simethicone drops -Continue antiemetics as needed -Encouraged patient to ambulate -Encouraged patient to use incentive spirometer -Anticipate discharge home tomorrow -DVT prophylaxis Lovenox and GI prophylaxis Protonix Physician Engineering Systems Analyst note has been reviewed by physician. Signing provider agrees with the documented findings, assessment, and plan of care. I have personally seen and examined the patient, reviewed the QUALITY CONTROL INSPECTOR /PAs history, exam and MDM and agree with the assessment and plan as written. Based on total visit time, I have performed more than 50% of the visit. As above: Patient is tolerating liquids. Mild nausea. Pain is well- controlled. Continue analgesics. Continue Decadron for edema. Possible discharge tomorrow. Objective - Vital Signs Vital signs: Vital Signs Temp 98.4 F 07/28/21 14:00 Pulse 52 L 07/28/21 14:00 Resp 17 07/28/21 14:00 BP 132/79 07/28/21 14:00 Pulse Ox 98 07/28/21 14:00 Intake & Output 07/27/21 07/28/21 07/28/21 18:59 06:59 18:59 Intake Total 1080 Output Total 1 Balance 1080 -1 Weight 94.2 kg Intake: Oral 1080 Output: Urine 1 Other: # Voids 3 - Labs CBC & Chem 7: 07/27/21 04:33 07/27/21 04:33
--- NOTE | 2021-07-28 15:43 | P.PN ---
Subjective Patient examined at bedside today not company of any worsening symptomatology. Continues to complain of intractable pain especially at the incision site rates it 5 out of 10. We'll continue monitor for another 24 hours. Objective - Vital Signs Vital signs: Vital Signs Temp 98.4 F 07/28/21 14:00 Pulse 52 L 07/28/21 14:00 Resp 17 07/28/21 14:00 BP 132/79 07/28/21 14:00 Pulse Ox 98 07/28/21 14:00 Intake & Output 07/27/21 07/28/21 07/28/21 18:59 06:59 18:59 Intake Total 1080 Output Total 1 Balance 1080 -1 Weight 94.2 kg Intake: Oral 1080 Output: Urine 1 Other: # Voids 3 - Exam Gen: awake, alert HEENT: normocephalic, atraumatic, good hearing acuity, moist mucous membranes Resp: good air exchange, breathing comfortably with no accessory muscle use CVS: good distal perfusion x 4, GI: soft, NTTP, ND : no SPT, no CVAT, villa catheter not present MSK: no pitting edema, no clubbing Neuro: non-focal, moving all extremities Psych: cooperative, euthymic mood - Labs CBC & Chem 7: 07/27/21 04:33 07/27/21 04:33 Assessment and Plan Assessment: Assessment: #1 obesity class II #2 status post endoscopic sleeve gastrectomy #3 migraine #4 mood disorder #5 hyperthyroidism Plan: -Continue management as per primary -Advance diet as tolerated clear liquid -Vital signs stable -Pain control when necessary -DVT prophylaxis per surgery We will continue to follow along.
[2021-07-28] MEDS: ONDANSETRON 4 MG/2 ML VIAL IVP PRN (17:31)
[2021-07-28] MEDS: LACTATED RINGERS 1,000 ML IV SCH (17:38)
[2021-07-29] MEDS: HYDROmorphone 1 MG/ML 1 ML SYRINGE IVP PRN ×4 (01:09→20:21)
[2021-07-29] MEDS: traMADol 50 MG TAB PO PRN (03:36)
[2021-07-29] MEDS: SIMETHICONE 40 MG/0.6 ML DROPS 2,000 MG/30 ML BOTTLE PO PRN (03:37)
[2021-07-29] MEDS: LEVOTHYROXINE 25 MCG TAB PO SCH (06:04)
[2021-07-29] MEDS: KETOROLAC 15 MG/ML 1 ML VIAL IVP SCH ×3 (06:24→18:42)
[2021-07-29] MEDS: DEXAMETHASONE SOD PHOSPHATE 4 MG/ML 1 ML VIAL IVP SCH ×3 (06:25→18:42)
[2021-07-29] MEDS: ALBUTEROL NEBULIZED 2.5 MG/3 ML INHALATION SCH ×4 (07:59→20:27)
[2021-07-29] MEDS: PANTOPRAZOLE 40 MG/10 ML VIAL IV SCH (08:08)
[2021-07-29] MEDS: CYCLOBENZAPRINE 10 MG TAB PO SCH (08:08)
[2021-07-29] MEDS: ENOXAPARIN 40 MG/0.4 ML SYRINGE SQ SCH ×2 (08:08→20:22)
[2021-07-29] MEDS: PROPRANOLOL LA 80 MG CAP.SA.24H PO SCH (08:10)
[2021-07-29] MEDS: VENLAFAXINE HCL ER 75 MG CAP PO SCH (08:13)
[2021-07-29] MEDS: LACTATED RINGERS 1,000 ML IV SCH (08:14)
[2021-07-29 09:20] LABS: Basophils # (A) 0.01 X 10*3/uL (0.00-0.10); Basophils % (A) 0.1 %; Eosinophils # (A) 0 X 10*3/uL (0.04-0.35); Eosinophils % (A) 0 %; HCT 31.8 % (37.2-46.3); HGB 10.1 g/dL (12.0-15.0); Immature Grans, Automated 0.4 %; Lymphocytes # (A) 1.48 X 10*3/uL (0.90-5.00); Lymphocytes % (A) 17.6 %; MCH 27.9 pg (27.0-32.0); MCHC 31.8 g/dL (32.0-37.0); MCV 87.8 fL (80.0-97.0); Mean Platelet Volume 12.1 fL (9.5-12.2); Monocytes # (A) 0.43 X 10*3/uL (0.20-1.00); Monocytes % (A) 5.1 %; NRBC Per 100 WBC 0 /100 WBCS (0.0-0.0); Neutrophils # (A) 6.47 X 10*3/uL (1.80-7.70); Neutrophils % (A) 76.8 %; Platelet Count 258 X 10*3/uL (140-440); RBC 3.62 X 10*6/uL (4.10-5.20); RDW 13.1 % (11.5-14.5); WBC 8.42 X 10*3/uL (4.50-10.00)
--- NOTE | 2021-07-29 10:30 | CDI ---
Documentation Clarification Form Date: 07/29/2021 10:14:40 AM From: Joana Bennett CCS, CCDS Admit Date: 07/26/2021 08:28:00 AM Patient Name: Teodora Marquez Visit Number: [id number] Discharge Date: ATTENTION: The Clinical Documentation Specialists (CDI) and [facility] Coding Staff appreciate your assistance in clarifying documentation. Please respond to the clarification below the line at the bottom and electronically sign. The CDI & [facility] Coding staff will review the response and follow-up if needed. Please note: Queries are made part of the Legal Health Record. If you have any questions, please contact the author of this message via ITS. Dr. Polo Billy: The following is documented in the 07/27 and 07/28 Surgery Progress Notes: Upper GI preliminary report had revealed moderate to severe obstruction likely due to postoperative swelling. Assessment: Upper GI with a moderate to severe obstruction likely due to postoperative swelling Additional clarification is requested regarding the relationship, if any, that exists between the diagnosis and the procedure. 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 Clinical Indicators: Presented for elective surgery as described above. 07/27 Postoperative UGI: Moderate to severe obstruction at the proximal sleeve status post sleeve gastrectomy. This may be secondary to prominent postoperative edema and patient needs to be followed. No evidence of leak. mild postoperative free air below the right hemidiaphragm. Per the 07/27 Surgery Progress note: Obstruction as described. Patient had an episode of vomiting during the upper GI, placed on IV Decadron, complaining of upper abdominal pain. Treatment 07/27 postoperative: UGI as above, IV Decadron 4 mg q6 hrs, start Bariatric clear liquid diet, continued pain meds prn, continued antiemetics prn, ambulation, incentive spirometer, abdominal binder ordered. What relationship, if any, exists between the diagnosis of moderate to severe obstruction likely due to postoperative swelling and the procedure: [ ] Obstruction due to postoperative swelling is a complication of surgical procedure [ xxxx] Obstruction due to postoperative swelling is an expected outcome of the surgical procedure [ ] Obstruction due to postoperative swelling is related to patients co- morbid condition(s), please specify: and is not a complication of the procedure [ ] Other please specify: [ ] Unable to determine (Template Last Revised: May 2020) MTDD
[2021-07-29] MEDS ORDERED: IOPAMIDOL CONTRAST (ORAL USE) VIAL PO PRN (10:44)
--- NOTE | 2021-07-29 11:17 | P.PN ---
Subjective Patient was examined at bedside today still continues complain of intractable abdominal pain. Denies passing any gas or bowel movement. Currently rates the pain a 5 out of 10. Discussed with surgical PA recommending another 24 hours Objective - Vital Signs Vital signs: Vital Signs Temp 98.4 F 07/29/21 08:05 Pulse 53 L 07/29/21 08:16 Resp 18 07/29/21 08:05 BP 99/59 07/29/21 08:05 Pulse Ox 95 07/29/21 08:05 Intake & Output 07/28/21 07/29/21 07/29/21 18:59 06:59 18:59 Other: Voiding Method Toilet # Voids 5 1 1 # Bowel Movements 1 - Exam Gen: awake, alert HEENT: normocephalic, atraumatic, good hearing acuity, moist mucous membranes Resp: good air exchange, breathing comfortably with no accessory muscle use CVS: good distal perfusion x 4, GI: soft, NTTP, ND : no SPT, no CVAT, villa catheter not present MSK: no pitting edema, no clubbing Neuro: non-focal, moving all extremities Psych: cooperative, euthymic mood Incision sites on the abdomen clean/dry/intact. - Labs CBC & Chem 7: 07/29/21 05:28 07/27/21 04:33 Labs: Abnormal Lab Results - Last 24 Hours (Table) 07/29/21 Range/Units 05:28 RBC 3.62 L (4.10-5.20) X 10*6/uL Hgb 10.1 L (12.0-15.0) g/dL Hct 31.8 L (37.2-46.3) % MCHC 31.8 L (32.0-37.0) g/dL Eosinophils # 0 L (0.04-0.35) X 10*3/uL Assessment and Plan Assessment: Assessment: #1 obesity class II #2 status post endoscopic sleeve gastrectomy #3 migraine #4 mood disorder #5 hyperthyroidism Plan: -Continue management as per primary -Advance diet as tolerated clear liquid -Vital signs stable -Pain control when necessary -DVT prophylaxis per surgery We will continue to follow along.
--- NOTE | 2021-07-29 13:32 | CT ---
EXAMINATION TYPE: CT abdomen pelvis w con DATE OF EXAM: 07/29/2021 COMPARISON: 12/24/2020 and 11/04/2019 HISTORY: abdominal pain post-op sleeve CT DLP: 1628.7 mGycm CONTRAST: CT scan of the abdomen and pelvis is performed with Oral Contrast and with IV Contrast, patient injec tanvir with 100 mL of Isovue 300. FINDINGS: LUNG BASES-: No visible nodule. No infiltrate. LIVER/GB: No calcified gallstones. Mild hepatic steatosis identified. No space occupying hepatic l esion. Biliary tree is of normal caliber. PANCREAS: No inflammation. No distinct mass. Small bilateral pleural effusions right greater than l eft with mild compressive atelectasis seen. SPLEEN: At the upper pole of the spleen medially there is a small wedge-shaped area of decreased atte nuation which was not present previously noncontrast study of 11/04/2019 and measures 1.7 x 1.5 cm. Th is could reflect postoperative change from recent sleeve formation versus small infarct. The spleen i s not enlarged ADRENALS: No nodule. No thickening. KIDNEYS/BLADDER: No left-sided renal calculi. Right kidney shows peripheral calcifications with nonv isualized prior oval low dense lesion laterally mid pole level. Some deeper punctate calcifications o r calculi are redemonstrated up to 5 mm in size, approximately 3-4 calcifications or calculi are felt present. No right-sided hydronephrosis. BOWEL: The appendix is surgically absent. Gastric sleeve formation noted. There is no evidence for f ree air or abscess. No evidence to suggest leak. Normal bowel caliber. No inflammation. GENITAL ORGANS: Free fluid within the cul-de-sac measuring 5.1 x 4.4 cm. LYMPH NODES: No greater martin n 1cm abdominal or pelvic lymph nodes are appreciated. AORTA: No significant abnormality. OSSEOUS STRUCTURES: No significant abnormality is seen. OTHER: No significant additional abnormality is seen. IMPRESSION: 1. Small splenic infarct versus postoperative change as discussed above. 2. Small bilateral pleural effusions right greater than left with mild compressive atelectasis. 3. Uncomplicated gastric sleeve. 4 nonobstructing nephrolithiasis. 5. Free fluid within the cul-de-sac. Uterus and ovaries are unremarkable.
--- NOTE | 2021-07-29 13:58 | P.PN ---
Subjective Progress Note Date: 07/29/21 CHIEF COMPLAINT: Morbid obesity HISTORY OF PRESENT ILLNESS: Patient is status post laparoscopic sleeve ga strectomy. Postop day #3. Patient complaining of worsening pain and fullness today. She will reports that her pain is 9 out of 10. She feels that her pain is similar to after the surgery on Monday. She is still requiring the IV Dilaudid. She denies any flatus. She did have episode of tachycardia last night with a heart rate of 131. Her propanolol that she takes for migraines is currently held due to her bradycardia and mild hypertension. Patient reports that she is ambulating and tolerating liquids. Afebrile. WBC has normalized from 12.54-8.4 to hemoglobin 10.1 platelets 258. Computed tomography scan abdomen and pelvis ordered due to increased abdominal pain. Results show no flora dence of leak. Small splenic infarct versus postoperative changes. Small bilateral pleural effusions right greater than left with mild compressive atelectasis. Uncomplicated gastric sleeve. Nonobstructing nephrolithiasis. Free fluid within the cul-de-sac. Uterus and ovaries are unremarkable. PHYSICAL EXAM: VITAL SIGNS: Reviewed. GENERAL: Well-developed in no acute distress. HEENT: No sclera icterus. Extraocular movements grossly intact. Moist buccal mucosa. Head is atraumatic, normocephalic. ABDOMEN: Soft. Nondistended. Incision sites clean dry and intact. NEUROLOGIC: Alert and oriented. Cranial nerves II through XII grossly intact. ASSESSMENT: 1. Morbid obesity status post laparoscopic sleeve gastrectomy 2. Upper GI with a moderate to severe obstruction likely due to postoperative PLAN: -Continue bariatric clear liquid diet -Continue IV Decadron 4 mg every 6 hours scheduled for postoperative edema -Add [place] elixir to help with pain control -Continue simethicone drops -Continue antiemetics as needed -Encouraged patient to ambulate -Encouraged patient to use incentive spirometer -Anticipate discharge home possibly tomorrow if pain is controlled at -DVT prophylaxis Lovenox and GI prophylaxis Protonix Physician Slps note has been reviewed by physician. Signing provider agrees with the documented findings, assessment, and plan of care. I have personally seen and examined the patient, reviewed the THERAPY TECHNICIAN /PAs history, exam and MDM and agree with the assessment and plan as written. Based on total visit time, I have performed more than 50% of the visit. As above: Patient was having increased abdominal pain earlier today. Still feels weak. Tolerating clear liquids. CAT scan was ordered and shows no evidence of leak or hematoma formation. She feels better this evening. Continue clear liquids. Possible discharge tomorrow. Objective - Vital Signs Vital signs: Vital Signs Temp 98.4 F 07/29/21 08:05 Pulse 53 L 07/29/21 08:16 Resp 18 07/29/21 08:05 BP 99/59 07/29/21 08:05 Pulse Ox 98 07/29/21 11:43 Intake & Output 07/28/21 07/29/21 07/29/21 18:59 06:59 18:59 Other: Voiding Method Toilet # Voids 5 1 1 # Bowel Movements 1 - Labs CBC & Chem 7: 07/29/21 05:28 07/27/21 04:33 Labs: Abnormal Lab Results - Last 24 Hours (Table) 07/29/21 Range/Units 05:28 RBC 3.62 L (4.10-5.20) X 10*6/uL Hgb 10.1 L (12.0-15.0) g/dL Hct 31.8 L (37.2-46.3) % MCHC 31.8 L (32.0-37.0) g/dL Eosinophils # 0 L (0.04-0.35) X 10*3/uL
[2021-07-29] MEDS: HYDROcodone/APAP 15 ML SOLUTION PO PRN (17:23)
[2021-07-30] MEDS: HYDROmorphone 1 MG/ML 1 ML SYRINGE IVP PRN (00:03)
[2021-07-30] MEDS: DEXAMETHASONE SOD PHOSPHATE 4 MG/ML 1 ML VIAL IVP SCH ×3 (00:04→15:13)
[2021-07-30] MEDS: KETOROLAC 15 MG/ML 1 ML VIAL IVP SCH ×3 (00:04→15:13)
[2021-07-30 03:56] VITALS: TEMP 97.9
[2021-07-30 05:49] VITALS: RESP 17
[2021-07-30] MEDS: LEVOTHYROXINE 25 MCG TAB PO SCH (06:00)
[2021-07-30] MEDS: HYDROcodone/APAP 15 ML SOLUTION PO PRN (06:05)
[2021-07-30 07:53] VITALS: BP 107/69; PULSE 42
[2021-07-30] MEDS: ALBUTEROL NEBULIZED 2.5 MG/3 ML INHALATION SCH ×3 (07:53→15:32)
[2021-07-30] MEDS: ENOXAPARIN 40 MG/0.4 ML SYRINGE SQ SCH (07:57)
[2021-07-30] MEDS: CYCLOBENZAPRINE 10 MG TAB PO SCH (07:58)
[2021-07-30] MEDS: VENLAFAXINE HCL ER 75 MG CAP PO SCH (07:58)
[2021-07-30] MEDS: PANTOPRAZOLE 40 MG/10 ML VIAL IV SCH (07:58)
[2021-07-30] MEDS: LACTATED RINGERS 1,000 ML IV SCH (07:58)
[2021-07-30] MEDS: PROPRANOLOL LA 80 MG CAP.SA.24H PO SCH (07:58)
--- NOTE | 2021-07-30 11:36 | P.DS ---
Providers Date of admission: 07/26/21 08:28 Expected date of discharge: 07/30/21 Attending physician: Polo Billy Consults: 07/26/21 11:36 Consult Physician Routine Consulting Provider: Tegan Mann Consult Reason/Comments: Medical management Do you want consulting provider notified?: Yes Primary care physician: Salas Hernandez Hospital Course: Discharge diagnosis 1. Morbid obesity status post laparoscopic sleeve gastrectomy 2. Upper GI with a moderate to severe obstruction likely due to postoperative edema Hospital course This is a 31-year-old female with a history of morbid obesity. She is status post laparoscopic sleeve gastrectomy. Her upper GI showed no evidence of leak did reveal moderate to severe obstruction likely due to postoperative edema. Patient was started on IV Decadron. Patient's fullness and pain that she had been feeling has shown improvement. She is tolerating liquids. She had a computed tomography scan of the abdomen and pelvis yesterday that showed no evidence of leak or hematoma formation. Patient has been up and ambulating. She is having flatus. She's afebrile. Her incision sites are clean dry and intact. She is stable for discharge. Please refer to chart for any further details. Physician Lawn Maintenance Worker note has been reviewed by physician. Signing provider agrees with the documented findings, assessment, and plan of care. Patient Condition at Discharge: Stable Plan - Discharge Summary Discharge Rx Participant: Yes New Discharge Prescriptions: New Simethicone 40 mg/0.6 ml Drops [Mylicon Drops] 40 mg PO PCHS PRN #30 ml PRN Reason: Gas Omeprazole [PriLOSEC] 40 mg PO DAILY #30 cap bisacodyL [Dulcolax] 5 mg PO DAILY PRN #10 tab PRN Reason: Constipation Ondansetron Odt [Zofran Odt] 4 mg PO Q8HR PRN #9 tab PRN Reason: Nausea HYDROcodone/APAP 5-325MG [[place] 5-325] 1 tab PO Q6HR PRN 2 Days #5 tab PRN Reason: Pain Continue Levothyroxine Sodium [Tirosint] 25 mcg PO QAM SUMAtriptan SUCCINATE [Imitrex] 50 mg PO DIRECTED PRN PRN Reason: Migraine Headache Venlafaxine HCl [Effexor XR] 75 mg PO QAM Ergocalciferol [Vitamin D2 (1250 Mcg = 63986 Iu)] 1,250 mcg PO MO Cyclobenzaprine [Flexeril] 10 mg PO QAM hydrOXYzine HCL 25 mg PO DAILY PRN PRN Reason: Anxiety Propranolol HCl 80 mg PO QAM Discharge Medication List Venlafaxine HCl [Effexor XR] 75 mg PO QAM 12/28/20 [History] Cyclobenzaprine [Flexeril] 10 mg PO QAM 01/29/21 [History] Ergocalciferol [Vitamin D2 (1250 Mcg = 74096 Iu)] 1,250 mcg PO MO 01/29/21 [History] hydrOXYzine HCL 25 mg PO DAILY PRN 02/16/21 [History] Levothyroxine Sodium [Tirosint] 25 mcg PO QAM 05/19/21 [History] Propranolol HCl 80 mg PO QAM 07/22/21 [History] SUMAtriptan SUCCINATE [Imitrex] 50 mg PO DIRECTED PRN 07/22/21 [History] HYDROcodone/APAP 5-325MG [[place] 5-325] 1 tab PO Q6HR PRN 2 Days #5 tab 07/30/21 [Rx] Omeprazole [PriLOSEC] 40 mg PO DAILY #30 cap 07/30/21 [Rx] Ondansetron Odt [Zofran Odt] 4 mg PO Q8HR PRN #9 tab 07/30/21 [Rx] Simethicone 40 mg/0.6 ml Drops [Mylicon Drops] 40 mg PO PCHS PRN #30 ml 07/30/21 [Rx] bisacodyL [Dulcolax] 5 mg PO DAILY PRN #10 tab 07/30/21 [Rx] Follow up Appointment(s)/Referral(s): Bariatric [place], [place] [NON-STAFF] - 07/30/21 10:00 am Activity/Diet/Wound Care/Special Instructions: No driving while taking [place] No lifting over 10 pounds Shower daily. No soaking or tub baths for 2 weeks Very light activity until you are reevaluated at your follow up appointment with your surgeon No straws or carbonated beverages Follow up with Dr. Billy [facility] in 1 week Discharge Disposition: HOME SELF-CARE
--- NOTE | 2021-07-30 19:08 | P.PN ---
Subjective Progress Note Date: 07/30/21 (delayed charting seen at 1000) Principal diagnosis: obesity Patient is a 31-year-old female status post gastrectomy with history of migraine, mood disorder, and hypothyroidism. Patient seen and examined at bedside. She is feeling much better than yesterday. Nausea and vomiting is tolerable and pain is much improved. She is excited TO go home. She is passing gas. General: non toxic, no distress, appears at stated age Derm: warm, dry Head: atraumatic, normocephalic, symmetric Eyes: EOMI, no lid lag, anicteric sclera Mouth: no lip lesion, mucus membranes moist Cardiovascular: S1S2 reg, no murmur, positive posterior tibial pulse bilateral, Lungs: CTA bilateral, no rhonchi, no rales , no accessory muscle use Abdominal: soft, +tender to palpation diffusely, no guarding, no appreciable organomegaly Ext: no gross muscle atrophy, no edema, no contractures Neuro: CN II-XI grossly intact, no focal neuro deficits Psych: Alert, oriented, appropriate affect 31-year-old female status post sleeve gastrectomy Hypothyroidism Migraine headaches Mood disorder Obesity with BMI 35.6 -Home medication reconciliation addressed. Patient can resume her home hydroxy zine, Effexor, Imitrex, propranolol, and levothyroxine. We discussed that she should follow-up with her primary care physician about 2 weeks. Patient medically optimized for discharge. Objective - Vital Signs Vital signs: Vital Signs Temp 97.9 F 07/30/21 07:52 Pulse 42 L 07/30/21 07:52 Resp 17 07/30/21 02:00 BP 107/69 07/30/21 07:52 Pulse Ox 95 07/30/21 07:52 Intake & Output 07/30/21 07/30/21 07/31/21 06:59 18:59 06:59 Other: Voiding Method Toilet Toilet # Voids 3 # Bowel Movements 0 - Labs CBC & Chem 7: 07/29/21 05:28 07/27/21 04:33
== END 2021-07-30 15:33 | disposition home or self-care (01) | DRG 620 ==
LOC: 2ORMAIN 08:28 → 4SSUR 15:17
PROVIDERS: ADMIT Surgery; ATTEND Surgery
PROC: 0DB64Z3 Excision of Stomach, Percutaneous Endoscopic Approach, Vertical (ICD-10-PCS; principal; 2021-07-26 09:50)
DX: E66.01 Morbid (severe) obesity due to excess calories (principal); K56.609 Unspecified intestinal obstruction, unspecified as to partial versus complete obstruction; E03.9 Hypothyroidism, unspecified; F32.A Depression, unspecified; F41.9 Anxiety disorder, unspecified; F90.9 Attention-deficit hyperactivity disorder, unspecified type; G43.909 Migraine, unspecified, not intractable, without status migrainosus; E05.90 Thyrotoxicosis, unspecified without thyrotoxic crisis or storm; H54.62 Unqualified visual loss, left eye, normal vision right eye; I10 Essential (primary) hypertension; J45.909 Unspecified asthma, uncomplicated; N20.0 Calculus of kidney; Z87.440 Personal history of urinary (tract) infections; Z68.36 Body mass index [BMI] 36.0-36.9, adult; Z87.891 Personal history of nicotine dependence; Z87.442 Personal history of urinary calculi; Z79.890 Hormone replacement therapy; Z79.899 Other long term (current) drug therapy; Z98.51 Tubal ligation status; Z90.49 Acquired absence of other specified parts of digestive tract; Z98.890 Other specified postprocedural states; Z82.49 Family history of ischemic heart disease and other diseases of the circulatory system; Z81.8 Family history of other mental and behavioral disorders
CPT/HCPCS: 74177; 74240; 80051; 81025; 82310; 82565; 83735; 84100; 84520; 85025; 88307

== ENCOUNTER → 2021-08-10 | Outpatient (CLI) | payer OTHER ==
[2021-08-10 11:32] VITALS: BP 118/72; PULSE 67; TEMP 98.7; BMI 32.8
== END ==
LOC: BARWHC3 10:17
PROVIDERS: ATTEND Surgery
DX: Z09 Encounter for follow-up examination after completed treatment for conditions other than malignant neoplasm (principal); Z98.84 Bariatric surgery status; F17.200 Nicotine dependence, unspecified, uncomplicated; Z88.8 Allergy status to other drugs, medicaments and biological substances; Z91.040 Latex allergy status; Z88.5 Allergy status to narcotic agent
CPT/HCPCS: 99211

== ENCOUNTER → 2021-08-16 | Outpatient (CLI) | payer OTHER ==
[2021-08-16 14:25] VITALS: BP 106/73; PULSE 62; TEMP 98.5; BMI 32.8
--- NOTE | 2021-08-16 15:54 | P.HPBAR ---
Bariatric H&P - History & Physicial H&P Date: 08/16/21 History & Physicial: Visit/CC: 3 week sleeve f/u Patient initial contact: Initial weight: 107.7 kg Initial weight in pounds: 237.44 Height: 5 ft 5 in Initial BMI: 39.4 Last weight: Current weight: 89.358 kg Current weight in pounds: 197.00 Current BMI: 32.8 [place] body weight (based on NIH guidelines): 56.699 kg Excess body weight loss: 35.9% The patient is a 31 year-old F who presents for Bariatric Assessment. Patient presents today for bariatric follow-up. She is doing quite well. She's had some mild GERD. Past Medical History Past Medical History: Asthma, Eye Disorder, Thyroid Disorder Additional Past Medical History / Comment(s): Hx of kidney and bladder infections, permanent upper retainer present. 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 Gastric sleeve 07/26/21 Past Anesthesia/Blood Transfusion Reactions: No Reported Reaction Past Psychological History: Anxiety, Depression Additional Psychological History / Comment(s): pt stated feels well maintained on meds Smoking Status: Current every day smoker Past Alcohol Use History: None Reported Additional Past Alcohol Use History / Comment(s): Started smoking at age 18, 5 cigarettes per day. Past Drug Use History: None Reported Additional Drug Use History / Comment(s): USES MARIJUANA FOR PAIN-INSTRUCTED TO REFRAIN FROM USE FOR AT LEAST 24 HOURS PRIOR TO PROCEDURE - Past Family History Father Family Medical History: Hypertension Additional Family Medical History / Comment(s): Anxiety. Mother Family Medical History: Hypertension Additional Family Medical History / Comment(s): pt's mother and father high BP Surgical - Exam Vital Signs Temp Pulse BP 98.5 F 62 106/73 08/16/21 14:20 08/16/21 14:20 08/16/21 14:20 - General well developed, well nourished, no distress - Eyes PERRL - Abdomen Abdomen: soft, non tender Bariatric Assessment & Plan Plan: Improving morbid obesity. Patient's GERD is minimal and will be observed for she'll follow-up in 4 weeks. Bariatric Checklist Checklist: Plan: Checklist: EGD: 1. Hiatal hernia: 2. H. Pylori: HgbA1c: Vitamin D: Smoking: Current every day smoker Primary care physician referral: Psychiatry clearance: Cardiology clearance: Sleep study: Diet journal: VTE risk score: VTE risk level: Rehab needs at discharge:
[2021-08-16 23:51] LABS: Appearance,Urine Turbid (Clear); Bilirubin,Urine Negative (Negative); Blood,Urine Large (Negative); Color,Urine Yellow (Yellow); Ketones,Urine 40 mg/dL (Negative); Nitrite,Urine Negative (Negative); PH, Urine 7.5 (5.0-8.0)
[2021-08-17 01:21] LABS: Bacteria,Urine 1+ /HPF (None Seen)
== END ==
LOC: BARWHC3 13:39
PROVIDERS: ATTEND Surgery
DX: E66.01 Morbid (severe) obesity due to excess calories (principal); R30.9 Painful micturition, unspecified; K21.9 Gastro-esophageal reflux disease without esophagitis; J45.909 Unspecified asthma, uncomplicated; G43.909 Migraine, unspecified, not intractable, without status migrainosus; Z98.84 Bariatric surgery status; F41.9 Anxiety disorder, unspecified; F32.A Depression, unspecified; F17.200 Nicotine dependence, unspecified, uncomplicated; Z68.32 Body mass index [BMI] 32.0-32.9, adult; Z91.040 Latex allergy status; Z88.8 Allergy status to other drugs, medicaments and biological substances; Z88.5 Allergy status to narcotic agent
CPT/HCPCS: 81001; 87086; 97803; G0463; 99211

== ENCOUNTER → 2021-10-18 | Outpatient (CLI) | payer OTHER ==
[2021-10-18 15:01] VITALS: BP 123/83; PULSE 82; TEMP 98.2; BMI 29.6
--- NOTE | 2021-10-18 15:39 | P.HPBAR ---
Bariatric H&P - History & Physicial H&P Date: 10/18/21 History & Physicial: Visit/CC: three month follow up Patient initial contact: Initial weight: 107.7 kg Initial weight in pounds: 237.44 Height: 5 ft 5 in Initial BMI: 39.4 Last weight: Current weight: 80.739 kg Current weight in pounds: 178.00 Current BMI: 29.6 [place] body weight (based on NIH guidelines): 56.699 kg Excess body weight loss: 52.8% The patient is a 31 year-old F who presents for Bariatric Assessment. Patient presents today for bariatric follow-up. She's had some complaints of minimal GERD. She's had excellent weight loss she's lost another 20 pounds. Past Medical History Past Medical History: Asthma, Eye Disorder, Thyroid Disorder Additional Past Medical History / Comment(s): Hx of kidney and bladder infections, permanent upper retainer present. 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 Gastric sleeve 07/26/21 Past Anesthesia/Blood Transfusion Reactions: No Reported Reaction Past Psychological History: Anxiety, Depression Additional Psychological History / Comment(s): pt stated feels well maintained on meds Smoking Status: Current every day smoker Past Alcohol Use History: None Reported Additional Past Alcohol Use History / Comment(s): Started smoking at age 18, 5 cigarettes per day. Past Drug Use History: None Reported Additional Drug Use History / Comment(s): USES MARIJUANA FOR PAIN-INSTRUCTED TO REFRAIN FROM USE FOR AT LEAST 24 HOURS PRIOR TO PROCEDURE - Past Family History Father Family Medical History: Hypertension Additional Family Medical History / Comment(s): Anxiety. Mother Family Medical History: Hypertension Additional Family Medical History / Comment(s): pt's mother and father high BP Surgical - Exam Vital Signs Temp Pulse BP 98.2 F 82 123/83 10/18/21 14:57 10/18/21 14:57 10/18/21 14:57 - General well developed, well nourished, no distress - Eyes PERRL - Abdomen Abdomen: soft, non tender Bariatric Assessment & Plan Plan: Resolving morbid obesity. Patient's GERD is minimal and will be observed. S he'll follow-up in 4 weeks. Bariatric Checklist Checklist: Plan: Checklist: EGD: 1. Hiatal hernia: 2. H. Pylori: HgbA1c: Vitamin D: Smoking: Current every day smoker Primary care physician referral: Psychiatry clearance: Cardiology clearance: Sleep study: Diet journal: VTE risk score: VTE risk level: Rehab needs at discharge:
[2021-10-18 22:11] LABS: Basophils # (A) 0.01 X 10*3/uL (0.00-0.10); Basophils % (A) 0.2 %; Eosinophils # (A) 0 X 10*3/uL (0.04-0.35); Eosinophils % (A) 0 %; HCT 38.1 % (37.2-46.3); HGB 12.6 g/dL (12.0-15.0); Immature Grans, Automated 0.2 %; Lymphocytes # (A) 1.79 X 10*3/uL (0.90-5.00); MCH 28.9 pg (27.0-32.0); MCHC 33.1 g/dL (32.0-37.0); MCV 87.4 fL (80.0-97.0); Mean Platelet Volume 12.3 fL (9.5-12.2); Monocytes % (A) 5.7 %; NRBC Per 100 WBC 0 /100 WBCS (0.0-0.0); Neutrophils # (A) 3.15 X 10*3/uL (1.80-7.70); Neutrophils % (A) 59.9 %; Platelet Count 234 X 10*3/uL (140-440); RBC 4.36 X 10*6/uL (4.10-5.20); RDW 13.5 % (11.5-14.5); WBC 5.26 X 10*3/uL (4.50-10.00)
[2021-10-18 23:20] LABS: % Iron Saturation 11.93 (12.00-45.00); African American GFR (CKD) 146.8 (60.0-200.0); Albumin 4.9 g/dL (3.8-4.9); Albumin/Globulin Ratio 2.1 (1.60-3.17); Anion Gap 9.8 mmol/L (10.00-18.00); BUN/Creat Ratio 20.51 Ratio (12.00-20.00); Blood Urea Nitrogen 11.3 mg/dL (9.0-27.0); Calcium 9.7 mg/dL (8.7-10.3); Ferritin 27.9 ng/mL (10.0-291.0); Globulin 2.3 g/dL (1.6-3.3); Magnesium 2.1 mg/dL (1.5-2.4); Non-African American GFR(CKD) 126.7 (60.0-200.0); Potassium 4.2 mmol/L (3.5-5.5); Total Bilirubin 0.5 mg/dL (0.30-1.20); Total Protein 7.2 g/dL (6.2-8.2)
[2021-10-19 11:56] LABS: Zinc, Serum 86 ug/dL (60-130)
[2021-10-20 06:34] LABS: Vitamin A 32 ug/dL (38-106)
== END ==
LOC: BARWHC3 13:25
PROVIDERS: ATTEND Surgery
DX: E66.01 Morbid (severe) obesity due to excess calories (principal); K21.9 Gastro-esophageal reflux disease without esophagitis; J45.909 Unspecified asthma, uncomplicated; G43.909 Migraine, unspecified, not intractable, without status migrainosus; Z98.84 Bariatric surgery status; F41.9 Anxiety disorder, unspecified; F32.A Depression, unspecified; F17.200 Nicotine dependence, unspecified, uncomplicated; D50.8 Other iron deficiency anemias; E44.0 Moderate protein-calorie malnutrition; E55.9 Vitamin D deficiency, unspecified; T56.894A Toxic effect of other metals, undetermined, initial encounter; Z88.8 Allergy status to other drugs, medicaments and biological substances; Z91.040 Latex allergy status; Z88.5 Allergy status to narcotic agent; Z68.29 Body mass index [BMI] 29.0-29.9, adult
CPT/HCPCS: 84255; 84425; 80053; 82607; 82728; 82746; 83540; 83550; 83735; 84443; 84590; 84630; 85025; 82306; G0463; 99211

== ENCOUNTER 2021-12-10 06:49 | Emergency (ER) | payer OTHER ==
[2021-12-10 06:55] VITALS: TEMP 97.2
[2021-12-10] MEDS ORDERED: SODIUM CHLORIDE 0.9% 1,000 ML IV STA (07:03)
[2021-12-10] MEDS ORDERED: FAMOTIDINE 20 MG/2 ML VIAL IV STA (07:03)
[2021-12-10] MEDS ORDERED: methylPREDNISolone SOD SUCCI 125 MG/2 ML VIAL IV STA (07:03)
[2021-12-10] MEDS ORDERED: IPRATROPIUM-ALBUTEROL 3 ML NEB INHALATION STA (07:04)
--- NOTE | 2021-12-10 07:12 | ED ---
Allergic Reaction HPI - General Chief complaint: Allergic Reaction Stated complaint: alergic reaction Time Seen by Provider: 12/10/21 06:59 Source: patient, RN notes reviewed, old records reviewed Mode of arrival: ambulatory Limitations: no limitations - History of Present Illness Initial Comments: 31-year-old female presents to the emergency room with complaints of ALLERGIC reaction. She awoke with a rash, used an EpiPen, then went back to sleep. Woke up again at 6:30 with shortness of breath and hives but didn't have another EpiPen so she came to the emergency room. She states that this has happened to her before and is not related to any ingestion or exposure, states only happens when her "thyroid is out of whack". She states that she is ALLERGIC to Benadryl which makes her throat itch. No nausea vomiting or diarrhea. No facial swelli ng or tongue swelling. No difficulty swallowing. She does have a persistent dry cough. MD Complaint: allergic reaction, hives -: hour(s) (4) Symptoms: rash, itching, other (cough) Treatment Prior to Arrival: epinephrine Previous Allergy History: anaphylaxis - Related Data Home Medications Medication Instructions Recorded Confirmed Venlafaxine HCl [Effexor XR] 75 mg PO QAM 12/28/20 10/18/21 Cyclobenzaprine [Flexeril] 10 mg PO QAM 01/29/21 10/18/21 Ergocalciferol [Vitamin D2 (1250 1,250 mcg PO MO 01/29/21 10/18/21 Mcg = 35491 Iu)] hydrOXYzine HCL 25 mg PO DAILY PRN 02/16/21 10/18/21 Levothyroxine Sodium [Tirosint] 25 mcg PO QAM 05/19/21 10/18/21 Propranolol HCl 80 mg PO QAM 07/22/21 10/18/21 SUMAtriptan succinate [Imitrex] 50 mg PO DIRECTED PRN 07/22/21 10/18/21 Previous Rx's Medication Instructions Recorded Omeprazole [PriLOSEC] 40 mg PO DAILY #30 cap 07/30/21 Albuterol Inhaler [Ventolin Hfa 1 - 2 puff INHALATION Q6H PRN #1 12/10/21 Inhaler] dispenser EPINEPHrine (Auto Inject) [Epipen] 0.3 mg IM ONCE PRN #1 each 12/10/21 Allergies Allergy/AdvReac Type Severity Reaction Status Date / Time diphenhydramine HCl Allergy Throat Verified 12/10/21 06:55 [From Benadryl] Itches (with name brand Benadryl only) latex Allergy Rash/Hives Verified 12/10/21 06:55 hydrocodone bitartrate AdvReac Migraine Verified 12/10/21 06:55 [From Vicodin] Review of Systems ROS Statement: Those systems with pertinent positive or pertinent negative responses have been documented in the HPI. ROS Other: All systems not noted in ROS Statement are negative. Past Medical History Past Medical History: Asthma, Eye Disorder, Thyroid Disorder Additional Past Medical History / Comment(s): Hx of kidney and bladder infections, permanent upper retainer present. 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 Gastric sleeve 07/26/21 Past Anesthesia/Blood Transfusion Reactions: No Reported Reaction Past Psychological History: Anxiety, Depression Smoking Status: Current every day smoker Past Alcohol Use History: None Reported Past Drug Use History: None Reported - Past Family History Father Family Medical History: Hypertension Additional Family Medical History / Comment(s): Anxiety. Mother Family Medical History: Hypertension Additional Family Medical History / Comment(s): pt's mother and father high BP General Exam Limitations: no limitations General appearance: alert, in no apparent distress Head exam: Present: atraumatic Eye exam: Absent: periorbital swelling ENT exam: Present: mucous membranes moist Respiratory exam: Present: normal lung sounds bilaterally. Absent: respiratory distress, wheezes, rales, rhonchi, stridor, chest wall tenderness, accessory muscle use, decreased breath sounds Cardiovascular Exam: Present: regular rate GI/Abdominal exam: Present: soft. Absent: distended, tenderness, guarding, rebound, rigid Extremities exam: Present: full ROM, normal capillary refill. Absent: tenderness, pedal edema Back exam: Present: full ROM, other (hives). Absent: tenderness, CVA tenderness (R), CVA tenderness (L) Neurological exam: Present: alert, oriented X3, normal gait Psychiatric exam: Present: normal affect, normal mood Skin exam: Present: warm, dry, urticaria (hives thighs, abdomen, arms and back). Absent: cyanosis, diaphoretic, petechiae, pallor Course Vital Signs 12/10/21 12/10/21 12/10/21 06:52 07:38 07:39 Temperature 97.2 F L Pulse Rate 98 70 Respiratory 16 18 Rate Blood Pressure 127/85 O2 Sat by Pulse 98 Oximetry 12/10/21 12/10/21 12/10/21 07:43 07:49 11:12 Temperature Pulse Rate 84 74 Respiratory 16 Rate Blood Pressure 112/74 O2 Sat by Pulse 100 98 Oximetry Medical Decision Making - Medical Decision Making Patient presents with complaints of ALLERGIC reaction. Gave herself an EpiPen injection at 3 AM. Continued to have the urticaria and bronchospasm and came to ER. She states in the past she has had this reaction when her thyroid levels are off. She was given a DuoNeb treatment for bronchospasm along with Solu-Medrol, Pepcid and IV fluids. States she is ALLERGIC to Benadryl, makes her throat itch. Lungs sounds are clear to auscultation. Oxygen saturation is 98% on room air. CBC and electrolytes unremarkable. TSH is 5.5 , free T4 is 0.90 Patient states that her dose of levothyroxine was decreased from 50 g to 25 in October this year. Patient states she did see her primary care doctor yesterday who told her to stop taking all steroids. She was discharged today and directed to take hydroxyzine as needed for any urticaria. Follow-up with her doctor next week. She is instructed to return to the emergency room with any difficulty breathing or chest pain. Use the EpiPen for any difficulty breathing or airway swelling. She is agreeable to this plan of care. Case discussed with Dr. Lozada. - Lab Data Result diagrams: 12/10/21 07:32 12/10/21 07:32 Lab Results 12/10/21 12/10/21 Range/Units 07:32 07:32 WBC 9.4 (3.8-10.6) k/uL RBC 4.10 (3.80-5.40) m/uL Hgb 11.6 (11.4-16.0) gm/dL Hct 35.0 (34.0-46.0) % MCV 85.5 (80.0-100.0) fL MCH 28.3 (25.0-35.0) pg MCHC 33.1 (31.0-37.0) g/dL RDW 12.9 (11.5-15.5) % Plt Count 219 (150-450) k/uL MPV 8.9 Neutrophils % 56 % Lymphocytes % 39 % Monocytes % 4 % Eosinophils % 0 % Basophils % 0 % Neutrophils # 5.2 (1.3-7.7) k/uL Lymphocytes # 3.6 (1.0-4.8) k/uL Monocytes # 0.4 (0-1.0) k/uL Eosinophils # 0.0 (0-0.7) k/uL Basophils # 0.0 (0-0.2) k/uL Hypochromasia Slight Sodium 138 (137-145) mmol/L Potassium 3.7 (3.5-5.1) mmol/L Chloride 103 (98-107) mmol/L Carbon Dioxide 26 (22-30) mmol/L Anion Gap 9 mmol/L BUN 16 (7-17) mg/dL Creatinine 0.56 (0.52-1.04) mg/dL Est GFR (CKD-EPI)AfAm >90 (>60 ml/min/1.73 sqM) Est GFR (CKD-EPI)NonAf >90 (>60 ml/min/1.73 sqM) Glucose 86 (74-99) mg/dL Calcium 8.9 (8.4-10.2) mg/dL TSH 5.580 H (0.465-4.680) mIU/L Free T4 0.90 (0.78-2.19) ng/dL Disposition Clinical Impression: Urticaria, Allergic reaction Disposition: HOME SELF-CARE Condition: Good Instructions (If sedation given, give patient instructions): Urticaria (ED) Additional Instructions: Avoid hot showers, oatmeal baths may sooth rash. Use hydroxyzine as previously prescribed for any rashes or hives. Follow up with your primary care doctor next week. Return to the emergency room if any new or concerning symptoms including persistent nausea vomiting, difficulty breathing or chest pain. Prescriptions: EPINEPHrine (Auto Inject) [Epipen] 0.3 mg IM ONCE PRN #1 each PRN Reason: Anaphylaxis Albuterol Inhaler [Ventolin Hfa Inhaler] 1 - 2 puff INHALATION Q6H PRN #1 dispenser PRN Reason: Wheezing Is patient prescribed a controlled substance at d/c from ED?: No Referrals: Amy Kimbrough MD [STAFF PHYSICIAN] - 1-2 days Time of Disposition: 09:43
[2021-12-10 07:43] LABS: Basophils % (A) 0 %; Eosinophils % (A) 0 %; HGB 11.6 gm/dL (11.4-16.0); Hypochromasia Slight; Lymphocytes # (A) 3.6 k/uL (1.0-4.8); Lymphocytes % (A) 39 %; MCH 28.3 pg (25.0-35.0); MCHC 33.1 g/dL (31.0-37.0); MCV 85.5 fL (80.0-100.0); Mean Platelet Volume 8.9; Monocytes # (A) 0.4 k/uL (0-1.0); Monocytes % (A) 4 %; Neutrophils # (A) 5.2 k/uL (1.3-7.7); Neutrophils % (A) 56 %; Platelet Count 219 k/uL (150-450); RDW 12.9 % (11.5-15.5); WBC 9.4 k/uL (3.8-10.6)
[2021-12-10 07:59] LABS: African American GFR (CKD) >90 (>60 ml/min/1.73 sqM); Anion Gap 9 mmol/L; Blood Urea Nitrogen 16 mg/dL (7-17); Calcium 8.9 mg/dL (8.4-10.2); Carbon Dioxide 26 mmol/L (22-30); Chloride 103 mmol/L (98-107); Glucose 86 mg/dL (74-99); Non-African American GFR(CKD) >90 (>60 ml/min/1.73 sqM); Potassium 3.7 mmol/L (3.5-5.1); Sodium 138 mmol/L (137-145)
[2021-12-10] MEDS ORDERED: hydrOXYzine HCL 50 MG/ML 1 ML VIAL IM PRN (09:36)
[2021-12-10 11:13] VITALS: BP 112/74; PULSE 74; RESP 16
== END 2021-12-10 11:14 | disposition home or self-care (01) ==
LOC: EC 06:49
DX: L50.0 Allergic urticaria (principal); J45.909 Unspecified asthma, uncomplicated; E07.9 Disorder of thyroid, unspecified; F17.200 Nicotine dependence, unspecified, uncomplicated; Z79.890 Hormone replacement therapy; Z88.8 Allergy status to other drugs, medicaments and biological substances; Z91.040 Latex allergy status; Z88.5 Allergy status to narcotic agent
CPT/HCPCS: 36415; 94640; 84439; 80048; 84443; 85025; 99284; 96374; 96375; 96361; 96372; J2930; J3410

== ENCOUNTER → 2022-05-09 | Outpatient (CLI) | payer BC, OTHER ==
[2022-05-09 14:03] VITALS: BP 115/79; PULSE 82; TEMP 98.4; BMI 24.4
--- NOTE | 2022-05-31 11:26 | P.HPBAR ---
Bariatric H&P - History & Physicial H&P Date: 05/09/22 History & Physicial: Visit/CC: abd pain, nausea Patient initial contact: Initial weight: 107.7 kg Initial weight in pounds: 237.44 Height: 5 ft 5 in Initial BMI: 39.4 Last weight: Current weight: 66.678 kg Current weight in pounds: 147.00 Current BMI: 24.4 [place] body weight (based on NIH guidelines): 56.699 kg Excess body weight loss: 80.4% The patient is a 32 year-old F who presents for Bariatric Assessment. Patient's complaints of GERD and nausea. Her current weight is 150 pounds. Past Medical History Past Medical History: Asthma, Eye Disorder, Thyroid Disorder Additional Past Medical History / Comment(s): Hx of kidney and bladder infections, permanent upper retainer present. 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 Gastric sleeve 07/26/21 Past Anesthesia/Blood Transfusion Reactions: No Reported Reaction Past Psychological History: Anxiety, Depression Additional Psychological History / Comment(s): pt stated feels well maintained on meds Smoking Status: Current every day smoker Past Alcohol Use History: None Reported Additional Past Alcohol Use History / Comment(s): Started smoking at age 18, 5 cigarettes per day. Past Drug Use History: None Reported Additional Drug Use History / Comment(s): USES MARIJUANA FOR PAIN-INSTRUCTED TO REFRAIN FROM USE FOR AT LEAST 24 HOURS PRIOR TO PROCEDURE - Past Family History Father Family Medical History: Hypertension Additional Family Medical History / Comment(s): Anxiety. Mother Family Medical History: Hypertension Additional Family Medical History / Comment(s): pt's mother and father high BP Surgical - Exam Vital Signs Temp Pulse BP 98.4 F 82 115/79 05/09/22 13:59 05/09/22 13:59 05/09/22 13:59 - General well developed, well nourished, no distress - Eyes PERRL - ENT normal pinna - Neck no masses - Respiratory normal expansion - Cardiovascular Rhythm: regular - Abdomen Abdomen: soft, non tender Bariatric Assessment & Plan Plan: GERD and nausea. Patient's BMI is 25. Patient was prescribed omeprazole. She'll follow-up in 4 weeks. Bariatric Checklist Checklist: Plan: Checklist: EGD: 1. Hiatal hernia: 2. H. Pylori: HgbA1c: Vitamin D: Smoking: Current every day smoker Primary care physician referral: Psychiatry clearance: Cardiology clearance: Sleep study: Diet journal: VTE risk score: VTE risk level: Rehab needs at discharge:
== END ==
LOC: BARWHC3 13:33
PROVIDERS: ATTEND Surgery
DX: E66.01 Morbid (severe) obesity due to excess calories (principal); J45.909 Unspecified asthma, uncomplicated; E07.9 Disorder of thyroid, unspecified; H57.9 Unspecified disorder of eye and adnexa; F17.210 Nicotine dependence, cigarettes, uncomplicated; K21.9 Gastro-esophageal reflux disease without esophagitis; Z68.24 Body mass index [BMI] 24.0-24.9, adult; Z88.8 Allergy status to other drugs, medicaments and biological substances; Z91.040 Latex allergy status; Z88.5 Allergy status to narcotic agent
CPT/HCPCS: 99211

== ENCOUNTER → 2022-06-10 | Outpatient (CLI) | payer BC, OTHER ==
--- NOTE | 2022-06-10 20:14 | CT ---
EXAMINATION TYPE: CT sinus wo con DATE OF EXAM: 06/10/2022 COMPARISON: CT brain November 20, 2020 HISTORY: chronic sinusitis. hx of eye sx CT DLP: 628.70 mGycm. Automated Exposure Control for Dose Reduction was Utilized. TECHNIQUE: CT scan of the sinuses is performed without contrast, axial images are obtained, coronal r eformatted images are also reviewed. FINDINGS: Mild mucosal thickening in the inferior left maxillary sinus on current study with 1.7 cm m ucous retention cyst or polyp anterior inferior aspect has increased in size from prior. Remainder th e paranasal sinuses are clear without suspicious opacification or air-fluid levels. Ostiomeatal compl ex is patent bilaterally on coronal image 18. Left globe prosthesis is redemonstrated with metallic 5 mm intraconal foreign body causing streak art ifact redemonstrated. Right globe is intact. No suspicious opacification of the mastoid air cells. Vi sualized brain parenchyma is unremarkable. IMPRESSION: More prominent chronic left maxillary sinus disease on current study. No acute sinusitis .
== END | disposition home or self-care (01) ==
LOC: RADCTMAIN 17:16
PROVIDERS: ATTEND Otolaryngology
DX: J32.0 Chronic maxillary sinusitis (principal)
CPT/HCPCS: 70486

== ENCOUNTER → 2022-07-11 | Outpatient (CLI) | payer BC, OTHER ==
[2022-07-11 13:38] VITALS: BP 124/79; PULSE 68; TEMP 98.1; BMI 24.5
--- NOTE | 2022-08-16 10:23 | P.HPBAR ---
Bariatric H&P - History & Physicial H&P Date: 07/11/22 History & Physicial: Visit/CC: 1 year sleeve F/U Patient initial contact: Initial weight: 107.7 kg Initial weight in pounds: 237.44 Height: 5 ft 4 in Initial BMI: 40.7 Last weight: Current weight: 64.864 kg Current weight in pounds: 143.00 Current BMI: 24.5 [place] body weight (based on NIH guidelines): 54.431 kg Excess body weight loss: 80.4% The patient is a 32 year-old F who presents for Bariatric Assessment. Patient presents today for sleeve gastrectomy follow-up. And then approximately one year since her surgery. She's had some minimal GERD. Patient's excellent weight loss. Her BMI is 24. She has developed a large pannus related to weight loss. Past Medical History Past Medical History: Asthma, Eye Disorder, Thyroid Disorder Additional Past Medical History / Comment(s): Hx of kidney and bladder infections, permanent upper retainer present. 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 Gastric sleeve 07/26/21 Past Anesthesia/Blood Transfusion Reactions: No Reported Reaction Past Psychological History: Anxiety, Depression Additional Psychological History / Comment(s): pt stated feels well maintained on meds Smoking Status: Current every day smoker Past Alcohol Use History: None Reported Additional Past Alcohol Use History / Comment(s): Started smoking at age 18, 5 cigarettes per day. Past Drug Use History: None Reported Additional Drug Use History / Comment(s): USES MARIJUANA FOR PAIN-INSTRUCTED TO REFRAIN FROM USE FOR AT LEAST 24 HOURS PRIOR TO PROCEDURE - Past Family History Father Family Medical History: Hypertension Additional Family Medical History / Comment(s): Anxiety. Mother Family Medical History: Hypertension Additional Family Medical History / Comment(s): pt's mother and father high BP Surgical - Exam Vital Signs Temp Pulse BP 98.1 F 68 124/79 07/11/22 13:35 07/11/22 13:35 07/11/22 13:35 - General well developed, well nourished, no distress - Eyes PERRL - ENT normal pinna - Neck no masses - Respiratory normal expansion - Cardiovascular Rhythm: regular - Abdomen Large well-formed pannus related to weight loss. There is evidence of chronic skin irritation's below the pannus Abdomen: soft, non tender Bariatric Assessment & Plan Plan: Status post sleeve gastrectomy. Patient is an excellent weight loss. The patient has minimal GERD this we observed. The patient may require panniculectomy in the future. Bariatric Checklist Checklist: Plan: Checklist: EGD: 1. Hiatal hernia: 2. H. Pylori: HgbA1c: Vitamin D: Smoking: Current every day smoker Primary care physician referral: Psychiatry clearance: Cardiology clearance: Sleep study: Diet journal: VTE risk score: VTE risk level: Rehab needs at discharge:
== END ==
LOC: BARWHC3 13:10
PROVIDERS: ATTEND Surgery
DX: E66.01 Morbid (severe) obesity due to excess calories (principal); Z71.3 Dietary counseling and surveillance; Z98.84 Bariatric surgery status; K21.9 Gastro-esophageal reflux disease without esophagitis; F17.200 Nicotine dependence, unspecified, uncomplicated; J45.909 Unspecified asthma, uncomplicated; Z68.24 Body mass index [BMI] 24.0-24.9, adult; Z88.5 Allergy status to narcotic agent; Z91.040 Latex allergy status; Z88.8 Allergy status to other drugs, medicaments and biological substances
CPT/HCPCS: 97803; 99211

== ENCOUNTER → 2022-10-03 | Outpatient (CLI) | payer BC, OTHER ==
[2022-10-03 13:27] VITALS: BP 119/80; PULSE 85; TEMP 98.4; BMI 22.1
--- NOTE | 2022-10-07 10:02 | P.HPBAR ---
Bariatric H&P - History & Physicial H&P Date: 10/03/22 History & Physicial: Visit/CC: bariatric F/U Patient initial contact: Initial weight: 107.7 kg Initial weight in pounds: 237.44 Height: 5 ft 5 in Initial BMI: 39.4 Last weight: Current weight: 60.192 kg Current weight in pounds: 132.70 Current BMI: 22.1 [place] body weight (based on NIH guidelines): 56.699 kg Excess body weight loss: 93.1% The patient is a 32 year-old F who presents for Bariatric Assessment. Patient presents today for bariatric follow-up. She has lost another 9 pounds her last visit. She has minimal GERD. Past Medical History Past Medical History: Asthma, Eye Disorder, Thyroid Disorder Additional Past Medical History / Comment(s): Hx of kidney and bladder infections, permanent upper retainer present. 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 Gastric sleeve 07/26/21 Past Anesthesia/Blood Transfusion Reactions: No Reported Reaction Past Psychological History: Anxiety, Depression Additional Psychological History / Comment(s): pt stated feels well maintained on meds Smoking Status: Current every day smoker Past Alcohol Use History: None Reported Additional Past Alcohol Use History / Comment(s): Started smoking at age 18, 5 cigarettes per day. Past Drug Use History: None Reported Additional Drug Use History / Comment(s): USES MARIJUANA FOR PAIN-INSTRUCTED TO REFRAIN FROM USE FOR AT LEAST 24 HOURS PRIOR TO PROCEDURE - Past Family History Father Family Medical History: Hypertension Additional Family Medical History / Comment(s): Anxiety. Mother Family Medical History: Hypertension Additional Family Medical History / Comment(s): pt's mother and father high BP Surgical - Exam Vital Signs Temp Pulse BP 98.4 F 85 119/80 10/03/22 13:22 10/03/22 13:22 10/03/22 13:22 - General well developed, well nourished, no distress - Eyes PERRL - Abdomen Abdomen: soft, non tender Bariatric Assessment & Plan Plan: Resolving morbid obesity. Patient's GERD is minimal and will be observed. She'll follow-up in 4 weeks. Bariatric Checklist Checklist: Plan: Checklist: EGD: 1. Hiatal hernia: 2. H. Pylori: HgbA1c: Vitamin D: Smoking: Current every day smoker Primary care physician referral: Psychiatry clearance: Cardiology clearance: Sleep study: Diet journal: VTE risk score: VTE risk level: Rehab needs at discharge:
== END ==
LOC: BARWHC3 13:10
PROVIDERS: ATTEND Surgery
DX: E66.9 Obesity, unspecified (principal); K21.9 Gastro-esophageal reflux disease without esophagitis; F17.200 Nicotine dependence, unspecified, uncomplicated; J45.909 Unspecified asthma, uncomplicated; Z88.8 Allergy status to other drugs, medicaments and biological substances; Z91.040 Latex allergy status; Z88.5 Allergy status to narcotic agent
CPT/HCPCS: 99211

== ENCOUNTER 2023-01-09 13:59 | Day surgery (SDC) | payer BC, OTHER ==
[2023-01-05 13:15] VITALS: BMI 20.5
[~2023-01-09 13:59] MED LIST changes: -DEXAMETHASONE SOD PHOSPHATE 4 MG/ML 1 ML VIAL IV ONE; -ENOXAPARIN 40 MG/0.4 ML SYRINGE SQ PRN; -GLYCOPYRROLATE 0.2 MG/ML 2 ML VIAL ONE; -KETAMINE 10 MG/ML 20 ML VIAL ONE; +LACTATED RINGERS 1,000 ML IV SCH; +LIDOCAINE 1% (10MG/ML) FOR IV START INTRADERMA PRN; -LIDOCAINE 2% INJ 20 MG/ML (2 ML VIAL) ONE; -METHYLENE BLUE 10 MG/ML (10 ML VIAL) ONE; -MIDAZOLAM 2 MG/2 ML VIAL IV PRN; -MIDAZOLAM 2 MG/2 ML VIAL ONE; -NEOSTIGMINE 1 MG/ML 10 ML VIAL ONE; -ONDANSETRON 4 MG/2 ML VIAL IVP ONE; -PROPOFOL 10 MG/ML 20 ML VIAL IV ONE; -ROCURONIUM 10 MG/ML (5 ML VIAL) IV ONE; -SCOPOLAMINE 1 MG/72 HR PATCH TRANSDERM ONE; -SUCCINYLCHOLINE CHLORIDE 100 MG/5 ML SYR IV ONE; -fentaNYL (PF) 50 MCG/ML 2 ML AMP ONE
[2023-01-09 15:11] VITALS: TEMP 97.8
[2023-01-09] MEDS ORDERED: LIDOCAINE 1% INJ 10MG/ML (20 ML MDV) ONE (15:15)
[2023-01-09] MEDS ORDERED: PROPOFOL 10 MG/ML 20 ML VIAL IV ONE (15:15)
--- NOTE | 2023-01-09 15:18 | P.GSHP ---
History of Present Illness H&P Date: 01/09/23 Chief Complaint: Anemia, GI bleed This a 32-year-old female who has had issues with anemia. Her hemoglobin was 8.9. Patient states she may have had some GI bleed. Patient's. History of gastric sleeve. Past Medical History Past Medical History: Asthma, Eye Disorder, GERD/Reflux, Thyroid Disorder Additional Past Medical History / Comment(s): Anemia. Hx of kidney and bladder infections, hx kidney stones. MIGRAINES. Blind inleft eye. Hx recurrent right kidney cysts. History of Any Multi-Drug Resistant Organisms: None Reported Date of last positivie culture/infection: 05/06/20 MDRO Source:: ESBL URINE Past Surgical History: Appendectomy, Bariatric Surgery, Cholecystectomy, Tubal Ligation Additional Past Surgical History / Comment(s): Eye surgery X5, right knee foreign body removal, left hand wrist ganglion tumor removed, Gastric Sleeve, "posterior right upper quadrant of kidney sealed off due to recurring cysts". Past Anesthesia/Blood Transfusion Reactions: No Reported Reaction Past Psychological History: Anxiety, Depression Smoking Status: Current every day smoker Past Alcohol Use History: Occasional Additional Past Alcohol Use History / Comment(s): Started smoking at age 18, 5 cigarettes per day, quit 03/2021. Past Drug Use History: None Reported - Past Family History Father Family Medical History: Hypertension Additional Family Medical History / Comment(s): Anxiety. Mother Family Medical History: Hypertension Additional Family Medical History / Comment(s): pt's mother and father high BP Medications and Allergies Home Medications Medication Instructions Recorded Confirmed Type Venlafaxine HCl [Effexor XR] 75 mg PO BID 12/28/20 01/05/23 History hydrOXYzine HCL 25 mg PO DAILY PRN 02/16/21 01/05/23 History Levothyroxine Sodium [Tirosint] 25 mcg PO QAM 05/19/21 01/05/23 History SUMAtriptan succinate [Imitrex] 50 mg PO DIRECTED PRN 07/22/21 01/05/23 History Albuterol Inhaler [Ventolin Hfa 1 - 2 puff INHALATION Q6H PRN #1 12/10/21 01/05/23 Rx Inhaler] dispenser EPINEPHrine (Auto Inject) [Epipen] 0.3 mg IM ONCE PRN #1 each 12/10/21 01/05/23 Rx Ergocalciferol [Vitamin D2 (1250 50,000 unit PO WEEKLY 05/09/22 01/05/23 History Mcg = 66423 Iu)] Ferrous Sulfate [Feosol] 325 mg PO DAILY 07/11/22 01/05/23 History Acetaminophen [Tylenol Extra 500 mg PO DIRECTED PRN 01/05/23 01/05/23 History Strength] Methylphenidate HCl [Concerta] 27 mg PO DAILY 01/05/23 01/05/23 History Allergies Allergy/AdvReac Type Severity Reaction Status Date / Time diphenhydramine HCl Allergy Throat Verified 01/09/23 14:57 [From Benadryl] Itches (with name brand Benadryl only) latex Allergy Rash/Hives Verified 01/09/23 14:57 hydrocodone bitartrate AdvReac Migraine Verified 01/09/23 14:57 [From Vicodin] Surgical - Exam Vital Signs Temp Pulse Resp BP Pulse Ox 97.8 F 79 16 108/72 99 01/09/23 15:04 01/09/23 15:04 01/09/23 15:04 01/09/23 15:04 01/09/23 15:04 - General well developed, well nourished, no distress - Eyes PERRL - ENT normal pinna - Neck no masses - Respiratory normal expansion - Cardiovascular Rhythm: regular - Abdomen Abdomen: soft, non tender Assessment and Plan Assessment: Anemia, history of GI bleed. We'll perform EGD and colonoscopy.
--- NOTE | 2023-01-09 15:37 | P.OP ---
Description of Procedure: Patient's placed on the endoscopy table in the lateral position. She received IV H. The gastroscope placed oropharynx passed in the esophagus and stomach. Scope some placed through the pylorus. The first and second portion of duodenum appeared normal. Scope was then brought back the antrum this. This appeared Mildly inflamed. A biopsies performed. The scope was then brought back through the stomach. There was no other areas inflammation. Patient previous gastric sleeve. The GE junction was at 40 cm. The distal esophagus appeared normal. The proximal esophagus appeared normal. Scope withdrawn for patient. Next digital rectal exam was performed. Is revealed no abnormalities. The f lexible colonoscope was then placed patient anus and passed throughout the colon. The ileocecal valve was not seen due to tortuosity of the valve. Several times made to maneuver cecum there was some possible. This point the scope was withdrawn. The visualized right colon appeared normal. The transverse, descending and sigmoid colon appeared normal. Scope summer back the rectum and this appeared normal. Scope withdrawn for patient. There is no evidence of GI bleed.
[2023-01-09 16:19] VITALS: BP 98/64; PULSE 65; RESP 14
== END 2023-01-09 16:25 | disposition home or self-care (01) ==
LOC: ORWHC2ENDO 13:59
PROVIDERS: ATTEND Surgery
DX: K29.50 Unspecified chronic gastritis without bleeding (principal); D64.9 Anemia, unspecified; J45.909 Unspecified asthma, uncomplicated; H57.9 Unspecified disorder of eye and adnexa; K21.9 Gastro-esophageal reflux disease without esophagitis; E07.9 Disorder of thyroid, unspecified; G43.909 Migraine, unspecified, not intractable, without status migrainosus; K90.2 Blind loop syndrome, not elsewhere classified; Z98.51 Tubal ligation status; F41.9 Anxiety disorder, unspecified; F32.A Depression, unspecified; F17.210 Nicotine dependence, cigarettes, uncomplicated; Z88.8 Allergy status to other drugs, medicaments and biological substances; Z91.040 Latex allergy status; Z79.811 Long term (current) use of aromatase inhibitors; Z79.818 Long term (current) use of other agents affecting estrogen receptors and estrogen levels; Z79.52 Long term (current) use of systemic steroids; Z88.5 Allergy status to narcotic agent; Z87.442 Personal history of urinary calculi; Z79.899 Other long term (current) drug therapy; Z90.49 Acquired absence of other specified parts of digestive tract; Z98.84 Bariatric surgery status; Z98.890 Other specified postprocedural states
CPT/HCPCS: 81025; 45378; 43239; J2001; J2704; 88305

== ENCOUNTER 2023-02-16 17:17 | Emergency (ER) | payer BC, OTHER ==
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
[2023-02-17 00:34] LABS: Anisocytosis Slight; Basophils % (A) 1 %; Eosinophils % (A) 0 %; HCT 32.9 % (34.0-46.0); HGB 10.4 gm/dL (11.4-16.0); Hypochromasia Moderate; Lymphocytes # (A) 3.3 k/uL (1.0-4.8); Lymphocytes % (A) 38 %; MCHC 31.8 g/dL (31.0-37.0); MCV 75.3 fL (80.0-100.0); Microcytosis Slight; Monocytes # (A) 0.5 k/uL (0-1.0); Monocytes % (A) 6 %; Neutrophils # (A) 4.6 k/uL (1.3-7.7); Neutrophils % (A) 53 %; Platelet Count 314 k/uL (150-450); RBC 4.36 m/uL (3.80-5.40); RDW 16.7 % (11.5-15.5); WBC 8.7 k/uL (3.8-10.6)
[2023-02-17] MEDS ORDERED: LORazepam 1 MG TAB PO STA (00:43)
[2023-02-17 00:46] LABS: ALT 14 U/L (4-34); AST 21 U/L (14-36); African American GFR (CKD) >90 (>60 ml/min/1.73 sqM); Albumin 4.4 g/dL (3.5-5.0); Alkaline Phosphatase 83 U/L (38-126); Anion Gap 13 mmol/L; Blood Urea Nitrogen 13 mg/dL (7-17); Calcium 9.3 mg/dL (8.4-10.2); Carbon Dioxide 24 mmol/L (22-30); Chloride 104 mmol/L (98-107); Glucose 96 mg/dL (74-99); Non-African American GFR(CKD) >90 (>60 ml/min/1.73 sqM); Potassium 3.9 mmol/L (3.5-5.1); Sodium 141 mmol/L (137-145); Total Bilirubin 0.3 mg/dL (0.2-1.3); Total Protein 7.4 g/dL (6.3-8.2)
[2023-02-17 01:04] LABS: Amphetamine Screen,Urine Not Detected (NotDetected); Barbiturate Screen,Urine Not Detected (NotDetected); Benzodiazepines Screen,Urine Not Detected (NotDetected); Cocaine Screen,Urine Not Detected (NotDetected); Methadone Screen, Urine Not Detected (NotDetected); Opiate Screen,Urine Not Detected (NotDetected); Oxycodone Screen, Urine Not Detected (NotDetected); Phencyclidine Screen,Urine Not Detected (NotDetected); Tricyclic Antidepressant,Urine Not Detected (NotDetected); Urn Cannabinoid Scrn Detected (NotDetected)
[2023-02-17 01:15] LABS: Bacteria,Urine Occasional /hpf; Hyaline Casts,Urine 1 /lpf (0-2); Mucus,Urine Many /hpf; RBC,Urine 2 /hpf (0-5); Squamous Epithelial Cell,Urine 3 /hpf (0-4); WBC,Urine 23 /hpf (0-5)
[2023-02-17 01:24] LABS: Appearance,Urine Slightly Cloudy (Clear); Bilirubin,Urine Negative (Negative); Blood,Urine Negative (Negative); Color,Urine Yellow; Glucose,Urine (UA) Negative (Negative); Ketones,Urine Negative (Negative); Nitrite,Urine Positive (Negative); PH, Urine 6.5 (5.0-8.0); Protein,Urine Negative (Negative); Specific Gravity,Urine 1.015 (1.001-1.035); Urobilinogen,Urine <2.0 mg/dL (<2.0)
[2023-02-17 01:25] VITALS: BP 122/78; PULSE 77; RESP 18; TEMP 98.2
[2023-02-17 01:25] LABS: Leukocyte Esterase,Urine Moderate (Negative)
== END 2023-02-17 02:07 ==
LOC: EC 17:17
DX: R45.851 Suicidal ideations (principal); F32.A Depression, unspecified; F41.9 Anxiety disorder, unspecified; J45.909 Unspecified asthma, uncomplicated; K21.9 Gastro-esophageal reflux disease without esophagitis; E07.9 Disorder of thyroid, unspecified; F17.200 Nicotine dependence, unspecified, uncomplicated; Z88.5 Allergy status to narcotic agent; Z88.8 Allergy status to other drugs, medicaments and biological substances; Z91.040 Latex allergy status; Z79.890 Hormone replacement therapy; Z79.51 Long term (current) use of inhaled steroids; Z79.899 Other long term (current) drug therapy; Z20.822 Contact with and (suspected) exposure to COVID-19
CPT/HCPCS: 36415; 80053; 80306; 81001; 81025; 82075; 85025; 87636; 99285

== ENCOUNTER 2024-04-14 21:04 | Emergency (ER) | payer BC, OTHER ==
[2024-04-14 21:08] VITALS: RESP 16; TEMP 98.8
--- NOTE | 2024-04-14 21:51 | ED ---
General Adult HPI - General Chief complaint: Extremity Injury, Lower Stated complaint: Left foot pain Time Seen by Provider: 04/14/24 21:10 Source: patient Mode of arrival: wheelchair Limitations: no limitations - History of Present Illness Initial comments: Patient is a 33-year-old female past medical history of marijuana use, various mental health diagnoses presenting today for left foot injury. Patient states that she was lifting a bunk bed, went on to her "tip-toes" when her son jumped on top of the bunk bed, causing her to twist her left foot and heard a "crack". 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 Rates pain as 7/10. 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 She was unable to ambulate afterwards. Denies numbness. Pain is located in the plantar and lateral aspect of the foot. She is not on blood thinners. Has an allergy to [place] and Benadryl. - Related Data Home Medications Medication Instructions Recorded Confirmed hydrOXYzine HCL 25 mg PO DAILY PRN 02/16/21 02/16/23 Levothyroxine Sodium [Tirosint] 25 mcg PO DAILY 05/19/21 02/16/23 Ergocalciferol [Vitamin D2 (1250 1,250 mcg PO WE 05/09/22 02/16/23 Mcg = 48334 Iu)] Ferrous Sulfate [Feosol] 325 mg PO DAILY 07/11/22 02/16/23 Methylphenidate HCl [Concerta] 27 mg PO DAILY 01/05/23 02/16/23 Albuterol Inhaler [Ventolin Hfa 1 - 2 puff INHALATION RT-Q6H PRN 02/16/23 02/16/23 Inhaler] Fluticasone Propion/Salmeterol 2 puff INHALATION RT-BID PRN 02/16/23 02/16/23 [Advair Hfa 45-21 Mcg Inhaler] Methylphenidate HCl 5 mg PO DIRECTED 02/16/23 02/16/23 Omeprazole 40 mg PO DAILY 02/16/23 02/16/23 SUMAtriptan succinate [Imitrex] 25 mg PO BID PRN 02/16/23 02/16/23 Venlafaxine HCl [Effexor] 75 mg PO BID 02/16/23 02/16/23 Previous Rx's Medication Instructions Recorded EPINEPHrine (Auto Inject) [Epipen] 0.3 mg IM ONCE PRN #1 each 12/10/21 Allergies Allergy/AdvReac Type Severity Reaction Status Date / Time diphenhydramine HCl Allergy Throat Verified 04/14/24 21:08 [From Benadryl] Itches (with name brand Benadryl only) latex Allergy Rash/Hives Verified 04/14/24 21:08 hydrocodone bitartrate AdvReac Migraine Verified 04/14/24 21:08 [From Vicodin] Review of Systems ROS Statement: Those systems with pertinent positive or pertinent negative responses have been documented in the HPI. ROS Other: All systems not noted in ROS Statement are negative. Past Medical History Past Medical History: Asthma, Eye Disorder, GERD/Reflux, Thyroid Disorder Additional Past Medical History / Comment(s): Anemia. Hx of kidney and bladder infections, hx kidney stones. MIGRAINES. Blind inleft eye. Hx recurrent right kidney cysts. History of Any Multi-Drug Resistant Organisms: None Reported Date of last positivie culture/infection: 05/06/20 MDRO Source:: ESBL URINE Past Surgical History: Appendectomy, Bariatric Surgery, Cholecystectomy, Tubal Ligation Additional Past Surgical History / Comment(s): Eye surgery X5, right knee foreign body removal, left hand wrist ganglion tumor removed, Gastric Sleeve, "posterior right upper quadrant of kidney sealed off due to recurring cysts". Past Anesthesia/Blood Transfusion Reactions: No Reported Reaction Past Psychological History: Anxiety, Depression Smoking Status: Current every day smoker, Vaper Past Alcohol Use History: Occasional Past Drug Use History: Marijuana - Past Family History Father Family Medical History: Hypertension Additional Family Medical History / Comment(s): Anxiety. Mother Family Medical History: Hypertension Additional Family Medical History / Comment(s): pt's mother and father high BP General Exam - General Exam Comments Initial Comments: PE: CONSTITUTIONAL: No apparent distress, well appearing, tearful SKIN: Warm, dry, no jaundice, hives or petechiae, no bruising, hematomas or lacerations EYES: Pupils are equally round, extraocular movements intact without nystagmus, clear conjunctiva, non-icteric sclera HENT: Normocephalic, atraumatic, moist mucus membranes, oropharynx clear without exudates NECK: , Full range of motion, normal appearance PULMONARY: Clear to auscultation without wheezes, rhonchi, or rales, normal excursion, no accessory muscle use and no stridor CARDIOVASCULAR: Regular rate, rhythm, normal S1 and S2. No appreciated murmurs, rubs or gallops. 2+ dorsalis pedis pulse palpated in the left lower extremity, no lower extremity edema MUSCULOSKELETAL: Extremities have no gross deformity, no edema, redness, or swelling. Left foot is tender to palpation at the plantar aspect, lateral and dorsal aspects of the midfoot, no gross deformity, able to plantar and dorsiflex the foot slowly however endorses pain in the foot when this happens. Denies pain in the ankle, less than 2-second capillary refill able to wiggle her toes but Dors is pain in the fourth and fifth toes radiating from the midfoot NEUROLOGIC:_a/o x 3, GCS 15, normal mentation and speech. Moves all extremities x 4 without motor or sensory deficit PSYCHIATRIC:_normal mood and affect, thought process is clear and linear Limitations: no limitations Course Vital Signs 04/14/24 04/14/24 21:06 22:25 Temperature 98.8 F Pulse Rate 92 84 Respiratory 16 16 Rate Blood Pressure 126/78 132/84 O2 Sat by Pulse 100 100 Oximetry Medical Decision Making - Medical Decision Making Was pt. sent in by a medical professional or institution (JENNIFER Burt, MEDICAL RECORDS RECEPTIONIST, urgent care, hospital, or [place] health care facility...) When possible be specific @ -No Did you speak to anyone other than the patient for history (EMS, parent, family, police, friend...)? What history was obtained from this source @ -No Did you review nursing and triage notes (agree or disagree)? Why? @ -I reviewed nursing and triage notes Were old charts reviewed (outside hosp., previous admission, EMS record, old EKG, old radiological studies, urgent care reports/EKG's, [place] health care facility records)? Report findings @ -Medical records reviewed Differential Diagnosis (chest pain, altered mental status, abdominal pain women, abdominal pain men, vaginal bleeding, weakness, fever, dyspnea, syncope, headache, dizziness, GI bleed, back pain, seizure, CVA, palpatations, mental health, musculoskeletal)? @Differential Musculoskeletal Muscular strain, contusion, ligament sprain, fracture, arthritis, talar fracture, lisfranc injury, metatarsal fracture.... This is not meant to be in all inclusive list EKG interpreted by me (3pts min.). @ -As above X-rays interpreted by me (1pt min.). My review of x-ray I see no evidence of dislocation or malalignment, there does appear to be a small avulsion fracture at the distal fifth metatarsal CT interpreted by me (1pt min.). @ -None done U/S interpreted by me (1pt. min.). @ -None done What testing was considered but not performed or refused? (CT, X-rays, U/S, labs)? Why? @ -None What meds were considered but not given or refused? Why? @ -None Did you discuss the management of the patient with other professionals (guerda arias i.e. , PA, MEDICAL RECORDS RECEPTIONIST, lab, RT, psych nurse, marriage and family social worker, meter reader inspector, teacher, coastal/harbor defense officer, binder caser)? Give summary @ -No Was smoking cessation discussed for >3mins.? @ -No Was critical care preformed (if so, how long)? @ -No Were there social determinants of health that impacted care today? How? (Homelessness, low income, unemployed, alcoholism, drug addiction, transportation, low edu. Level, literacy, decrease access to med. care, prison, rehab)? @ -No Was there de-escalation of care discussed even if they declined (Discuss DNR or withdrawal of care, Hospice)? @ -No What co-morbidities impacted this encounter? (DM, HTN, Smoking, COPD, CAD, Cancer, CVA, ARF, Chemo, Hep., AIDS, mental health diagnosis, sleep apnea, morbid obesity)? @Hx substance abuse- pt hesitant to receive medications due to history of substance abuse Was patient admitted / discharged? Hospital course, mention meds given and route, prescriptions, significant lab abnormalities, going to OR and other perti nent info. @Discharged- Patient is a pleasant 33-year-old female past medical history mental health diagnoses, remote history of substance abuse in recovery, presenting today for left foot injury. On my assessment patient is tearful though no acute distress. Left foot has no gross deformity no tenderness palpation of the dorsal and plantar aspects along the lateral midfoot, in addition to pain radiating down the 4th and 5th toes with palpation. Foot is neurovascularly intact. Plan for foot x-ray. I offered patient Tylenol and Toradol however she states she is recovering addict at this time does not want any medications. X-ray significant for distal fifth metatarsal fracture alignment. Updated patient. Patient placed in a hard sole shoe and we discussed weight bearing as tolerated. At this time patient requests pain medication. Will guve Tylenol, Toradol prior to discharge. She has been seen for other ortho injuries in the past by Dr. Shipley so will follow up with him. In my medical judgment there is currently no evidence of an immediate life- threatening or surgical condition. Discharge is therefore indicated at this time. Discharge treatment instructions, follow up instructions, and appropriate emergency department return precautions were discussed with the patient and/or medical decision maker. Patient and/or medical decision maker expressed understanding of and agreed with the treatment plan, follow up instructions, and emergency department return precaution. All patient's and/or medical decision maker's questions were answered. Undiagnosed new problem with uncertain prognosis? @ -No Drug Therapy requiring intensive monitoring for toxicity (Heparin, Nitro, Insulin, Cardizem)? @ -No Were any procedures done? @ -No Diagnosis/symptom? avulsion fracture of distal fifth metatarsal Acute, or Chronic, or Acute on Chronic? acute Uncomplicated (without systemic symptoms) or Complicated (systemic symptoms)? uncomplicated Side effects of treatment? @ -No Exacerbation, Progression, or Severe Exacerbation? @ -No Poses a threat to life or bodily function? How? (Chest pain, [place], [place], pneumonia, PE, COPD, DKA, ARF, appy, cholecystitis, CVA, Diverticulitis, Homicidal, Suicidal, threat to staff... and all critical care pts) Yes, if left untreated could result in chronic pain and disability Disposition Clinical Impression: Metatarsal bone fracture Disposition: HOME SELF-CARE Condition: Stable Instructions (If sedation given, give patient instructions): Foot Fracture in Adults (ED) Additional Instructions: Every disease is a spectrum and a small chance still exists that a serious condition could develop, for this reason, please monitor yourself closely for new, changing or worsening symptoms, symptoms that do not improve in [48 hours], uncontrollable pain or swelling, blue or pale color of your foot, numbness of the foot, inability to tolerate/keep down fluids or your medications, inability to follow up with outpatient providers as instructed and should you experience these symptoms or should you have any further concerns for your wellbeing please return to the ED or call 911 immediately. Your pain can be treated with ibuprofen and acetaminophen. You can take up to 400-600 mg of ibuprofen (Advil, Motrin) 3 times daily (every 8 hours) but can also use lower doses if this relieves your pain. Some people prefer naproxen (Aleve, Naprosyn) which can be taken in doses of 500 mg up to twice a day. Do not take both of these medicines together, and do not combine either with ketorolac (Toradol), meloxicam (Mobic), or indomethacin (Tivorbex). Some people can develop stomach discomfort with higher doses of either ibuprofen or naproxen, if this develops decrease your dose or stop taking it. If you need to take this dose daily for more than a week, please schedule an appointment for re-evaluation with your PCP. Please take these medications with food. You can take up to 1000 mg of acetaminophen (Tylenol) every 6 hours. Be careful as this is included in some medicines like Nyquil, [place], Percocet, Vicodin, STANBACK, Goody's Powders, and Excedrin. You can also use lidocaine patches for topical pain. You can purchase 4% patches over the counter at most drug stores. These can be helpful for pain from your muscles or bones. You are allowed to bear weight/walk on your foot as tolerated. If too painful to ambulate, please use provided crutches. Please ice and elevate your foot for 20 minutes every 3-4 hours as needed for pain control. PLEASE call your primary care physician as soon as possible to arrange / discuss plan for followup appointment. Appointment in the next 1-3 days is strongly encouraged if possible. PLEASE let us know here before you leave if there is anything further we can do to be of any assistance. Take care and feel Better! Is patient prescribed a controlled substance at d/c from ED?: No Referrals: Per Sumner DO [Primary Care Provider] - 1-2 days Braulio Shipley MD [STAFF PHYSICIAN] - 1-2 days
--- NOTE | 2024-04-14 21:55 | XR ---
EXAMINATION TYPE: XR foot complete LT DATE OF EXAM: 04/14/2024 9:41 PM COMPARISON: Previous radiograph 12/27/2020. CLINICAL INDICATION: Female, 33 years old with history of twisted foot, pain mid- plantar, dorsal lat eral; [facility] TECHNIQUE: XR foot complete LT examined in the AP, oblique, and lateral projections. FINDINGS: Small ossific density adjacent to the fifth digit MTP joint with adjacent soft tissue swelling/edema. Tarsal alignment otherwise appears maintained. No additional acute fracture or dislocation. IMPRESSION: Small ossific density adjacent to the fifth digit MTP joint with significant associated soft tissue s welling suspicious for an acute avulsion fracture. [facility], , 04/14/2024 9:52 PM
[2024-04-14] MEDS: ACETAMINOPHEN TAB 500 MG TAB PO STA (22:21)
[2024-04-14] MEDS: KETOROLAC 15 MG/ML 1 ML VIAL IM STA (22:22)
[2024-04-14 22:34] VITALS: BP 132/84; PULSE 84
== END 2024-04-14 22:25 | disposition home or self-care (01) ==
LOC: EC 21:04
DX: S92.355A Nondisplaced fracture of fifth metatarsal bone, left foot, initial encounter for closed fracture (principal); S92.345A Nondisplaced fracture of fourth metatarsal bone, left foot, initial encounter for closed fracture; F17.290 Nicotine dependence, other tobacco product, uncomplicated; Z91.040 Latex allergy status; Z88.8 Allergy status to other drugs, medicaments and biological substances; X50.1XXA Overexertion from prolonged static or awkward postures, initial encounter
CPT/HCPCS: 73630; 99283; 96372; J1885

== ENCOUNTER 2024-08-02 19:22 | Emergency (ER) | payer OTHER ==
[2024-08-02 21:35] LABS: Basophils # (A) 0.05 10*3/uL (0.00-0.10); Eosinophils # (A) 0.03 10*3/uL (0.04-0.35); Eosinophils % (A) 0.6 %; HCT 24.1 % (37.2-46.3); Lymphocytes # (A) 1.77 10*3/uL (0.90-5.00); Lymphocytes % (A) 36.1 %; MCV 62.9 fL (80.0-97.0); Monocytes # (A) 0.48 10*3/uL (0.20-1.00); Monocytes % (A) 9.8 %; Neutrophils # (A) 2.55 10*3/uL (1.80-7.70); Neutrophils % (A) 52.1 %; Platelet Count 303 10*3/uL (140-440); RBC 3.83 10*6/uL (4.10-5.20); RDW 18.7 % (11.5-14.5)
[2024-08-02 21:39] LABS: HGB 6.5 g/dL (12.0-15.0)
[2024-08-02 21:43] LABS: ALT 11 U/L (4-34); AST 24 U/L (14-36); African American GFR (CKD) >90 (>60 ml/min/1.73 sqM); Albumin 4.7 g/dL (3.5-5.0); Alkaline Phosphatase 60 U/L (38-126); Anion Gap 9 mmol/L; Blood Urea Nitrogen 16 mg/dL (7-17); Calcium 9.7 mg/dL (8.4-10.2); Carbon Dioxide 27 mmol/L (22-30); Chloride 102 mmol/L (98-107); Glucose 89 mg/dL (74-99); Non-African American GFR(CKD) >90 (>60 ml/min/1.73 sqM); Potassium 3.7 mmol/L (3.5-5.1); Sodium 138 mmol/L (137-145); Total Bilirubin 0.3 mg/dL (0.2-1.3); Total Protein 7.3 g/dL (6.3-8.2)
[2024-08-02] MEDS: LORazepam 1 MG TAB PO STA (22:07)
--- NOTE | 2024-08-02 23:33 | ED ---
Recheck HPI - General Chief Complaint: Recheck/Abnormal Lab/Rx Stated Complaint: Abnormal labs Time Seen by Provider: 08/02/24 20:20 Source: patient Mode of arrival: ambulatory Limitations: no limitations - History of Present Illness Initial Comments: This patient is a 34-year-old woman who arrives to have possible transfusion. The patient sees Dr. Cardona, and she received a call from him that her hemoglobin was 6.4. She had the labs as part of routine testing. She has not noticed having bleeding. She has not noted bloody or dark stools. She has not been having abdominal cramping or pain. The patient also reports she is not think that her menstrual cycles are very heavy. MD Complaint: abnormal lab Onset/Timin -: days(s) Returns Today for: Called Because of Abnormal Lab/Test Symptoms Since Prior Visit: no new symptoms Context: called for abnormal lab result Associated Symptoms: none - Related Data Home Medications Medication Instructions Recorded Confirmed Levothyroxine Sodium [Tirosint] 25 mcg PO DAILY 05/19/21 08/19/24 DULoxetine HCL [Cymbalta] 30 mg PO HS 08/11/24 08/19/24 DULoxetine HCL [Cymbalta] 60 mg PO DAILY 08/11/24 08/19/24 Pantoprazole [Protonix] 40 mg PO DAILY 08/11/24 08/19/24 lamoTRIgine 100 mg PO BID 08/11/24 08/19/24 Previous Rx's Medication Instructions Recorded Ferrous Sulfate [Feosol] 325 mg PO BID #60 tab 08/03/24 HYDROcodone/APAP 5-325MG [[place] 1 tab PO Q6HR PRN 3 Days #12 tab 08/11/24 5-325] Allergies Allergy/AdvReac Type Severity Reaction Status Date / Time diphenhydramine HCl Allergy Throat Verified 08/18/24 04:55 [From Benadryl] Itches (with name brand Benadryl only) latex Allergy Rash/Hives Verified 08/18/24 04:55 hydrocodone bitartrate AdvReac Migraine Verified 08/18/24 04:55 [From Vicodin] Review of Systems ROS Statement: Those systems with pertinent positive or pertinent negative responses have been documented in the HPI. ROS Other: All systems not noted in ROS Statement are negative. Constitutional: Denies: fever, chills, weakness Respiratory: Denies: cough, dyspnea Cardiovascular: Denies: chest pain, palpitations, edema, syncope Gastrointestinal: Denies: abdominal pain, vomiting, diarrhea, melena, hematochezia Genitourinary: Denies: dysuria, hematuria, abnormal menses Musculoskeletal: Denies: back pain Skin: Denies: rash Neurological: Denies: headache, weakness Past Medical History Past Medical History: Asthma, Eye Disorder, GERD/Reflux, Thyroid Disorder Additional Past Medical History / Comment(s): Anemia. Hx of kidney and bladder infections, hx kidney stones. MIGRAINES. Blind inleft eye. Hx recurrent right kidney cysts. History of Any Multi-Drug Resistant Organisms: None Reported Date of last positivie culture/infection: 05/06/20 MDRO Source:: ESBL URINE Past Surgical History: Appendectomy, Bariatric Surgery, Cholecystectomy, Tubal Ligation Additional Past Surgical History / Comment(s): Eye surgery X5, right knee foreign body removal, left hand wrist ganglion tumor removed, Gastric Sleeve, "posterior right upper quadrant of kidney sealed off due to recurring cysts". Past Anesthesia/Blood Transfusion Reactions: No Reported Reaction Past Psychological History: Anxiety, Depression Smoking Status: Current every day smoker, Vaper Past Alcohol Use History: Occasional Past Drug Use History: Marijuana - Past Family History Father Family Medical History: Hypertension Additional Family Medical History / Comment(s): Anxiety. Mother Family Medical History: Hypertension Additional Family Medical History / Comment(s): pt's mother and father high BP General Exam Limitations: no limitations General appearance: alert, in no apparent distress Head exam: Present: atraumatic, normocephalic Eye exam: Present: normal appearance. Absent: scleral icterus, conjunctival injection ENT exam: Present: normal oropharynx Neck exam: Present: normal inspection Respiratory exam: Present: normal lung sounds bilaterally. Absent: respiratory distress, wheezes, rales, rhonchi, stridor, accessory muscle use Cardiovascular Exam: Present: regular rate, normal rhythm, normal heart sounds. Absent: systolic murmur, diastolic murmur, rubs, gallop GI/Abdominal exam: Present: soft. Absent: distended, tenderness, guarding, rebound, rigid, mass Extremities exam: Present: normal inspection, normal capillary refill. Absent: pedal edema, calf tenderness Back exam: Present: normal inspection. Absent: CVA tenderness (R), CVA tende rness (L) Neurological exam: Present: alert Skin exam: Present: warm, dry, intact, normal color. Absent: rash Course Vital Signs 08/02/24 08/03/24 08/03/24 19:40 03:06 03:20 Temperature 98.3 F 98.1 F Pulse Rate 83 58 L 57 L Respiratory 18 16 20 Rate Blood Pressure 141/93 92/67 104/69 O2 Sat by Pulse 100 98 100 Oximetry 08/03/24 08/03/24 08/03/24 03:35 03:50 04:20 Temperature 98.1 F 98 F 98.0 F Pulse Rate 58 L 72 58 L Respiratory 15 18 16 Rate Blood Pressure 95/57 92/60 94/65 O2 Sat by Pulse 100 100 98 Oximetry 08/03/24 05:20 Temperature 97.1 F L Pulse Rate 57 L Respiratory 18 Rate Blood Pressure 92/63 O2 Sat by Pulse 100 Oximetry Procedures - [place] Protocol (Time Out) Nurse: Ni Whitaker Medical Decision Making - Medical Decision Making Patient is a 34-year-old woman here to have assessment for anemia. I did recommend that we do Hemoccult. The patient was offered to past bowel movement into a bedside commode and use the stool for the card or to have digital rectal exam. The patient asked if she could do her own digital specimen and she was allowed to place this on the card and it was sent to lab, resulting negative. The patient does have anemia here. Her hemoglobin was 6.5 and I did recommend transfusion. The patient does agree to have transfusion but states that she will be able to tolerate this unless she has Ativan because the thought of fluid from outside of her body will freak her out. The patient will be provided Ativan just prior to transfusion. Was pt. sent in by a medical professional or institution (, PA, SOFTWARE DEVELOPMENT ENGINEER, urgent care, hospital, or longterm...) When possible be specific @ -As above, patient received a call from her physician and came to have keysha luation of anemia Did you speak to anyone other than the patient for history (EMS, parent, family, police, friend...)? What history was obtained from this source @ -[No] Did you review nursing and triage notes (agree or disagree)? Why? @ -[I reviewed and agree with nursing and triage notes] Were old charts reviewed (outside hosp., previous admission, EMS record, old EKG, old radiological studies, urgent care reports/EKG's, longterm records)? Report findings @ -[No old charts were reviewed] Differential Diagnosis (chest pain, altered mental status, abdominal pain women, abdominal pain men, vaginal bleeding, weakness, fever, dyspnea, syncope, headache, dizziness, GI bleed, back pain, seizure, CVA, palpatations, mental health, musculoskeletal)? @ -[Differential diagnosis of anemia, microcytic, includes iron deficiency, sideroblastic anemia, chronic inflammation. In addition blood loss must be considered, this list not comprehensive. EKG interpreted by me (3pts min.). @ -[As above] X-rays interpreted by me (1pt min.). @ -[None done] CT interpreted by me (1pt min.). @ -[None done] U/S interpreted by me (1pt. min.). @ -[None done] What testing was considered but not performed or refused? (CT, X-rays, U/S, labs)? Why? @ -[None] What meds were considered but not given or refused? Why? @ -[None] Did you discuss the management of the patient with other professionals (professionals i.e. , PA, SOFTWARE DEVELOPMENT ENGINEER, lab, RT, psych nurse, social service coordinator, rn shift mgr, teacher, information technology officer, social work case manager)? Give summary @ -[No] Was smoking cessation discussed for >3mins.? @ -[No] Was critical care preformed (if so, how long)? @ -[No] Were there social determinants of health that impacted care today? How? (Homelessness, low income, unemployed, alcoholism, drug addiction, transportat ion, low edu. Level, literacy, decrease access to med. care, nursing home, rehab)? @ -[No] Was there de-escalation of care discussed even if they declined (Discuss DNR or withdrawal of care, Hospice)? DNR status @ -[No] What co-morbidities impacted this encounter? (DM, HTN, Smoking, COPD, CAD, Cancer, CVA, ARF, Chemo, Hep., AIDS, mental health diagnosis, sleep apnea, morbid obesity)? @ -History of gastric bypass surgery Was patient admitted / discharged? Hospital course, mention meds given and route, prescriptions, significant lab abnormalities, going to OR and other pertinent info. @ -[Patient is a 34-year-old woman who was called and advised to come in for transfusion. The patient did have some significant anxiety about receiving transfusion but did agree to have the transfusion after receiving Ativan. The transfusion is started and that shift change the patient is signed out to the following physician. Undiagnosed new problem with uncertain prognosis? @ -[No] Drug Therapy requiring intensive monitoring for toxicity (Heparin, Nitro, Insulin, Cardizem)? @ -[No] Were any procedures done? @ -[No] Diagnosis/symptom? @ -[Acute microcytic anemia Anxiety related to transfusion Acute, or Chronic, or Acute on Chronic? @ -[default] Uncomplicated (without systemic symptoms) or Complicated (systemic symptoms)? @ -[default] Side effects of treatment? @ -[No] Exacerbation, Progression, or Severe Exacerbation? @ -[No] Poses a threat to life or bodily function? How? (Chest pain, USA, VT, pneumonia, PE, COPD, DKA, ARF, appy, cholecystitis, CVA, Diverticulitis, Homicidal, Suicidal, threat to staff... and all critical care pts) @ -[No] All treatments are based on ideal body weight as in ED triage - Lab Data Result diagrams: 08/02/24 21:24 08/02/24 21:24 Lab Results 08/02/24 08/02/24 08/02/24 Range/Units 21:24 21:24 21:24 WBC 4.90 (4.50-10.00) 10*3/uL RBC 3.83 L (4.10-5.20) 10*6/uL Hgb 6.5 L* (12.0-15.0) g/dL Hct 24.1 L (37.2-46.3) % MCV 62.9 L (80.0-97.0) fL MCH 17.0 L (27.0-32.0) pg MCHC 27.0 L (32.0-37.0) g/dL Plt Count 303 (140-440) 10*3/uL MPV 10.0 (9.5-12.2) fL Immature Gran % (Auto) 0.4 % Neutrophils % 52.1 % Lymphocytes % 36.1 % Monocytes % 9.8 % Eosinophils % 0.6 % Basophils % 1.0 % Immature Gran # 0.02 (0.00-0.04) 10*3/uL Neutrophils # 2.55 (1.80-7.70) 10*3/uL Lymphocytes # 1.77 (0.90-5.00) 10*3/uL Monocytes # 0.48 (0.20-1.00) 10*3/uL Eosinophils # 0.03 L (0.04-0.35) 10*3/uL Basophils # 0.05 (0.00-0.10) 10*3/uL Sodium 138 (137-145) mmol/L Potassium 3.7 (3.5-5.1) mmol/L Chloride 102 (98-107) mmol/L Carbon Dioxide 27 (22-30) mmol/L Anion Gap 9 mmol/L BUN 16 (7-17) mg/dL Creatinine 0.50 L (0.52-1.04) mg/dL Est GFR (CKD-EPI)AfAm >90 (>60 ml/min/1.73 sqM) Est GFR (CKD-EPI)NonAf >90 (>60 ml/min/1.73 sqM) Glucose 89 (74-99) mg/dL Calcium 9.7 (8.4-10.2) mg/dL Magnesium 1.9 (1.6-2.3) mg/dL Total Bilirubin 0.3 (0.2-1.3) mg/dL AST 24 (14-36) U/L ALT 11 (4-34) U/L Alkaline Phosphatase 60 (38-126) U/L Total Protein 7.3 (6.3-8.2) g/dL Albumin 4.7 (3.5-5.0) g/dL TSH 3.570 (0.465-4.680) mIU/L Urine Color Urine Appearance (Clear) Urine pH (5.0-8.0) Ur Specific [place] (1.001-1.035) Urine Protein (Negative) Urine Glucose (UA) (Negative) Urine Ketones (Negative) Urine Blood (Negative) Urine Nitrite (Negative) Urine Bilirubin (Negative) Urine Urobilinogen (<2.0) mg/dL Ur Leukocyte Esterase (Negative) Urine RBC (0-5) /hpf Urine WBC (0-5) /hpf Ur Squamous Epith Cells (0-4) /hpf Urine Mucus (None) /hpf Urine HCG, Qual (Not Detectd) Stool Occult Blood (Negative) Urine Opiates Screen (NotDetected) Ur Oxycodone Screen (NotDetected) Urine Methadone Screen (NotDetected) Ur Barbiturates Screen (NotDetected) U Tricyclic Antidepress (NotDetected) Ur Phencyclidine Scrn (NotDetected) Ur Amphetamines Screen (NotDetected) U Methamphetamines Scrn (NotDetected) U Benzodiazepines Scrn (NotDetected) Urine Cocaine Screen (NotDetected) U Marijuana (THC) Screen (NotDetected) Blood Type Blood Type Recheck Bld Type Recheck Status Antibody Screen Crossmatch Spec Expiration Date 08/02/24 08/03/24 08/03/24 Range/Units 22:05 01:00 01:24 WBC (4.50-10.00) 10*3/uL RBC (4.10-5.20) 10*6/uL Hgb (12.0-15.0) g/dL Hct (37.2-46.3) % MCV (80.0-97.0) fL MCH (27.0-32.0) pg MCHC (32.0-37.0) g/dL Plt Count (140-440) 10*3/uL MPV (9.5-12.2) fL Immature Gran % (Auto) % Neutrophils % % Lymphocytes % % Monocytes % % Eosinophils % % Basophils % % Immature Gran # (0.00-0.04) 10*3/uL Neutrophils # (1.80-7.70) 10*3/uL Lymphocytes # (0.90-5.00) 10*3/uL Monocytes # (0.20-1.00) 10*3/uL Eosinophils # (0.04-0.35) 10*3/uL Basophils # (0.00-0.10) 10*3/uL Sodium (137-145) mmol/L Potassium (3.5-5.1) mmol/L Chloride (98-107) mmol/L Carbon Dioxide (22-30) mmol/L Anion Gap mmol/L BUN (7-17) mg/dL Creatinine (0.52-1.04) mg/dL Est GFR (CKD-EPI)AfAm (>60 ml/min/1.73 sqM) Est GFR (CKD-EPI)NonAf (>60 ml/min/1.73 sqM) Glucose (74-99) mg/dL Calcium (8.4-10.2) mg/dL Magnesium (1.6-2.3) mg/dL Total Bilirubin (0.2-1.3) mg/dL AST (14-36) U/L ALT (4-34) U/L Alkaline Phosphatase (38-126) U/L Total Protein (6.3-8.2) g/dL Albumin (3.5-5.0) g/dL TSH (0.465-4.680) mIU/L Urine Color Colorless Urine Appearance Clear (Clear) Urine pH 6.0 (5.0-8.0) Ur Specific [place] 1.013 (1.001-1.035) Urine Protein Negative (Negative) Urine Glucose (UA) Negative (Negative) Urine Ketones Negative (Negative) Urine Blood Small H (Negative) Urine Nitrite Negative (Negative) Urine Bilirubin Negative (Negative) Urine Urobilinogen <2.0 (<2.0) mg/dL Ur Leukocyte Esterase Negative (Negative) Urine RBC <1 (0-5) /hpf Urine WBC 1 (0-5) /hpf Ur Squamous Epith Cells 1 (0-4) /hpf Urine Mucus Many H (None) /hpf Urine HCG, Qual (Not Detectd) Stool Occult Blood Negative (Negative) Urine Opiates Screen Not Detected (NotDetected) Ur Oxycodone Screen Not Detected (NotDetected) Urine Methadone Screen Not Detected (NotDetected) Ur Barbiturates Screen Not Detected (NotDetected) U Tricyclic Antidepress Not Detected (NotDetected) Ur Phencyclidine Scrn Not Detected (NotDetected) Ur Amphetamines Screen Not Detected (NotDetected) U Methamphetamines Scrn Not Detected (NotDetected) U Benzodiazepines Scrn Detected H (NotDetected) Urine Cocaine Screen Not Detected (NotDetected) U Marijuana (THC) Screen Detected H (NotDetected) Blood Type O Positive Blood Type Recheck O Pos Bld Type Recheck Status No Antibody Screen NEGATIVE Crossmatch See Detail Spec Expiration Date 08/06/2024229908/03/24 Range/Units 01:24 WBC (4.50-10.00) 10*3/uL RBC (4.10-5.20) 10*6/uL Hgb (12.0-15.0) g/dL Hct (37.2-46.3) % MCV (80.0-97.0) fL MCH (27.0-32.0) pg MCHC (32.0-37.0) g/dL Plt Count (140-440) 10*3/uL MPV (9.5-12.2) fL Immature Gran % (Auto) % Neutrophils % % Lymphocytes % % Monocytes % % Eosinophils % % Basophils % % Immature Gran # (0.00-0.04) 10*3/uL Neutrophils # (1.80-7.70) 10*3/uL Lymphocytes # (0.90-5.00) 10*3/uL Monocytes # (0.20-1.00) 10*3/uL Eosinophils # (0.04-0.35) 10*3/uL Basophils # (0.00-0.10) 10*3/uL Sodium (137-145) mmol/L Potassium (3.5-5.1) mmol/L Chloride (98-107) mmol/L Carbon Dioxide (22-30) mmol/L Anion Gap mmol/L BUN (7-17) mg/dL Creatinine (0.52-1.04) mg/dL Est GFR (CKD-EPI)AfAm (>60 ml/min/1.73 sqM) Est GFR (CKD-EPI)NonAf (>60 ml/min/1.73 sqM) Glucose (74-99) mg/dL Calcium (8.4-10.2) mg/dL Magnesium (1.6-2.3) mg/dL Total Bilirubin (0.2-1.3) mg/dL AST (14-36) U/L ALT (4-34) U/L Alkaline Phosphatase (38-126) U/L Total Protein (6.3-8.2) g/dL Albumin (3.5-5.0) g/dL TSH (0.465-4.680) mIU/L Urine Color Urine Appearance (Clear) Urine pH (5.0-8.0) Ur Specific [place] (1.001-1.035) Urine Protein (Negative) Urine Glucose (UA) (Negative) Urine Ketones (Negative) Urine Blood (Negative) Urine Nitrite (Negative) Urine Bilirubin (Negative) Urine Urobilinogen (<2.0) mg/dL Ur Leukocyte Esterase (Negative) Urine RBC (0-5) /hpf Urine WBC (0-5) /hpf Ur Squamous Epith Cells (0-4) /hpf Urine Mucus (None) /hpf Urine HCG, Qual Not Detected (Not Detectd) Stool Occult Blood (Negative) Urine Opiates Screen (NotDetected) Ur Oxycodone Screen (NotDetected) Urine Methadone Screen (NotDetected) Ur Barbiturates Screen (NotDetected) U Tricyclic Antidepress (NotDetected) Ur Phencyclidine Scrn (NotDetected) Ur Amphetamines Screen (NotDetected) U Methamphetamines Scrn (NotDetected) U Benzodiazepines Scrn (NotDetected) Urine Cocaine Screen (NotDetected) U Marijuana (THC) Screen (NotDetected) Blood Type Blood Type Recheck Bld Type Recheck Status Antibody Screen Crossmatch Spec Expiration Date Disposition Clinical Impression: Anemia Disposition: HOME SELF-CARE Condition: Good Instructions (If sedation given, give patient instructions): Iron Rich Diet (ED) Prescriptions: Ferrous Sulfate [Feosol] 325 mg PO BID #60 tab Is patient prescribed a controlled substance at d/c from ED?: No Referrals: Per Sumner DO [Primary Care Provider] - 1-2 days Richie Garibay [STAFF PHYSICIAN] - 1-2 days
[2024-08-03 01:34] LABS: Appearance,Urine Clear (Clear); Bilirubin,Urine Negative (Negative); Blood,Urine Small (Negative); Color,Urine Colorless; Glucose,Urine (UA) Negative (Negative); Ketones,Urine Negative (Negative); Leukocyte Esterase,Urine Negative (Negative); Mucus,Urine Many /hpf; Nitrite,Urine Negative (Negative); Protein,Urine Negative (Negative); RBC,Urine <1 /hpf (0-5); Specific Gravity,Urine 1.013 (1.001-1.035); Squamous Epithelial Cell,Urine 1 /hpf (0-4); Urobilinogen,Urine <2.0 mg/dL (<2.0); WBC,Urine 1 /hpf (0-5)
[2024-08-03 01:43] LABS: Cocaine Screen,Urine Not Detected (NotDetected); Phencyclidine Screen,Urine Not Detected (NotDetected)
[2024-08-03 01:44] LABS: Amphetamine Screen,Urine Not Detected (NotDetected); Barbiturate Screen,Urine Not Detected (NotDetected); Benzodiazepines Screen,Urine Detected (NotDetected); Methadone Screen, Urine Not Detected (NotDetected); Opiate Screen,Urine Not Detected (NotDetected); Oxycodone Screen, Urine Not Detected (NotDetected); Tricyclic Antidepressant,Urine Not Detected (NotDetected); Urn Cannabinoid Scrn Detected (NotDetected)
[2024-08-03] MEDS: LORazepam 1 MG/0.5 ML VIAL IV STA (03:12)
[2024-08-03 05:25] VITALS: BP 92/63; PULSE 57; RESP 18; TEMP 97.1
== END 2024-08-03 05:39 | disposition home or self-care (01) ==
LOC: EC 19:22
DX: D64.9 Anemia, unspecified (principal); F17.290 Nicotine dependence, other tobacco product, uncomplicated; Z88.5 Allergy status to narcotic agent; Z88.8 Allergy status to other drugs, medicaments and biological substances; Z91.040 Latex allergy status; Z98.84 Bariatric surgery status
CPT/HCPCS: 36415; 86900; 86901; 80053; 83735; 84443; 85025; 86850; 86920; 82272; 81001; 81025; 80306; 99283; 96374; 36430; P9016; J2060

== ENCOUNTER → 2024-08-02 | Outpatient (CLI) | payer OTHER ==
[2024-08-02 18:25] LABS: Hepatitis A Antibody IgM Nonreactive (Nonreactive); Hepatitis B Core IgM Nonreactive (Nonreactive); Hepatitis B Surface Antigen Nonreactive (Nonreactive); Hepatitis C IgG Antibody Nonreactive (Nonreactive)
[2024-08-02 18:33] LABS: Basophils # (A) 0.04 X 10*3/uL (0.00-0.10); Elliptocytes 2+ (None Seen); Eosinophils # (A) 0.04 X 10*3/uL (0.04-0.35); HCT 25.4 % (37.2-46.3); HGB 6.4 g/dL (12.0-15.0); Hypochromasia (M) 3+ (None Seen); Lymphocytes # (A) 1.34 X 10*3/uL (0.90-5.00); Lymphocytes % (A) 33.3 %; MCH 16.2 pg (27.0-32.0); MCHC 25.2 g/dL (32.0-37.0); MCV 64.5 FL (80.0-97.0); Mean Platelet Volume 10.5 FL (9.5-12.2); Microcytosis (M) 3+ (None Seen); Monocytes # (A) 0.31 X 10*3/uL (0.20-1.00); Monocytes % (A) 7.7 %; NRBC Per 100 WBC 0 X 10*3/uL (0.00-0.01); Neutrophils # (A) 2.29 X 10*3/uL (1.80-7.70); Neutrophils % (A) 56.8 %; Platelet Count 288 X 10*3/uL (140-440); RBC 3.94 X 10*6/uL (4.10-5.20); RDW 19.1 % (11.5-14.5); WBC 4.03 X 10*3/uL (4.50-10.00)
[2024-08-02 18:37] LABS: % Iron Saturation 1.62 (12.00-45.00); Blood Urea Nitrogen 15.9 mg/dL (9.0-27.0); Chol/HDL Ratio 2.14 Ratio; Glucose 97 mg/dL (70-110); Iron 9 UG/DL (50-170); LDL Cholesterol,Calculated 71.6 mg/dL (0.0-131.0); Phosphorus 3.6 mg/dL (2.4-5.1); Total Iron Binding Capacity 554 UG/DL (228-460); Uric Acid 1.8 mg/dL (2.9-7.7); VLDL Calculation 10.44 mg/dL (5.00-40.00)
[2024-08-02 18:38] LABS: ALT 11 U/L (8-44); AST 20 U/L (13-35); Albumin 4.7 g/dL (3.8-4.9); Albumin/Globulin Ratio 1.96 Ratio (1.60-3.17); Alkaline Phosphatase 68 U/L (41-126); Carbon Dioxide 23.4 mmol/L (21.6-31.8); Chloride 105 mmol/L (96-109); Ferritin 3.5 ng/mL (10.0-291.0); Globulin 2.4 g/dL (1.6-3.3); Potassium 4.1 mmol/L (3.5-5.5); Sodium 140 mmol/L (135-145); Total Bilirubin 0.2 mg/dL (0.3-1.2); Total Protein 7.1 g/dL (6.2-8.2)
[2024-08-02 21:22] LABS: HIV 2 AB Non-Reactive (Non-Reactive); HIV AB P24 Non-Reactive (Non-Reactive); HIV P24 AG Non-Reactive (Non-Reactive); HSV I IgG Interp Negative (Negative); HSV II IgG Interp Negative (Negative)
== END | disposition home or self-care (01) ==
LOC: LABWHC1 12:31
PROVIDERS: ATTEND Internal Medicine
DX: Z00.00 Encounter for general adult medical examination without abnormal findings (principal); E03.9 Hypothyroidism, unspecified; D50.9 Iron deficiency anemia, unspecified; T74.21XD Adult sexual abuse, confirmed, subsequent encounter; Z98.84 Bariatric surgery status; Z87.442 Personal history of urinary calculi
CPT/HCPCS: 36415; 80053; 80061; 80074; 82306; 82607; 82728; 82746; 83540; 83550; 83735; 84100; 84439; 84443; 84550; 85025; 86695; 86696; 86780; 87390

== ENCOUNTER → 2024-08-16 | Outpatient (CLI) | payer OTHER ==
[2024-08-16 15:47] LABS: % Iron Saturation 20.53 (12.00-45.00)
[2024-08-16 16:28] LABS: Ferritin 90.8 ng/mL (10.0-291.0)
[2024-08-16 20:49] LABS: Anisocytosis (M) 2+ (None Seen); Basophils # (A) 0.05 X 10*3/uL (0.00-0.10); Basophils % (A) 0.9 %; Eosinophils # (A) 0.02 X 10*3/uL (0.04-0.35); Eosinophils % (A) 0.4 %; HCT 31.6 % (37.2-46.3); HGB 8.6 g/dL (12.0-15.0); Hypochromasia (M) 2+ (None Seen); Lymphocytes % (A) 20.6 %; MCH 18.5 pg (27.0-32.0); MCHC 27.2 g/dL (32.0-37.0); Mean Platelet Volume 10.4 FL (9.5-12.2); Microcytosis (M) 3+ (None Seen); Monocytes # (A) 0.42 X 10*3/uL (0.20-1.00); Monocytes % (A) 7.9 %; NRBC Per 100 WBC 0 X 10*3/uL (0.00-0.01); Neutrophils # (A) 3.73 X 10*3/uL (1.80-7.70); Neutrophils % (A) 69.8 %; Platelet Count 380 X 10*3/uL (140-440); RBC 4.65 X 10*6/uL (4.10-5.20); RDW 22.9 % (11.5-14.5); WBC 5.34 X 10*3/uL (4.50-10.00)
== END | disposition home or self-care (01) ==
LOC: LABWHC1 12:35
PROVIDERS: ATTEND Internal Medicine
DX: D50.9 Iron deficiency anemia, unspecified (principal)
CPT/HCPCS: 36415; 82728; 83540; 83550; 85025

== ENCOUNTER 2024-08-18 04:51 | Emergency (ER) | payer OTHER ==
[2024-08-18 04:55] VITALS: RESP 18; TEMP 98.4
--- NOTE | 2024-08-18 05:11 | ED ---
General Adult HPI - General Source: patient Mode of arrival: ambulatory Limitations: no limitations <Mina Santamaria - Last Filed: 08/18/24 07:00> <Mack Payne - Last Filed: 08/18/24 08:04> - General Chief complaint: Recheck/Abnormal Lab/Rx Stated complaint: IV port site inflamed Time Seen by Provider: 08/18/24 04:58 - History of Present Illness Initial comments: Dictation was produced using [employer] dictation software. please excuse any grammatical, word or spelling errors. Chief Complaint: 34-year-old female presents with arm pain and hemoglobin check History of Present Illness: Patient 34-year-old female she had an IV in her right antecubital area recently. States that after the IV was removed couple d ays later she started noticed that the site was started become red. Denies any fever, chills or night sweats she has a history of anemia once her hemoglobin check today. The ROS documented in this emergency department record has been reviewed and confirmed by me. Those systems with pertinent positive or negative responses have been documented in the HPI. All other systems are other negative and/or noncontributory. (Mina Santamaria) - Related Data Home Medications Medication Instructions Recorded Confirmed hydrOXYzine HCL 25 mg PO TID PRN 02/16/21 08/11/24 Levothyroxine Sodium [Tirosint] 25 mcg PO DAILY 05/19/21 08/11/24 DULoxetine HCL [Cymbalta] 30 mg PO HS 08/11/24 08/11/24 DULoxetine HCL [Cymbalta] 60 mg PO DAILY 08/11/24 08/11/24 Pantoprazole [Protonix] 40 mg PO DAILY 08/11/24 08/11/24 lamoTRIgine 100 mg PO BID 08/11/24 08/11/24 Previous Rx's Medication Instructions Recorded Ferrous Sulfate [Feosol] 325 mg PO BID #60 tab 08/03/24 HYDROcodone/APAP 5-325MG [[place] 1 tab PO Q6HR PRN 3 Days #12 tab 08/11/24 5-325] Allergies Allergy/AdvReac Type Severity Reaction Status Date / Time diphenhydramine HCl Allergy Throat Verified 08/18/24 04:55 [From Benadryl] Itches (with name brand Benadryl only) latex Allergy Rash/Hives Verified 08/18/24 04:55 hydrocodone bitartrate AdvReac Migraine Verified 08/18/24 04:55 [From Vicodin] Review of Systems ROS Other: All systems not noted in ROS Statement are negative. <Mina Santamaria - Last Filed: 08/18/24 07:00> ROS Other: All systems not noted in ROS Statement are negative. <Mack Payne - Last Filed: 08/18/24 08:04> ROS Statement: Those systems with pertinent positive or pertinent negative responses have been documented in the HPI. Past Medical History Past Medical History: Asthma, Eye Disorder, GERD/Reflux, Thyroid Disorder Additional Past Medical History / Comment(s): Anemia. Hx of kidney and bladder infections, hx kidney stones. MIGRAINES. Blind inleft eye. Hx recurrent right kidney cysts. History of Any Multi-Drug Resistant Organisms: None Reported Date of last positivie culture/infection: 05/06/20 MDRO Source:: ESBL URINE Past Surgical History: Appendectomy, Bariatric Surgery, Cholecystectomy, Tubal Ligation Additional Past Surgical History / Comment(s): Eye surgery X5, right knee foreign body removal, left hand wrist ganglion tumor removed, Gastric Sleeve, "posterior right upper quadrant of kidney sealed off due to recurring cysts". Past Anesthesia/Blood Transfusion Reactions: No Reported Reaction Past Psychological History: Anxiety, Depression Smoking Status: Current every day smoker, Vaper Past Alcohol Use History: Occasional Past Drug Use History: Marijuana - Past Family History Father Family Medical History: Hypertension Additional Family Medical History / Comment(s): Anxiety. Mother Family Medical History: Hypertension Additional Family Medical History / Comment(s): pt's mother and father high BP <Mina Santamaria - Last Filed: 08/18/24 07:00> General Exam Limitations: no limitations <Mina Santamaria - Last Filed: 08/18/24 07:00> - General Exam Comments Initial Comments: PHYSICAL EXAM: General Impression: Alert and oriented x3, not in acute distress HEENT: Normocephalic atraumatic, extra-ocular movements intact, pupils equal and reactive to light bilaterally, mucous membranes moist. Cardiovascular: Heart regular rate and rhythm Chest: Able to complete full sentences, no retractions, no tachypnea Abdomen: abdomen soft, non-tender, non-distended, no organomegaly Musculoskeletal: Pulses present and equal in all extremities, no peripheral edema Motor: no focal deficits noted Neurological: CN II-XII grossly intact, no focal motor or sensory deficits noted Skin: Intact with no visualized rashes, slight red erythematous area into right distal bicep anteriorly for presumed IV was placed Psych: Normal affect and mood (Mina Santamaria) Course Vital Signs 08/18/24 04:53 Temperature 98.4 F Pulse Rate 108 H Respiratory 18 Rate Blood Pressure 123/81 O2 Sat by Pulse 99 Oximetry Medical Decision Making <Mina Santamaria - Last Filed: 08/18/24 07:00> - Lab Data Result diagrams: 08/18/24 06:36 08/18/24 06:36 <Mack Payne - Last Filed: 08/18/24 08:04> - Medical Decision Making Was pt. sent in by a medical professional or institution (, PA, [employer], urgent care, hospital, or assisted...) When possible be specific @ -No Did you speak to anyone other than the patient for history (EMS, parent, family, police, friend...)? What history was obtained from this source @ -No Did you review nursing and triage notes (agree or disagree)? Why? @ -I reviewed and agree with nursing and triage notes Were old charts reviewed (outside hosp., previous admission, EMS record, old EKG, old radiological studies, urgent care reports/EKG's, assisted records)? Report findings @ -No old charts were reviewed Differential Diagnosis (chest pain, altered mental status, abdominal pain women, abdominal pain men, vaginal bleeding, musculoskeletal, weakness, fever, dyspnea, syncope, headache, dizziness, GI bleed, back pain, seizure, CVA, palpatations, mental health)? @ -Upper extremity DVT, thrombophlebitis, biceps rupture EKG interpreted by me (3pts min.). @ -None done X-rays interpreted by me (1pt min.). @ -None done CT interpreted by me (1pt min.). @ -None done U/S interpreted by me (1pt. min.). @ - What testing was considered but not performed or refused? (CT, X-rays, U/S, labs)? Why? @ -None What meds were considered but not given or refused? Why? @ -None Was smoking cessation discussed for >3mins.? @ -No Were there social determinants of health that impacted care today? How? (Homelessness, low income, unemployed, alcoholism, drug addiction, transportation, low edu. Level, literacy, decrease access to med. care, m[facility], rehab)? @ -No Was there de-escalation of care discussed even if they declined (Discuss DNR or withdrawal of care, Hospice)? DNR status @ -No What co-morbidities impacted this encounter? (DM, HTN, Smoking, COPD, CAD, Cancer, CVA, ARF, Chemo, Hep., AIDS, mental health diagnosis, sleep apnea, morbid obesity)? @ -None Was patient admitted / discharged? Hospital course, mention meds given and route, prescriptions, significant lab abnormalities, going to OR and other pertinent info. @ -34-year-old female presents to the emergency department arm pain at previous IV site. Vital signs stable. Patient does have some warm erythematous area to the distal biceps. Suspect superficial thrombophlebitis. Ultrasound ordered. Patient also would like her hemoglobin checked. Pending labs Did you discuss the management of the patient with other professionals (professionals i.e. , PA, [employer], lab, RT, psych nurse, social services analyst, business resiliency manager, teacher, recreation officer, supportive employment case manager)? Give summary @ -No Was critical care preformed (if so, how long)? @ -No Undiagnosed new problem with uncertain prognosis? @ -No Drug Therapy requiring intensive monitoring for toxicity (Heparin, Nitro, Insulin, Cardizem)? @ -No Were any procedures done? @ -No Diagnosis/symptom? Acute, or Chronic, or Acute on Chronic? Uncomplicated (without systemic symptoms) or Complicated (systemic symptoms)? @ -Arm pain Patient care signed out to Dr. Payne at 7:00 AM (Mina Santamaria) Ultrasound right upper extremity interpreted by myself without evidence of DVT. Clinically patient does have superficial thrombophlebitis right antecubital region. Patient states she has been dealing with anemia for several months now. Patient states she was recently discharged from [facility] following scope. No source of bleeding could be identified. Patient has had several blood transfusions. Patient denies any active bleeding or black tarry stools. Patient is happy to hear that her hemoglobin is 7.5. Patient states she does have a follow-up appointment with her surgeon Dr. Bardales tomorrow morning at 830. Patient also states that she has an appointment with sas developer on the . Diagnosis,: Superficial thrombophlebitis, anemia Acuity: Acute, acute on chronic Threat to hematological function (Mack Payne) - Lab Data Lab Results 08/18/24 08/18/24 08/18/24 Range/Units 06:36 06:36 06:36 WBC 7.33 (4.50-10.00) 10*3/uL RBC 4.02 L (4.10-5.20) 10*6/uL Hgb 7.5 L (12.0-15.0) g/dL Hct 26.9 L (37.2-46.3) % MCV 66.9 L (80.0-97.0) fL MCH 18.7 L (27.0-32.0) pg MCHC 27.9 L (32.0-37.0) g/dL Plt Count 306 (140-440) 10*3/uL MPV 10.3 (9.5-12.2) fL Immature Gran % (Auto) 0.1 % Neutrophils % 69.3 % Lymphocytes % 20.9 % Monocytes % 8.0 % Eosinophils % 1.0 % Basophils % 0.7 % Immature Gran # 0.01 (0.00-0.04) 10*3/uL Neutrophils # 5.08 (1.80-7.70) 10*3/uL Lymphocytes # 1.53 (0.90-5.00) 10*3/uL Monocytes # 0.59 (0.20-1.00) 10*3/uL Eosinophils # 0.07 (0.04-0.35) 10*3/uL Basophils # 0.05 (0.00-0.10) 10*3/uL Manual Slide Review Performed Immature Plt Fraction 2.4 (1.1-6.1) % Anisocytosis (manual) Present PT 10.4 (10.0-12.5) sec INR 0.9 (<1.2) APTT 25.4 (22.0-30.0) sec Sodium 139 (137-145) mmol/L Potassium 3.6 (3.5-5.1) mmol/L Chloride 106 (98-107) mmol/L Carbon Dioxide 25 (22-30) mmol/L Anion Gap 8 mmol/L BUN 21 H (7-17) mg/dL Creatinine 0.52 (0.52-1.04) mg/dL Est GFR (CKD-EPI)AfAm >90 (>60 ml/min/1.73 sqM) Est GFR (CKD-EPI)NonAf >90 (>60 ml/min/1.73 sqM) Glucose 97 (74-99) mg/dL Calcium 9.2 (8.4-10.2) mg/dL Blood Type Blood Type Recheck Bld Type Recheck Status Antibody Screen Spec Expiration Date 08/18/24 Range/Units 06:36 WBC (4.50-10.00) 10*3/uL RBC (4.10-5.20) 10*6/uL Hgb (12.0-15.0) g/dL Hct (37.2-46.3) % MCV (80.0-97.0) fL MCH (27.0-32.0) pg MCHC (32.0-37.0) g/dL Plt Count (140-440) 10*3/uL MPV (9.5-12.2) fL Immature Gran % (Auto) % Neutrophils % % Lymphocytes % % Monocytes % % Eosinophils % % Basophils % % Immature Gran # (0.00-0.04) 10*3/uL Neutrophils # (1.80-7.70) 10*3/uL Lymphocytes # (0.90-5.00) 10*3/uL Monocytes # (0.20-1.00) 10*3/uL Eosinophils # (0.04-0.35) 10*3/uL Basophils # (0.00-0.10) 10*3/uL Manual Slide Review Immature Plt Fraction (1.1-6.1) % Anisocytosis (manual) PT (10.0-12.5) sec INR (<1.2) APTT (22.0-30.0) sec Sodium (137-145) mmol/L Potassium (3.5-5.1) mmol/L Chloride (98-107) mmol/L Carbon Dioxide (22-30) mmol/L Anion Gap mmol/L BUN (7-17) mg/dL Creatinine (0.52-1.04) mg/dL Est GFR (CKD-EPI)AfAm (>60 ml/min/1.73 sqM) Est GFR (CKD-EPI)NonAf (>60 ml/min/1.73 sqM) Glucose (74-99) mg/dL Calcium (8.4-10.2) mg/dL Blood Type O Positive Blood Type Recheck O Pos Bld Type Recheck Status No Antibody Screen NEGATIVE Spec Expiration Date 08/21/20242335 Disposition <Mina Santamaria - Last Filed: 08/18/24 07:00> Is patient prescribed a controlled substance at d/c from ED?: No Time of Disposition: 08:04 <Mack Payne - Last Filed: 08/18/24 08:04> Clinical Impression: Arm pain, Superficial thrombophlebitis, Anemia Disposition: HOME SELF-CARE Condition: Stable Instructions (If sedation given, give patient instructions): Anemia (ED), Superficial Thrombophlebitis (ED) Additional Instructions: Please do follow-up with your surgeon tomorrow morning as planned. Please also follow-up with your sas developer, call for earlier appointment. Return for any bleeding, black stools, increased weakness or fatigue, shortness of breath, increased arm swelling, arm redness, or arm pain, worsening symptoms or any other concerns. You should be taking a daily proton pump inhibitor such as Protonix, many of these are available [id number]. Referrals: Per Sumner DO [Primary Care Provider] - 1-2 days Polo Billy MD [STAFF PHYSICIAN] - 1-2 days Emmanuelle Smith MD [STAFF PHYSICIAN] - 1-2 days
[2024-08-18 07:16] LABS: INR 0.9 (<1.2); Partial Thromboplastin Time 25.4 sec (22.0-30.0); Prothrombin Time 10.4 sec (10.0-12.5)
[2024-08-18 07:20] LABS: Basophils # (A) 0.05 10*3/uL (0.00-0.10); Basophils % (A) 0.7 %; Eosinophils # (A) 0.07 10*3/uL (0.04-0.35); HCT 26.9 % (37.2-46.3); HGB 7.5 g/dL (12.0-15.0); Immature Platelet Fraction 2.4 % (1.1-6.1); Lymphocytes # (A) 1.53 10*3/uL (0.90-5.00); Lymphocytes % (A) 20.9 %; MCH 18.7 pg (27.0-32.0); MCHC 27.9 g/dL (32.0-37.0); MCV 66.9 fL (80.0-97.0); Mean Platelet Volume 10.3 fL (9.5-12.2); Monocytes # (A) 0.59 10*3/uL (0.20-1.00); Neutrophils # (A) 5.08 10*3/uL (1.80-7.70); Neutrophils % (A) 69.3 %; Platelet Count 306 10*3/uL (140-440); RBC 4.02 10*6/uL (4.10-5.20); RDW 23.2 % (11.5-14.5); WBC 7.33 10*3/uL (4.50-10.00)
[2024-08-18 07:30] LABS: African American GFR (CKD) >90 (>60 ml/min/1.73 sqM); Anion Gap 8 mmol/L; Blood Urea Nitrogen 21 mg/dL (7-17); Calcium 9.2 mg/dL (8.4-10.2); Carbon Dioxide 25 mmol/L (22-30); Chloride 106 mmol/L (98-107); Glucose 97 mg/dL (74-99); Non-African American GFR(CKD) >90 (>60 ml/min/1.73 sqM); Potassium 3.6 mmol/L (3.5-5.1); Sodium 139 mmol/L (137-145)
[2024-08-18 07:47] LABS: Anisocytosis (M) Present
--- NOTE | 2024-08-18 07:47 | US ---
EXAMINATION TYPE: US venous doppler duplex UE RT DATE OF EXAM: 08/18/2024 COMPARISON: NONE CLINICAL INDICATION: Female, 34 years old with history of pain at previous IV site; Pain in right bic ep at recent iv site, no h/o dvt TECHNIQUE: Grayscale, color Doppler and spectral Doppler imaging of the upper extremity. SIDE PERFORMED: Right VESSELS IMAGED: IJV Subclavian Vein Axilla Vein Brachial Vein(s) Radial Paired Veins Ulnar Paired Veins Cephalic Vein* Basilic Vein* (*superficial vessels) FINDINGS: Right Arm: Negative for DVT internal echoes that do not compress within right cephalic vein above fossa at site of redness and pain Grayscale, color doppler, spectral doppler imaging performed of the deep veins of the upper extremiti es. IMPRESSION: Right upper extremity ultrasound negative for deep venous thrombosis. 2. There may be some thrombus within the superficial right cephalic vein [facility], , 08/18/2024 7:44 AM
[2024-08-18 08:33] VITALS: BP 105/76; PULSE 71
== END 2024-08-18 08:30 | disposition home or self-care (01) ==
LOC: EC 04:51
DX: I80.8 Phlebitis and thrombophlebitis of other sites (principal); D64.9 Anemia, unspecified; F17.290 Nicotine dependence, other tobacco product, uncomplicated; Z88.5 Allergy status to narcotic agent; Z88.8 Allergy status to other drugs, medicaments and biological substances; Z91.040 Latex allergy status
CPT/HCPCS: 36415; 80048; 85025; 85610; 85730; 86850; 86900; 86901; 99284

== ENCOUNTER → 2024-08-19 | Outpatient (CLI) | payer OTHER ==
[2024-08-19 09:06] VITALS: BP 116/79; PULSE 90; RESP 16; TEMP 98.4; BMI 20.2
== END ==
LOC: BARWHC3 08:35
PROVIDERS: ATTEND Surgery
DX: E66.01 Morbid (severe) obesity due to excess calories (principal); Z68.20 Body mass index [BMI] 20.0-20.9, adult; F17.200 Nicotine dependence, unspecified, uncomplicated; Z91.040 Latex allergy status; Z88.5 Allergy status to narcotic agent; Z88.6 Allergy status to analgesic agent
CPT/HCPCS: 99211

== ENCOUNTER → 2024-08-19 | Outpatient (CLI) | payer OTHER ==
--- NOTE | 2024-08-19 13:35 | FL ---
EXAMINATION TYPE: FL barium swallow DATE OF EXAM: 08/19/2024 LIMITED UGI: CLINICAL INDICATION: Female, 34 years old with history of R13.10 DYSPHAGIA, UNSPECIFIED, history of g astric sleeve surgery 2021. Frequent vomiting. TECHNIQUE: Limited esophagram is performed utilizing thin liquid barium. A total of 326 seconds of f luoroscopic time was utilized during procedure and 43 images obtained. TOTAL DAP = 392.95 COMPARISON: None. FINDINGS: The patient swallowed contrast without difficulty or delay. Esophageal peristalsis and mo tility are within normal limits. There is good flow of contrast along the diaphragmatic hiatus into proximal stomach through proximal anastomosis and adequate flow into gastric sleeve. There is mild de lay in flow from distal sleeve and anastomosis into pylorus and duodenal sweep. Patient remains asymp tomatic. There is no evidence of contrast extravasation to suggest leak. IMPRESSION: No evidence of leak or significant obstruction currently. [facility], , 08/19/2024 1:32 PM
== END | disposition home or self-care (01) ==
LOC: RADFLMAIN 11:02
PROVIDERS: ATTEND Surgery
DX: R13.10 Dysphagia, unspecified (principal); Z98.84 Bariatric surgery status
CPT/HCPCS: 74220

== ENCOUNTER 2024-08-23 20:19 | Emergency (ER) | payer OTHER ==
--- NOTE | 2024-08-23 20:54 | ED ---
Dizziness HPI - General Chief Complaint: Syncope Stated Complaint: Syncope Time Seen by Provider: 08/23/24 20:23 Source: patient Mode of arrival: ambulatory Limitations: no limitations - History of Present Illness Initial Comments: 34-year-old female with history of anemia and asthma presenting with chief complaint of syncopal episode. Patient reports that she got up from doing some homework to walk to the bathroom when she started feeling dizzy, she also reports that her heart was beating fast and she was feeling short of breath. She reports that she sat down and while urinating she did feel some left lower quadrant pain. She admits to nausea with no vomiting. She reports that while she was sitting on the toilet she had a syncopal episode, she reports that she fell backwards so she did not hit her head because the toilet was supporting her. She then reports that she was having a family member when she started to feel like she was going to pass out again and they were able to catch her. She states that at this time she is having no symptoms. She denies any lower extremity swelling. No oral contraceptive use. No current chest pain or difficulty breathing. No hematuria. No known fever. - Related Data Home Medications Medication Instructions Recorded Confirmed Levothyroxine Sodium [Tirosint] 25 mcg PO DAILY 05/19/21 08/19/24 DULoxetine HCL [Cymbalta] 30 mg PO HS 08/11/24 08/19/24 DULoxetine HCL [Cymbalta] 60 mg PO DAILY 08/11/24 08/19/24 Pantoprazole [Protonix] 40 mg PO DAILY 08/11/24 08/19/24 lamoTRIgine 100 mg PO BID 08/11/24 08/19/24 Previous Rx's Medication Instructions Recorded Ferrous Sulfate [Feosol] 325 mg PO BID #60 tab 08/03/24 HYDROcodone/APAP 5-325MG [[place] 1 tab PO Q6HR PRN 3 Days #12 tab 08/11/24 5-325] Allergies Allergy/AdvReac Type Severity Reaction Status Date / Time diphenhydramine HCl Allergy Throat Verified 08/23/24 20:23 [From Benadryl] Itches (with name brand Benadryl only) latex Allergy Rash/Hives Verified 08/23/24 20:23 hydrocodone bitartrate AdvReac Migraine Verified 08/23/24 20:23 [From Vicodin] Review of Systems ROS Statement: Those systems with pertinent positive or pertinent negative responses have been documented in the HPI. ROS Other: All systems not noted in ROS Statement are negative. Past Medical History Past Medical History: Asthma, Eye Disorder, GERD/Reflux, Thyroid Disorder Additional Past Medical History / Comment(s): Anemia. Hx of kidney and bladder infections, hx kidney stones. MIGRAINES. Blind inleft eye. Hx recurrent right kidney cysts. History of Any Multi-Drug Resistant Organisms: None Reported Date of last positivie culture/infection: 05/06/20 MDRO Source:: ESBL URINE Past Surgical History: Appendectomy, Bariatric Surgery, Cholecystectomy, Tubal Ligation Additional Past Surgical History / Comment(s): Eye surgery X5, right knee foreign body removal, left hand wrist ganglion tumor removed, Gastric Sleeve, "posterior right upper quadrant of kidney sealed off due to recurring cysts". Past Anesthesia/Blood Transfusion Reactions: No Reported Reaction Past Psychological History: Anxiety, Depression Smoking Status: Current every day smoker, Vaper Past Alcohol Use History: Occasional Past Drug Use History: Marijuana - Past Family History Father Family Medical History: Hypertension Additional Family Medical History / Comment(s): Anxiety. Mother Family Medical History: Hypertension Additional Family Medical History / Comment(s): pt's mother and father high BP General Exam Limitations: no limitations General appearance: alert, in no apparent distress Head exam: Present: atraumatic, normocephalic, normal inspection Eye exam: Present: normal appearance, EOMI Neck exam: Present: normal inspection. Absent: meningismus Respiratory exam: Present: normal lung sounds bilaterally. Absent: respiratory distress, wheezes, rales, rhonchi, stridor Cardiovascular Exam: Present: regular rate, normal rhythm, normal heart sounds. Absent: systolic murmur, diastolic murmur, rubs, gallop, clicks GI/Abdominal exam: Present: soft. Absent: distended, tenderness, guarding, rebound, rigid Extremities exam: Absent: pedal edema Neurological exam: Present: alert, oriented X3 Psychiatric exam: Present: normal affect, normal mood Skin exam: Present: warm, dry, normal color Course Vital Signs 08/23/24 08/23/24 08/23/24 20:21 22:00 23:00 Temperature 97.9 F Pulse Rate 98 81 81 Respiratory 18 16 16 Rate Blood Pressure 132/81 112/63 138/81 O2 Sat by Pulse 100 99 100 Oximetry 08/24/24 00:40 Temperature 98.0 F Pulse Rate 77 Respiratory 16 Rate Blood Pressure 107/72 O2 Sat by Pulse 100 Oximetry Medical Decision Making - Medical Decision Making Was pt. sent in by a medical professional or institution (, PA, MEDICAL DRIVER, urgent care, hospital, or alf...) When possible be specific @ -No Did you speak to anyone other than the patient for history (EMS, parent, family, police, friend...)? What history was obtained from this source @ -No Did you review nursing and triage notes (agree or disagree)? Why? @ -I reviewed and agree with nursing and triage notes Were old charts reviewed (outside hosp., previous admission, EMS record, old EKG, old radiological studies, urgent care reports/EKG's, alf records)? Report findings @ -No old charts were reviewed Differential Diagnosis (chest pain, altered mental status, abdominal pain women, abdominal pain men, vaginal bleeding, weakness, fever, dyspnea, syncope, headache, dizziness, GI bleed, back pain, seizure, CVA, palpatations, mental health, musculoskeletal)? @ -MDM Differential Syncope: Valvular disease, hypertrophic cardiomyopathy, pulmonary embolism, tamponade, tachycardia, bradycardia, RI, hypovolemia, hemorrhage, dissection, anemia, intracranial hemorrhage, seizure, hypoglycemia, carbon monoxide poisoning… this is not meant to be an all-inclusive list. EKG interpreted by me (3pts min.). @ -EKG shows sinus rhythm ventricular rate 91. NH interval 135 QRS 88 QT 352 QTc 401 X-rays interpreted by me (1pt min.). @ -Chest x-ray shows no acute cardiopulmonary process CT interpreted by me (1pt min.). @ -CT shows mild to moderate free fluid in the pelvis. Cholecystectomy. Gastric sleeve. Surgical clips in the right lower quadrant correlate for appendectomy U/S interpreted by me (1pt. min.). @ -None done What testing was considered but not performed or refused? (CT, X-rays, U/S, labs)? Why? @ -None What meds were considered but not given or refused? Why? @ -None Did you discuss the management of the patient with other professionals (professionals i.e. , PA, MEDICAL DRIVER, lab, RT, psych nurse, social contact worker, cop breaker, t eacher, sports development officer, onsite case manager)? Give summary @ -No Was smoking cessation discussed for >3mins.? @ -No Was critical care preformed (if so, how long)? @ -No Were there social determinants of health that impacted care today? How? (Homelessness, low income, unemployed, alcoholism, drug addiction, transportation, low edu. Level, literacy, decrease access to med. care, long-term, rehab)? @ -No Was there de-escalation of care discussed even if they declined (Discuss DNR or withdrawal of care, Hospice)? DNR status @ -No What co-morbidities impacted this encounter? (DM, HTN, Smoking, COPD, CAD, Cancer, CVA, ARF, Chemo, Hep., AIDS, mental health diagnosis, sleep apnea, morbid obesity)? @ -None Was patient admitted / discharged? Hospital course, mention meds given and route, prescriptions, significant lab abnormalities, going to OR and other pertinent info. @ -34-year-old female presenting with chief complaint of syncopal episode. Patient also reports abdominal pain, she has been struggling with chronic abdominal pain. History and physical examination are conducted. Vital signs are stable. Heart and lungs are clear to auscultation. Hemoglobin 8.5, patient has history of anemia and this is on the higher side for this patient. Potassium 3.3, she is given oral replacement. Negative troponin. Negative hCG. CT shows no acute abdominal process. Chest x-ray shows no acute process. On reassessment the patient is resting showing no signs of distress. She is educated on today's findings. She will need to follow-up with her PCP. Follow- up with PCP. Report back to ER with any new or worsening symptoms. Discussed return parameters and answered all questions. Patient conveyed verbal understanding and agreed to the plan. I discussed this case in detail with my attending Dr. Galvan Undiagnosed new problem with uncertain prognosis? @ -No Drug Therapy requiring intensive monitoring for toxicity (Heparin, Nitro, Insulin, Cardizem)? @ -No Were any procedures done? @ -No Diagnosis/symptom? @ -Presyncopal episode Acute, or Chronic, or Acute on Chronic? @ -Acute Uncomplicated (without systemic symptoms) or Complicated (systemic symptoms)? @ -Uncomplicated Side effects of treatment? @ -No Exacerbation, Progression, or Severe Exacerbation? @ -No Poses a threat to life or bodily function? How? (Chest pain, USA, RI, pneumonia, PE, COPD, DKA, ARF, appy, cholecystitis, CVA, Diverticulitis, Homicidal, Suicidal, threat to staff... and all critical care pts) @ -Unlikely - Lab Data Result diagrams: 08/23/24 20:57 08/23/24 20:57 Lab Results 08/23/24 08/23/24 08/23/24 Range/Units 20:57 20:57 20:57 WBC 13.20 H (4.50-10.00) 10*3/uL RBC 4.35 (4.10-5.20) 10*6/uL Hgb 8.5 L (12.0-15.0) g/dL Hct 30.2 L (37.2-46.3) % MCV 69.4 L (80.0-97.0) fL MCH 19.5 L (27.0-32.0) pg MCHC 28.1 L (32.0-37.0) g/dL RDW 25.2 H (11.5-14.5) % Plt Count 275 (140-440) 10*3/uL MPV 10.3 (9.5-12.2) fL Immature Gran % (Auto) 0.3 % Neutrophils % 87.7 % Lymphocytes % 7.3 % Monocytes % 4.3 % Eosinophils % 0.0 % Basophils % 0.4 % Immature Gran # 0.04 (0.00-0.04) 10*3/uL Neutrophils # 11.57 H (1.80-7.70) 10*3/uL Lymphocytes # 0.97 (0.90-5.00) 10*3/uL Monocytes # 0.57 (0.20-1.00) 10*3/uL Eosinophils # 0.00 L (0.04-0.35) 10*3/uL Basophils # 0.05 (0.00-0.10) 10*3/uL Manual Slide Review Performed Immature Plt Fraction 3.5 (1.1-6.1) % Dimorphic RBCs Present Anisocytosis (manual) Present PT 10.0 (10.0-12.5) sec INR 0.9 (<1.2) APTT 21.4 L (22.0-30.0) sec Sodium 137 (137-145) mmol/L Potassium 3.3 L (3.5-5.1) mmol/L Chloride 102 (98-107) mmol/L Carbon Dioxide 21 L (22-30) mmol/L Anion Gap 14 mmol/L BUN 17 (7-17) mg/dL Creatinine 0.46 L (0.52-1.04) mg/dL Est GFR (CKD-EPI)AfAm >90 (>60 ml/min/1.73 sqM) Est GFR (CKD-EPI)NonAf >90 (>60 ml/min/1.73 sqM) Glucose 112 H (74-99) mg/dL Calcium 9.5 (8.4-10.2) mg/dL Magnesium 1.7 (1.6-2.3) mg/dL Total Bilirubin 0.3 (0.2-1.3) mg/dL AST 23 (14-36) U/L ALT 13 (4-34) U/L Alkaline Phosphatase 69 (38-126) U/L Troponin I (0.000-0.034) ng/mL Total Protein 7.6 (6.3-8.2) g/dL Albumin 4.8 (3.5-5.0) g/dL Urine Color Urine Appearance (Clear) Urine pH (5.0-8.0) Ur Specific Kindred (1.001-1.035) Urine Protein (Negative) Urine Glucose (UA) (Negative) Urine Ketones (Negative) Urine Blood (Negative) Urine Nitrite (Negative) Urine Bilirubin (Negative) Urine Urobilinogen (<2.0) mg/dL Ur Leukocyte Esterase (Negative) Urine RBC (0-5) /hpf Urine WBC (0-5) /hpf Ur Squamous Epith Cells (0-4) /hpf Calcium Oxalate Crystal (None) /hpf Urine Bacteria (None) /hpf Urine Mucus (None) /hpf Urine Yeast (Budding) (None) /hpf Urine HCG, Qual (Not Detectd) 08/23/24 08/23/24 08/23/24 Range/Units 20:57 22:07 22:07 WBC (4.50-10.00) 10*3/uL RBC (4.10-5.20) 10*6/uL Hgb (12.0-15.0) g/dL Hct (37.2-46.3) % MCV (80.0-97.0) fL MCH (27.0-32.0) pg MCHC (32.0-37.0) g/dL RDW (11.5-14.5) % Plt Count (140-440) 10*3/uL MPV (9.5-12.2) fL Immature Gran % (Auto) % Neutrophils % % Lymphocytes % % Monocytes % % Eosinophils % % Basophils % % Immature Gran # (0.00-0.04) 10*3/uL Neutrophils # (1.80-7.70) 10*3/uL Lymphocytes # (0.90-5.00) 10*3/uL Monocytes # (0.20-1.00) 10*3/uL Eosinophils # (0.04-0.35) 10*3/uL Basophils # (0.00-0.10) 10*3/uL Manual Slide Review Immature Plt Fraction (1.1-6.1) % Dimorphic RBCs Anisocytosis (manual) PT (10.0-12.5) sec INR (<1.2) APTT (22.0-30.0) sec Sodium (137-145) mmol/L Potassium (3.5-5.1) mmol/L Chloride (98-107) mmol/L Carbon Dioxide (22-30) mmol/L Anion Gap mmol/L BUN (7-17) mg/dL Creatinine (0.52-1.04) mg/dL Est GFR (CKD-EPI)AfAm (>60 ml/min/1.73 sqM) Est GFR (CKD-EPI)NonAf (>60 ml/min/1.73 sqM) Glucose (74-99) mg/dL Calcium (8.4-10.2) mg/dL Magnesium (1.6-2.3) mg/dL Total Bilirubin (0.2-1.3) mg/dL AST (14-36) U/L ALT (4-34) U/L Alkaline Phosphatase (38-126) U/L Troponin I <0.012 (0.000-0.034) ng/mL Total Protein (6.3-8.2) g/dL Albumin (3.5-5.0) g/dL Urine Color Colorless Urine Appearance Clear (Clear) Urine pH 6.0 (5.0-8.0) Ur Specific Kindred 1.011 (1.001-1.035) Urine Protein Negative (Negative) Urine Glucose (UA) Negative (Negative) Urine Ketones Negative (Negative) Urine Blood Negative (Negative) Urine Nitrite Negative (Negative) Urine Bilirubin Negative (Negative) Urine Urobilinogen <2.0 (<2.0) mg/dL Ur Leukocyte Esterase Small H (Negative) Urine RBC 1 (0-5) /hpf Urine WBC 2 (0-5) /hpf Ur Squamous Epith Cells 2 (0-4) /hpf Calcium Oxalate Crystal Rare H (None) /hpf Urine Bacteria Rare H (None) /hpf Urine Mucus Rare H (None) /hpf Urine Yeast (Budding) Rare H (None) /hpf Urine HCG, Qual Not Detected (Not Detectd) Disposition Clinical Impression: Pre-syncope Disposition: HOME SELF-CARE Condition: Good Instructions (If sedation given, give patient instructions): Syncope (ED) Additional Instructions: Follow-up with your doctor. Report back to ER with any new or worsening symptoms. Is patient prescribed a controlled substance at d/c from ED?: No Referrals: Per Sumner DO [Primary Care Provider] - 1-2 days Time of Disposition: 00:20
[2024-08-23 21:09] LABS: Basophils # (A) 0.05 10*3/uL (0.00-0.10); Basophils % (A) 0.4 %; HCT 30.2 % (37.2-46.3); HGB 8.5 g/dL (12.0-15.0); Immature Platelet Fraction 3.5 % (1.1-6.1); Lymphocytes # (A) 0.97 10*3/uL (0.90-5.00); Lymphocytes % (A) 7.3 %; MCH 19.5 pg (27.0-32.0); MCHC 28.1 g/dL (32.0-37.0); MCV 69.4 fL (80.0-97.0); Mean Platelet Volume 10.3 fL (9.5-12.2); Monocytes # (A) 0.57 10*3/uL (0.20-1.00); Monocytes % (A) 4.3 %; Neutrophils # (A) 11.57 10*3/uL (1.80-7.70); Neutrophils % (A) 87.7 %; Platelet Count 275 10*3/uL (140-440); RBC 4.35 10*6/uL (4.10-5.20)
[2024-08-23 21:19] LABS: ALT 13 U/L (4-34); AST 23 U/L (14-36); African American GFR (CKD) >90 (>60 ml/min/1.73 sqM); Albumin 4.8 g/dL (3.5-5.0); Alkaline Phosphatase 69 U/L (38-126); Anion Gap 14 mmol/L; Blood Urea Nitrogen 17 mg/dL (7-17); Calcium 9.5 mg/dL (8.4-10.2); Carbon Dioxide 21 mmol/L (22-30); Chloride 102 mmol/L (98-107); Glucose 112 mg/dL (74-99); Magnesium 1.7 mg/dL (1.6-2.3); Non-African American GFR(CKD) >90 (>60 ml/min/1.73 sqM); Potassium 3.3 mmol/L (3.5-5.1); Sodium 137 mmol/L (137-145); Total Bilirubin 0.3 mg/dL (0.2-1.3); Total Protein 7.6 g/dL (6.3-8.2)
--- NOTE | 2024-08-23 21:22 | XR ---
EXAMINATION TYPE: XR chest 2V DATE OF EXAM: 08/23/2024 9:12 PM COMPARISON: Chest radiographs from 09/26/2019 CLINICAL INDICATION: Female, 34 years old with history of syncope; TECHNIQUE: XR chest 2V Frontal and lateral views of the chest. FINDINGS: Lungs/Pleura: There is no evidence of pleural effusion, focal consolidation, or pneumothorax. Pulmonary vascularity: Unremarkable. Heart/mediastinum: Cardiomediastinal silhouette is unremarkable. Musculoskeletal: No acute osseous pathology. IMPRESSION: No acute cardiopulmonary disease/process. [facility], , 08/23/2024 9:20 PM
[2024-08-23] MEDS: SODIUM CHLORIDE 0.9% 1,000 ML IV STA (21:23)
[2024-08-23 21:24] LABS: INR 0.9 (<1.2); RDW 25.2 % (11.5-14.5)
[2024-08-23 21:29] LABS: Partial Thromboplastin Time 21.4 sec (22.0-30.0)
[2024-08-23] MEDS: POTASSIUM CHLORIDE ER 20 MEQ TAB.ER PO STA (21:36)
[2024-08-23 22:35] LABS: Appearance,Urine Clear (Clear); Bacteria,Urine Rare /hpf; Bilirubin,Urine Negative (Negative); Blood,Urine Negative (Negative); Budding Yeast,Urine Rare /hpf; Calcium Oxalate Crystals,Urine Rare /hpf; Color,Urine Colorless; Glucose,Urine (UA) Negative (Negative); Ketones,Urine Negative (Negative); Leukocyte Esterase,Urine Small (Negative); Mucus,Urine Rare /hpf; Nitrite,Urine Negative (Negative); Protein,Urine Negative (Negative); RBC,Urine 1 /hpf (0-5); Specific Gravity,Urine 1.011 (1.001-1.035); Squamous Epithelial Cell,Urine 2 /hpf (0-4); Urobilinogen,Urine <2.0 mg/dL (<2.0); WBC,Urine 2 /hpf (0-5)
[2024-08-23 22:48] LABS: Anisocytosis (M) Present; Mixed Population RBC Present
--- NOTE | 2024-08-23 23:52 | CT ---
EXAM: CT Abdomen and Pelvis With Intravenous Contrast CLINICAL HISTORY: ITS.REASON CT Reason: abdominal pain TECHNIQUE: Axial computed tomography images of the abdomen and pelvis with intravenous contrast. CTDI is 13.1 mGy and DLP is 615.3 mGy-cm. This CT exam was performed using one or more of the following dose reduction techniques: automated exposure control, adjustment of the mA and/or kV according to patient size, and/or use of iterative reconstruction technique. COMPARISON: CT abdomen and pelvis 08/11/2024. FINDINGS: Lung bases: Unremarkable. No mass. No consolidation. ABDOMEN: Liver: Unremarkable. No mass. Gallbladder and bile ducts: Cholecystectomy. No ductal dilation. Pancreas: Unremarkable. No mass. No ductal dilation. Spleen: Unremarkable. No splenomegaly. Adrenals: Unremarkable. No mass. Kidneys and ureters: Unremarkable. No solid mass. No hydronephrosis. Stomach and bowel: Gastric sleeve. No obstruction. No mucosal thickening. PELVIS: Appendix: Surgical clips in the right lower quadrant, correlate for appendectomy. Bladder: Unremarkable. No mass. Reproductive: Unremarkable as visualized. ABDOMEN and PELVIS: Intraperitoneal space: Mild-moderate free fluid in the pelvis. No free air. Bones/joints: No acute fracture. No dislocation. Soft tissues: Unremarkable. Vasculature: Unremarkable. No abdominal aortic aneurysm. Lymph nodes: Unremarkable. No enlarged lymph nodes. IMPRESSION: 1. Mild-moderate free fluid in the pelvis. 2. Cholecystectomy. 3. Gastric sleeve. 4. Surgical clips in the right lower quadrant, correlate for appendectomy.
[2024-08-24 00:03] VITALS: RESP 16
[2024-08-24 00:52] VITALS: BP 107/72; PULSE 77; TEMP 98
== END 2024-08-24 00:40 | disposition home or self-care (01) ==
LOC: EC 20:19
DX: R55 Syncope and collapse (principal); J45.909 Unspecified asthma, uncomplicated; F17.290 Nicotine dependence, other tobacco product, uncomplicated; Z88.5 Allergy status to narcotic agent; Z91.040 Latex allergy status; Z88.8 Allergy status to other drugs, medicaments and biological substances; W19.XXXA Unspecified fall, initial encounter
CPT/HCPCS: 36415; 93005; 80053; 83735; 84484; 85025; 85610; 85730; 81001; 81025; 71046; 74177; 99284; 96360; Q9967

== ENCOUNTER → 2024-08-23 | Outpatient (CLI) | payer OTHER ==
--- NOTE | 2024-08-23 17:34 | US ---
EXAMINATION TYPE: US abdomen complete DATE OF EXAM: 08/23/2024 COMPARISON: CT CLINICAL INDICATION: Female, 34 years old with history of R10.13 EPIGASTRIC PAIN; ABD pain, GB remove d TECHNIQUE: Grayscale and color Doppler imaging of the abdomen was performed. FINDINGS: EXAM MEASUREMENTS: Liver Length: 16.1 cm. Normal less than 15.5 cm. CBD: 0.5 cm, color Doppler imaging was utilized to isolate the common bile duct for measurement. Spleen: 9.4 cm Right Kidney: 11.0 x 4.5 x 5.4 cm Left Kidney: 11.7 x 5.3 x 6.0 cm LEAD MAN OVER ALL DIES IN PATTERN SHOP NOTES: Pancreas: wnl Liver: wnl, no dilated ducts, masses or cysts. Gallbladder: Surgically absent Evidence for sonographic Tyler's sign: No CBD: wnl Spleen: wnl Right Kidney: No evidence of hydro, mid cortical calcifications as visualized on prior CT, possible 3mm calculi mid pole Left Kidney: wnl, No hydronephrosis, calculi or masses seen Upper IVC: wnl Abd Aorta: wnl IMPRESSION: 1. Nonobstructing renal stone mid right kidney. 2. Mild hepatomegaly [facility], , 08/23/2024 5:31 PM
== END | disposition home or self-care (01) ==
LOC: RADUSWWP 08:09
PROVIDERS: ATTEND Internal Medicine
DX: N20.0 Calculus of kidney (principal); R16.0 Hepatomegaly, not elsewhere classified
CPT/HCPCS: 76700

== ENCOUNTER → 2024-09-05 | Outpatient (CLI) | payer OTHER ==
[2024-09-05 15:10] LABS: HCT 31.5 % (37.2-46.3); HGB 8.8 g/dL (12.0-15.0); MCH 19.8 pg (27.0-32.0); MCHC 27.9 g/dL (32.0-37.0); MCV 70.8 FL (80.0-97.0); NRBC Per 100 WBC 0 X 10*3/uL (0.00-0.01); Platelet Count 283 X 10*3/uL (140-440); RBC 4.45 X 10*6/uL (4.10-5.20); RDW 24.9 % (11.5-14.5)
[2024-09-05 15:11] LABS: Basophils # (A) 0.02 X 10*3/uL (0.00-0.10); Basophils % (A) 0.4 %; Eosinophils # (A) 0.02 X 10*3/uL (0.04-0.35); Eosinophils % (A) 0.4 %; Lymphocytes # (A) 1.23 X 10*3/uL (0.90-5.00); Lymphocytes % (A) 25.6 %; Monocytes # (A) 0.42 X 10*3/uL (0.20-1.00); Monocytes % (A) 8.8 %; Neutrophils % (A) 64.6 %
[2024-09-05 15:26] LABS: % Iron Saturation 2.93 (12.00-45.00); Ferritin 10.1 ng/mL (10.0-291.0)
== END | disposition home or self-care (01) ==
LOC: LABWHC1 10:49
PROVIDERS: ATTEND Internal Medicine
DX: D50.9 Iron deficiency anemia, unspecified (principal)
CPT/HCPCS: 36415; 82728; 83540; 83550; 85025

== ENCOUNTER → 2024-09-12 | Outpatient (CLI) | payer OTHER ==
[2024-09-12 19:57] LABS: Basophils # (A) 0.04 X 10*3/uL (0.00-0.10); Basophils % (A) 0.7 %; Eosinophils # (A) 0.04 X 10*3/uL (0.04-0.35); Eosinophils % (A) 0.7 %; HCT 32.2 % (37.2-46.3); HGB 8.7 g/dL (12.0-15.0); Immature Grans, Automated 0.20 %; Lymphocytes # (A) 1.55 X 10*3/uL (0.90-5.00); Lymphocytes % (A) 28.5 %; MCH 19.4 pg (27.0-32.0); MCHC 27.0 g/dL (32.0-37.0); MCV 71.7 FL (80.0-97.0); Monocytes # (A) 0.36 X 10*3/uL (0.20-1.00); Monocytes % (A) 6.6 %; NRBC Per 100 WBC 0 X 10*3/uL (0.00-0.01); Neutrophils # (A) 3.43 X 10*3/uL (1.80-7.70); Neutrophils % (A) 63.3 %; Platelet Count 301 X 10*3/uL (140-440); RBC 4.49 X 10*6/uL (4.10-5.20); RDW 23.4 % (11.5-14.5); WBC 5.43 X 10*3/uL (4.50-10.00)
[2024-09-12 20:44] LABS: Iron 14.0 UG/DL (50-170); Total Iron Binding Capacity 519.0 UG/DL (228-460)
[2024-09-12 20:57] LABS: Ferritin 4.8 ng/mL (10.0-291.0)
== END | disposition home or self-care (01) ==
LOC: LABWHC1 12:41
PROVIDERS: ATTEND Internal Medicine
DX: R53.82 Chronic fatigue, unspecified (principal)
CPT/HCPCS: 36415; 82728; 83540; 83550; 85025

== ENCOUNTER → 2024-09-30 | Outpatient (CLI) | payer OTHER ==
--- NOTE | 2024-09-30 14:40 | US ---
EXAMINATION TYPE: US extremity nonvasc mass LT DATE OF EXAM: 09/30/2024 COMPARISON: NONE CLINICAL INDICATION: Female, 34 years old with history of R22.32 Nodule L upper arm; Palpable area le ft upper arm x 3 months. TECHNIQUE: Scanned left upper arm at superficial area of concern FINDINGS: Fruit Picker notes: Isoechoic, indistinct area seen in the left upper arm: 0.8 x 0.5 x 0. 3 cm. IMPRESSION: A vague 8 mm ovoid nodule within the subcutaneous adipose at the patient's palpable site. Exact etiol ogy is unclear. Possible small subcutaneous lipoma, focus of fat necrosis, or area of scarring. Recom mend 3 month follow-up ultrasound to reassess. The area can be rescanned sooner if any enlargement is noted. [facility], , 09/30/2024 2:38 PM
--- NOTE | 2024-09-30 14:49 | US ---
EXAMINATION TYPE: US transvaginal DATE OF EXAM: 09/30/2024 COMPARISON: CT 2024 CLINICAL INDICATION: Female, 34 years old with history of R109 ABD PAIN; Pelvic pain left side. . Limited surgical history TECHNIQUE: Transvaginal (TV). Doppler imaging: Not performed. FINDINGS: Date of LMP: 09/24/2024 EXAM MEASUREMENTS: Uterus: 9.5 x 4.8 x 4.6 cm Endometrial Stripe: 0.38 cm Right Ovary: 3.7 x 2.5 x 2.2 cm Left Ovary: 3.4 x 2.2 x 1.8 cm 1. Uterus: Anteverted. The myometrium is heterogeneous. There is a bright signal focus measuring 3 mm at the junctional zone posterior uterine fundus/body. 2. Endometrium: Measures 0.38 cm 3. Right Ovary: Dominant follicle seen, measures up to 1.6 cm. 4. Left Ovary: Appears wnl 5. Bilateral Adnexa: wnl 6. Posterior cul-de-sac: Mild free fluid. IMPRESSION: 1. Heterogeneous myometrium could reflect adenomyosis or diffuse small fibroid change. 2. Thin endometrial stripe at 4 mm. 3. A 1.6 m dominant follicle of the right ovary. [facility], , 09/30/2024 2:46 PM
--- NOTE | 2024-09-30 14:50 | US ---
EXAMINATION TYPE: US st tissue head/neck DATE OF EXAM: 09/30/2024 COMPARISON: NONE CLINICAL INDICATION: Female, 34 years old with history of NECK NODULE R221; Palpable areas seen in th e left neck x a year. TECHNIQUE: Scanned left lateral and posterior left neck/head at areas of concern. FINDINGS: Medical Anthropologist notes: *Hypoechoic area with hyperechoic center seen left lateral neck at lump: 1.3 x 0.8 x 0.2 cm. *Hypoechoic area with hyperechoic center seen posterior left neck/head at hairline at lump: 0.7 x 0.7 x 0.2 cm. IMPRESSION: A couple prominent but nonenlarged lymph nodes at the patient's two palpable sites along the left side of the neck. These appear reactive/post inflammatory. Clinical follow-up can be perform ed. If any enlargement or suspicious clinical features develop, the areas can be rescanned. [facility], , 09/30/2024 2:48 PM
== END | disposition home or self-care (01) ==
LOC: RADUSWWP 13:13
PROVIDERS: ATTEND Internal Medicine
DX: R22.1 Localized swelling, mass and lump, neck (principal); R10.9 Unspecified abdominal pain; R10.30 Lower abdominal pain, unspecified
CPT/HCPCS: 76536; 76830

== ENCOUNTER → 2024-09-30 | Outpatient (CLI) | payer OTHER | END | disposition home or self-care (01) | LOC: RADUSWWP 13:12 | PROVIDERS: ATTEND Internal Medicine | DX: Z53.9 Procedure and treatment not carried out, unspecified reason (principal) ==